=== PATIENT | female | born 1950 | race Caucasian/White ===

== ENCOUNTER 2016-10-23 19:54 | Emergency (ER) | payer MEDICARE, OTHER ==
[~2016-10-23] VITALS: Ht 157.5 cm; Wt 55.3 kg
[~2016-10-23 19:54] MED LIST: LEVE250T2 PO; LEVE500T20 PO; LEVO50TA PO; LEVO88TA5 PO; PANT40VI IV
[2016-10-23] MEDS ORDERED: IV SET PRIMARY 1 EA INFUS.SET MC ONE (19:59)
[2016-10-23] MEDS ORDERED: IV NS 0.9% 1,000 ML ONE (19:59)
[2016-10-23] MEDS ORDERED: IV NS 0.9% 1,000 ML BAG IV ONE (20:00)
--- NOTE | 2016-10-23 20:00 | NUR ---
to bed 6 a 59 yo female bibra with c/o fever at home. Patient is lethargic, nonverbal, does not follow commands. hx of down syndrome, seizure. Upon arrival to er, patient's temp is 100.2f per rectal. sinus rhythm on the monitor. Initiated comfort measures. Initiated cooling measures. Awaiting for er md lawson.
--- NOTE | 2016-10-23 20:06 | NUR ---
Dr Soto at bedside for eval.
--- NOTE | 2016-10-23 20:15 | NUR ---
Started a saline lock on the lacg 18, blood drawn and sent to lab.
[2016-10-23 20:17] LABS: BASOPHILS % (AUTO) 0.4 % (0.0-2.0); EOSINOPHILS % (AUTO) 0.5 % (0.0-6.0); HEMATOCRIT 46 % (33-45); HEMOGLOBIN 15.4 g/dL (11.5-14.8); LYMPHOCYTES # (AUTO) 1.6 /CMM (0.8-4.8); LYMPHOCYTES % (AUTO) 18.5 % (20.0-44.0); MEAN CORPUSCULAR HEMOGLOBIN 33 PG (26.0-33.0); MEAN CORPUSCULAR HGB CONC 34 g/dl (31.0-36.0); MEAN CORPUSCULAR VOLUME 97 fL (82-100); MONOCYTES # (AUTO) 0.4 /CMM (0.1-1.30); MONOCYTES % (AUTO) 5.2 % (2.0-12.0); NEUTROPHILS # (AUTO) 6.5 /CMM (1.8-8.9); NEUTROPHILS % (AUTO) 75.4 % (43.0-81.0); PLATELET COUNT (AUTO) 205 /CMM (150-450); RDW COEFFICIENT OF VARIATION 12.9 (11.5-15.0); RED BLOOD CELL COUNT(AUTO) 4.72 MIL/uL (4.0-5.2); WHITE BLOOD COUNT (AUTO) 8.5 K/uL (4.3-11.0)
--- NOTE | 2016-10-23 20:17 | NUR ---
performed straight catheter aseptically, drained about 100cc orange clear urine. sample collected and sent to lab.
--- NOTE | 2016-10-23 20:19 | NUR ---
nut grader at bedside.
[2016-10-23 20:25] LABS: APPEARANCE,URINE Clear (CLEAR); BILIRUBIN,URINE Negative (NEGATIVE); BLOOD, URINE Negative Ery/uL (NEGATIVE); COLOR,URINE Yellow (YELLOW); KETONES,URINE Negative (NEGATIVE); LEUKOCYTE ESTERASE ,URINE Negative (NEGATIVE); NITRITE, URINE Negative (NEGATIVE); PROTEIN,URINE Negative (NEGATIVE); UGLUCOSE Negative (NEGATIVE); UROBILINOGEN,URINE 0.2 EU/dL (0.2)
[2016-10-23 20:27] LABS: CALCIUM, SERUM 8.2 mg/dL (8.5-10.1); CARBON DIOXIDE 28 mmol/L (21-32); CHLORIDE 105 mmol/L (98-107); GFR 55 mL/min (>60); GLUCOSE 124 mg/dL (74-106); POTASSIUM 4.1 mmol/L (3.5-5.1); SODIUM SERUM 140 mmol/L (136-145); UREA NITROGEN, BLOOD 26 mg/dL (7-18)
[2016-10-23 20:31] LABS: INR 0.99 (0.87-1.13); PROTHROMBIN TIME 10.3 SECS (9.5-12.7)
[2016-10-23 20:33] LABS: ALANINE AMINOTRANSFERASE 13 U/L (12-78); ALBUMIN 2.8 g/dL (3.4-5.0); ALKALINE PHOSPHATASE 100 U/L (46-116); ASPARTATE AMINOTRANSFERASE 15 U/L (15-37); BILIRUBIN,DIRECT 0.1 mg/dL (0.0-0.2); BILIRUBIN,TOTAL 0.3 mg/dL (0.2-1.0); TOTAL PROTEIN, SERUM 6.8 g/dL (6.4-8.2)
[2016-10-23 20:35] LABS: TROPONIN I < 0.017 ng/mL (0.00-0.056)
--- NOTE | 2016-10-23 20:36 | NUR ---
sister of patient at bedside with Dr Soto.
[2016-10-23 20:53] LABS: LACTIC ACID 1.6 mmol/L (0.4-2.0)
--- NOTE | 2016-10-23 21:32 | NUR ---
IV removed. Catheter intact and site benign. Pressure and 4x4 applied to site. No bleeding noted. Patient discharged to home in stable condition. Written and verbal after care instructions given to sister and caregiver and both verbalized understanding of instruction. Patient wheeled to private car. No further complaints.
[2016-10-23 21:33] VITALS: BP 112/64
== END 2016-10-23 21:34 | disposition home or self-care (01) ==
LOC: ER 19:55
DX: R50.9 Fever, unspecified (principal); E03.9 Hypothyroidism, unspecified; I10 Essential (primary) hypertension; Q90.9 Down syndrome, unspecified
CPT/HCPCS: 36415; 71010-TC; 80048-TC; 80076-TC; 81000-TC; 83605-TC; 84484-TC; 85025-TC; 85730-TC; 87040-TC; 87086-TC; A4606; J7030; Z7610

== ENCOUNTER 2017-03-12 17:16 | Emergency (ER) | payer MEDICARE, OTHER ==
[~2017-03-12] VITALS: Ht 152.4 cm; Wt 54.4 kg
--- NOTE | 2017-03-12 17:28 | NUR ---
COUGH/CONGESTION x 3-4 DAYS
--- NOTE | 2017-03-12 18:16 | NUR ---
CERTIFIED NOVELL ENGINEER AT BEDSIDE
[2017-03-12 19:17] VITALS: BP 145/83
== END 2017-03-12 19:17 | disposition home or self-care (01) ==
LOC: ER 17:18
DX: J06.9 Acute upper respiratory infection, unspecified (principal); Q90.9 Down syndrome, unspecified; I10 Essential (primary) hypertension; E03.9 Hypothyroidism, unspecified
CPT/HCPCS: 71010; 99283; A4606; Z7610

== ENCOUNTER 2018-04-29 13:51 | Inpatient (IN) | payer OTHER, MEDICARE ==
[~2018-04-29] VITALS: Ht 152.4 cm; Wt 52.6 kg
--- NOTE | 2018-04-29 14:08 | NUR ---
ASSUME PT CARE. BIB CAREGIVER FOR COUGH AND CONGESTION X 2 WEEKS NOW. LAST NIGHT AT 0100 PT DEVELOPED A FEVER. GOWNED AND PLACED ON MONITOR. AFEBRILE POURED PIPE MAKER. AWAITING MD MAIN.
--- NOTE | 2018-04-29 14:10 | NUR ---
DR GARCIA AT BEDSIDE FOR EVAL.
--- NOTE | 2018-04-29 14:30 | NUR ---
RADIOLOGY AT BEDSIDE FOR CHEST XRAY.
[2018-04-29 14:31] LABS: BASOPHILS # (AUTO) 0.1 /CMM (0.0-0.2); BASOPHILS % (AUTO) 0.3 % (0.0-2.0); EOSINOPHILS % (AUTO) 0.4 % (0.0-6.0); HEMATOCRIT 46 % (33-45); LYMPHOCYTES # (AUTO) 1.4 /CMM (0.8-4.8); LYMPHOCYTES % (AUTO) 5.9 % (20.0-44.0); MEAN CORPUSCULAR HGB CONC 32 g/dl (31.0-36.0); MEAN CORPUSCULAR VOLUME 99 fL (82-100); MONOCYTES # (AUTO) 1.7 /CMM (0.1-1.30); MONOCYTES % (AUTO) 7.2 % (2.0-12.0); NEUTROPHILS # (AUTO) 19.8 /CMM (1.8-8.9); NEUTROPHILS % (AUTO) 86.2 % (43.0-81.0); PLATELET COUNT (AUTO) 289 /CMM (150-450); RED BLOOD CELL COUNT(AUTO) 4.71 MIL/uL (4.0-5.2)
[2018-04-29 14:42] LABS: CALCIUM, SERUM 8.7 mg/dL (8.5-10.1); CARBON DIOXIDE 32 mmol/L (21-32); CHLORIDE 104 mmol/L (98-107); CREATININE 0.9 mg/dL (0.6-1.3); GLUCOSE 141 mg/dL (74-106); POTASSIUM 4.6 mmol/L (3.5-5.1); SODIUM SERUM 141 mmol/L (136-145); UREA NITROGEN, BLOOD 12 mg/dL (7-18)
[2018-04-29 14:55] LABS: ALANINE AMINOTRANSFERASE 15 U/L (12-78); ALBUMIN 1.8 g/dL (3.4-5.0); ALKALINE PHOSPHATASE 106 U/L (46-116); ASPARTATE AMINOTRANSFERASE 29 U/L (15-37); B-TYPE NATRIURETIC PEPTIDE 389 PG/ML (0-125); BILIRUBIN,DIRECT 0.1 mg/dL (0.0-0.2); BILIRUBIN,TOTAL 0.5 mg/dL (0.2-1.0); TOTAL PROTEIN, SERUM 7.3 g/dL (6.4-8.2)
[2018-04-29] MEDS ORDERED: CEFTRIAXONE 1 G in IV D5W 50 ML IV ONE (15:30)
[2018-04-29] MEDS ORDERED: IV NS 0.9% 1,000 ML BAG IV ONE (15:30)
[2018-04-29] MEDS ORDERED: ALBUTEROL FS 2.5 MG/0.5 ML VIAL.NEB NEB ONE (15:30)
[2018-04-29] MEDS ORDERED: AZITHROMYCIN 500 MG in IV D5W 250 ML IV ONE (15:30)
[2018-04-29] MEDS ORDERED: CEFTRIAXONE 1GM BAG (ER ONLY) 50 ML IV ONE (15:39)
--- NOTE | 2018-04-29 15:40 | NUR ---
CALLED NURSE SUP FOR TELE BED
[2018-04-29] MEDS ORDERED: ALBUTEROL FS 2.5 MG/0.5 ML VIAL.NEB ONE (15:54)
--- NOTE | 2018-04-29 15:54 | NUR ---
RT AT BEDSIDE FOR BREATHING TREATMENT.
[2018-04-29] MEDS ORDERED: ACETAMINOPHEN 325 MG TABLET PO PRN (16:00)
[2018-04-29] MEDS ORDERED: Z GUARD REMEDY 2 OZ OINT TP PRN (16:00)
[2018-04-29] MEDS ORDERED: GUAIFENESIN 300 MG/15 ML UDC PO PRN (16:00)
[2018-04-29] MEDS ORDERED: MAGNESIUM HYDROXIDE 30 ML UDC PO PRN (16:00)
[2018-04-29] MEDS ORDERED: MAG HYDROX/AL HYDROX/SIMETH 30 ML UDC PO PRN (16:00)
[2018-04-29] MEDS ORDERED: ONDANSETRON HCL/PF 4 MG/2 ML VIAL IVP PRN (16:00)
[2018-04-29] MEDS ORDERED: HYDROCODONE/APAP 5/325MG 1 EACH TABLET PO PRN (16:00)
[2018-04-29] MEDS ORDERED: ZOLPIDEM TARTRATE 5 MG TABLET PO PRN (16:00)
--- NOTE | 2018-04-29 16:52 | NUR ---
REPORT TO GHAZAL GARCIA. PT AWAITING TRANSFER TO FLOOR.
--- NOTE | 2018-04-29 17:20 | NUR ---
MS RN NOTES RECEIVED PATIENT FROM ER, CAME IN STABLE CONDITION. PATIENT IS CONGESTED UPON AUSCULTATION, VITAL SIGNS ARE STABLE, ARMHOLE BASTER HAND PRESENT AT BEDSIDE, IV LINE IS INTACT AND PATENT. ADMISSION PICTURES WERE TAKEN AND PUT IN CHART. BED SIDE RAILS ARE UP X2. BED IS LOCKED AND LOWERED, WILL CONTINUE TO MONITOR PATIENT.
[2018-04-29] MEDS: ENOXAPARIN SODIUM 40 MG/0.4 ML DISP.SYRIN SQ SCH (18:28)
[2018-04-29] MEDS: LEVETIRACETAM (250 MG) 250 MG TABLET PO SCH (18:38)
--- NOTE | 2018-04-29 19:15 | NUR ---
DIESEL ENGINEER OPENING NOTES RECEIVED PATIENT AWAKE ALERT AND ORIENTED X1, NON VERBAL NOTED PATIENT WITH MOANS AND GRUNTS ONLY. ON 2 L VIA NC RESPIRATIONS EVEN AND UNLABORED WITH EQUAL RISE AND FALL OF CHEST, NOTED COUGH IS PRESENT, PATIENT REMAINS AFEBRILE AT THIS TIME, ON STOCK CLERK [address] AT THIS TIME, IV SITE TO RIGHT HAND #20 G INTACT AND PATENT, NO REDNESS, NO INFILTRATION PRESENT, ORIENTED PATIENT AND CAREGIVER TO STAFF AND CALL LIGHT, SAFETY PRECAUTIONS IN PLACE, ALL NEEDS ATTENDED AT THIS TIME WILL CONTINUE TO MONITOR.
--- NOTE | 2018-04-29 19:29 | NUR ---
MS RN CLOSING NOTES PATIENT IS IN STABLE CONDITION. IN NO APPARENT DISTRESS. BEDSIDE RAILS ARE UPX2. BED IS LOCKED AND LOWERED. CALL LIGHT IS WITHIN REACH. IV LINE IS INTACT AND PATENT. ALL NEEDS WERE MET. WILL ENDORSE CARE TO SERVICE CAR OPERATOR NURSE FOR GENEVIEVE.
[2018-04-29 20:00] VITALS: BP_SYST 130; BP_SYST 136; BP_DIAS 112; BP_DIAS 53
[2018-04-29] MEDS: IV D5/ 0.9% NACL 1,000 ML IV PRN (20:26)
[2018-04-29] MEDS: IPRATROPIUM NEB FS 0.5 MG/2.5 ML AMPUL.NEB NEB PRN (20:43)
[2018-04-29] MEDS: ALBUTEROL FS 2.5 MG/0.5 ML VIAL.NEB NEB PRN (20:43)
--- NOTE | 2018-04-29 20:43 | NUR ---
PLANNING AND ANALYSIS MANAGER NOTES NOTED PATIENT WITH COUGH AND CONGESTION RT CALLED FOR PRN BREATHING TREATMENT NOTE SPO2 91% ON 2 L VIA NC PER RT INCREASE TO 3L AT THIS TIME. WILL CONTINUE TO MONITOR FOR EFFECTIVENESS. NO RESPIRATORY DISTRESS PRESENT. RESPIRATIONS EVEN AND UNLABORED
--- NOTE | 2018-04-29 21:30 | NUR ---
SENIOR SITE MANAGER NOTES NOTED BREATHING TREATMENT EFFECTIVE, NOTED LESS COUGHING AND CONGESTION AND INCREASE IN SPO2 TO 94%. PATIENT REMAINS COMFORTABLE AT THIS TIME RESPIRATIONS EVEN AND UNLABORED.
[2018-04-30] VITALS: BP 108/61
[2018-04-30 04:00] VITALS: BP 103/45
[2018-04-30 06:45] LABS: BASOPHILS % (AUTO) 0.2 % (0.0-2.0); EOSINOPHILS % (AUTO) 0.3 % (0.0-6.0); HEMATOCRIT 38 % (33-45); HEMOGLOBIN 12.5 g/dL (11.5-14.8); LYMPHOCYTES # (AUTO) 2.3 /CMM (0.8-4.8); LYMPHOCYTES % (AUTO) 11.2 % (20.0-44.0); MEAN CORPUSCULAR HGB CONC 33 g/dl (31.0-36.0); MEAN CORPUSCULAR VOLUME 98 fL (82-100); MONOCYTES # (AUTO) 1.8 /CMM (0.1-1.30); MONOCYTES % (AUTO) 8.6 % (2.0-12.0); NEUTROPHILS # (AUTO) 16.4 /CMM (1.8-8.9); NEUTROPHILS % (AUTO) 79.7 % (43.0-81.0); PLATELET COUNT (AUTO) 270 /CMM (150-450); RED BLOOD CELL COUNT(AUTO) 3.88 MIL/uL (4.0-5.2); WHITE BLOOD COUNT (AUTO) 20.5 K/uL (4.3-11.0)
--- NOTE | 2018-04-30 06:50 | NUR ---
CORN HUSKER MACHINE OPERATOR CLOSING NOTES PATIENT SLEEPING BUT EASILY AROUSABEL AND ORIENTED X1, NON VERBAL NOTED PATIENT WITH MOANS AND GRUNTS ONLY. ON 2 L VIA NC RESPIRATIONS EVEN AND UNLABORED WITH EQUAL RISE AND FALL OF CHEST, NOTED COUGH IS PRESENT, NON PRODUCTIVE AT THIS TIME SPO2 96% 2-3L PATIENT REMAINS AFEBRILE AT THIS TIME, ON COMMISSIONS SPECIALIST [address] AT THIS TIME, IV SITE TO RIGHT HAND #20 G INTACT AND PATENT, NO REDNESS, NO INFILTRATION PRESENT,IVF RUNNING ORDERED. CALL LIGHT KEPT WITHIN REACH, SAFETY PRECAUTIONS IN PLACE, ALL NEEDS ATTENDED AT THIS TIME WILL CONTINUE TO MONITOR AND ENDORSE TO NEXT SHIFT..
[2018-04-30 07:04] LABS: CALCIUM, SERUM 7.6 mg/dL (8.5-10.1); CREATININE 0.8 mg/dL (0.6-1.3); MAGNESIUM 1.7 mg/dL (1.8-2.4); PHOSPHORUS 3.2 mg/dL (2.5-4.9); POTASSIUM 3.6 mmol/L (3.5-5.1)
[2018-04-30 07:11] LABS: THYROID STIMULATING HORMONE 2.823 uIU/mL (0.358-3.74)
[2018-04-30] MEDS: LEVOTHYROXINE SODIUM 88 MCG TABLET PO SCH (07:30)
[2018-04-30] MEDS: PANTOPRAZOLE 40 MG TABLET.DR PO SCH (07:30)
[2018-04-30] MEDS: IV D5/ 0.9% NACL 1,000 ML IV PRN ×2 (07:31→21:14)
--- NOTE | 2018-04-30 07:39 | NUR ---
MS RN OPENING NOTES RECEIVED PT FROM NIGHTSHIFT RN STABLE CONDITION. PT IS A/O X1 [id number]. NO SOB OR ACUTE SIGNS OF DISTRESS NOTED. BREATHING IS EVEN AND UNLABORED. PT ON 3 L VIA NC AND SATING WELL. IV NOTED TO BE PATENT AND INTACT. NO REDNESS OR SIGNS OF INFILTRATION NOTED. PT TOLERATING NS INFUSION WELL AND ORDERED RATE. BED IN LOW LOCKED POSITION, SIDE RAILS UP X3, CALL LIGHT WITHIN REACH, BED ALARM ON, PT'S [id number] AT BEDSIDE. WILL CONTINUE TO MONITOR
[2018-04-30] MEDS: IPRATROPIUM NEB FS 0.5 MG/2.5 ML AMPUL.NEB NEB PRN (07:53)
[2018-04-30] MEDS: ALBUTEROL FS 2.5 MG/0.5 ML VIAL.NEB NEB PRN (07:53)
[2018-04-30] MEDS: LEVETIRACETAM (250 MG) 250 MG TABLET PO SCH ×3 (09:00→17:23)
--- NOTE | 2018-04-30 10:31 | NUR ---
MS RN NOTES: DIET ORDER/SPEECH THERAPIST SPEECH THERAPIST IN ROOM WITH PT AND PT'S CAREGIVER FOR EVALUATION. DR. AMOR IN ROOM WELL. PER SPEECH THERAPIST, "PT MAY BE STARTED ON A PUREED DIET". MD IN AGREEMENT. DIET ORDER CHANGED
[2018-04-30] MEDS: Magnesium 1GM/D5W 100ML PREMIX 100 ML IV SCH ×2 (11:07→12:10)
[2018-04-30] MEDS: CEFTRIAXONE 1 G in IV D5W 50 ML IV SCH (15:33)
[2018-04-30 16:00] VITALS: BP 106/70
[2018-04-30] MEDS: AZITHROMYCIN 500 MG in IV D5W 250 ML IV SCH (17:23)
--- NOTE | 2018-04-30 18:58 | NUR ---
MS RN CLOSING NOTES PT REMAINS STABLE. VITALS STABLE THROUGHOUT SHIFT. PT REPOSITIONED AND TURNED PER PROTOCOL. BREATHING REMAINS EVEN AND UNLABORED. SAFETY MEASURES REMAIN IN PLACE. CAREGIVER AT BEDSIDE. WILL ENDORSE TO NIGHTSHIFT RN FOR GENEVIEVE
--- NOTE | 2018-04-30 19:56 | NUR ---
RN MS OPENING NOTES. RECEIVED PT IN BED, SLEEPING EASILY AROUSED TO TOUCH [place] NAME CALL, MANAGER RENTAL AT BED SIDE. BREATHING EVEN AND UNLABORED ON RA. IV ACCESS ON THE R HAND 20G WITH D5 1/2 @100ML. IN NO APPARENT DISTRESS. BED IN LOWEST LOCKED POSITION, CALL LIGHT WITHIN REACH AT ALL TIMES. WILL CONTINUE TO MONITOR
[2018-04-30 20:00] VITALS: BP 91/51
[2018-04-30] MEDS: ENOXAPARIN SODIUM 40 MG/0.4 ML DISP.SYRIN SQ SCH (20:17)
--- NOTE | 2018-05-01 06:14 | NUR ---
RN MS CLOSING NOTES PT REMAINS IN BED, SLEEPING, EASILY AROUSED TO TOUCH. BREATHING EVEN AND UNLABORED ON O2 3L VIA NC WITH COUGHING INTERMITTENTLY DURING NIGHT, RECEIVED ROBITUSSIN AT 2122. IV ACCESS ON THE R HAND 20G WITH D5 NS@100ML/HR. KEPT PT CLEAN AND DRY DURING SHIFT, BED IN LOWEST LOCKED POSITION, CALL LIGHT WITHIN REACH AT ALL TIMES, WILL ENDORSE TO DAY NURSE FOR GENEVIEVE
--- NOTE | 2018-05-01 06:59 | NUR ---
REDNESS FROM GROIN SPREADING TO THE ABDOMEN AND CHEST, DOCUMENTED AND PICTURES ON FILE.
[2018-05-01] MEDS: LEVOTHYROXINE SODIUM 88 MCG TABLET PO SCH (07:30)
[2018-05-01] MEDS: PANTOPRAZOLE 40 MG TABLET.DR PO SCH (07:30)
--- NOTE | 2018-05-01 07:30 | NUR ---
MS RN RECEIVED ON BED, AWAKE,ALERT,ORIENTED X1, NOT IN ANY FORM OF DISTRESS, FRESH FOOD MANAGER AT BEDSIDE,WILL MONITOR PATIENT.
[2018-05-01] MEDS: IV D5/ 0.9% NACL 1,000 ML IV PRN (07:33)
[2018-05-01 08:00] VITALS: BP 111/54
--- NOTE | 2018-05-01 08:00 | NUR ---
MS GARCIA BREAKFAST SERVED,DUE MEDS GIVEN,TOLERATED WELL.
[2018-05-01 08:46] LABS: BASOPHILS # (AUTO) 0.1 /CMM (0.0-0.2); BASOPHILS % (AUTO) 0.4 % (0.0-2.0); EOSINOPHILS % (AUTO) 1.1 % (0.0-6.0); HEMATOCRIT 38 % (33-45); HEMOGLOBIN 12.4 g/dL (11.5-14.8); LYMPHOCYTES # (AUTO) 1.9 /CMM (0.8-4.8); LYMPHOCYTES % (AUTO) 13.1 % (20.0-44.0); MEAN CORPUSCULAR HGB CONC 33 g/dl (31.0-36.0); MEAN CORPUSCULAR VOLUME 99 fL (82-100); MONOCYTES # (AUTO) 1.4 /CMM (0.1-1.30); MONOCYTES % (AUTO) 9.4 % (2.0-12.0); NEUTROPHILS # (AUTO) 11.2 /CMM (1.8-8.9); PLATELET COUNT (AUTO) 267 /CMM (150-450); RED BLOOD CELL COUNT(AUTO) 3.88 MIL/uL (4.0-5.2); WHITE BLOOD COUNT (AUTO) 14.8 K/uL (4.3-11.0)
[2018-05-01 09:08] LABS: CALCIUM, SERUM 7.9 mg/dL (8.5-10.1); CREATININE 0.8 mg/dL (0.6-1.3); MAGNESIUM 1.9 mg/dL (1.8-2.4); PHOSPHORUS 2.8 mg/dL (2.5-4.9); POTASSIUM 3.4 mmol/L (3.5-5.1)
[2018-05-01] MEDS: LEVETIRACETAM (250 MG) 250 MG TABLET PO SCH ×2 (10:56→17:31)
--- NOTE | 2018-05-01 11:00 | NUR ---
MS GARCIA WAS SEEN BY DR. MT Nelson/ ORDERS MADE AND CARRIED OUT.
[2018-05-01] MEDS ORDERED: POTASSIUM CHLORIDE 20 MEQ TAB.PRT.SR PO ONE (12:30)
--- NOTE | 2018-05-01 14:00 | NUR ---
MS RN INSERTED A NEW IV SITE AT LEFT WRIST G24, GOOD VENOUS OUTPUT.
[2018-05-01 16:00] VITALS: BP 95/48
[2018-05-01] MEDS: CEFTRIAXONE 1 G in IV D5W 50 ML IV SCH (17:31)
[2018-05-01] MEDS: LACTOBACILLUS RHAMNOSUS GG 1 EACH CAP.SPRINK PO SCH (17:33)
[2018-05-01] MEDS: AZITHROMYCIN 500 MG in IV D5W 250 ML IV SCH (17:34)
--- NOTE | 2018-05-01 18:09 | NUR ---
MS RN ON BED,NO DISTRESS NOTED,ALL NEEDS ATTENDED.
--- NOTE | 2018-05-01 19:19 | NUR ---
MS RN NOTE: RECEIVED PT ON BED ALERT AND AWAKE. CAREGIVER AT BEDSIDE. NO ACUTE DISTRESS NOTED. NO COMPLAINTS OF PAIN OR DISCOMFORT AT THIS TIME. NO SOB NOTED. IV ON LEFT HAND #24 INTACT AND PATENT, FLUSHING WELL. KEPT CLEAN, DRY AND COMFORTABLE. SAFETY AND FALL PRECAUTIONS OBSERVED AND MAINTAINED. WILL CONTINUE TO MONITOR PT.
[2018-05-01 20:00] VITALS: BP 91/49
[2018-05-01] MEDS: ENOXAPARIN SODIUM 40 MG/0.4 ML DISP.SYRIN SQ SCH (20:54)
[2018-05-02 00:33] VITALS: BP 95/48
[2018-05-02] MEDS: IV D5/ 0.9% NACL 1,000 ML IV PRN (02:58)
--- NOTE | 2018-05-02 06:50 | NUR ---
MS RN NOTE: NO CHANGES NOTED THROUGHOUT THE SHIFT. NO APPARENT DISTRESS NOTED. ON 3LPM NASAL CANNULA, SATURATING WELL. HEAD OF BED ELEVATED. KEPT CLEAN, DRY AND COMFORTABLE. SAFETY AND FALL PRECAUTIONS OBSERVED AND MAINTAINED. WILL ENDORSE TO DAY SHIFT RN FOR CONTINUITY OF CARE.
--- NOTE | 2018-05-02 07:35 | NUR ---
MS RN RECEIVED ON BED,SLEEPING,NOT IN ANY FORM OF DISTRESS, RESPIRATIONS EVEN AND UNLABORED,NO SOB NOTED, ALL NEEDS ATTENDED, WILL MONITOR PATIENT.
[2018-05-02 07:49] LABS: BASOPHILS % (AUTO) 0.1 % (0.0-2.0); EOSINOPHILS % (AUTO) 1.1 % (0.0-6.0); HEMATOCRIT 39 % (33-45); HEMOGLOBIN 12.7 g/dL (11.5-14.8); LYMPHOCYTES # (AUTO) 1.5 /CMM (0.8-4.8); LYMPHOCYTES % (AUTO) 11.7 % (20.0-44.0); MEAN CORPUSCULAR HGB CONC 33 g/dl (31.0-36.0); MEAN CORPUSCULAR VOLUME 99 fL (82-100); MONOCYTES # (AUTO) 1.1 /CMM (0.1-1.30); MONOCYTES % (AUTO) 8.5 % (2.0-12.0); NEUTROPHILS # (AUTO) 10.4 /CMM (1.8-8.9); NEUTROPHILS % (AUTO) 78.6 % (43.0-81.0); PLATELET COUNT (AUTO) 264 /CMM (150-450); RED BLOOD CELL COUNT(AUTO) 3.89 MIL/uL (4.0-5.2); WHITE BLOOD COUNT (AUTO) 13.2 K/uL (4.3-11.0)
[2018-05-02 07:51] LABS: CALCIUM, SERUM 7.8 mg/dL (8.5-10.1); CREATININE 0.7 mg/dL (0.6-1.3); MAGNESIUM 1.6 mg/dL (1.8-2.4); POTASSIUM 3.8 mmol/L (3.5-5.1)
[2018-05-02 08:00] VITALS: BP 130/89
--- NOTE | 2018-05-02 09:20 | NUR ---
MS GARCIA WAS SEEN BY DR. MT Nelson/ ORDERS MADE AND CARRIED OUT.
[2018-05-02] MEDS: PANTOPRAZOLE 40 MG TABLET.DR PO SCH (09:43)
[2018-05-02] MEDS: LEVOTHYROXINE SODIUM 88 MCG TABLET PO SCH (09:43)
[2018-05-02] MEDS: LACTOBACILLUS RHAMNOSUS GG 1 EACH CAP.SPRINK PO SCH ×2 (09:44→17:33)
[2018-05-02] MEDS: LEVETIRACETAM (250 MG) 250 MG TABLET PO SCH ×2 (09:44→17:33)
[2018-05-02] MEDS: Magnesium 1GM/D5W 100ML PREMIX 100 ML IV SCH ×2 (14:52→16:15)
[2018-05-02 16:00] VITALS: BP 102/84
[2018-05-02] MEDS: CEFTRIAXONE 1 G in IV D5W 50 ML IV SCH (16:16)
[2018-05-02] MEDS: AZITHROMYCIN 500 MG in IV D5W 250 ML IV SCH (17:33)
--- NOTE | 2018-05-02 18:56 | NUR ---
MS RN ON BED, NO DISTRESS NOTED,ALL NEEDS ATTENDED.
--- NOTE | 2018-05-02 19:10 | NUR ---
RN NOTES RECEIVED PATIENT ON BED ALERT AND AWAKE. NO ACUTE DISTRESS NOTED. NO SIGNS OF PAIN OR DISCOMFORT AT THIS TIME. NO SOB NOTED, ON 02 INHALATION AT 3LPM VIA NC. IV ON LEFT HAND #24 INTACT AND PATENT, FLUSHING WELL. KEPT CLEAN, DRY AND COMFORTABLE. SAFETY AND FALL PRECAUTIONS OBSERVED.CAREGIVER AT BEDSIDE. WILL CONTINUE TO MONITOR PT.
[2018-05-02 20:00] VITALS: BP 138/72
[2018-05-02] MEDS: ENOXAPARIN SODIUM 40 MG/0.4 ML DISP.SYRIN SQ SCH (21:07)
--- NOTE | 2018-05-03 07:35 | NUR ---
RN NOTES PATIENT SLEPT WELL OVERNIGHT, VITAL SIGNS STABLE, AFEBRILE. NO SIGNS OF DISTRESS AND DISCOMFORT NOTED. KEPT PT CLEAN AND DRY. TURNED AND REPOSITIONED PER PROTOCOL. SPOKE TO SISTER GUDELIA LAST NIGHT UPDATED ON THE PT CONDITION. SISTER GOT UPSET WHY PT HAS REDNESS ON THE GROIN SACRUM AND BREASTFOLD BECAUSE FAR KNOWS PT HAS NO REDNESS. SISTER INFORMED THAT WHEN PT CAME PICTURE WAS TAKEN AND REDNESS WAS NOTED SINCE ADMISSION. ALL NEEDS ATTENDED. ENDORSED TO MORNING RN FOR CONTINUITY OF CARE.
[2018-05-03 08:00] VITALS: BP_SYST 124; BP_SYST 140; BP_DIAS 74; BP_DIAS 79
[2018-05-03] MEDS: LEVOTHYROXINE SODIUM 88 MCG TABLET PO SCH (09:08)
[2018-05-03] MEDS: LACTOBACILLUS RHAMNOSUS GG 1 EACH CAP.SPRINK PO SCH (09:08)
[2018-05-03] MEDS: LEVETIRACETAM (250 MG) 250 MG TABLET PO SCH (09:08)
[2018-05-03] MEDS: PANTOPRAZOLE 40 MG TABLET.DR PO SCH (09:09)
--- NOTE | 2018-05-03 12:00 | NUR ---
MS RN NOTES FOR DISCHARGE TODAY ORDERED. NOTED AND CARRIED OUT.
[2018-05-03] MEDS ORDERED: LEVO750T21 PO (13:16)
--- NOTE | 2018-05-03 16:30 | NUR ---
MS RN NOTES PATIENT DISCHARGE NOTED AND CARRIED OUT ALL NEEDS ATTENDED, DISCHARGE PAPERWORK GIVEN AND DISCUSSED TO CAREGIVER.
--- NOTE | 2018-05-03 17:00 | NUR ---
MS RN NOTES DISCHARGED PATIENT TO HOME ACCOMPANIED BY CAREGIVER. DISCHARGE SUMMARY GIVEN AND SIGNED BY CAREGIVER.
== END 2018-05-03 18:00 | disposition home health service (06) | DRG 139 ==
LOC: ER 13:53 → TELE 17:15 → MED 04-30 10:32
DX: J15.9 Unspecified bacterial pneumonia (principal); E43 Unspecified severe protein-calorie malnutrition; R53.2 Functional quadriplegia; L89.623 Pressure ulcer of left heel, stage 3; E88.09 Other disorders of plasma-protein metabolism, not elsewhere classified; E83.42 Hypomagnesemia; E86.0 Dehydration; Q90.9 Down syndrome, unspecified; G40.909 Epilepsy, unspecified, not intractable, without status epilepticus; E87.6 Hypokalemia; E03.9 Hypothyroidism, unspecified; H54.7 Unspecified visual loss; D72.829 Elevated white blood cell count, unspecified
CPT/HCPCS: 36415; 71045-TC; 80048-TC; 80061-TC; 80076-TC; 83605-TC; 83735-TC; 83880; 84100-TC; 84443-TC; 84484-TC; 85025-TC; 85730-TC; 87040-TC; 87081-TC; 92521; 92526; A4606; A6402; G0378; J0456; J0696; J1650; J3475; J3490; J7030; J7040; J7042; J7050; J7060; Z7610

== ENCOUNTER 2018-11-29 14:45 | Outpatient (CLI) | payer MEDICARE, OTHER ==
[~2018-11-29 14:45] MED LIST changes: -LEVE250T2 PO; -LEVO50TA PO; +LEVO750T21 PO; -PANT40VI IV
== END 2018-11-29 23:59 | disposition home health service (06) ==
LOC: WOU 14:45
PROVIDERS: ATTEND Podiatrist Foot & Ankle Surgery
DX: L89.620 Pressure ulcer of left heel, unstageable (principal); Z74.09 Other reduced mobility; Q90.9 Down syndrome, unspecified
CPT/HCPCS: A6402; G0463

== ENCOUNTER 2018-12-24 13:00 | Outpatient (CLI) | payer MEDICARE, OTHER | END 2018-12-24 23:59 | disposition home health service (06) | LOC: WOU 13:00 | PROVIDERS: ATTEND Podiatrist Foot & Ankle Surgery | DX: L89.620 Pressure ulcer of left heel, unstageable (principal); Z74.09 Other reduced mobility; Q90.9 Down syndrome, unspecified | CPT/HCPCS: G0463 ==

== ENCOUNTER 2019-06-19 17:22 | Inpatient (IN) | payer OTHER, MEDICARE ==
[~2019-06-19] VITALS: Ht 152.4 cm; Wt 53.1 kg
[2019-06-19 17:30] LABS: ABG BASE EXCESS -2.8 mmol/L; ABG OXYGEN SATURATION 87.8 % (92.0-98.5); ABG PCO2 35.6 mmHg (35.0-45.0); ABG PH 7.394 (7.350-7.450); ABG PO2 53.5 mmHg (75.0-100.0); AaDO2 623.9 mmHg; COHb 1.3 % (0.5-1.5); MetHb 0.4 % (0.0-1.5); O2Hb 86.3 % (94.0-97.0); SITE, ABG Right Brachial; VENT MODE, BG CPAP MASK (PARAMEDICS)
[2019-06-19] MEDS ORDERED: VANCOMYCIN 1 GM in IV D5W 250 ML IV ONE (18:00)
[2019-06-19] MEDS ORDERED: MEROPENEM 1,000 MG in IV NS 0.9% 100 ML IV ONE (18:00)
[2019-06-19] MEDS ORDERED: ACETAMINOPHEN 650 MG/SUPP.RECT RC ONE ×2 (18:00→18:03)
[2019-06-19 18:09] LABS: BASOPHILS % (AUTO) 0.3 % (0.0-2.0); EOSINOPHILS % (AUTO) 0.1 % (0.0-6.0); HEMATOCRIT 52 % (33-45); LYMPHOCYTES # (AUTO) 1.1 /CMM (0.8-4.8); LYMPHOCYTES % (AUTO) 10.6 % (20.0-44.0); MEAN CORPUSCULAR HGB CONC 33 g/dl (31.0-36.0); MEAN CORPUSCULAR VOLUME 102 fL (82-100); MONOCYTES # (AUTO) 0.2 /CMM (0.1-1.30); MONOCYTES % (AUTO) 2.2 % (2.0-12.0); NEUTROPHILS # (AUTO) 9.2 /CMM (1.8-8.9); NEUTROPHILS % (AUTO) 86.8 % (43.0-81.0); PLATELET COUNT (AUTO) 199 /CMM (150-450); RED BLOOD CELL COUNT(AUTO) 5.04 MIL/uL (4.0-5.2); WHITE BLOOD COUNT (AUTO) 10.5 K/uL (4.3-11.0)
[2019-06-19 18:22] LABS: ABG OXYGEN SATURATION 99.1 % (92.0-98.5); ABG PCO2 39.3 mmHg (35.0-45.0); ABG PH 7.381 (7.350-7.450); ABG PO2 251.3 mmHg (75.0-100.0); AaDO2 422.4 mmHg; COHb 0.8 % (0.5-1.5); MetHb 0.5 % (0.0-1.5); O2Hb 97.8 % (94.0-97.0); SITE, ABG Right Brachial; VENT MODE, BG BIPAP 15/5
[2019-06-19 18:27] LABS: ALANINE AMINOTRANSFERASE 16 U/L (12-78); ALBUMIN 2.8 g/dL (3.4-5.0); ALKALINE PHOSPHATASE 95 U/L (46-116); ASPARTATE AMINOTRANSFERASE 24 U/L (15-37); BILIRUBIN,DIRECT 0.2 mg/dL (0.0-0.2); BILIRUBIN,TOTAL 0.8 mg/dL (0.2-1.0); CALCIUM, SERUM 8.7 mg/dL (8.5-10.1); CARBON DIOXIDE 27 mmol/L (21-32); CHLORIDE 105 mmol/L (98-107); GLUCOSE 153 mg/dL (74-106); POTASSIUM 4.4 mmol/L (3.5-5.1); SODIUM SERUM 142 mmol/L (136-145); TOTAL PROTEIN, SERUM 7.7 g/dL (6.4-8.2); UREA NITROGEN, BLOOD 19 mg/dL (7-18)
[2019-06-19] MEDS ORDERED: methylPREDNISolone SOD SUCC 125 MG/2ML VIAL ONE (18:41)
--- NOTE | 2019-06-19 18:58 | NUR ---
Patient on Bipap tolerated well her child care director @ bedside continue to monitor
[2019-06-19] MEDS ORDERED: IV NS 0.9% 1,000 ML BAG IV ONE (19:00)
[2019-06-19] MEDS ORDERED: LEVETIRACETAM (500MG) 1,000 MG in IV NS 0.9% 100 ML IV SCH (19:30)
--- NOTE | 2019-06-19 19:47 | NUR ---
Transfer care to Jignesh GARCIA
--- NOTE | 2019-06-19 19:56 | NUR ---
REPORT CALLED TO PERSONAL SECRETARYJOSE VILLASEÑOR. WILL TRANSPORT PT VIA ACLS PROTOCOL.
[2019-06-19] MEDS ORDERED: LEVETIRACETAM (500MG) 500 MG/5 ML VIAL IV ONE ×2 (19:59→20:09)
[2019-06-19] MEDS ORDERED: IV NS 0.9% 1,000 ML IV PRN (20:41)
[2019-06-19 20:46] LABS: ABG BASE EXCESS -3.9 mmol/L; ABG OXYGEN SATURATION 96.1 % (92.0-98.5); ABG PCO2 38.4 mmHg (35.0-45.0); ABG PH 7.358 (7.350-7.450); ABG PO2 87.7 mmHg (75.0-100.0); AaDO2 153.3 mmHg; MetHb 0.5 % (0.0-1.5); O2Hb 94.7 % (94.0-97.0); SITE, ABG Left Brachial; VENT MODE, BG Bipap 15/5 40% RR 14
[2019-06-19 21:00] VITALS: BP 93/54
[2019-06-19] MEDS ORDERED: ACETAMINOPHEN 325 MG TABLET PO PRN (21:00)
[2019-06-19] MEDS ORDERED: ONDANSETRON HCL/PF 4 MG/2 ML VIAL IVP PRN (21:00)
[2019-06-19] MEDS ORDERED: Z GUARD REMEDY 2 OZ OINT TP PRN (21:00)
[2019-06-19] MEDS ORDERED: MAG HYDROX/AL HYDROX/SIMETH 30 ML UDC PO PRN (21:00)
[2019-06-19] MEDS ORDERED: MAGNESIUM HYDROXIDE 30 ML UDC PO PRN (21:00)
[2019-06-19] MEDS: ENOXAPARIN SODIUM 40 MG/0.4 ML DISP.SYRIN SQ SCH (21:37)
[2019-06-19 21:58] VITALS: BP 73/46
[2019-06-19 22:00] VITALS: BP 86/64
[2019-06-19 22:06] VITALS: BP 86/64
[2019-06-19 22:28] VITALS: BP 97/35
--- NOTE | 2019-06-19 22:39 | NUR ---
INFORMED OF B/P 86 ORDERS OBTAINED
[2019-06-19 23:00] VITALS: BP 97/35
[2019-06-19] MEDS ORDERED: IV NS 0.9% 500 ML IV ONE (23:00)
[2019-06-20] VITALS (23 sets, daily range): BP systolic 79–141; BP diastolic 41–98
[2019-06-20] MEDS: LORAZEPAM INJ 2 MG/ML VIAL IV PRN ×3 (01:04→17:53)
--- NOTE | 2019-06-20 01:05 | NUR ---
NOTED PT HAVING SZ MEDICATED WITH ATIVAN WITH GOOD RESULTS
[2019-06-20 05:04] LABS: BASOPHILS % (AUTO) 0.1 % (0.0-2.0); HEMATOCRIT 43 % (33-45); LYMPHOCYTES # (AUTO) 0.5 /CMM (0.8-4.8); LYMPHOCYTES % (AUTO) 3.1 % (20.0-44.0); MEAN CORPUSCULAR HGB CONC 33 g/dl (31.0-36.0); MEAN CORPUSCULAR VOLUME 102 fL (82-100); MONOCYTES # (AUTO) 0.3 /CMM (0.1-1.30); MONOCYTES % (AUTO) 1.8 % (2.0-12.0); NEUTROPHILS # (AUTO) 16.4 /CMM (1.8-8.9); PLATELET COUNT (AUTO) 157 /CMM (150-450); RED BLOOD CELL COUNT(AUTO) 4.19 MIL/uL (4.0-5.2); WHITE BLOOD COUNT (AUTO) 17.2 K/uL (4.3-11.0)
[2019-06-20 05:17] LABS: CALCIUM, SERUM 7.8 mg/dL (8.5-10.1); CREATININE 0.9 mg/dL (0.6-1.3); MAGNESIUM 1.7 mg/dL (1.8-2.4); PHOSPHORUS 2.9 mg/dL (2.5-4.9); POTASSIUM 4.5 mmol/L (3.5-5.1)
[2019-06-20 05:58] LABS: THYROID STIMULATING HORMONE 0.245 uIU/mL (0.358-3.74)
[2019-06-20 06:39] LABS: ABG BASE EXCESS -2.5 mmol/L; ABG OXYGEN SATURATION 96.5 % (92.0-98.5); ABG PCO2 48.4 mmHg (35.0-45.0); ABG PH 7.314 (7.350-7.450); ABG PO2 89.6 mmHg (75.0-100.0); AaDO2 212.5 mmHg; COHb 0.8 % (0.5-1.5); MetHb 0.3 % (0.0-1.5); O2Hb 95.4 % (94.0-97.0); SITE, ABG Left Brachial
[2019-06-20] MEDS ORDERED: FEE PK DOSING 1 MIN EA MC ONE (07:28)
[2019-06-20] MEDS: LEVOTHYROXINE SODIUM 88 MCG TABLET PO SCH (07:30)
--- NOTE | 2019-06-20 07:46 | NUR ---
TRADE RECRUITER NOTE PATIENT IN BED ON BIPAP SETTING ORDERED NO SOB NOTED AT THIS TIME NONVERBAL CLOSED BOTH EYES , UNABLE TO RESPONSE TO VERBAL AND TACTILE STIMULI SAT 96% AT THIS TIME, WITH [facility] CATH TO GRAVITY WITH YELLOW TEA COLOR URINE, ON TELE MAGITOT SR HR 54 , BED IN LOWEST AND LOCKED POSITION ON IVF ORDERED RT AT BEDSIDE ,WILL MONITOR
[2019-06-20] MEDS: IPRATROPIUM NEB FS 0.5 MG/2.5 ML AMPUL.NEB NEB SCH ×4 (07:53→19:25)
[2019-06-20] MEDS: ALBUTEROL FS 2.5 MG/0.5 ML VIAL.NEB NEB SCH ×4 (07:53→19:25)
[2019-06-20] MEDS: VANCOMYCIN 0.75 GM in IV D5W 250 ML IV SCH ×2 (07:55→20:45)
[2019-06-20] MEDS: methylPREDNISolone SOD SUCC 40 MG/ML VIAL IV SCH ×3 (08:45→16:17)
[2019-06-20] MEDS ORDERED: LEVETIRACETAM (500MG) 1,000 MG in IV NS 0.9% 100 ML IV SCH (09:00)
[2019-06-20 09:21] LABS: ABG BASE EXCESS -3.2 mmol/L; ABG OXYGEN SATURATION 94.5 % (92.0-98.5); ABG PCO2 44.7 mmHg (35.0-45.0); ABG PH 7.327 (7.350-7.450); ABG PO2 77.8 mmHg (75.0-100.0); AaDO2 228.4 mmHg; COHb 0.3 % (0.5-1.5); MetHb 0.6 % (0.0-1.5); O2Hb 93.6 % (94.0-97.0); SITE, ABG Left Brachial
--- NOTE | 2019-06-20 09:24 | NUR ---
PRIMER EXPEDITOR AND DRIER NOTE DR. LAMAS AWARE OF ABG RESULTS. STATED CONTINUE ON BIPAP SETTING AT THIS TIME. WILL MONITOR.
[2019-06-20] MEDS: MEROPENEM 1 G in IV NS 0.9% 100 ML IV SCH ×2 (09:50→21:40)
--- NOTE | 2019-06-20 10:08 | NUR ---
called for ct head, pt not ready. rt/nurse is going to run by ordering md.
[2019-06-20] MEDS: Magnesium 1GM/D5W 100ML PREMIX 100 ML IV SCH ×2 (10:16→11:44)
[2019-06-20] MEDS ORDERED: DEXTROSE 50%-WATER 50 ML DISP.SYRIN IV PRN (11:00)
[2019-06-20] MEDS ORDERED: INSULIN REGULAR, HUMAN 100 UNIT/ML 3 ML VIAL SQ PRN (11:00)
--- NOTE | 2019-06-20 11:05 | NUR ---
COMMERCIAL LINES MANAGER NOTE DURING EGG NOTED SEIZURE ACTIVITIES OVER 2 MIN ATIVAN 2 MG IVP GIVEN ORDERED ALSO PER DR HARLEY NINO TO PLACE IV HL ON FOOT AND GET MID LINE, ORDER CARRIED OUT
--- NOTE | 2019-06-20 11:10 | NUR ---
FLASH OVEN OPERATOR NOTE BP 79/46 AND 80/42 DR SOUZA NOTIFIED OK TO INCREASE IV FLUIDS TO 100 ML/HOUR WILL FOLLOW UP
[2019-06-20] MEDS: IV NS 0.9% 1,000 ML IV PRN (11:26)
[2019-06-20] MEDS: LEVOFLOXACIN 750 MG /D5W 150ML 150 ML IV SCH (11:48)
--- NOTE | 2019-06-20 11:57 | NUR ---
OR RN NOTE EGG DONE
[2019-06-20] MEDS ORDERED: BLOOD SUGAR DIAGNOSTIC 1 EACH STRIP IN SCH (12:00)
--- NOTE | 2019-06-20 12:00 | NUR ---
MARKETING ADMINISTRATOR NOTE PER RT AND DR SOUZA OK TO HOLD CT HEAD AT THIS TIME ,PATIENT NOT STABLE AND BP 80/45 ,PATIENT ON BIPAP WILL F\U
--- NOTE | 2019-06-20 13:00 | NUR ---
SPOKE TO DR. SOUZA REGARDING NEURO CONSULT-PER ALIZA NUNEZ TO CALL DR. BLACK FOR CONSULT. TAWNYA ZHU AWARE OF CONSULT.
--- NOTE | 2019-06-20 13:07 | NUR ---
SUPERVISOR IN CHARGE NOTE SPECIMEN FOR INFLUENZA ANTIGEN FOR A AND B OBTAINED ORDERED AND SENT TO LABORATORY
--- NOTE | 2019-06-20 14:04 | NUR ---
ROUNDHOUSE WORKER NOTES AUDRA CULLEN NEUROLOGY AT BEDSIDE AWARE THAT PT HAD EARLIER FREQUENT TREMOR ON UPPER AND LOWER EXTREMITIES. ATIVAN GIVEN AT 11AM. WBC 7.2 PT ON IV FLUID ON 100ML LACTIC ACID 2.5 ON KEPPRA AND UNABLE TO DO CT OF HEAD DUE TO PT CONDITION, ORDERED TO GET URINE CULTURE AND SPUTUM CULTURE. RT NOTIFIED
--- NOTE | 2019-06-20 15:07 | NUR ---
PATTERN HANGER NOTE UA COLLECTED ORDERED AND MID LINE ON LT UPPER ARM ORDERED
[2019-06-20 16:40] LABS: APPEARANCE,URINE SL CLOUDY (CLEAR); BILIRUBIN,URINE NEGATIVE (NEGATIVE); BLOOD, URINE MODERATE Ery/uL (NEGATIVE); COLOR,URINE YELLOW (YELLOW); KETONES,URINE TRACE (NEGATIVE); LEUKOCYTE ESTERASE ,URINE NEGATIVE (NEGATIVE); NITRITE, URINE NEGATIVE (NEGATIVE); PH,URINE 5.5 (5.0-8.0); PROTEIN,URINE 30 mg/dl (NEGATIVE); UGLUCOSE NEGATIVE (NEGATIVE); UROBILINOGEN,URINE 0.2 EU/dL (0.2)
--- NOTE | 2019-06-20 16:53 | NUR ---
RT NOTE: PATIENT RECEIVED ON BIPAP WITH UNDER THE NOSE MASK. SETTINGS PER MD ORDERS. PATIENT IS SPUTUM SAMPLE COLLECTED. NURSE NOTIFIED. TOLERATING WELL. ALARMS VERIFIED AND AUDIBLE.
[2019-06-20 17:17] LABS: WBC,URINE 0-2 /HPF (0-3)
[2019-06-20 17:18] LABS: BACTERIA,URINE None seen /HPF (None Seen); SQUAMOUS EPITHELIAL CELL,UR Few /HPF (None Seen)
--- NOTE | 2019-06-20 17:20 | NUR ---
FINANCIAL COMPLIANCE MANAGER NOTE RT AT BEDSIDE SPUTUM CX OBTAINED BY RT
--- NOTE | 2019-06-20 18:02 | NUR ---
ROVING COURT REPORTER NOTE NOTED WITH SEVERE TREMORS LOWER EXTREMITIES BP 161/110,SAT 95% ATIVAN 2 MG IVP GIVEN ORDERED ,WILL MONITOR
--- NOTE | 2019-06-20 18:20 | NUR ---
Patient has hx of down syndrome and epilepsy. She resides locally with her sister and a 24hour caregiver. Patient requires max to total assist with adl's. Available DME: walker, wheelchair and shower chair. Was previously on service with [facility] [phone] . Her pcp is Dr. Jerome Manning. Current dc plan is to return home once discharge. Addendum: 06/20/19 at 1822 by HALINA THIBODEAUX RN Amended: Links added.
--- NOTE | 2019-06-20 18:28 | NUR ---
DIRECTOR OF TRANSPORTATION NOTE PATIENT NOW MORE ALERT ,OPEN HER EYES, CAREGIVER AT BEDSIDE, NOT IN DISTRESS, B P 111/52 SAT 95%, WILL CONT TO MONITOR
--- NOTE | 2019-06-20 20:31 | NUR ---
RT NOTE PT RECEIVED ON BIPAP. NOSE MASK SECURED. AMBU BAG @ BEDSIDE. TX GIVEN, NO ADVERSE REACTIONS NOTED. NO SOB NOTED. WILL CONTINUE TO MONITOR. Addendum: 06/20/19 at 2034 by LORRAINE COLEMAN RT Amended: Links added.
[2019-06-20] MEDS: LEVETIRACETAM (500MG) 1,500 MG in IV NS 0.9% 100 ML IV SCH (21:40)
[2019-06-20] MEDS: ENOXAPARIN SODIUM 40 MG/0.4 ML DISP.SYRIN SQ SCH (21:56)
[2019-06-21] VITALS (38 sets, daily range): BP systolic 78–152; BP diastolic 30–105
[2019-06-21] MEDS: IV NS 0.9% 1,000 ML IV PRN ×3 (01:09→23:36)
[2019-06-21 04:55] LABS: BASOPHILS % (AUTO) 0.1 % (0.0-2.0); HEMATOCRIT 37 % (33-45); HEMOGLOBIN 12.3 g/dL (11.5-14.8); LYMPHOCYTES # (AUTO) 0.6 /CMM (0.8-4.8); LYMPHOCYTES % (AUTO) 3.6 % (20.0-44.0); MEAN CORPUSCULAR HGB CONC 33 g/dl (31.0-36.0); MEAN CORPUSCULAR VOLUME 102 fL (82-100); MONOCYTES # (AUTO) 0.2 /CMM (0.1-1.30); MONOCYTES % (AUTO) 1.2 % (2.0-12.0); NEUTROPHILS # (AUTO) 16.3 /CMM (1.8-8.9); NEUTROPHILS % (AUTO) 95.1 % (43.0-81.0); PLATELET COUNT (AUTO) 157 /CMM (150-450); RED BLOOD CELL COUNT(AUTO) 3.66 MIL/uL (4.0-5.2); WHITE BLOOD COUNT (AUTO) 17.2 K/uL (4.3-11.0)
[2019-06-21 05:14] LABS: CALCIUM, SERUM 7.8 mg/dL (8.5-10.1); CREATININE 0.8 mg/dL (0.6-1.3); MAGNESIUM 2.2 mg/dL (1.8-2.4)
--- NOTE | 2019-06-21 07:00 | NUR ---
RN AM SHIFT NOTE PATIENT OBTUUNDED OPENS EYES AND IS NON VERBAL. IV PATENT AND INTACT FLUSHING WELL. CATHETERE PATENT AND DRINING YELLOW URINE. ALL LABS WNL VITALS STABLE ON BIPAP AT 50% O2. SATING ABOVE 95 %. NO SS/ OF DISTRESS. BED IN LOW POSITION CALL LIHT WITHIN REACH. WILL TAKE TO MRI TODAY PER NEURO. PICTURE OF SACRAL SCAR TAKEN AND PLACED IN CHART.
[2019-06-21] MEDS: IPRATROPIUM NEB FS 0.5 MG/2.5 ML AMPUL.NEB NEB SCH ×4 (07:23→19:28)
[2019-06-21] MEDS: ALBUTEROL FS 2.5 MG/0.5 ML VIAL.NEB NEB SCH ×4 (07:23→19:28)
[2019-06-21] MEDS: LEVOTHYROXINE SODIUM 88 MCG TABLET PO SCH (07:30)
--- NOTE | 2019-06-21 07:48 | NUR ---
WOUND CARE CONSULT: PT PRESENTS WITH LEFT HEEL INTACT DEEP TISSUE INJURY AND SACRAL SCAR, PRESENT ON ADMISSION. PT ON BIPAP AT THIS TIME. RECOMMENDATIONS MADE FOR SKIN PROTECTION AND WOUND CARE. DISCUSSED WITH NURSING STAFF. CURRENT SETH SCORE IS 14. Addendum: 06/21/19 at 0753 by EVARISTO CARLISLE WNDNU Amended: Links added.
[2019-06-21] MEDS: methylPREDNISolone SOD SUCC 40 MG/ML VIAL IV SCH ×3 (08:09→16:49)
[2019-06-21] MEDS: MEROPENEM 1 G in IV NS 0.9% 100 ML IV SCH ×2 (09:26→22:57)
[2019-06-21] MEDS: LEVETIRACETAM (500MG) 1,500 MG in IV NS 0.9% 100 ML IV SCH ×2 (09:35→22:57)
[2019-06-21 09:37] LABS: ABG BASE EXCESS -1.8 mmol/L; ABG OXYGEN SATURATION 97.4 % (92.0-98.5); ABG PH 7.395 (7.350-7.450); ABG PO2 98.3 mmHg (75.0-100.0); AaDO2 215.5 mmHg; MetHb 0.4 % (0.0-1.5); SITE, ABG Left Radial; VENT MODE, BG ST 15/5 BUR 14
[2019-06-21] MEDS: VANCOMYCIN 0.75 GM in IV D5W 250 ML IV SCH ×2 (09:44→20:05)
--- NOTE | 2019-06-21 11:35 | NUR ---
CHURCH COMMUNICATIONS ADMINISTRATOR TO SHIELA NOTE JOSE SANDOVAL ENDORSED MILI TO JOHNSON GARCIA. PATIENT STABLE , RN TO FOLLOW UP AND CALL FAMILY REQUEST PRIMARY MD SPEAK TO THEM JOSE ORNELAS AWARE. PATIENT OFF BIPAP AND ABGS CAME BACK UNCHANGED RESPIRATORY HAS PATIENT ON NASAL CANNULA TOLERATING WELL AND O2 REMANS ABOVE 95%.
--- NOTE | 2019-06-21 12:45 | NUR ---
received pt from [facility], lethargic, does not follow commands, SR, on 3L 02 sat well, lungs congested, no edema, NPO, f/c OK output, v/s stable, no pain, pt turned and repositioned.
[2019-06-21 14:18] LABS: ABG BASE EXCESS -3.1 mmol/L; ABG OXYGEN SATURATION 96.3 % (92.0-98.5); ABG PCO2 44.1 mmHg (35.0-45.0); ABG PH 7.331 (7.350-7.450); ABG PO2 87.4 mmHg (75.0-100.0); AaDO2 147.1 mmHg; COHb 0.1 % (0.5-1.5); MetHb 0.4 % (0.0-1.5); O2Hb 95.8 % (94.0-97.0); SITE, ABG Right Brachial; VENT MODE, BG NC 5L
--- NOTE | 2019-06-21 16:27 | NUR ---
pt is resting in the bed, lethargic, does not follow commands, SR, 5L 02 sat well, NPO, OK urine output, v/s stable, no pain, pt cleaned, changed and repositioned q2hrs.
[2019-06-21] MEDS: ENOXAPARIN SODIUM 40 MG/0.4 ML DISP.SYRIN SQ SCH (23:37)
[2019-06-22] VITALS (47 sets, daily range): BP systolic 96–145; BP diastolic 38–101
[2019-06-22 05:06] LABS: BASOPHILS % (AUTO) 0.1 % (0.0-2.0); HEMATOCRIT 37 % (33-45); HEMOGLOBIN 12.3 g/dL (11.5-14.8); LYMPHOCYTES # (AUTO) 0.5 /CMM (0.8-4.8); LYMPHOCYTES % (AUTO) 3.9 % (20.0-44.0); MEAN CORPUSCULAR HGB CONC 33 g/dl (31.0-36.0); MEAN CORPUSCULAR VOLUME 103 fL (82-100); MONOCYTES # (AUTO) 0.2 /CMM (0.1-1.30); MONOCYTES % (AUTO) 1.6 % (2.0-12.0); NEUTROPHILS # (AUTO) 12.7 /CMM (1.8-8.9); NEUTROPHILS % (AUTO) 94.4 % (43.0-81.0); PLATELET COUNT (AUTO) 169 /CMM (150-450); WHITE BLOOD COUNT (AUTO) 13.5 K/uL (4.3-11.0)
[2019-06-22 05:11] LABS: CREATININE 0.9 mg/dL (0.6-1.3); POTASSIUM 3.9 mmol/L (3.5-5.1)
--- NOTE | 2019-06-22 07:00 | NUR ---
RN NOTES RECEIVED PT ON BED , NON VERBAL , LETHARGIC , DOES NOT FOLLOW COMMAND, ON TELE SB HR IN 50'S ,O2 SAT WNL, ON 3L O2 N/C , [facility] DRAINING TO GRAVITY, PT IS NPO AT THIS TIME, NS AT 100CC/HR RUNNING VIA L UPPER ARM MIDLINE , SITE CLEAN, DRY AND INTACT, SR UP x3, CALL LIGHT WITHIN EASY REACH, BED LOCKED AND IN LOWEST POSITION, CONTINUE TO MONITOR .
[2019-06-22] MEDS: ALBUTEROL FS 2.5 MG/0.5 ML VIAL.NEB NEB SCH ×4 (07:52→20:19)
[2019-06-22] MEDS: IPRATROPIUM NEB FS 0.5 MG/2.5 ML AMPUL.NEB NEB SCH ×4 (07:52→20:19)
[2019-06-22] MEDS: methylPREDNISolone SOD SUCC 40 MG/ML VIAL IV SCH ×3 (08:28→16:16)
[2019-06-22] MEDS: VANCOMYCIN 0.75 GM in IV D5W 250 ML IV SCH ×3 (08:29→21:22)
[2019-06-22] MEDS: LEVOTHYROXINE SODIUM 88 MCG TABLET PO SCH (08:29)
[2019-06-22] MEDS: LEVETIRACETAM (500MG) 1,500 MG in IV NS 0.9% 100 ML IV SCH ×2 (09:24→21:22)
[2019-06-22] MEDS: MEROPENEM 1 G in IV NS 0.9% 100 ML IV SCH ×2 (09:52→21:23)
[2019-06-22] MEDS: LEVOFLOXACIN 750 MG /D5W 150ML 150 ML IV SCH (10:51)
--- NOTE | 2019-06-22 12:20 | NUR ---
RN NOTE PT TAKEN TO CT VIA ACLS PROTOCOL, UNABLE TO GET CT DONE. PT DESATURATED AND IN RESPIRATORY DISTRESS , PT BAGGED AND BROUGHT BACK TO THE ROOM , DR LAMAS AND HARLEY CRESPO, ABG AND CX-RAY ORDERED , CONTINUE TO MONITOR .
--- NOTE | 2019-06-22 12:46 | NUR ---
RT NOTE RT CALLED TO CT SCAN. PT IN RESPIRATORY DISTRESS AND DESATURATING. PT BAGGED TO ICU. RN KATHARINA AND CHARGE NURSE SAMANTHA BEDSIDE. PRN TX ADMINISTERED. NO ACUTE RESPIRATORY DISTRESS NOTED POST TX.
[2019-06-22] MEDS ORDERED: IPRATROPIUM NEB FS 0.5 MG/2.5 ML AMPUL.NEB NEB ONE (13:00)
[2019-06-22] MEDS ORDERED: ALBUTEROL FS 2.5 MG/0.5 ML VIAL.NEB NEB ONE (13:00)
--- NOTE | 2019-06-22 13:00 | NUR ---
SPOKE AT [facility] WITH PATIENT BROTHER/DPOA FRANK ARCHER-UPDATE WITH PATIENT CONDITION AND STATUS. PER BROTHER/DPOA WILL KEEP PATIENT ON FULL CODE AT THIS TIME INCLUDING INTUBATION.
[2019-06-22 13:16] LABS: ABG BASE EXCESS -2.4 mmol/L; ABG OXYGEN SATURATION 89.2 % (92.0-98.5); ABG PCO2 38.8 mmHg (35.0-45.0); ABG PH 7.379 (7.350-7.450); ABG PO2 55.8 mmHg (75.0-100.0); AaDO2 184.8 mmHg; COHb 0.5 % (0.5-1.5); MetHb 0.3 % (0.0-1.5); O2Hb 88.5 % (94.0-97.0); SITE, ABG Right Brachial; VENT MODE, BG 5L NC
--- NOTE | 2019-06-22 13:20 | NUR ---
ABG/CXR DONE WITH NO SIGNIFICANT CHANGE FROM PREVIOUS RESULTS.
--- NOTE | 2019-06-22 13:55 | NUR ---
RN NOTES PT STABLE, O2 SAT ON 5L N/C 93-94%, CONTINUE TO MONITOR .
[2019-06-22] MEDS: IV NS 0.9% 1,000 ML IV PRN (14:03)
--- NOTE | 2019-06-22 15:27 | NUR ---
RN NOTES CALL RECEIVED FROM PT'S BROTHER ( DR. ARCINIEGA ), REQUESTING DNR AND OK TO INTUBATED STATUS. CHARGE NURSE , SAMANTHA , ALSO SPOKE TO PT'S BROTHER AND DNR AND OK TO INTUBATED STATUS VERIFIED ON THE PHONE .
--- NOTE | 2019-06-22 18:32 | NUR ---
RN NOTES VSS STABLE AT THIS TIME, NS AT 100CC/HR RUNNING , MIDLINE SITE CLEAN , DRY AND INTACT, PT STAYS IN ICU PER DR LAMAS ORDER . SR UP X3, CALL LIGHT WITHIN EASY REACH, WILL ENDOSE TO SURVEILLANCE SUPERVISOR NURSE FOR CONTINUITY OF CARE .
[2019-06-22] MEDS: ENOXAPARIN SODIUM 40 MG/0.4 ML DISP.SYRIN SQ SCH (21:36)
[2019-06-23] VITALS (21 sets, daily range): BP systolic 97–161; BP diastolic 53–89
[2019-06-23] MEDS: IV NS 0.9% 1,000 ML IV PRN ×2 (01:58→13:56)
[2019-06-23 05:04] LABS: BASOPHILS % (AUTO) 0.3 % (0.0-2.0); HEMATOCRIT 38 % (33-45); HEMOGLOBIN 12.5 g/dL (11.5-14.8); LYMPHOCYTES # (AUTO) 0.6 /CMM (0.8-4.8); LYMPHOCYTES % (AUTO) 5.3 % (20.0-44.0); MEAN CORPUSCULAR HGB CONC 33 g/dl (31.0-36.0); MEAN CORPUSCULAR VOLUME 101 fL (82-100); MONOCYTES # (AUTO) 0.4 /CMM (0.1-1.30); MONOCYTES % (AUTO) 3.9 % (2.0-12.0); NEUTROPHILS # (AUTO) 10.3 /CMM (1.8-8.9); NEUTROPHILS % (AUTO) 90.5 % (43.0-81.0); PLATELET COUNT (AUTO) 158 /CMM (150-450); RED BLOOD CELL COUNT(AUTO) 3.74 MIL/uL (4.0-5.2); WHITE BLOOD COUNT (AUTO) 11.4 K/uL (4.3-11.0)
[2019-06-23 05:43] LABS: CALCIUM, SERUM 7.9 mg/dL (8.5-10.1); CREATININE 0.8 mg/dL (0.6-1.3); POTASSIUM 3.6 mmol/L (3.5-5.1)
--- NOTE | 2019-06-23 07:01 | NUR ---
RN NOTES PATIENT RESTING COMFORTABLY IN BED WITH NO DISTRESS NOTED. BREATHING EVEN AND UNLABORED. ON 5L O2 VIA NASAL CANNULA TOLERATING WELL. 02 SAT BASELINE INCREASED TO 97% -100% FROM 91% TO 94%. STABLE FOR LOWER LEVEL OF CARE ACCORDING TO DR. LAMAS. VITAL SIGNS REMAINS WNL. WILL ENDORSE TO NEXT SHIFT FOR CONTINUITY OF CARE.
[2019-06-23] MEDS: LEVOTHYROXINE SODIUM 88 MCG TABLET PO SCH (07:30)
[2019-06-23] MEDS: IPRATROPIUM NEB FS 0.5 MG/2.5 ML AMPUL.NEB NEB SCH ×4 (07:44→19:30)
[2019-06-23] MEDS: ALBUTEROL FS 2.5 MG/0.5 ML VIAL.NEB NEB SCH ×4 (07:44→19:30)
[2019-06-23] MEDS: VANCOMYCIN 0.75 GM in IV D5W 250 ML IV SCH ×2 (08:42→21:40)
[2019-06-23] MEDS: methylPREDNISolone SOD SUCC 40 MG/ML VIAL IV SCH ×3 (09:51→17:40)
[2019-06-23] MEDS: LEVETIRACETAM (500MG) 1,500 MG in IV NS 0.9% 100 ML IV SCH ×2 (09:51→22:04)
[2019-06-23] MEDS: MEROPENEM 1 G in IV NS 0.9% 100 ML IV SCH ×2 (10:29→21:25)
--- NOTE | 2019-06-23 11:00 | NUR ---
RN CLOSING NOTE PATIENT TRANSFERRED TO 3W ROOM 307. REPORT CALLED IN TO DAMIAN.
--- NOTE | 2019-06-23 11:00 | NUR ---
Received report from ICU . Patient will admitted to MS .
--- NOTE | 2019-06-23 11:15 | NUR ---
Received patient via hospital bed, healthcare corporate account director at bedside. Patient non-verbal and open eyes to light touch. Midline to the ANALIA flushing well , NS 0.9 % running as ordered. Patient NPO. Swallow evaluation pending. VS are stable and patient placed on O2 3l via NC , saturation above 96%. Safety precautions in place , bed in lowest and locked position , side rails up x3. heel washer stringing machine operator educated to use call light. Will monitor patient
--- NOTE | 2019-06-23 18:52 | NUR ---
PATIENT RESTING COMFORTABLY IN BED WITH NO DISTRESS NOTED. BREATHING EVEN AND UNLABORED. ON 3L O2 VIA NASAL CANNULA TOLERATING WELL. VITAL SIGNS REMAINS WNL.IV FLUID RUNNING ORDERED. MIDLINE SIDE INTACT AND PATENT.SAFETY PRECAUTIONS IN PLACE WILL ENDORSE TO NEXT SHIFT FOR CONTINUITY OF CARE.
[2019-06-23] MEDS: ENOXAPARIN SODIUM 40 MG/0.4 ML DISP.SYRIN SQ SCH (21:25)
[2019-06-24] MEDS: IV NS 0.9% 1,000 ML IV PRN ×2 (04:13→16:20)
[2019-06-24 06:01] LABS: BASOPHILS % (AUTO) 0.1 % (0.0-2.0); HEMATOCRIT 43 % (33-45); HEMOGLOBIN 14.3 g/dL (11.5-14.8); LYMPHOCYTES # (AUTO) 0.6 /CMM (0.8-4.8); LYMPHOCYTES % (AUTO) 7.2 % (20.0-44.0); MEAN CORPUSCULAR HGB CONC 34 g/dl (31.0-36.0); MEAN CORPUSCULAR VOLUME 99 fL (82-100); MONOCYTES # (AUTO) 0.6 /CMM (0.1-1.30); MONOCYTES % (AUTO) 7.9 % (2.0-12.0); NEUTROPHILS # (AUTO) 6.7 /CMM (1.8-8.9); NEUTROPHILS % (AUTO) 84.8 % (43.0-81.0); PLATELET COUNT (AUTO) 167 /CMM (150-450); WHITE BLOOD COUNT (AUTO) 7.9 K/uL (4.3-11.0)
[2019-06-24 06:36] LABS: CALCIUM, SERUM 8.4 mg/dL (8.5-10.1); CREATININE 0.6 mg/dL (0.6-1.3); POTASSIUM 2.9 mmol/L (3.5-5.1)
--- NOTE | 2019-06-24 06:58 | NUR ---
MS RN NOTES AWAKE, NON VERBAL. NOT IN ANY DISTRESS. NO SOB NOTED. NO S/SX OF ANY PAIN OR DISCOMFORT AT THIS TIME. WITH IVF INFUSING WELL. WITH F/C DRAINING TO YELLOWISH OUTPUT MODERATE IN AMOUNT. AM CARE DONE. MONITORED ACCORDINGLY. CALL LIGHT WITHIN REACH. BED IN LOWEST POSITION. SR UP X 3 WITH BED ALARM ON FOR SAFETY. WILL ENDORSE TO NEXT SHIFT.
--- NOTE | 2019-06-24 07:24 | NUR ---
MS JOSE NOTES UNABLE TO TAKE PICTURES LAST NIGHT. PICTURES WILL BE TAKEN BY MATHEUS GARCIA. ENDORSED ACCORDINGLY.
[2019-06-24] MEDS: LEVOTHYROXINE SODIUM 88 MCG TABLET PO SCH (07:30)
--- NOTE | 2019-06-24 07:30 | NUR ---
MS RN NOTES RECEIVED PATIENT IN BED RESTING COMFORTABLY IN MODERATE HIGH BACK REST, NON VERBAL. NOT IN ANY DISTRESS NOTED AT THIS TIME. NO S/SX OF ANY PAIN OR DISCOMFORT AT THIS TIME. WITH IVF INFUSING WELL. WITH F/C DRAINING WELL WITH YELLOWISH OUTPUT. SAFETY MEASURES IN PLACE, CALL LIGHT WITHIN REACH. BED IN LOWEST POSITION. SR UP X 3 WITH BED ALARM ON FOR SAFETY. WILL CONTINUE TO MONITOR.
[2019-06-24] MEDS: VANCOMYCIN 0.75 GM in IV D5W 250 ML IV SCH (07:33)
[2019-06-24 08:00] VITALS: BP 126/78
[2019-06-24] MEDS: ALBUTEROL FS 2.5 MG/0.5 ML VIAL.NEB NEB SCH ×4 (08:13→20:19)
[2019-06-24] MEDS: IPRATROPIUM NEB FS 0.5 MG/2.5 ML AMPUL.NEB NEB SCH ×4 (08:13→20:19)
[2019-06-24] MEDS: MEROPENEM 1 G in IV NS 0.9% 100 ML IV SCH (08:14)
[2019-06-24] MEDS: methylPREDNISolone SOD SUCC 40 MG/ML VIAL IV SCH ×3 (08:17→16:39)
[2019-06-24] MEDS: LEVETIRACETAM (500MG) 1,500 MG in IV NS 0.9% 100 ML IV SCH ×2 (09:07→21:42)
[2019-06-24] MEDS: LEVOFLOXACIN 750 MG /D5W 150ML 150 ML IV SCH (10:00)
[2019-06-24] MEDS: POTASSIUM CL. PREMIX PERIPHER. 50 ML IV SCH ×6 (10:47→16:25)
[2019-06-24 16:00] VITALS: BP 124/84
--- NOTE | 2019-06-24 17:45 | NUR ---
RN NOTES PICKED UP BY HOSPITAL STAFF FOR CT HEAD VIA [facility], NO SIGNS OF DISTRESS NOTED.
--- NOTE | 2019-06-24 18:15 | NUR ---
RN NOTES PATIENT CAME BACK IN STABLE CONDITION, NO SIGNS OF DISTRESS NOTED. WILL CONTINUE TO MONITOR.
--- NOTE | 2019-06-24 19:00 | NUR ---
MS RN NOTES PATIENT IN BED RESTING COMFORTABLY IN MODERATE HIGH BACK REST, NON VERBAL. NOT IN ANY DISTRESS NOTED THROUGHOUT THE SHIFT. WITH IVF INFUSING WELL. WITH F/C DRAINING WELL WITH YELLOWISH OUTPUT. SAFETY MEASURES IN PLACE, CALL LIGHT WITHIN REACH. BED IN LOWEST POSITION. SR UP X 3 WITH BED ALARM ON FOR SAFETY. WILL ENDORSE TO MANAGER CONSUMER INSIGHTS NURSE FOR GENEVIEVE.
--- NOTE | 2019-06-24 19:30 | NUR ---
MS RN OPENING NOTES PATIENT SLEEPING IN BED UPON ARRIVAL, ABLE TO OPEN EYES. PATIENT IS NON-VERBAL. CAREGIVER, BRANDON, AT THE BEDSIDE. ON 3L NC. NO S/S OF ACUTE RESPIRATORY DISTRESS AND NO S/S OF PAIN. [facility] CATH PRESENT, DRAINING WELL WITH CLEAR & YELLOW URINE. MIDLINE PRESENT ON LEFT UPPER ARM WITH NS RUNNING AT 100ML/HR. BED LOCKED, ALARM ON, SIDE RAILS X3, CALL LIGHT WITHIN REACH. WILL CONTINUE TO MONITOR.
[2019-06-24 20:00] VITALS: BP 133/57
[2019-06-24] MEDS: ENOXAPARIN SODIUM 40 MG/0.4 ML DISP.SYRIN SQ SCH (21:50)
[2019-06-25] MEDS: IV NS 0.9% 1,000 ML IV PRN ×2 (04:35→16:40)
[2019-06-25] MEDS: LEVOTHYROXINE SODIUM 88 MCG TABLET PO SCH (07:30)
--- NOTE | 2019-06-25 07:56 | NUR ---
MS RN CLOSING NOTES PATIENT SLEEPING IN BED, ABLE TO OPEN EYES. PATIENT IS NON-VERBAL. ON 3L NC. NO S/S OF ACUTE RESPIRATORY DISTRESS AND NO S/S OF PAIN. [facility] CATH PRESENT, DRAINING WELL WITH CLEAR & YELLOW URINE. MIDLINE PRESENT ON LEFT UPPER ARM WITH NS RUNNING AT 100ML/HR. BED LOCKED, ALARM ON, SIDE RAILS X3 & PADDED FOR SEIZURE PRECAUTION, CALL LIGHT WITHIN REACH. WILL ENDORSE TO DAY SHIFT NURSE TO FOLLOW PLAN OF CARE.
[2019-06-25] MEDS: ALBUTEROL FS 2.5 MG/0.5 ML VIAL.NEB NEB SCH ×4 (07:58→20:21)
[2019-06-25] MEDS: IPRATROPIUM NEB FS 0.5 MG/2.5 ML AMPUL.NEB NEB SCH ×4 (07:58→20:21)
[2019-06-25 08:00] VITALS: BP 124/71
--- NOTE | 2019-06-25 08:00 | NUR ---
MS RN OPENING NOTES RECEIVED PT IN BED. ASLEEP, RESTING COFORTABLE IN BED. NO CARDIAC OR RESPIRATORY DISTRESS NOTED. NO S/S OF PAIN OR DISCOMFORT. AROUSABLE ABLE TO OPEN EYES. PATIENT IS NON-VERBAL. CRESPONSIVE TO VERBAL AND TACTILE STIMULI. ON 3L NC. BREATH SOUNDS CLEAR, BRETHING EVEN AND UNLABORED. [facility] CATH PRESENT, PATENT AND DRAINING WELL WITH CLEAR & YELLOW URINE. MIDLINE PRESENT ON LEFT UPPER ARM WITH NS RUNNING AT 100ML/HR. BED LOCKED, ALARM ON, SIDE RAILS UP, CALL LIGHT WITHIN REACH. WILL CONTINUE TO MONITOR.
[2019-06-25 08:13] LABS: CALCIUM, SERUM 8.3 mg/dL (8.5-10.1); CREATININE 0.8 mg/dL (0.6-1.3); POTASSIUM 3.6 mmol/L (3.5-5.1)
[2019-06-25] MEDS: methylPREDNISolone SOD SUCC 40 MG/ML VIAL IV SCH ×3 (09:15→16:40)
[2019-06-25] MEDS: LEVETIRACETAM (500MG) 1,500 MG in IV NS 0.9% 100 ML IV SCH ×2 (09:53→20:25)
[2019-06-25 16:00] VITALS: BP 125/60
--- NOTE | 2019-06-25 18:31 | NUR ---
MS RN CLOSING NOTES PT IN BED. ASLEEP, RESTING COMFORTABLE IN BED. NO CARDIAC OR RESPIRATORY DISTRESS NOTED. NO S/S OF PAIN OR DISCOMFORT. AROUSABLE ABLE TO OPEN EYES. PATIENT IS NON-VERBAL. RESPONSIVE TO VERBAL AND TACTILE STIMULI. ON 2L NC. BREATH SOUNDS CLEAR, BREATHING EVEN AND UNLABORED. [facility] CATH PRESENT, PATENT AND DRAINING WELL WITH CLEAR & YELLOW URINE. MIDLINE PRESENT ON LEFT UPPER ARM WITH NS RUNNING AT 100ML/HR. BED LOCKED, ALARM ON, SIDE RAILS UP, CALL LIGHT WITHIN REACH. WILL CONTINUE TO MONITOR. TELEPHONE CONSENT OBTAINED FROM PTS NILAM (BROTHER) REGARDING PEG TUBE PLACEMENT. PT CONTINUES TO BE NPO. SCHEDULE FOR SURGERY/PROCEDURE IS TOMORROW IN AM. Addendum: 06/25/19 at 1840 by CY TAPIA RN MS RN CLOSING NOTES PT IN BED. ASLEEP, RESTING COMFORTABLE IN BED. NO CARDIAC OR RESPIRATORY DISTRESS NOTED. NO S/S OF PAIN OR DISCOMFORT. AROUSABLE ABLE TO OPEN EYES. PATIENT IS NON-VERBAL. RESPONSIVE TO VERBAL AND TACTILE STIMULI. ON 2L NC. BREATH SOUNDS CLEAR, BREATHING EVEN AND UNLABORED. COX CATH PRESENT, PATENT AND DRAINING WELL WITH CLEAR & YELLOW URINE. MIDLINE PRESENT ON LEFT UPPER ARM WITH NS RUNNING AT 100ML/HR. BED LOCKED, ALARM ON, SIDE RAILS UP, CALL LIGHT WITHIN REACH. WILL CONTINUE TO MONITOR. TELEPHONE CONSENT OBTAINED FROM PTS NILAM (BROTHER) REGARDING PEG TUBE PLACEMENT. PT CONTINUES TO BE NPO. SCHEDULE FOR SURGERY/PROCEDURE IS TOMORROW IN AM. DRESSING CHANGE DONE TO ANALIA MIDLINE CATH.
--- NOTE | 2019-06-25 19:00 | NUR ---
RN emmasurjesus opening notes Received Pt from morning nurse. Pt is resting in bed comfortably. Pt is non verbal. Pt's caregiver at the bedside. Respiration is normal in 3 L NC. No SOB. No S/S of distress noted. ANALIA midline is clean, intact, patent and infusing well NS @100ml/hr. Campos cath is intact, patent and draining yellow urine. Safety precautions is maintained. Bed at low position, brakes locked, side rails [id number] and call light is within reach. Will continue to monitor.
[2019-06-25 20:00] VITALS: BP 141/58
[2019-06-25] MEDS: ENOXAPARIN SODIUM 40 MG/0.4 ML DISP.SYRIN SQ SCH (21:00)
[2019-06-25 21:19] VITALS: BP 141/58
--- NOTE | 2019-06-25 21:35 | NUR ---
RN medsurg notes Held lovenox 40 mg/SQ because Pt's is going for PEG placement tomorrow at 0500 am. Will continue to monitor.
[2019-06-26] VITALS (12 sets, daily range): BP systolic 105–134; BP diastolic 51–76
[2019-06-26 03:27] LABS: BASOPHILS % (AUTO) 0.2 % (0.0-2.0); HEMATOCRIT 45 % (33-45); HEMOGLOBIN 15.2 g/dL (11.5-14.8); LYMPHOCYTES # (AUTO) 0.9 /CMM (0.8-4.8); LYMPHOCYTES % (AUTO) 11.8 % (20.0-44.0); MEAN CORPUSCULAR HGB CONC 34 g/dl (31.0-36.0); MEAN CORPUSCULAR VOLUME 99 fL (82-100); MONOCYTES # (AUTO) 0.6 /CMM (0.1-1.30); MONOCYTES % (AUTO) 7.8 % (2.0-12.0); NEUTROPHILS # (AUTO) 5.9 /CMM (1.8-8.9); NEUTROPHILS % (AUTO) 80.2 % (43.0-81.0); PLATELET COUNT (AUTO) 157 /CMM (150-450); RED BLOOD CELL COUNT(AUTO) 4.59 MIL/uL (4.0-5.2); WHITE BLOOD COUNT (AUTO) 7.4 K/uL (4.3-11.0)
[2019-06-26 03:35] LABS: CALCIUM, SERUM 7.9 mg/dL (8.5-10.1); CREATININE 0.7 mg/dL (0.6-1.3); POTASSIUM 3.4 mmol/L (3.5-5.1)
[2019-06-26] MEDS ORDERED: FENTANYL PF 100MCG/2ML AMPUL ONE (04:34)
--- NOTE | 2019-06-26 05:00 | NUR ---
RN medsurg notes Notified and informed Dr. Lindsey about Pt's potassium is 3.4. Pt is going for EGD PEG placement at 0500. Awaiting for orders.
--- NOTE | 2019-06-26 06:20 | NUR ---
RN medsurg notes Called and informed about PEG placement. Received verbal consent from Pt's brother. Two RN signed the consent.
--- NOTE | 2019-06-26 06:26 | NUR ---
RN jose notes Pt is going for EGD and PEG placement. VS is stable
[2019-06-26] MEDS: LEVOTHYROXINE SODIUM 88 MCG TABLET PO SCH (07:30)
[2019-06-26] MEDS: ALBUTEROL FS 2.5 MG/0.5 ML VIAL.NEB NEB SCH ×4 (07:35→20:11)
[2019-06-26] MEDS: IPRATROPIUM NEB FS 0.5 MG/2.5 ML AMPUL.NEB NEB SCH ×4 (07:35→20:11)
--- NOTE | 2019-06-26 08:00 | NUR ---
MS RN OPENING NOTES PT STILL CURRENTLY IN SYRGERY FOR PEG TUBE PLACEMENT.
--- NOTE | 2019-06-26 08:45 | NUR ---
BACK FROM SURGERY PT CAME BACK FROM OR. VS CHECKED. BP 113/67 P 72 RR 18 T 98.1 O2 94% ON 3L. NO CARDIAC OR RESPIRATORY DISTRESS NOTED. NO S/S OF BLEEDING NOTED ON NEW PEG TUBE PLACED. NEW ORDERS FROM MD FOR DIETARY CONSULT, KEEP PT NPO, AND MAY START TUBE FEEDING IN AM. EGD WAS ALSO DONE AND SHOWED NORMAL ESOPHAGUS/GASTRITIS WITH PEG IN PLACE. . NO S/S OF PAIN OR DISCOMFORT. AROUSABLE ABLE TO OPEN EYES. PATIENT IS NON-VERBAL. RESPONSIVE TO VERBAL AND TACTILE STIMULI. ON 3L NC. BREATH SOUNDS CLEAR, BREATHING EVEN AND UNLABORED. [facility] CATH PRESENT, PATENT AND DRAINING WELL WITH CLEAR & YELLOW URINE. MIDLINE PRESENT ON LEFT UPPER ARM WITH NS RUNNING AT 100ML/HR. PERIPHERAL IV NOTED ON L HAND. PATENT AND INTACT. BED LOCKED, ALARM ON, SIDE RAILS UP, CALL LIGHT WITHIN REACH. WILL CONTINUE TO MONITOR VS PER PROTOCOL. .
[2019-06-26] MEDS: LEVETIRACETAM (500MG) 1,500 MG in IV NS 0.9% 100 ML IV SCH ×2 (08:50→20:27)
[2019-06-26] MEDS: methylPREDNISolone SOD SUCC 40 MG/ML VIAL IV SCH ×3 (08:50→16:54)
[2019-06-26] MEDS: IV NS 0.9% 1,000 ML IV PRN ×2 (09:40→22:38)
[2019-06-26] MEDS: LEVOFLOXACIN 750 MG /D5W 150ML 150 ML IV SCH (10:16)
[2019-06-26] MEDS: POTASSIUM CL. PREMIX PERIPHER. 50 ML IV SCH ×2 (11:29→16:58)
[2019-06-26] MEDS ORDERED: JEVITY 1.2 CAL 1,000 ML BOTTLE NG PRN (11:30)
--- NOTE | 2019-06-26 18:21 | NUR ---
MS RN CLOSING NOTES PT IN BED. ASLEEP, RESTING COMFORTABLE IN BED. CAREGIVER BY BESIDE AT THIS TIME. NO CARDIAC OR RESPIRATORY DISTRESS NOTED. NO S/S OF PAIN OR DISCOMFORT. AROUSABLE ABLE TO OPEN EYES. PATIENT IS NON-VERBAL. RESPONSIVE TO VERBAL AND TACTILE STIMULI. ON 3L NC. BREATH SOUNDS CLEAR, BREATHING EVEN AND UNLABORED. [facility] CATH PRESENT, PATENT AND DRAINING WELL WITH CLEAR & YELLOW URINE. MIDLINE PRESENT ON LEFT UPPER ARM WITH NS RUNNING AT 100ML/HR. BED LOCKED, ALARM ON, SIDE RAILS UP, CALL LIGHT WITHIN REACH. WILL CONTINUE TO MONITOR.
--- NOTE | 2019-06-26 19:00 | NUR ---
RN medsurg opening notes Received Pt in bed awake and non verbal. Pt's caregiver at the bed side. Respiration is normal in 3L NC. No SOB. No S/S of distress noted. Iv sites at L hand # 20 is clean, intact, patent. ANALIA midline is clean, intact, patent and infusing well NS @ 100 ml/hr. PEG tube is clean, intact and patent. Campos cath is clean, intact, patent and draining yellow urine. HOB elevated all the time. Safety precautions is maintained. Bed at low position, brakes locked, side rails upX3 and call light is within reach. Will continue to monitor.
[2019-06-26] MEDS: ENOXAPARIN SODIUM 40 MG/0.4 ML DISP.SYRIN SQ SCH (20:44)
[2019-06-27] MEDS: JEVITY 1.2 CAL 1,000 ML BOTTLE GT PRN (04:39)
--- NOTE | 2019-06-27 06:51 | NUR ---
RN medsurg closing notes Pt is resting in bed comfortably. Respiration is normal in 3 L NC. No SOB. No S/S of distress noted. VS is stable. Afebrile. ANALIA midline is clean, intact, patent and infusing well NS @ 100ml/hr. L hand # 20 is clean, intact and patent. Kept Pt clean, dry, warm and comfortable. Skin care is provided. Routine meds were given as ordered. Campos cath is clean, intact, and draining yellow urine. PEG tube is patent and intact and infusing jevity 1.2 scooter at rate 20 ml/hr. Pt tolerated well. Safety precautions is maintained. Bed at low position, brakes locked, side rails upX3 and call light is within reach. Will endorse to morning nurse for GENEVIEVE.
[2019-06-27] MEDS: IPRATROPIUM NEB FS 0.5 MG/2.5 ML AMPUL.NEB NEB SCH ×4 (07:59→19:53)
[2019-06-27] MEDS: ALBUTEROL FS 2.5 MG/0.5 ML VIAL.NEB NEB SCH ×4 (07:59→19:53)
[2019-06-27 08:00] VITALS: BP 100/58
--- NOTE | 2019-06-27 08:00 | NUR ---
ms rn opening notes RECEIVED PT IN BED ASLEEP. BUT AROUSABLE. RESPONSIVE TO VERBAL TACTILE STIMULI AND PAIN. NO CARDIAC OR RESPIRATORY DISTRESS NOTED. NO S/S OF BLEEDING NOTED ON NEW PEG TUBE PLACED. NO S/S OF INFECTION NOTED ON STOMA SITE. KEEP PT NPO, TUBE FEEDULE RUNNING AT THIS TIME. JEVILTY 1.2 AT 20ML HER HR. NO S/S OF PAIN OR DISCOMFORT. NO GASTRIC RESIDUAL NOTED. PT ON 3L OF O2. AROUSABLE ABLE TO OPEN EYES. PATIENT IS NON-VERBAL. RESPONSIVE TO VERBAL AND TACTILE STIMULI. ON 3L NC. BREATH SOUNDS CLEAR, BREATHING EVEN AND UNLABORED. COX CATH INTACT AND PATENT DRAINING WITH CLEAR YELLOW URINE. IV SITE INTACT AND PATENT L HAND G20, AND ANALIA MID LINE WITH NS RUNNING AT 150ML/HR. WILL CONTINUE TO MONITOR.
[2019-06-27 08:08] LABS: CALCIUM, SERUM 7.7 mg/dL (8.5-10.1); CREATININE 0.7 mg/dL (0.6-1.3); POTASSIUM 3.1 mmol/L (3.5-5.1)
[2019-06-27] MEDS: methylPREDNISolone SOD SUCC 40 MG/ML VIAL IV SCH ×3 (08:28→16:06)
[2019-06-27] MEDS: LEVOTHYROXINE SODIUM 75 MCG TABLET GT SCH (08:28)
[2019-06-27] MEDS: LEVETIRACETAM SOL (5 ML) 100 MG/ML UDC GT SCH ×2 (08:45→20:45)
[2019-06-27] MEDS: IV NS 0.9% 1,000 ML IV PRN ×2 (08:52→17:40)
[2019-06-27] MEDS: LEVOFLOXACIN (750 MG) 750 MG TABLET GT SCH ×2 (09:27→09:34)
--- NOTE | 2019-06-27 09:47 | NUR ---
increased rate gt feeding ngt feeding increased to 10cc every 6hrs to real goal of 70ml/hr. Addendum: 06/27/19 at 0949 by CY TAPIA RN disregard note above. entered on the incorrect pt.
[2019-06-27] MEDS ORDERED: POTASSIUM CHLORIDE 20 MEQ POWDER PACKET PO SCH (10:00)
[2019-06-27] MEDS ORDERED: LEVO750T21 GT (10:29)
[2019-06-27] MEDS ORDERED: PRED20TA PO (10:29)
[2019-06-27] MEDS ORDERED: IPRA0.2S9 NEB (10:29)
[2019-06-27] MEDS ORDERED: LEVE100S GT (10:29)
[2019-06-27] MEDS ORDERED: LACT-209 GT (10:29)
[2019-06-27] MEDS ORDERED: ACET325T53 PO (10:29)
[2019-06-27] MEDS ORDERED: ALBU2.5V13 NEB (10:29)
--- NOTE | 2019-06-27 13:00 | NUR ---
increased gt feeding increased gt feeding to 30ml/hr with goal rate of 65ml/hr
[2019-06-27 16:00] VITALS: BP 129/77
--- NOTE | 2019-06-27 17:01 | NUR ---
MS RN CLOSING NOTES PT IN BED. ASLEEP, RESTING COMFORTABLE IN BED. CAREGIVER BY BESIDE AT THIS TIME. NO CARDIAC OR RESPIRATORY DISTRESS NOTED. NO S/S OF PAIN OR DISCOMFORT. AROUSABLE ABLE TO OPEN EYES. PATIENT IS NON-VERBAL. RESPONSIVE TO VERBAL AND TACTILE STIMULI. ON 3L NC. BREATH SOUNDS CLEAR, BREATHING EVEN AND UNLABORED. gGTUBE SITE INTACT AND PATENT. JEVITY 1.2 RUNNING AT 40ML/HR. PT WITH ORDERS TO CONTINUE TO INCREASE GTFEEDING 10ML EVERY 6HRS WITH A GOAL RATE OF 65ML/HR. PT TOLERATING GT FEEDING WELL. NO S/S OF ASPIRATION NOTED. HOB ELEVATED TO 30 DEGREES. [facility] CATH PRESENT, PATENT AND DRAINING WELL WITH CLEAR & YELLOW URINE. MIDLINE PRESENT ON LEFT UPPER ARM WITH NS RUNNING AT 100ML/HR. BED LOCKED, ALARM ON, SIDE RAILS UP, CALL LIGHT WITHIN REACH. WILL CONTINUE TO MONITOR.
[2019-06-27] MEDS: LORAZEPAM INJ 2 MG/ML VIAL IV PRN (17:34)
--- NOTE | 2019-06-27 17:42 | NUR ---
SEIZURE EPISODE PT HAD A SEIZURE EPISODE. WITH MILD JERKING MOVEMENTS OF JERE ARMS AND JERE LOWER EXT. SEIZURE EPISODE LASTED FOR ABOUT 1 MIN. CAREGIVE BY BEDSIDE. ADMINISTERED PRN ATIVAN ORDERED. SEIZURE EPISODE STOPPED.
[2019-06-27 20:00] VITALS: BP 94/57
--- NOTE | 2019-06-27 20:00 | NUR ---
RECONNAISSANCE CREWMEMBER: RECEIVED REPORT FROM CYNTHIA GARCIA AT 1915. PT IS NON VERBAL WITH FLAT AFFECT, ON 4L VIA NC, RESPIRATIONS EVEN AND UNLABORED. PT S/P SEIZURE EPISODE AT 1700, WHERE ATIVAN IV WAS ADMINISTERED. PT CURRENTLY CALM AND RELAX. PT HAS RIGHT UPPER ARM MIDLINE PATENT AND FLUSHING WELL, INFUSING WITH NS AT 100ML/HR. BLE OFFLOADED ON PILLOWS. SAFETY PRECAUTIONS FOR FALL INITIATED, CALL LIGHT IN REACH, WILL CONTINUE TO MONITOR PT. Addendum: 06/28/19 at 0108 by HARMONY HOFFMANN RN CORRECTION OF ENTRY: LEFT UPPER ARM MIDLINE
--- NOTE | 2019-06-27 20:01 | NUR ---
TECHNICIAN SUPPORT ENGINEER: RECEIVED REPORT FROM CYNTHIA GARCIA AT 1915. PT IS NON VERBAL WITH FLAT AFFECT, ON 4L VIA NC, RESPIRATIONS EVEN AND UNLABORED. PT S/P SEIZURE EPISODE AT 1700, WHERE ATIVAN IV WAS ADMINISTERED. PT CURRENTLY CALM AND RELAX. PT HAS LEFT UPPER ARM MIDLINE PATENT AND FLUSHING WELL, INFUSING WITH NS AT 100ML/HR. BLE OFFLOADED ON PILLOWS. SAFETY PRECAUTIONS FOR FALL INITIATED, CALL LIGHT IN REACH, WILL CONTINUE TO MONITOR PT.
--- NOTE | 2019-06-27 20:22 | NUR ---
RN NOTES: NOTED SPO2 89-90% ON 4L OXYGEN, RT AT BED SIDE, TRIED TO PUT ON SIMPLE MASK BUT PER HX PT HAS COPD, PLACED BACK ON LOW FLOW OXYGEN NC 4L, NOTIFIED SHELL ASSEMBLER, WILL PLACE ON TELE OBSERVATION, CONTINUOUS PULSE OX, PT RECEIVED IV ATIVAN FOR EPISODE OF SEIZURE
--- NOTE | 2019-06-27 20:30 | NUR ---
GTUBE PATENCY CHECK: PT S/P PEG PLACEMENT ON 06/26, ABDOMEN SOFT TO TOUCH WITH HYPOACTIVE BOWEL SOUND HEARD UPON AUSCULTATION. NO RESIDUAL OBTAINED, UPON CHECKING OF RESIDUAL. GTUBE ABLE TO FLUSH WELL WITH WATER WITHOUT MEETING ANY RESISTANCE. PT CURRENTLY ON JEVITY 1.2 AT 40ML/HR, WITH ORDERS TO INCREASE BY 10ML/HR Q6HRS. NEXT SCHEDULE INCREASE WILL BE AT 0100AM. SUCTION SET UP SECURED, KEPT SIDE RAILS PADDED. KEPT HOB 35 DEGREE'S ORDERED.
[2019-06-27] MEDS: ENOXAPARIN SODIUM 40 MG/0.4 ML DISP.SYRIN SQ SCH (20:47)
[2019-06-28] VITALS: BP 115/76
--- NOTE | 2019-06-28 02:22 | NUR ---
GTFEEDS INCREASE: GTFEEDS INCREASE TO 50ML/HR PER ORDER
[2019-06-28] MEDS: JEVITY 1.2 CAL 1,000 ML BOTTLE GT PRN (02:45)
[2019-06-28] MEDS: IV NS 0.9% 1,000 ML IV PRN (02:46)
[2019-06-28 06:40] LABS: CALCIUM, SERUM 7.5 mg/dL (8.5-10.1); CREATININE 0.7 mg/dL (0.6-1.3); POTASSIUM 3.7 mmol/L (3.5-5.1)
--- NOTE | 2019-06-28 06:41 | NUR ---
END OF SHIFT REPORT: PT REMAINS ON CONTINUOUS PULSE OX, SPO2 92-93%. REMAINS ON GTUBE FEEDING JEVITY 1.2 AT 50ML/HR. NO RESIDUAL OBTAINED, PT TOLERATED GTUBE FEEDING WELL. NO EPISODE OF SEIZURE NOTED THROUGHOUT THE SHIFT.TELE OBSERVATION COMPLETED, REMAINS ON SINUS RHYTHM. ANALIA MIDLINE REMAINS PATENT AND FLUSHING WELL, INFUSING WITH NS AT 100ML/HR. NO S/S OF IV INFILTRATION NOTED. SEIZURE PRECAUTIONS AND ASPIRATIONS PRECAUTIONS FOLLOWED. SUCTION SET UP SECURED. KEPT SIDE RAILS PADDED.VS REMAINS STABLE, NEEDS ATTENDED. POSSIBLE DC TODAY. BLE KEPT OFFLOADED ON PILLOWS.SAFETY PRECAUTIONS FOR FALL REMAINS ENGAGED, CALL LIGHT IN REACH, WILL ENDORSE TO DAY RN FOR CONTINUITY OF CARE.
[2019-06-28] MEDS: IPRATROPIUM NEB FS 0.5 MG/2.5 ML AMPUL.NEB NEB SCH ×4 (07:26→18:57)
[2019-06-28] MEDS: ALBUTEROL FS 2.5 MG/0.5 ML VIAL.NEB NEB SCH ×4 (07:26→18:58)
[2019-06-28 08:00] VITALS: BP 101/56
--- NOTE | 2019-06-28 08:00 | NUR ---
m/s quality management coordinator: initial assessment received pt in bed with eyes close, non-verbal, unable to comprehend. hob elevated. on o2 at 4l/min via n/c. titrated down to 3l/min via n/c, satting at 94%. pt for d'c planning to home. reality orientation provided prn. will continue to monitor.
[2019-06-28 08:31] VITALS: BP 101/56
[2019-06-28] MEDS: LEVETIRACETAM SOL (5 ML) 100 MG/ML UDC GT SCH ×2 (08:51→21:49)
[2019-06-28] MEDS: LEVOTHYROXINE SODIUM 75 MCG TABLET GT SCH (08:51)
[2019-06-28] MEDS: methylPREDNISolone SOD SUCC 40 MG/ML VIAL IV SCH ×3 (09:16→17:25)
[2019-06-28] MEDS ORDERED: LEVOFLOXACIN (750 MG) 750 MG TABLET GT SCH (10:00)
--- NOTE | 2019-06-28 10:00 | NUR ---
m/s machine puller: notes assessed pt on room air, and o2 sat reading went down to 82%-85%, place pt back on oxygen at 3l/min via n/c. also noted with asmita lobes wheezing upon auscultation. pt on routing hhn tx. hob elevated. will continue to monitor.
--- NOTE | 2019-06-28 10:30 | NUR ---
m/s registration specialist: notes noted pt desating to 78%-82% after breathing tx. r.t. at bedside, unable to tolerate nasal cannula at 6l/min, r.t. switch to simple mask at 8l/min. hob elevated. will continue to monitor.
[2019-06-28] MEDS ORDERED: JEVITY 1.2 CAL 1,000 ML BOTTLE GT PRN (11:39)
--- NOTE | 2019-06-28 11:45 | NUR ---
m/s band reamer machine operator: notes dr. guzman here and made aware re: desaturation episode this morning, pt was place on a simple mask by r.t. and will titrate as needed. pt for d'c planning. per dr. guzman, pt is not ready yet if she is on a simple mask, will see pt as stated. dr. ortiz made aware. cn and case management made aware.
--- NOTE | 2019-06-28 12:15 | NUR ---
m/s furniture rental consultant: notes son called and updated plan of care. informed him pt is not ready yet today, for d'c planning. call transfer to [facility] (case management).
--- NOTE | 2019-06-28 13:05 | NUR ---
m/s metal drill press operator: notes pt remains on a simple mask at 8l/min. received orders from dr. guzman for abg and crx. r.t. notified, spoke to adam. orders acknowledged. will continue to monitor.
--- NOTE | 2019-06-28 13:15 | NUR ---
m/s cuprous chloride operator: notes chest x-ray taken at bedside. r.t. at bedside for abg.
[2019-06-28 13:40] LABS: ABG BASE EXCESS 2.9 mmol/L; ABG OXYGEN SATURATION 89.4 % (92.0-98.5); ABG PCO2 44.1 mmHg (35.0-45.0); ABG PH 7.419 (7.350-7.450); ABG PO2 56.3 mmHg (75.0-100.0); AaDO2 308.5 mmHg; COHb 0.5 % (0.5-1.5); MetHb 0.4 % (0.0-1.5); O2Hb 88.6 % (94.0-97.0); SITE, ABG Right Brachial; VENT MODE, BG SM
--- NOTE | 2019-06-28 14:00 | NUR ---
m/s hospital aide: notes attempted to titrate pt back to using n/c, but unable to tolerate per r.t., pt still using simple mask at 8l/min. will continue to monitor.
--- NOTE | 2019-06-28 14:45 | NUR ---
jalen/lauren rubi: notes dr. johnston at bedside talking to son and pt. Addendum: 06/28/19 at 1615 by ANUSHKA CHAMBERS LVN above charting error, wrong pt.
--- NOTE | 2019-06-28 15:30 | NUR ---
m/s compress machine operator: notes chest x-ray resulted. dr. guzman notified and made aware.
--- NOTE | 2019-06-28 15:55 | NUR ---
m/s real estate investor: notes decrease o2 to 6l/min via simple mask by r.t. at this time, r.t. to come back to re assess pt. will continue to monitor.
--- NOTE | 2019-06-28 16:10 | NUR ---
m/s warehouse person; notes r.t. at bedside and assessed pt o2 sat=91% on 6l via simple mask. increase o2 to 7l by r.t. will continue to monitor.
--- NOTE | 2019-06-28 16:30 | NUR ---
m/s property investor: notes r.t. at bedside and assessed o2 sat, still at 91%. place pt back to 8l/min via simple mask.
[2019-06-28 16:42] VITALS: BP 104/45
--- NOTE | 2019-06-28 18:05 | NUR ---
m/s utility specialist: notes pt remains on 8l/min via simple mask. hob elevated. remains on g-tube feeding. needs attended. will continue to monitor.
--- NOTE | 2019-06-28 19:20 | NUR ---
m/s receptionist doctor's office: notes bedside report given to jose (rn) for continuity of care.
[2019-06-28 20:00] VITALS: BP 135/70
--- NOTE | 2019-06-28 20:00 | NUR ---
MS RN NOTES RECEIVED PATIENT AWAKE IN BED WITH NO DISTRESS NOTED. CALL LIGHT WITHIN REACH. CAREGIVER AT BEDSIDE. PATIENT BREATHING EASILY ON O2 @ 6LPM VIA SIMPLE MASK WITH O2 SAT 97%. NO FACIAL GRIMACING OR GROANING TO INDICATE PAIN OR DISCOMFORT. GTF RUNNING AT 65ML/HR AND TOLERATING WELL. NO LEAKING, DRAINAGE OR BLEEDING AT GT STOMA SITE. [facility] CATH INTACT AND PATENT, DRAINING CLEAR YELLOW URINE. MIDLINE INTACT AND PATENT. ASPIRATION AND SEIZURE PRECAUTIONS OBSERVED AND MAINTAINED. BED IN LOW LOCK SETTING WITH BED ALARM ON AND FUNCTIONING PROPERLY. ROOM FREE OF CLUTTER AND BELONGINGS KEPT NEAR BEDSIDE. WILL CONTINUE TO MONITOR
[2019-06-28] MEDS: ENOXAPARIN SODIUM 40 MG/0.4 ML DISP.SYRIN SQ SCH (21:50)
--- NOTE | 2019-06-29 06:26 | NUR ---
MS RN NOTES PATIENT ASLEEP IN BED WITH NO DISTRESS NOTED. CALL LIGHT WITHIN REACH. GTF RUNNING AT 55ML/HR AND TOLERATING WELL. NO ABDOMINAL DISTENTION NOTED. OBTAINED 20ML GASTRIC RESIDUAL. PATIENT BREATHING EASILY ON O2 @6LPM VIA SIMPLE FACE MASK WITH O2 SAT @99%. ASPIRATION AND SEIZURE PRECAUTIONS MAINTAINED. NO EPISODES OF SEIZURE NOTED DURING SHIFT. MIDLINE INTACT AND PATENT. ALL DUE MED GIVEN ORDERED WITH NO ASE. FC INTACT AND PATENT AND DRAINING CLEAR YELLOW URINE. NO FACIAL GRIMACING OR GROANING TO INDICATE PAIN OR DISCOMFORT. BED IN LOW LOCK SETTING WITH BED ALARM ON AND FUNCTIONING PROPERLY. ALL BELONGING KEPT NEAR BEDSIDE. WILL ENDORSE TO INCOMING SHIFT.
[2019-06-29] MEDS: ALBUTEROL FS 2.5 MG/0.5 ML VIAL.NEB NEB SCH ×3 (07:17→14:46)
[2019-06-29] MEDS: IPRATROPIUM NEB FS 0.5 MG/2.5 ML AMPUL.NEB NEB SCH ×3 (07:17→14:46)
[2019-06-29 08:00] VITALS: BP 109/70
[2019-06-29] MEDS: LEVETIRACETAM SOL (5 ML) 100 MG/ML UDC GT SCH (08:13)
[2019-06-29] MEDS: LEVOTHYROXINE SODIUM 75 MCG TABLET GT SCH (08:13)
[2019-06-29] MEDS: methylPREDNISolone SOD SUCC 40 MG/ML VIAL IV SCH ×2 (08:13→13:51)
--- NOTE | 2019-06-29 13:10 | NUR ---
Patient on O2 3l via nasal canula tolerating well.
--- NOTE | 2019-06-29 15:20 | NUR ---
F/c discontinued as directed prior to discharge. Will continue to monitor
--- NOTE | 2019-06-29 15:49 | NUR ---
Patient voided after f/c d/c
[2019-06-29 16:00] VITALS: BP 104/78
--- NOTE | 2019-06-29 18:31 | NUR ---
Patient cleared for d/c to home with home health [facility]. Patient medically stable and VS are within baseline. Patient non-verbal, awake , legally blind. after school caregiver at bedside. Oxygen sullies and feeding pump delivered to pt house. Teaching provided to pt's manager primary care Jennifer ; she verbalized understanding. Home health nurse will assist with feeding tomorrow in am. G-tube flushed with water prior the discharge. Central line removed; no bleeding , no s/s of infection. Discharge pictures taken and place in the chart. ID wrist band removed. Patient had no belongings. PAtient picked up by ambulance, manager primary care with the patient .
== END 2019-06-29 19:00 | disposition home health service (06) | DRG 720 ==
LOC: ER 17:24 → ICU 20:07 → MED 06-23 11:14
PROVIDERS: ADMIT Nurse Practitioner Acute Care
DX: A41.9 Sepsis, unspecified organism (principal); J96.01 Acute respiratory failure with hypoxia; J69.0 Pneumonitis due to inhalation of food and vomit; G93.41 Metabolic encephalopathy; J15.9 Unspecified bacterial pneumonia; E87.2 Acidosis; E44.0 Moderate protein-calorie malnutrition; R13.10 Dysphagia, unspecified; J90 Pleural effusion, not elsewhere classified; G40.901 Epilepsy, unspecified, not intractable, with status epilepticus; J44.1 Chronic obstructive pulmonary disease with (acute) exacerbation; R65.20 Severe sepsis without septic shock; Q90.9 Down syndrome, unspecified; J44.0 Chronic obstructive pulmonary disease with (acute) lower respiratory infection; E86.0 Dehydration; K29.70 Gastritis, unspecified, without bleeding; E03.9 Hypothyroidism, unspecified; E66.01 Morbid (severe) obesity due to excess calories; E87.6 Hypokalemia; I10 Essential (primary) hypertension; Z66 Do not resuscitate; E88.09 Other disorders of plasma-protein metabolism, not elsewhere classified; Z68.22 Body mass index [BMI] 22.0-22.9, adult; H54.7 Unspecified visual loss
CPT/HCPCS: 36410; 36415; 36600; 43246; 70450-TC; 71045-TC; 80048-TC; 80061-TC; 80076-TC; 80202-TC; 80305; 81000-TC; 82803-TC; 83605-TC; 83735-TC; 84100-TC; 84132-TC; 84443-TC; 84484-TC; 85025-TC; 85610-TC; 85730-TC; 87040-TC; 87081-TC; 87086-TC; 93307-TC; 94760-TC; 94799-TC; 95819-TC; 99082-TC; G0378; J1650; J1815; J1953; J1956; J2060; J2185; J2704; J2920; J2930; J3010; J3370; J3475; J3480; J7030; J7040; J7060

== ENCOUNTER 2020-01-01 15:52 | Inpatient (IN) | payer MEDICARE, OTHER ==
[~2020-01-01] VITALS: Ht 154.9 cm; Wt 71.2 kg
[~2020-01-01 15:52] MED LIST changes: +ACET325T53 PO; +ALBU2.5V13 NEB; +IPRA0.2S9 NEB; +LACT-209 GT; +LEVE100S GT; -LEVE500T20 PO; +LEVO750T21 GT; -LEVO750T21 PO; +PRED20TA PO
[2020-01-01] MEDS ORDERED: ACETAMINOPHEN ES 500 MG TABLET ONE (16:11)
[2020-01-01] MEDS ORDERED: methylPREDNISolone SOD SUCC 125 MG/2ML VIAL ONE (16:13)
--- NOTE | 2020-01-01 16:16 | NUR ---
Note undone in EDM - 01/01/20 at 1620 by TALI BIBRA FROM HOME TO ER BED 5. LETHARGIC- RESPONDS TO PAIN STIMULI. TACHYPNEIC. BED BOUND. BROUGHT IN FOR DESATURATION AND SOB. PER EMS REPORT, PT HAS BEEN DESATTING, NOTED IN THE 80S DESPITE 4LPM BASELINE O2 AT HOME. AT TIME OF ARRIVAL PT IS SATTING 95% ON 4LPM VIA NC. PT IS NOTED WITH 100.4 RECTAL TEMP.
--- NOTE | 2020-01-01 16:16 | NUR ---
ATA FROM HOME TO ER BED 5. LETHARGIC- RESPONDS TO PAIN STIMULI. TACHYPNEIC. BED BOUND. BROUGHT IN FOR DESATURATION AND SOB. PER EMS REPORT, PT HAS BEEN DESATTING, NOTED IN THE 80S DESPITE 4LPM BASELINE O2 AT HOME. AT TIME OF ARRIVAL PT IS SATTING 95% ON 4LPM VIA NC. PT IS NOTED WITH 100.4 RECTAL TEMP. MD WAS AT THE BEDSIDE FOR EVAL. ORDERS RECEIVED NOTED AND CARRIED OUT. IV LINE OBTAINED ON L HAND 20G, BLOOD DRAWN AND GIVEN TO STENCIL MAKER AT BEDSIDE. URINE COLLECTED. PLACED ON MONITOR
[2020-01-01] MEDS ORDERED: LEVO75TA7 GT (16:25)
[2020-01-01] MEDS ORDERED: ACETAMINOPHEN ES 500 MG TABLET GT ONE (16:30)
[2020-01-01] MEDS ORDERED: methylPREDNISolone SOD SUCC 125 MG/2ML VIAL IV ONE (16:30)
[2020-01-01] MEDS ORDERED: LEVE1000 GT (16:31)
[2020-01-01] MEDS ORDERED: LEVE100S GT (16:33)
[2020-01-01 16:35] LABS: BASOPHILS # (AUTO) 0.1 /CMM (0.0-0.2); BASOPHILS % (AUTO) 0.4 % (0.0-2.0); EOSINOPHILS % (AUTO) 0.5 % (0.0-6.0); HEMATOCRIT 45 % (33-45); HEMOGLOBIN 14.4 g/dL (11.5-14.8); LYMPHOCYTES # (AUTO) 1.8 /CMM (0.8-4.8); LYMPHOCYTES % (AUTO) 10.5 % (20.0-44.0); MEAN CORPUSCULAR HGB CONC 32 g/dl (31.0-36.0); MEAN CORPUSCULAR VOLUME 102 fL (82-100); MONOCYTES % (AUTO) 11.7 % (2.0-12.0); NEUTROPHILS # (AUTO) 13.1 /CMM (1.8-8.9); NEUTROPHILS % (AUTO) 76.9 % (43.0-81.0); PLATELET COUNT (AUTO) 191 /CMM (150-450); RED BLOOD CELL COUNT(AUTO) 4.38 MIL/uL (4.0-5.2); WHITE BLOOD COUNT (AUTO) 17.1 K/uL (4.3-11.0)
[2020-01-01 16:38] LABS: APPEARANCE,URINE Clear (CLEAR); BILIRUBIN,URINE Negative (NEGATIVE); BLOOD, URINE Negative Ery/uL (NEGATIVE); COLOR,URINE Dark (YELLOW); KETONES,URINE Negative (NEGATIVE); LEUKOCYTE ESTERASE ,URINE Negative (NEGATIVE); NITRITE, URINE Negative (NEGATIVE); PH,URINE 5.5 (5.0-8.0); PROTEIN,URINE 30 mg/dl (NEGATIVE); UGLUCOSE Negative (NEGATIVE)
--- NOTE | 2020-01-01 16:43 | NUR ---
SPOKE WITH PT'S COMMUNITY FACILITATOR. PER CAREGIVER, EPISODE OF DESAT HAPPENED @ 11AM. PT HAD A "SMALL" SEIZURE PER CAREGIVER THEN SHE TURNED BLUE. MADE AWARE.
[2020-01-01] MEDS ORDERED: TOBR3.5O2 EACHEYE (16:46)
[2020-01-01 16:50] LABS: ABG BASE EXCESS 6.2 mmol/L; ABG OXYGEN SATURATION 98.1 % (92.0-98.5); ABG PCO2 55.8 mmHg (35.0-45.0); ABG PH 7.389 (7.350-7.450); ABG PO2 126.4 mmHg (75.0-100.0); AaDO2 36.5 mmHg; COHb 0.6 % (0.5-1.5); MetHb 0.4 % (0.0-1.5); O2Hb 97.1 % (94.0-97.0); SITE, ABG Left Brachial; VENT MODE, BG NASAL CANNULA 3L
[2020-01-01] MEDS ORDERED: VANCOMYCIN HCL 1.25 GM in IV D5W 260 ML IV ONE (17:00)
[2020-01-01] MEDS ORDERED: CEFEPIME 1 GM in IV D5W 50 ML IV ONE (17:00)
--- NOTE | 2020-01-01 17:10 | NUR ---
MOVE SHEET SUBMITTED TO ADMITTING.
[2020-01-01 17:24] LABS: CALCIUM, SERUM 8.2 mg/dL (8.5-10.1); CARBON DIOXIDE 37 mmol/L (21-32); CHLORIDE 106 mmol/L (98-107); CREATININE 0.7 mg/dL (0.6-1.3); GLUCOSE 107 mg/dL (74-106); POTASSIUM 4.3 mmol/L (3.5-5.1); SODIUM SERUM 143 mmol/L (136-145); UREA NITROGEN, BLOOD 26 mg/dL (7-18)
--- NOTE | 2020-01-01 17:29 | NUR ---
LAB CALLED COVID-19 NEG. (-)
[2020-01-01 17:37] LABS: ALANINE AMINOTRANSFERASE 16 U/L (12-78); ALKALINE PHOSPHATASE 99 U/L (46-116); ASPARTATE AMINOTRANSFERASE 15 U/L (15-37); B-TYPE NATRIURETIC PEPTIDE 227 PG/ML (0-125); BILIRUBIN,TOTAL 0.6 mg/dL (0.2-1.0)
[2020-01-01] MEDS ORDERED: IV NS 0.9% 1,000 ML IV ONE (18:00)
--- NOTE | 2020-01-01 18:07 | NUR ---
ROOM ASSIGNMENT: [id number]
[2020-01-01 18:10] LABS: CREATINE KINASE, TOTAL 17 U/L (26-192); FERRITIN 201 ng/mL (8-388)
[2020-01-01 18:22] LABS: C-REACTIVE PROTEIN 17.7 mg/dL (0.0-0.9)
--- NOTE | 2020-01-01 19:32 | NUR ---
REPORT GIVEN TO JOSE SARMIENTO FOR GENEVIEVE.
--- NOTE | 2020-01-01 19:50 | NUR ---
RN NOTE RECEIVED PT FORM ER VIA ALYSIA ACCOMPANIED BY 2 RNS. PT IS NON VERBAL. ON 3L OF O2 VIA NC. RESPIRATIONS EVEN AND UNLABORED. NOTED WITH FIBRINOGEN 866. NOTIFIED DR. WOODALL FOR NEW ADMISSION ORDERS. CALL LIGHT WITHIN REACH, SAFETY MEASURES IN PLACE.
[2020-01-01 19:57] LABS: D-DIMER 2.27 mg/L(FEU (0.17-0.50)
[2020-01-01 20:00] VITALS: BP 97/65
--- NOTE | 2020-01-01 20:11 | NUR ---
RN NOTE PAGED DAKOTA BELL DNP FOR NEW ORDERS.
--- NOTE | 2020-01-01 20:30 | NUR ---
RN NOTE DAKOTA BELL DNP ENTERED NEW ADMISSION ORDERS AND ADDRESSED FIBRINOGEN LEVEL. ORDERS NOTED AND CARRIED OUT.
--- NOTE | 2020-01-01 20:45 | NUR ---
RN NOTE SEIZURE PRECAUTIONS IN PLACE.
[2020-01-01] MEDS: IV NS 0.9% 1,000 ML IV PRN (21:27)
[2020-01-01] MEDS ORDERED: ZOLPIDEM TARTRATE 5 MG TABLET PO PRN (21:30)
[2020-01-01] MEDS ORDERED: Z GUARD REMEDY 2 OZ OINT TP PRN (21:30)
[2020-01-01] MEDS ORDERED: DEXAMETHASONE SOD PHOSPHATE 10 MG/ML VIAL IV ONE (21:30)
[2020-01-01] MEDS ORDERED: ONDANSETRON HCL/PF 4 MG/2 ML VIAL IVP PRN (21:30)
[2020-01-01] MEDS ORDERED: ACETAMINOPHEN 325 MG TABLET PO PRN (21:30)
[2020-01-01] MEDS ORDERED: JEVITY 1.2 CAL 1,000 ML BOTTLE GT PRN (21:30)
[2020-01-01] MEDS: ENOXAPARIN SODIUM 40 MG/0.4 ML DISP.SYRIN SQ SCH (21:43)
[2020-01-01] MEDS: TOBRAMYCIN/DEXAMETH OPHTH OINT 3.5 GM TUBE EACHEYE SCH (21:44)
--- NOTE | 2020-01-01 21:44 | NUR ---
RN NOTE UNABLE TO ADMINISTER TOBRADEX EYE DROPS MEDICATION IS NOT AVAILABLE.
[2020-01-01] MEDS ORDERED: PIPERACILLIN /TAZOBACTAM 2.25 G VIAL IV ONE (22:10)
[2020-01-01] MEDS: PIPERACILLIN /TAZOBACTAM 2.25 G in IV D5W 50 ML IV SCH (22:14)
[2020-01-02] VITALS: BP 93/63
[2020-01-02] MEDS ORDERED: PIPERACILLIN /TAZOBACTAM 2.25 G in IV D5W 50 ML IV SCH ×2
[2020-01-02] MEDS ORDERED: PIPERACILLIN /TAZOBACTAM 2.25 G VIAL IV ONE (03:16)
[2020-01-02] MEDS: PIPERACILLIN /TAZOBACTAM 2.25 G in IV D5W 50 ML IV SCH (03:37)
[2020-01-02 04:00] VITALS: BP 123/72
[2020-01-02 04:42] LABS: BASOPHILS % (AUTO) 0.1 % (0.0-2.0); HEMATOCRIT 46 % (33-45); HEMOGLOBIN 14.9 g/dL (11.5-14.8); LYMPHOCYTES # (AUTO) 0.5 /CMM (0.8-4.8); LYMPHOCYTES % (AUTO) 3.5 % (20.0-44.0); MEAN CORPUSCULAR HGB CONC 33 g/dl (31.0-36.0); MEAN CORPUSCULAR VOLUME 101 fL (82-100); MONOCYTES # (AUTO) 0.1 /CMM (0.1-1.30); MONOCYTES % (AUTO) 0.4 % (2.0-12.0); NEUTROPHILS # (AUTO) 13.3 /CMM (1.8-8.9); PLATELET COUNT (AUTO) 218 /CMM (150-450); RED BLOOD CELL COUNT(AUTO) 4.55 MIL/uL (4.0-5.2); WHITE BLOOD COUNT (AUTO) 13.9 K/uL (4.3-11.0)
[2020-01-02 04:58] LABS: IRON, SERUM 22 ug/dl (50-175); TOTAL IRON BINDING CAPACITY 201 ug/dl (250-450)
--- NOTE | 2020-01-02 05:00 | NUR ---
RN NOTE UNABLE TO REACH GUARANTOR (SHERYL CABRERA0 WITH NUMBER ON FILE [phone]. ALSO UNABLE TO REACH NEXT OF KIN (SHERYL MARIE) WITH BOTH NUMBERS ON FILE. HOME [phone] AND WORK PH [phone]. CALLED X 2. WILL MAKE PATIENT FULL CODE FOR NOW. WILL ENDORSE TO MORNING RN TO FOLLOW UP.
[2020-01-02 05:01] LABS: ALANINE AMINOTRANSFERASE 19 U/L (12-78); ALBUMIN 1.8 g/dL (3.4-5.0); ALKALINE PHOSPHATASE 82 U/L (46-116); ASPARTATE AMINOTRANSFERASE 14 U/L (15-37); BILIRUBIN,TOTAL 0.6 mg/dL (0.2-1.0); CALCIUM, SERUM 8.2 mg/dL (8.5-10.1); CARBON DIOXIDE 36 mmol/L (21-32); CHLORIDE 106 mmol/L (98-107); CREATININE 0.9 mg/dL (0.6-1.3); GLUCOSE 185 mg/dL (74-106); MAGNESIUM 2.4 mg/dL (1.8-2.4); PHOSPHORUS 2.7 mg/dL (2.5-4.9); POTASSIUM 4.6 mmol/L (3.5-5.1); SODIUM SERUM 142 mmol/L (136-145); TOTAL PROTEIN, SERUM 6.8 g/dL (6.4-8.2); UREA NITROGEN, BLOOD 22 mg/dL (7-18)
[2020-01-02 05:10] LABS: CHOLESTEROL 115 mg/dL (<200); HDL CHOLESTEROL 43 mg/dL (40-60); LDL 72 mg/dL (0-99); THYROID STIMULATING HORMONE 0.256 uIU/mL (0.358-3.74); TRIGLYCERIDES 34 mg/dL (30-150)
--- NOTE | 2020-01-02 06:37 | NUR ---
RN CLOSING NOTE NO ACUTE CHANGES OBSERVED OVERNIGHT. PT IS SLEEPING IN BED IN SEMI SÁNCHEZ'S POSITION, PHYSICALLY RESPONSIVE TO VERBAL AND TACTILE STIMULI. RESPIRATIONS EVEN AND UNLABORED WHILE ON 3L OF O2 VIA NC. WITH L HAND #20G IV RUNNING WITH NS @75ML/HOUR ORDERED. NO COMPLICATIONS NOTED AT SITE. [facility] CATHETER PATENT AND IN PLACE DRAINING CLEAR JUANITO COLORED URINE. PT IS SINUS RHTYHM ON THE MONITOR WITH OCCASIONAL PVCS. TUBE FEEDING RUNNING ORDERED VIA G TUBE WITHOUT GASTRIC RESIDUAL NOTED. PLACEMENT VERIFIED VIA AUSCULTATION. SEIZURE PRECAUTIONS IN EFFECT. CALL LIGHT WITHIN REACH, SAFETY MEASURES IN PLACE, WILL ENDORSE TO MORNING RN FOR CONTINUATION OF CARE.
[2020-01-02 08:00] VITALS: BP 108/57
--- NOTE | 2020-01-02 08:00 | NUR ---
RETAIL PHARMACY TECHNICIAN AM NOTE RECEIVED PT SLEEPING COMFORTABLY IN BED IN SEMI SÁNCHEZ'S POSITION, PHYSICALLY RESPONSIVE TO VERBAL AND TACTILE STIMULI. RESPIRATIONS EVEN AND UNLABORED WHILE ON 3L OF O2 VIA NC. WITH L HAND #20G IV RUNNING WITH NS @75ML/HOUR ORDERED. NO COMPLICATIONS NOTED AT SITE. [facility] CATHETER PATENT AND IN PLACE DRAINING CLEAR JUANITO COLORED URINE. PT IS SINUS RHYTHM ON THE MONITOR WITH OCCASIONAL PVCS. JEVITY TUBE FEEDING RUNNING ORDERED AT 20 ML/HR VIA G TUBE WITHOUT GASTRIC RESIDUAL NOTED. PLACEMENT VERIFIED VIA AUSCULTATION. SEIZURE PRECAUTIONS IN EFFECT. WITH PADDED SIDERAILS. CALL LIGHT WITHIN REACH, SAFETY MEASURES IN PLACE,
--- NOTE | 2020-01-02 08:13 | NUR ---
PT HAD SEIZURE LASTING FOR 5 MINS PETIT MAL TYPE WITH STARING SPELL AND MILD RIGID TREMOR OF BILATERAL ARMS.WITH PADDED BILATERAL SIDERAILS. CLOSELY MONITORED FOR SAFETY. NOTIFIED DR DAVIDSON AND OBTAINED ORDERS FOR ATIVAN IV PRN AND CARRIED OUT.ORAL SUCTION DONE AND MADE COMFORTABLE. WILL CONTINUE TO MONITOR.
[2020-01-02] MEDS ORDERED: LORAZEPAM INJ 2 MG/ML VIAL IV PRN (08:30)
[2020-01-02] MEDS: LEVETIRACETAM SOL (5 ML) 100 MG/ML UDC GT SCH ×2 (08:56→18:24)
[2020-01-02] MEDS: LEVOTHYROXINE SODIUM 75 MCG TABLET GT SCH (08:56)
[2020-01-02] MEDS: VANCOMYCIN HCL 0.75 GM in IV D5W 250 ML IV SCH ×2 (09:13→21:01)
[2020-01-02] MEDS ORDERED: FEE PK DOSING 1 MIN EA MC ONE (09:46)
[2020-01-02] MEDS: ZOSYN IVPB 3.375 G in IV D5W 50ml IV SCH ×3 (12:03→23:47)
[2020-01-02] MEDS: IV NS 0.9% 1,000 ML IV PRN (14:35)
[2020-01-02 16:00] VITALS: BP 98/53
--- NOTE | 2020-01-02 19:30 | NUR ---
RN PM NOTE REPORT RECIEVED FROM CHARLEEN GARCIA. RECEIVED PT IN BED IN SEMI SÁNCHEZ'S POSITION AT 40 DEGREES, PHYSICALLY RESPONSIVE TO VERBAL AND TACTILE STIMULI. RESPIRATIONS EVEN AND UNLABORED WHILE ON 3L OF O2 VIA NC. WITH L HAND #20G IV RUNNING WITH NS @75ML/HOUR [facility] CATHETER PATENT AND IN PLACE DRAINING CLEAR YELLOW URINE.JEVITY TUBE FEEDING RUNNING ORDERED AT 30 ML/HR VIA G TUBE . PLACEMENT VERIFIED VIA AUSCULTATION. SEIZURE PRECAUTIONS IN EFFECT. WITH PADDED SIDERAILS. CALL LIGHT WITHIN REACH, SAFETY MEASURES IN PLACE, BED DOWN AND LOCKED SR X2
[2020-01-02 20:00] VITALS: BP 120/75
[2020-01-02] MEDS ORDERED: JEVITY 1.2 CAL 1,000 ML BOTTLE GT PRN (20:30)
[2020-01-02] MEDS: TOBRAMYCIN/DEXAMETH OPHTH OINT 3.5 GM TUBE EACHEYE SCH (21:03)
[2020-01-02] MEDS: ENOXAPARIN SODIUM 40 MG/0.4 ML DISP.SYRIN SQ SCH (21:07)
--- NOTE | 2020-01-02 22:00 | NUR ---
pt covid negative 01/01/20
[2020-01-03] MEDS: ZOSYN IVPB 3.375 G in IV D5W 50ml IV SCH ×4 (05:39→23:51)
[2020-01-03] MEDS: IV NS 0.9% 1,000 ML IV PRN (07:35)
[2020-01-03 08:00] VITALS: BP 107/66
--- NOTE | 2020-01-03 08:00 | NUR ---
MS RN AM NOTE RECEIVED PT SLEEPING COMFORTABLY IN BED IN SEMI SÁNCHEZ'S POSITION, PHYSICALLY RESPONSIVE TO VERBAL AND TACTILE STIMULI. RESPIRATIONS EVEN AND UNLABORED WHILE ON 3L OF O2 VIA NC. WITH L HAND #20G IV RUNNING WITH NS @75ML/HOUR ORDERED. NO COMPLICATIONS NOTED AT SITE. [facility] CATHETER PATENT AND IN PLACE DRAINING CLEAR YELLOW JUANITO COLORED URINE. JEVITY TUBE FEEDING RUNNING AND ADJUSTED TO 40 ML/HR VIA G TUBE AND MONITOR FOR TOLERANCE. GT PLACEMENT VERIFIED VIA AUSCULTATION. SEIZURE PRECAUTIONS IN EFFECT. WITH PADDED SIDERAILS. HOB ELEVATED WITH ASPIRATION PRECAUTIONS. TURNED EVERY TWO HRS. CALL LIGHT WITHIN REACH, SAFETY MEASURES IN PLACE,
[2020-01-03] MEDS: LEVOTHYROXINE SODIUM 75 MCG TABLET GT SCH (09:08)
[2020-01-03] MEDS: LEVETIRACETAM SOL (5 ML) 100 MG/ML UDC GT SCH ×2 (09:08→17:51)
[2020-01-03 09:17] LABS: CALCIUM, SERUM 8.4 mg/dL (8.5-10.1); CREATININE 0.7 mg/dL (0.6-1.3); MAGNESIUM 2.7 mg/dL (1.8-2.4); PHOSPHORUS 2.9 mg/dL (2.5-4.9); POTASSIUM 4.5 mmol/L (3.5-5.1)
[2020-01-03 10:15] LABS: BASOPHILS % (AUTO) 0.1 % (0.0-2.0); HEMATOCRIT 42 % (33-45); HEMOGLOBIN 13.3 g/dL (11.5-14.8); LYMPHOCYTES # (AUTO) 0.8 /CMM (0.8-4.8); MEAN CORPUSCULAR HGB CONC 32 g/dl (31.0-36.0); MEAN CORPUSCULAR VOLUME 101 fL (82-100); MONOCYTES # (AUTO) 0.7 /CMM (0.1-1.30); MONOCYTES % (AUTO) 4.2 % (2.0-12.0); NEUTROPHILS % (AUTO) 90.7 % (43.0-81.0); PLATELET COUNT (AUTO) 204 /CMM (150-450); RED BLOOD CELL COUNT(AUTO) 4.13 MIL/uL (4.0-5.2); WHITE BLOOD COUNT (AUTO) 15.4 K/uL (4.3-11.0)
--- NOTE | 2020-01-03 10:25 | NUR ---
WOUND CARE CONSULT: PT PRESENTS WITH LEFT HEEL SCAR, SACRAL SCARRING WHICH EXTENDS TO BUTTOCKS, AND BREASTFOLD RASH, PRESENT ON ADMISSION. RECOMMENDATIONS MADE FOR SKIN PROTECTION. DISCUSSED WITH NURSING STAFF. PT IS ON [facility] BED. WILL SEE PRN. NUNEZ IN AGREEMENT WITH PLAN OF CARE. Addendum: 01/03/20 at 1027 by EVARISTO CARLISLE WNDNU Amended: Links added.
[2020-01-03] MEDS: VANCOMYCIN HCL 0.75 GM in IV D5W 250 ML IV SCH (10:26)
[2020-01-03] MEDS: IPRATROPIUM NEB FS 0.5 MG/2.5 ML AMPUL.NEB NEB SCH ×4 (12:30→23:32)
--- NOTE | 2020-01-03 12:57 | NUR ---
RT MEDS NOT AVAILABLE. RN AWARE
[2020-01-03] MEDS ORDERED: ALBUTEROL HALF STRENGTH 1.25 MG/3 ML VIAL.NEB NEB SCH (13:00)
--- NOTE | 2020-01-03 13:06 | NUR ---
PT'S GT FEEDING OF JEVITY TOLERATED WELL AT 45 ML THE PAST FEW HRS WITH NO RESIDUAL NOTED.NO DIARRHEA EPISODE. ADJUSTED TO MAX RATE OF 55 ML/HR FOR 24 HRS AND MONITOR FOR TOLERANCE.
[2020-01-03] MEDS: SOD FERRIC GLUC 125 MG in IV NS 0.9% 100 ML IV SCH (14:08)
[2020-01-03] MEDS: ALBUTEROL HALF STRENGTH 1.25 MG/3 ML VIAL.NEB NEB SCH ×3 (14:47→23:32)
[2020-01-03 16:00] VITALS: BP 95/45
--- NOTE | 2020-01-03 17:00 | NUR ---
PT IS NOTED TO BE WHEEZING STILL EVEN WITH FREQUENT SUCTIONING AND BREATHING TX. PT IS ON GT FEEDING AT 55 ML/HR AND IV NS AT 75 ML/HR WHICH MAY LEAD TO POSSIBLE FLUID OVERLOAD. NOTIFIED DAKOTA,DNP WITH ORDERS FOR STAT CXR AND BNP AND CARRIED OUT.
[2020-01-03] MEDS: CLOTRIMAZOLE 1% 15 GM TUBE TP SCH (17:51)
--- NOTE | 2020-01-03 19:30 | NUR ---
MS RN PM NOTE REPORT RECIEVED FROM CHARLEEN GARCIA. PT IN BED IN SEMI SÁNCHEZ'S POSITION AT 40 DEGREES. PHYSICALLY RESPONSIVE TO VERBAL AND TACTILE STIMULI. RESPIRATIONS EVEN AND UNLABORED ON 3L OF O2 VIA NC. RIGHT AC 20 GAUGE. FLUSHED PATENT INTACT CDI. NO COMPLICATIONS NOTED AT IV SITE. [facility] CATHETER PATENT AND IN PLACE DRAINING CLOUDY YELLOW URINE. JEVITY TUBE FEEDING RUNNING AND AT 55 ML/HR VIA G TUBE NO RESIDUAL NOTED. GT PLACEMENT VERIFIED VIA AUSCULTATION. SEIZURE PRECAUTIONS IN EFFECT SR PADDED ASPIRATION PRECAUTIONS IN PLACE. CALL LIGHT WITHIN REACH, SAFETY MEASURES IN PLACE BED DOWN LOCKED SRX3 WILL CONT TO MONITOR.
[2020-01-03 20:00] VITALS: BP 108/73
[2020-01-03] MEDS: TOBRAMYCIN/DEXAMETH OPHTH OINT 3.5 GM TUBE EACHEYE SCH (20:43)
[2020-01-03] MEDS: ENOXAPARIN SODIUM 40 MG/0.4 ML DISP.SYRIN SQ SCH (20:44)
[2020-01-03] MEDS: JEVITY 1.2 CAL 1,000 ML BOTTLE GT SCH (20:53)
--- NOTE | 2020-01-04 01:33 | NUR ---
OXYGEN TITRATION. DOWN TO 1LNC. PATIENT TITRATED DOWN TO 1 LNC TOLERATING WELL WITH RESP AT 18 AND SPO2 READING AT 97 %.
[2020-01-04] MEDS: IPRATROPIUM NEB FS 0.5 MG/2.5 ML AMPUL.NEB NEB SCH ×6 (03:22→23:29)
[2020-01-04] MEDS: ALBUTEROL HALF STRENGTH 1.25 MG/3 ML VIAL.NEB NEB SCH ×6 (03:22→23:29)
[2020-01-04] MEDS: VANCOMYCIN 0.75 GM in IV D5W 250 ML IV SCH ×2 (04:13→23:27)
[2020-01-04] MEDS: ZOSYN IVPB 3.375 G in IV D5W 50ml IV SCH ×4 (06:49→23:22)
--- NOTE | 2020-01-04 07:39 | NUR ---
RN MS RED NOTES PATIENT IS SLEEPING IN BED WITH NO SIGNS OF DISTRESS ON 3L NASAL CANNULA. IV ON THE LEFT WRIST #24G INTACT. G-TUBE INTACT FEEDING JEVITY AT 55 MLS/HR. [facility] CATHETER INTACT. BED IS IN LOW POSITION WITH SIDE RAILS UP X 2 FOR SAFETY. CALL LIGHT WITHIN REACH WILL CONTINUE TO MONITOR.
[2020-01-04 08:00] VITALS: BP 116/71
[2020-01-04] MEDS: LEVETIRACETAM SOL (5 ML) 100 MG/ML UDC GT SCH ×2 (08:11→16:18)
[2020-01-04] MEDS: LEVOTHYROXINE SODIUM 75 MCG TABLET GT SCH (08:12)
[2020-01-04] MEDS: CLOTRIMAZOLE 1% 15 GM TUBE TP SCH ×2 (08:42→16:19)
[2020-01-04 14:06] LABS: BASOPHILS % (AUTO) 0.4 % (0.0-2.0); EOSINOPHILS % (AUTO) 0.7 % (0.0-6.0); HEMATOCRIT 43 % (33-45); HEMOGLOBIN 13.5 g/dL (11.5-14.8); LYMPHOCYTES # (AUTO) 1.8 /CMM (0.8-4.8); LYMPHOCYTES % (AUTO) 16.4 % (20.0-44.0); MEAN CORPUSCULAR HGB CONC 31 g/dl (31.0-36.0); MEAN CORPUSCULAR VOLUME 104 fL (82-100); MONOCYTES # (AUTO) 1.8 /CMM (0.1-1.30); MONOCYTES % (AUTO) 16.6 % (2.0-12.0); NEUTROPHILS # (AUTO) 7.1 /CMM (1.8-8.9); NEUTROPHILS % (AUTO) 65.9 % (43.0-81.0); PLATELET COUNT (AUTO) 170 /CMM (150-450); RED BLOOD CELL COUNT(AUTO) 4.15 MIL/uL (4.0-5.2); WHITE BLOOD COUNT (AUTO) 10.8 K/uL (4.3-11.0)
[2020-01-04] MEDS: SOD FERRIC GLUC 125 MG in IV NS 0.9% 100 ML IV SCH (14:17)
[2020-01-04] MEDS ORDERED: TOBRAMYCIN/DEXAMETH OPHTH OINT 3.5 GM TUBE EACHEYE SCH (14:47)
[2020-01-04 15:40] LABS: CREATININE 0.8 mg/dL (0.6-1.3); MAGNESIUM 2.6 mg/dL (1.8-2.4); PHOSPHORUS 2.8 mg/dL (2.5-4.9); POTASSIUM 4.9 mmol/L (3.5-5.1)
[2020-01-04 15:49] LABS: BAND % (MANUAL) 1 % (0.0-5.0); EOSINOPHILS % (MANUAL) 3 % (0-4); LYMPHOCYTES % (MANUAL) 18 % (16-48); MONOCYTES % (MANUAL) 16 % (0-11.0); NEUTROPHILS % (MANUAL) 62 (42-76)
[2020-01-04] MEDS: JEVITY 1.2 CAL 1,000 ML BOTTLE GT SCH (15:57)
[2020-01-04 16:00] VITALS: BP 137/60
--- NOTE | 2020-01-04 18:46 | NUR ---
JOSE CHARLES OPEN NOTES PATIENT IS SLEEPING IN BED WITH NO SIGNS OF DISTRESS ON 3L NASAL CANNULA. IV ON THE LEFT WRIST #24G INTACT. G-TUBE INTACT FEEDING JEVITY AT 55 MLS/HR. [facility] CATHETER INTACT. PATIENT REMAINED STABLE THROUGH OUT SHIFT. PATIENT KEPT CLEAN AND DRY. ALL NEEDS CARE, TREATMENT AND MEDICATIONS ADMINISTERED ANTICIPATED PER ORDER. BED IS IN LOW POSITION WITH SIDE RAILS UP X 2 FOR SAFETY. CALL LIGHT WITHIN REACH. WILL ENDORSE TO THE NEXT TREE MARKER. Addendum: 01/04/20 at 1853 by YANY CHARLES RN JOSE MS ODALYS NOTES PATIENT IS SLEEPING IN BED WITH NO SIGNS OF DISTRESS ON 3L NASAL CANNULA. IV ON THE LEFT WRIST #24G INTACT. G-TUBE INTACT FEEDING JEVITY AT 55 MLS/HR. [employer] INTACT. PATIENT REMAINED STABLE THROUGH OUT SHIFT. PATIENT KEPT CLEAN AND DRY. ALL NEEDS CARE, TREATMENT AND MEDICATIONS ADMINISTERED ANTICIPATED PER ORDER. BED IS IN LOW POSITION WITH SIDE RAILS UP X 2 FOR SAFETY. CALL LIGHT WITHIN REACH. WILL ENDORSE TO THE NEXT TREE MARKER.
--- NOTE | 2020-01-04 19:30 | NUR ---
RN NOTE RECEIVED PT IN BED, NON VERBAL, NO S/SX OF ACUTE DISTRESS AT THIS TIME. PATIENT'S BREATHING IS EVEN AND UNLABORED. SATURATING >95% AT 3L VIA NC, TOLERATING WELL. NOTED IV SITE ON L WRIST G24, PATENT AND FLUSHING WELL, NO S/S OF INFECTION OR INFILTRATION. NOTED MULTIPLE REDNESS AT SACRUM, LEFT HEEL, AND BREASTFOLD. [employer] CONNECTED TO URINE BAG INTACT AND DRAINING TO A CLEAR, JUANITO URINE. SAFETY MEASURES IMPLEMENTED PER PROTOCOL. PATIENT BED ALARM IS ON. HEAD OF BED ELEVATED. BED IS LOCKED, IN LOWEST POSITION AND SIDE RAILS UP. CALL LIGHT WITHIN REACH OF THE PATIENT. ISOLATION PRECAUTIONS IN PLACE. WILL CONTINUE TO MONITOR AND REASSESS FOR ANY CHANGES.
[2020-01-04 20:00] VITALS: BP 110/56
[2020-01-04] MEDS: ENOXAPARIN SODIUM 40 MG/0.4 ML DISP.SYRIN SQ SCH (21:23)
[2020-01-05] MEDS: IPRATROPIUM NEB FS 0.5 MG/2.5 ML AMPUL.NEB NEB SCH ×4 (03:19→15:39)
[2020-01-05] MEDS: ALBUTEROL HALF STRENGTH 1.25 MG/3 ML VIAL.NEB NEB SCH ×4 (03:19→15:39)
[2020-01-05 04:00] VITALS: BP 103/78
[2020-01-05] MEDS: ZOSYN IVPB 3.375 G in IV D5W 50ml IV SCH ×3 (06:22→17:11)
--- NOTE | 2020-01-05 07:45 | NUR ---
RN MS RED NOTES PATIENT IS SLEEPING IN BED WITH NO SIGNS OF DISTRESS ON 3L NASAL CANNULA. IV ON THE LEFT WRIST #24G SL INTACT. G-TUBE INTACT FEEDING JEVITY AT 55 MLS/HR. [facility] CATHETER INTACT. BED IS IN LOW POSITION WITH SIDE RAILS UP X 2 FOR SAFETY. CALL LIGHT WITHIN REACH WILL CONTINUE TO MONITOR.
[2020-01-05 08:00] VITALS: BP 146/64
[2020-01-05] MEDS: LEVETIRACETAM SOL (5 ML) 100 MG/ML UDC GT SCH ×2 (08:25→16:51)
[2020-01-05] MEDS: CLOTRIMAZOLE 1% 15 GM TUBE TP SCH ×2 (08:25→16:52)
[2020-01-05] MEDS: LEVOTHYROXINE SODIUM 75 MCG TABLET GT SCH (08:25)
[2020-01-05 11:35] LABS: BASOPHILS % (AUTO) 0.6 % (0.0-2.0); HEMATOCRIT 38 % (33-45); HEMOGLOBIN 12.5 g/dL (11.5-14.8); LYMPHOCYTES % (AUTO) 13.4 % (20.0-44.0); MEAN CORPUSCULAR HGB CONC 33 g/dl (31.0-36.0); MEAN CORPUSCULAR VOLUME 99 fL (82-100); MONOCYTES # (AUTO) 0.6 /CMM (0.1-1.30); MONOCYTES % (AUTO) 8.6 % (2.0-12.0); NEUTROPHILS # (AUTO) 5.5 /CMM (1.8-8.9); NEUTROPHILS % (AUTO) 74.4 % (43.0-81.0); PLATELET COUNT (AUTO) 164 /CMM (150-450); RED BLOOD CELL COUNT(AUTO) 3.84 MIL/uL (4.0-5.2); WHITE BLOOD COUNT (AUTO) 7.4 K/uL (4.3-11.0)
[2020-01-05 12:00] VITALS: BP 102/58
[2020-01-05 12:03] LABS: CALCIUM, SERUM 8.1 mg/dL (8.5-10.1); CREATININE 0.8 mg/dL (0.6-1.3); MAGNESIUM 2.2 mg/dL (1.8-2.4); PHOSPHORUS 3.6 mg/dL (2.5-4.9); POTASSIUM 4.5 mmol/L (3.5-5.1)
[2020-01-05] MEDS: SOD FERRIC GLUC 125 MG in IV NS 0.9% 100 ML IV SCH (14:12)
[2020-01-05] MEDS ORDERED: CLOT15CR35 TP (15:40)
[2020-01-05] MEDS ORDERED: PIPE3.379 IV (15:40)
[2020-01-05] MEDS ORDERED: VANC750F2 IV (15:40)
[2020-01-05] MEDS: VANCOMYCIN 0.75 GM in IV D5W 250 ML IV SCH (15:53)
[2020-01-05 16:00] VITALS: BP 142/66
--- NOTE | 2020-01-05 18:25 | NUR ---
PATIENT IS DISCHARGING TO HOME HEALTH 24 HR CARE. PATIENT DISCHARGE EDUCATION SUCH , PRESCRIBED MEDICATIONS, PRIMARY DOCTOR FOLLOW UP AND RETURN TO THE ER IN CASE OF AN EMERGENCY INFORMATION IS IN PATIENT'S DISCHARGE FOLDER. BELONGING LIST WAS COMPLETED AND DISCHARGE PICTURES WERE TAKEN. IV L WRIST #24 G WILL STAY SINCE SHE HAS CONTINUED IV ANTIBIOTICS AT HOME. DAKOTA DAVIDSON MD AWARE AND CASE MANAGEMENT ALANA WELLS. DENTAL OFFICE MANAGER IS AT 1930 VIA AMBULANCE. WILL ENDORSE TO THE NEXT WEB ASSISTANT.
--- NOTE | 2020-01-05 18:49 | NUR ---
RN MS CLOSED NOTES PATIENT IS IN BED WITH NO SIGNS OF DISTRESS ON 3L NASAL CANNULA. IV ON THE LEFT WRIST #24G SL INTACT. G-TUBE INTACT FEEDING JEVITY AT 55 MLS/HR. [facility] CATHETER INTACT. PATIENT KEPT CLEAN AND DRY. ALL NEEDS, CARE, TREATMENT AND MEDICATIONS ADMINISTERED ANTICIPATED PER ORDER. DISCHARGE PAPER WORK DONE. SAFETY MEASURE APPLIED, BED IS IN LOW POSITION WITH SIDE RAILS UP X 2 FOR SAFETY. CALL LIGHT WITHIN REACH. AMBULANCE PICK AT 1930. WILL ENDORSE TO THE NEXT OPEN HEARTH FURNACE LABORER.
--- NOTE | 2020-01-05 19:57 | NUR ---
MS/AERIAL ERECTOR PATIENT TO HOME PICKED UP BY AMBULANCE WITH2 EMT, FAMILY MEMBER MADE AWARE, AM RN CO SIGNED FOR PATIENT BELONGINGS AND INSTRUCTION. HOME WITH HOME HEALTH PER CORE SETTER . TO FOLLOW UP FOR PANTS BELONGINGS. SEND PATIENT ON GURNEY WITH 3 LITER OXYGEN, GTUBE PLACED AND IV SITE KEPT FOR FURTHER IV THERAPY BY HOME HEALTH, [facility] CATHETER ALSO NOT REMOVED REQUESTED FOR HOME SHEMAR CARE WELL. PATIENT WITH 24 HOUR ARTIFACTS CONSERVATOR AND LIVES HOME. LEFT WRIST GAUGE 24 INTACT ANAD PATENT.SKIN ASSESSED AND TOOK PICTURES FOR DOCUMENTATION BY AM RN ON SACRAL, LEFT HEEL BREAST FOLD WITH RASHES.REPORT GIVEN.
== END 2020-01-05 20:00 | disposition home health service (06) | DRG 871 ==
LOC: ER 15:59 → TELE 18:50 → MED 01-02 10:12
PROVIDERS: ADMIT Nurse Practitioner Acute Care; ATTEND Nurse Practitioner Acute Care
DX: A41.9 Sepsis, unspecified organism (principal); J96.21 Acute and chronic respiratory failure with hypoxia; J15.9 Unspecified bacterial pneumonia; G93.41 Metabolic encephalopathy; J96.22 Acute and chronic respiratory failure with hypercapnia; N17.9 Acute kidney failure, unspecified; E66.2 Morbid (severe) obesity with alveolar hypoventilation; G40.909 Epilepsy, unspecified, not intractable, without status epilepticus; H54.8 Legal blindness, as defined in USA; I10 Essential (primary) hypertension; Q90.9 Down syndrome, unspecified; E03.9 Hypothyroidism, unspecified; Z79.899 Other long term (current) drug therapy; Z93.1 Gastrostomy status; R41.9 Unspecified symptoms and signs involving cognitive functions and awareness; D50.9 Iron deficiency anemia, unspecified; E78.5 Hyperlipidemia, unspecified; Z68.29 Body mass index [BMI] 29.0-29.9, adult; I70.0 Atherosclerosis of aorta; Y95 Nosocomial condition; Z99.81 Dependence on supplemental oxygen
CPT/HCPCS: 36415; 36600; 71045-TC; 80048-TC; 80053-TC; 80061-TC; 80202-TC; 81000-TC; 82550-TC; 82728-TC; 82803-TC; 83540-TC; 83605-TC; 83615-TC; 83735-TC; 83880; 84100-TC; 84439-TC; 84443-TC; 84484-TC; 85025-TC; 85378-TC; 85385-TC; 85730-TC; 86140-TC; 87040-TC; 87081-TC; 87086-TC; 93307-TC; 93970-TC; 94760-TC; 94799-TC; A6403; G0378; J0692; J1100; J1650; J1953; J2060; J2543; J2916; J2930; J3370; J7030; J7060

== ENCOUNTER 2020-01-10 16:04 | Emergency (ER) | payer MEDICARE, OTHER ==
[~2020-01-10] VITALS: Ht 157.5 cm; Wt 66.7 kg
[~2020-01-10 16:04] MED LIST changes: -ACET325T53 PO; -ALBU2.5V13 NEB; +CLOT15CR35 TP; -IPRA0.2S9 NEB; -LEVO750T21 GT; +LEVO75TA7 GT; -LEVO88TA5 PO; +PIPE3.379 IV; -PRED20TA PO; +TOBR3.5O2 EACHEYE; +VANC750F2 IV
--- NOTE | 2020-01-10 16:14 | NUR ---
ATA FROM HOME FOR MIDLINE PLACEMENT. TO ER BED 11, HOOKED TO MONITOR, AWAITING MD MAIN.
--- NOTE | 2020-01-10 17:05 | NUR ---
HAT BLOCK BENCH HAND DEGRASSE AT BEDSIDE
--- NOTE | 2020-01-10 17:06 | NUR ---
PER WORD PROCESSOR OPERATOR, NO AVAILABLE MIDLINER FOR TODAY. MADE FINANCIAL SERVICES OFFICER DEGRASSE AWARE
--- NOTE | 2020-01-10 18:10 | NUR ---
RESERVATION NUMBER [id number].
--- NOTE | 2020-01-10 19:16 | NUR ---
REPORT GIVEN TO JOSE JUAN GARCIA FOR GENEVIEVE
--- NOTE | 2020-01-10 20:15 | NUR ---
[facility] ETA 15 MINUTES
[2020-01-10 21:19] VITALS: BP 111/50
--- NOTE | 2020-01-10 21:19 | NUR ---
REPORT GIVEN TO [facility] TRANSFER. PT TRANSFERED.
== END 2020-01-10 21:27 | disposition home or self-care (01) ==
LOC: ER 16:08
DX: Z45.2 Encounter for adjustment and management of vascular access device (principal); I10 Essential (primary) hypertension; H54.7 Unspecified visual loss; G40.909 Epilepsy, unspecified, not intractable, without status epilepticus; Q90.9 Down syndrome, unspecified; E03.9 Hypothyroidism, unspecified; Z93.1 Gastrostomy status; Z79.899 Other long term (current) drug therapy

== ENCOUNTER 2020-01-23 17:32 | Inpatient (IN) | payer MEDICARE, OTHER ==
[~2020-01-23] VITALS: Ht 157.5 cm; Wt 64.4 kg
[2020-01-23] MEDS ORDERED: IV NS 0.9% 1,000 ML IV ONE ×2 (17:36→20:00)
[2020-01-23 17:59] LABS: BASOPHILS # (AUTO) 0.1 /CMM (0.0-0.2); BASOPHILS % (AUTO) 0.7 % (0.0-2.0); EOSINOPHILS % (AUTO) 2.1 % (0.0-6.0); HEMATOCRIT 47 % (33-45); HEMOGLOBIN 15.1 g/dL (11.5-14.8); LYMPHOCYTES # (AUTO) 2.1 /CMM (0.8-4.8); MEAN CORPUSCULAR HGB CONC 32 g/dl (31.0-36.0); MEAN CORPUSCULAR VOLUME 102 fL (82-100); MONOCYTES # (AUTO) 0.8 /CMM (0.1-1.30); NEUTROPHILS # (AUTO) 5.9 /CMM (1.8-8.9); NEUTROPHILS % (AUTO) 65.2 % (43.0-81.0); PLATELET COUNT (AUTO) 199 /CMM (150-450); RED BLOOD CELL COUNT(AUTO) 4.57 MIL/uL (4.0-5.2); WHITE BLOOD COUNT (AUTO) 9.1 K/uL (4.3-11.0)
[2020-01-23] MEDS ORDERED: methylPREDNISolone SOD SUCC 125 MG/2ML VIAL IV ONE (18:00)
[2020-01-23] MEDS ORDERED: VANCOMYCIN HCL 1.25 GM in IV D5W 260 ML IV ONE (18:00)
[2020-01-23] MEDS ORDERED: CEFEPIME 1 GM in IV D5W 50 ML IV ONE (18:00)
--- NOTE | 2020-01-23 18:08 | NUR ---
Note richard in ED - 01/23/20 at 1809 by TALI BIBRA FROM HOME TO ER BED 5. LETHARGIC. IN MOD DISTRESS, DYSPNEIC.
--- NOTE | 2020-01-23 18:08 | NUR ---
ATA FROM HOME TO ER BED 5. LETHARGIC. IN MOD DISTRESS, DYSPNEIC. NOTED SATTING 83% ON RA. PLACED ON O2 VIA NC 5LPM VIA NC SATTING @ 96%. PT WAS REPORT TO BE DESATTED IN THE 80%s. NOTED RONCHI AND CRACKLES BILATERALLY. RT AT BEDSIDE SUCTIONED PT AND O2 AIRWAY GOT MORE PATENT AND BREATHING GOT BETTER. O2 SAT AFTER SUCTIONING WENT UP TO 96%, NOTED WHITE MILKY ASPIRANT. MD WAS AT THE BEDSIDE FOR EVAL. ORDERS RECEIVED, NOTED AND CARRIED OUT. IV LINE EXTABLISHED ON THE L WRIST WITH 18G. BLOOD DRAWN AND GIVEN TO ALLIGATOR SHEAR OPERATOR AT THE BEDSIDE. PT IS NOTED WITH GT AND [facility] CATH UPON ARRIVAL.
[2020-01-23 18:09] LABS: APPEARANCE,URINE Clear (CLEAR); BILIRUBIN,URINE Negative (NEGATIVE); BLOOD, URINE Large Ery/uL (NEGATIVE); COLOR,URINE Yellow (YELLOW); KETONES,URINE Negative (NEGATIVE); LEUKOCYTE ESTERASE ,URINE Negative (NEGATIVE); NITRITE, URINE Negative (NEGATIVE); PROTEIN,URINE 100 mg/dl (NEGATIVE); UGLUCOSE Negative (NEGATIVE); UROBILINOGEN,URINE 0.2 EU/dL (0.2)
[2020-01-23 18:09] LABS: ABG BASE EXCESS 6.8 mmol/L; ABG OXYGEN SATURATION 98.4 % (92.0-98.5); ABG PCO2 44.9 mmHg (35.0-45.0); ABG PH 7.465 (7.350-7.450); ABG PO2 140.1 mmHg (75.0-100.0); AaDO2 93.5 mmHg; COHb 0.7 % (0.5-1.5); MetHb 0.4 % (0.0-1.5); O2Hb 97.3 % (94.0-97.0); SITE, ABG Left Radial; VENT MODE, BG N/C 5 lpm
[2020-01-23] MEDS ORDERED: ACETAMINOPHEN 650 MG/SUPP.RECT RC ONE ×2 (18:12→18:30)
[2020-01-23] MEDS ORDERED: methylPREDNISolone SOD SUCC 125 MG/2ML VIAL ONE (18:12)
[2020-01-23 18:13] LABS: BACTERIA,URINE Few /HPF (None Seen); SQUAMOUS EPITHELIAL CELL,UR Few /HPF (None Seen); WBC,URINE 0-2 /HPF (0-3)
[2020-01-23 18:23] LABS: CALCIUM, SERUM 9.1 mg/dL (8.5-10.1); CARBON DIOXIDE 36 mmol/L (21-32); CHLORIDE 110 mmol/L (98-107); CREATININE 0.8 mg/dL (0.6-1.3); GLUCOSE 138 mg/dL (74-106); POTASSIUM 4.6 mmol/L (3.5-5.1); SODIUM SERUM 149 mmol/L (136-145); UREA NITROGEN, BLOOD 34 mg/dL (7-18)
[2020-01-23] MEDS ORDERED: LACT-209 GT (18:24)
[2020-01-23 18:29] LABS: ALANINE AMINOTRANSFERASE 20 U/L (12-78); ALBUMIN 2.6 g/dL (3.4-5.0); ALKALINE PHOSPHATASE 104 U/L (46-116); ASPARTATE AMINOTRANSFERASE 26 U/L (15-37); B-TYPE NATRIURETIC PEPTIDE 143 PG/ML (0-125); BILIRUBIN,TOTAL 0.5 mg/dL (0.2-1.0); TOTAL PROTEIN, SERUM 8.6 g/dL (6.4-8.2)
--- NOTE | 2020-01-23 18:29 | NUR ---
PT BROTHER REQUESTS PATIENT BE ANNOINTED BY CONTINUOUS IMPROVEMENT ANALYST WHEN POSSIBLE
[2020-01-23 18:51] LABS: CREATINE KINASE, TOTAL 23 U/L (26-192); FERRITIN 340 ng/mL (8-388)
[2020-01-23 19:02] LABS: C-REACTIVE PROTEIN 1.4 mg/dL (0.0-0.9)
[2020-01-23 19:14] LABS: D-DIMER 1.31 mg/L(FEU (0.17-0.50)
--- NOTE | 2020-01-23 19:31 | NUR ---
HEALTH COMPANION AT BEDSIDE FOR ANOINTING OF THE SICK.
[2020-01-23] MEDS ORDERED: HYDROCODONE/APAP 5/325MG TABLET PO PRN (20:00)
[2020-01-23] MEDS ORDERED: Z GUARD REMEDY 2 OZ OINT TP PRN (20:00)
[2020-01-23] MEDS ORDERED: MAG HYDROX/AL HYDROX/SIMETH 30 ML UDC PO PRN (20:00)
[2020-01-23] MEDS ORDERED: ONDANSETRON HCL/PF 4 MG/2 ML VIAL IVP PRN (20:00)
[2020-01-23] MEDS ORDERED: MAGNESIUM HYDROXIDE 30 ML UDC PO PRN (20:00)
[2020-01-23] MEDS ORDERED: ZOLPIDEM TARTRATE 5 MG TABLET PO PRN (20:00)
[2020-01-23] MEDS ORDERED: JEVITY 1.2 CAL 1,000 ML BOTTLE GT SCH (20:00)
[2020-01-23] MEDS ORDERED: ACETAMINOPHEN 325 MG TABLET PO PRN (20:00)
--- NOTE | 2020-01-23 20:02 | NUR ---
CALLED NURSING SUP FOR BED
--- NOTE | 2020-01-23 20:47 | NUR ---
BRANDON (PT'S CAREGIVER)
--- NOTE | 2020-01-23 20:58 | NUR ---
REPORT GIVEN TO JOSE BRAVO FOR GENEVIEVE.
--- NOTE | 2020-01-23 21:12 | NUR ---
PT TRANSPORTED TO UNIT ON GURNEY WITH EMT AND RN AT BEDSIDE W/ ACLS PROTOCOL. NAD NOTED DURING TRANSPORT.
[2020-01-23] MEDS: LEVETIRACETAM SOL (5 ML) 100 MG/ML UDC GT SCH (22:42)
[2020-01-24] VITALS: BP 105/54
[2020-01-24 04:00] VITALS: BP 106/68
[2020-01-24 06:26] LABS: BASOPHILS % (AUTO) 0.1 % (0.0-2.0); CALCIUM, SERUM 8.3 mg/dL (8.5-10.1); CREATININE 0.7 mg/dL (0.6-1.3); HEMATOCRIT 43 % (33-45); HEMOGLOBIN 13.9 g/dL (11.5-14.8); LYMPHOCYTES # (AUTO) 0.6 /CMM (0.8-4.8); LYMPHOCYTES % (AUTO) 3.9 % (20.0-44.0); MAGNESIUM 2.2 mg/dL (1.8-2.4); MEAN CORPUSCULAR HGB CONC 32 g/dl (31.0-36.0); MEAN CORPUSCULAR VOLUME 103 fL (82-100); MONOCYTES # (AUTO) 0.1 /CMM (0.1-1.30); MONOCYTES % (AUTO) 0.5 % (2.0-12.0); NEUTROPHILS # (AUTO) 14.9 /CMM (1.8-8.9); NEUTROPHILS % (AUTO) 95.5 % (43.0-81.0); PHOSPHORUS 3.2 mg/dL (2.5-4.9); PLATELET COUNT (AUTO) 166 /CMM (150-450); POTASSIUM 4.8 mmol/L (3.5-5.1); RED BLOOD CELL COUNT(AUTO) 4.19 MIL/uL (4.0-5.2); WHITE BLOOD COUNT (AUTO) 15.6 K/uL (4.3-11.0)
--- NOTE | 2020-01-24 07:15 | NUR ---
RN OPENING NOTE: Received patient in bed. Awake, alert and oriented x1. Isolation precaution in place for COVID-19. On 2.5lpm cont o2 via NC being tolerated well. Saturation at 95%. No SOb and not in respiratory distress. Tele monitor showing sinus rhythm at 69. IV sites clean, dry, patent and intact. IV infusion of D5W + 20 meq KCL @ 50mls/hr currently infusing and being tolerated. No pain noted nor reported by patient. Call light in reach. Bed locked, low and at semi-dominguez's position. Side rails up x3. Safety ensured and observed. Will continue to monitor.
--- NOTE | 2020-01-24 07:16 | NUR ---
RN notes Admitted a 69 yr old female from ER via stretcher with Down syndrome and diagnosis of acute respiratory distress. Breathing even and unlabored. No physical manifestation of pain or discomfort. Suctioned large amount of semi loose yellowish secretion. Kept clean and dry. Endorsed to next shift for continuity of carte.
--- NOTE | 2020-01-24 07:20 | NUR ---
RN OPENING NOTE: Received patient in bed and asleep. Isolation precautions in place to R/O covid. On cont. o2 via NC @ 4lpm and being tolerated well, saturation reported to be fluctuating but currently at 97%. No SOB and not in respiratory distress. Congestion noted on patient, will do frequent suctioning and assessments on patient. Patient reported to have down syndrome. Tele monitor showing sinus rhythm @ 74bpm. IV site clean, dry, patent and intact. IV infusion of NS NS @ 75mls/hr being tolerated well. Gtube in place and patent, feeding of Jevity 1.2 @ 60mls/hr currently held by previous shift, will restart. No pain noted on patient. Campos catheter in place and draining yellow urine. Call light in reach. Bed locked, low and at semi-dominguez's position. Side rails up x3. Seizure precaution in place. Safety ensured and observed. Will continue to monitor.
[2020-01-24 08:00] VITALS: BP 101/50
[2020-01-24] MEDS: LEVOTHYROXINE SODIUM 75 MCG TABLET GT SCH (08:27)
[2020-01-24] MEDS: DEXAMETHASONE SOD PHOSPHATE 4 MG/ML VIAL IV SCH (08:28)
[2020-01-24] MEDS: LEVETIRACETAM SOL (5 ML) 100 MG/ML UDC GT SCH ×2 (08:28→20:05)
[2020-01-24] MEDS: LORAZEPAM INJ 2 MG/ML VIAL IV PRN (08:50)
[2020-01-24] MEDS ORDERED: DEXAMETHASONE SOD PHOSPHATE 6 MG in IV D5W 50 ML IV SCH (09:00)
--- NOTE | 2020-01-24 09:00 | NUR ---
RN NOTE: Patient noted to have seizure activity at approximately 0830. Seizure precautions in place and reinforced. GT feeding on hold, patient turned to the side. 02 adjusted to 6lpm via NC. RT called. Stayed with patient at bedside. Dr. Harper also made rounds and saw situation and ordered Ativan 1mg q4h prn. 1 dose given at 0850. At 0900, seizure activity noted to have stopped. V/S as follows, BP: 102/82, 02 sat: 97%, HR: 96 RR: 21. Temp: 98.6. Dr. Ash Orellana made aware. Will continue to monitor.
--- NOTE | 2020-01-24 11:44 | NUR ---
RN NOTE: Patient's brother (Darcie) called and informed about . Mayra Collado to be acknowledged and added to patient's chart because they wanted to coordinate about patient's discharge process and arrange where patient will stay upon discharge. Informed case management about situation and was informed that Petra (Storage Battery Tester) was on her case and to give extention [phone] to Mayra to call so they can coordinate about it. Mayra informed. Addendum: 01/24/20 at 7914 by JAI COLLAZO RN Mayra Collado [phone]
[2020-01-24 12:00] VITALS: BP 93/71
[2020-01-24] MEDS: ENOXAPARIN SODIUM 40 MG/0.4 ML DISP.SYRIN SQ SCH (12:07)
[2020-01-24 16:00] VITALS: BP 94/38
--- NOTE | 2020-01-24 17:21 | NUR ---
RN NOTE: Patient's pm vital signs as follows BP: 94/38, temp: 97.5, hr: 79, rr: 21 o2 sat: 97%. Informed Dr. Ash Orellana of patient's BP along with manual BP taken with ranges from SPB in the 80s -90s / DBP: of 40s-50s. Nurse was unable to take accurate values due to patient being unable to stay still and follow directions due to Down Syndrome. MD is aware and no bolus orders were given. Patient with noted congestion and prior NS @ 75mls/hr was Dc'd earlier on shift. MD acknowledged values, patient's baseline BP observed prior was SBP; 90-100s / DBP: 60-70s and instructed nurse to continue to monitor BP.
--- NOTE | 2020-01-24 19:18 | NUR ---
RN CLOSING NOTE: Patient remains in bed and asleep. Isolation precautions in place to R/O covid. On cont. humidified o2 via NC @ 6lpm and being tolerated well, saturation at 97%. No SOB and not in respiratory distress. Congestion noted on patient, suctioning done on patient on shift Tele monitor showing sinus rhythm @ 70s. IV site clean, dry, patent and intact. Gtube in place and patent, feeding of Jevity 1.2 @ 60mls/hr. No pain noted on patient. BP continued to be monitored per Dr. Orellana. Campos catheter in place and draining yellow urine. Call light in reach. Bed locked, low and at semi-dominguez's position. Side rails up x3. Seizure precaution in place. Safety ensured and observed. Endorsed to oncoming shift for GENEVIEVE.
[2020-01-24 20:00] VITALS: BP 132/103
[2020-01-25] VITALS (7 sets, daily range): BP systolic 84–127; BP diastolic 51–91
[2020-01-25] MEDS: JEVITY 1.2 CAL 1,000 ML BOTTLE GT PRN (03:41)
--- NOTE | 2020-01-25 06:41 | NUR ---
RN NOTE NO ACUTE CHANGES OBSERVED OVERNIGHT. ALL NEEDS MET AND ATTENDED TO. SAFETY MEASURES IN PLACE, SEIZURE PRECAUTIONS IMPLEMENTED, WILL ENDORSE TO MORNING RN FOR CONTINUATION OF CARE.
--- NOTE | 2020-01-25 07:10 | NUR ---
RN OPENING NOTE: Received patient in bed and asleep. Isolation precautions in place to R/O covid. On cont. humidified o2 via NC @ 6lpm and being tolerated well, saturation currently at 97%. No SOB and not in respiratory distress. Congestion still noted on patient, will do frequent suctioning and assessments on patient. Patient with down syndrome. Tele monitor showing sinus rhythm in the 70s. IV site clean, dry, patent and intact. Gtube in place and patent, feeding of Jevity 1.2 @ 60mls/hr currently running. No pain noted on patient. Campos catheter in place and draining yellow urine. Call light in reach. Bed locked, low and at semi-dominguez's position. Side rails up x3. Seizure precaution in place. Safety ensured and observed. Will continue to monitor.
[2020-01-25 07:27] LABS: BASOPHILS % (AUTO) 0.2 % (0.0-2.0); HEMATOCRIT 42 % (33-45); HEMOGLOBIN 13.1 g/dL (11.5-14.8); LYMPHOCYTES # (AUTO) 0.9 /CMM (0.8-4.8); LYMPHOCYTES % (AUTO) 6.9 % (20.0-44.0); MEAN CORPUSCULAR HGB CONC 31 g/dl (31.0-36.0); MEAN CORPUSCULAR VOLUME 102 fL (82-100); MONOCYTES # (AUTO) 0.8 /CMM (0.1-1.30); NEUTROPHILS # (AUTO) 11.4 /CMM (1.8-8.9); NEUTROPHILS % (AUTO) 86.9 % (43.0-81.0); PLATELET COUNT (AUTO) 182 /CMM (150-450); RED BLOOD CELL COUNT(AUTO) 4.11 MIL/uL (4.0-5.2); WHITE BLOOD COUNT (AUTO) 13.2 K/uL (4.3-11.0)
[2020-01-25 07:40] LABS: CALCIUM, SERUM 8.5 mg/dL (8.5-10.1); CREATININE 0.6 mg/dL (0.6-1.3); MAGNESIUM 2.7 mg/dL (1.8-2.4); PHOSPHORUS 2.2 mg/dL (2.5-4.9); POTASSIUM 4.4 mmol/L (3.5-5.1)
[2020-01-25] MEDS: LEVETIRACETAM SOL (5 ML) 100 MG/ML UDC GT SCH ×2 (08:28→20:28)
[2020-01-25] MEDS: DEXAMETHASONE SOD PHOSPHATE 4 MG/ML VIAL IV SCH (08:28)
[2020-01-25] MEDS: ENOXAPARIN SODIUM 40 MG/0.4 ML DISP.SYRIN SQ SCH (08:29)
[2020-01-25] MEDS: LEVOTHYROXINE SODIUM 75 MCG TABLET GT SCH (08:29)
--- NOTE | 2020-01-25 10:00 | NUR ---
RN NOTE: RT INFORMED NURSE THAT PATIENT WAS BLEEDING AFTER OROPHARYNGEAL AND NASOPHARYNGEAL SUCTION WAS DONE. PATIENT WAS ASSESSED AND BLEEDING HAS STOPPED AND NO OTHER SOURCE OF BLEEDING IDENTIFIED. INFORMED DR. AMOR ABOUT SITUATION AND ORDERED TO HOLD LOVENOX IF BLEEDING PERSISTS AND MONITOR PATIENT.
--- NOTE | 2020-01-25 12:09 | NUR ---
dr. ortiz aware patient negative covid awaits bed from noncovid unit per nursing sup,need iso room since influenza pcr still pending.
--- NOTE | 2020-01-25 16:00 | NUR ---
rn note: spoke with family member rom lan (niece) about patient's condition. She also informed nurse about home situation wherein the patient's sister is threatening to have patient leave hospital AMA. As per understanding, the patient's sister does not have DPOA over patient and the other family members want her to continue care until decided by MD to be discharged. Will endorse.
[2020-01-25] MEDS ORDERED: NEUTRA PHOS 1 POWD.PACKET NG ONE (16:30)
--- NOTE | 2020-01-25 18:00 | NUR ---
contractor broomcorn threshing note: Patient transferred to room 324-2 and received by JOSE Black. Patient remains in stable condition.
--- NOTE | 2020-01-25 18:05 | NUR ---
SIGNAL APPRENTICEEXCHANGE CONSULTANT NOTES PT TRANSPORTED TO UNIT AT THIS TIME BY BED RESTING IN BED COMFORTABLY WITH ACLS PROTOCOL IN PLACE. RECEIVED BEDSIDE REPORT FROM JOSE VERGARA. PT IS NON VERBAL, BREATHING EVEN AND UNLABORED; CRACKLES NOTED; NO S/S OF ANY ACUTE DISTRESS NOTED. NO SIGN OF PAIN/ FACIAL GRIMACE NOTED AT THIS TIME. PT ON EXTERNAL TELE BORING MACHINE OPERATOR DOUBLE END READING SR IN THE 70s. IV ACCESS NOTED IN LEFT WRIST G#18, PATENT, INTACT AND FLUSHING WELL; G-TUBE FEEDING IN PLACE INFUSING AT 60ML/HR, NO RESIDUAL NOTED, [facility] CATHETER IN PLACE DRAINING TO GRAVITY CLEAR YELLOW URINE OUTPUT. SEIZURE, ASPIRATION AND SAFETY PRECAUTION IN PLACE. BED IN LOWEST LOCKED POSITION, HOB ELEVATED, SIDE RAILS PADDED, RAILS UP X 2, CALL LIGHT WITHIN REACH. WILL CONTINUE TO MONITOR
--- NOTE | 2020-01-25 18:54 | NUR ---
INSPECTOR COATED FABRICS CLOSING NOTES PT IN BED RESTING AT THIS TIME. PT REMAINED STABLE. PT KEPT CLEAN AND DRY. ALL CARE, NEEDS, MEDICATION AND TREATMENT ADMINISTERED ANTICIPATED PER ORDER. PT SUCTIONED TOLERATED. SEIZURE, ASPIRATION AND SAFETY PRECAUTION IN PLACE. BED IN LOWEST LOCKED POSITION, HOB ELEVATED, SIDE RAILS PADDED, SIDE RAILS UP X 2, CALL LIGHT WITHIN REACH. WILL ENDORSE TO VAN OWNER OPERATOR NURSE FOR GENEVIEVE
--- NOTE | 2020-01-25 20:00 | NUR ---
GEOTHERMAL ELECTRICAL ENGINEER OPENING NOTES RECEIVED PATIENT IN BED, AWAKE, NON-VERBAL, O2 @ 6LPM VIA NASAL CANNULA, NO SIGNS OF RESPIRATORY DISTRESS, NOTED, IV ACCESS ON LEFT WRISTS #22G, INTACT AND FLUSHED WITH NS, G-TUBE FEEDING JEVITY 1.2 @ 60ML/HR, [facility] CATH ATTACHED WITH YELLOWISH COLORED URINE, SIDE RAILS UP.
[2020-01-25] MEDS: MUPIROCIN OINT 2% 22 GM TUBE NS SCH (20:28)
--- NOTE | 2020-01-25 22:15 | NUR ---
DISTRIBUTION LINEMAN NOTES SUCTIONED PATIENT'S MOUTH, SUCTIONED ONLY LITTLE AMOUNT OF MUCUS FROM THE MOUTH.
[2020-01-26] VITALS: BP 105/45
--- NOTE | 2020-01-26 03:59 | NUR ---
ENTERTAINER & COMIC NOTES SUCTIONED PATIENT'S MOUTH. NO MUCUS OR SPUTUM PRESENT.
[2020-01-26 04:03] VITALS: BP 115/61
[2020-01-26 06:30] LABS: BASOPHILS % (AUTO) 0.1 % (0.0-2.0); HEMATOCRIT 40 % (33-45); HEMOGLOBIN 12.8 g/dL (11.5-14.8); LYMPHOCYTES % (AUTO) 8.4 % (20.0-44.0); MEAN CORPUSCULAR HGB CONC 32 g/dl (31.0-36.0); MEAN CORPUSCULAR VOLUME 103 fL (82-100); MONOCYTES # (AUTO) 0.5 /CMM (0.1-1.30); NEUTROPHILS # (AUTO) 10.6 /CMM (1.8-8.9); NEUTROPHILS % (AUTO) 87.5 % (43.0-81.0); PLATELET COUNT (AUTO) 166 /CMM (150-450); RED BLOOD CELL COUNT(AUTO) 3.88 MIL/uL (4.0-5.2); WHITE BLOOD COUNT (AUTO) 12.1 K/uL (4.3-11.0)
--- NOTE | 2020-01-26 06:37 | NUR ---
CAN CONVEYOR FEEDER NOTES ENDORSED PATIENT IN BED, AWAKE, NON-VERBAL, O2 @ 6LPM VIA NASAL CANNULA, NO SIGNS OF RESPIRATORY DISTRESS NOTED, MONITORED AND SUCTIONED PATIENT'S MOUTH FOR PRECAUTION, IV ACCESS ON LEFT WRISTS #18G, INTACT AND FLUSHED WITH NS, G-TUBE FEEDING JEVITY 1.2 @ 60ML/HR, [facility] CATH ATTACHED WITH YELLOWISH COLORED URINE, DUE MEDS GIVEN, TURNED AND POSITIONED EVERY 2 HRS, SIDE RAILS UP FOR SAFETY.
[2020-01-26 06:40] LABS: ALBUMIN 2.1 g/dL (3.4-5.0); BILIRUBIN,TOTAL 0.4 mg/dL (0.2-1.0); CALCIUM, SERUM 8.6 mg/dL (8.5-10.1); CREATININE 0.6 mg/dL (0.6-1.3); MAGNESIUM 2.6 mg/dL (1.8-2.4); POTASSIUM 4.7 mmol/L (3.5-5.1); TOTAL PROTEIN, SERUM 6.6 g/dL (6.4-8.2)
--- NOTE | 2020-01-26 07:30 | NUR ---
TELE/RN OPENING NOTES Received patient resting in bed with HOB elevated, non-verbal, opens eyes to tactile and verbal stimulation. No s/s of pain/discomfort at this time. No s/s of respiratory distress noted, on 6L oxygen via NC. No cardiac distress noted. On tele monitor, reading SR 67. IV access noted on L wrist #18 , patent and intact, and flushing well. No s/s of infection, bleeding, or infiltration. Fall precautions maintained. Bed locked to its lowest position, side rails x 2 up, bed alarm on. Will continue to monitor for any changes of condition.
[2020-01-26 08:00] VITALS: BP 103/54
[2020-01-26] MEDS: DEXAMETHASONE SOD PHOSPHATE 4 MG/ML VIAL IV SCH (08:14)
[2020-01-26] MEDS: LEVETIRACETAM SOL (5 ML) 100 MG/ML UDC GT SCH ×2 (08:15→21:20)
[2020-01-26] MEDS: LEVOTHYROXINE SODIUM 75 MCG TABLET GT SCH (08:15)
[2020-01-26] MEDS: ENOXAPARIN SODIUM 40 MG/0.4 ML DISP.SYRIN SQ SCH (08:15)
[2020-01-26] MEDS: MUPIROCIN OINT 2% 22 GM TUBE NS SCH ×2 (08:16→21:20)
--- NOTE | 2020-01-26 09:00 | NUR ---
MS/RN NOTES Suctioned patient's mouth, scant amount of mucus noted.
[2020-01-26] MEDS: JEVITY 1.2 CAL 1,000 ML BOTTLE GT PRN (09:50)
[2020-01-26] MEDS ORDERED: NEUTRA PHOS 1 POWD.PACKET GT ONE (12:30)
[2020-01-26] MEDS: LORAZEPAM INJ 2 MG/ML VIAL IV PRN (14:05)
--- NOTE | 2020-01-26 14:12 | NUR ---
MS/RN NOTES Patient is restless, generalized muscle spasms noted. Ativan given. Will continue to monitor for any changes of condition.
--- NOTE | 2020-01-26 14:30 | NUR ---
MS/RN NOTES Patient is comfortably sleeping. VSS, no respiratory distress noted, no s/s of pain/discomfort noted. Will continue to monitor.
[2020-01-26 16:00] VITALS: BP 140/73
--- NOTE | 2020-01-26 18:45 | NUR ---
MS/RN CLOSING NOTE Patient remains stable, with HOB elevated. Non-verbal, but opens eyes upon tactile and verbal stimulation throughout shift. Breathing even and non-labored on 6L oxygen via NC. No s/s of pain/discomfort noted. No respiratory or cardiac distress noted. IV site on L wrist #18 remains patent and intact, and flushing well. No s/s of infection, infiltration, or bleeding noted. G-tube in place, patent and intact, no gastric residual noted, running Jevity 1.2 @ 60 mls/hr, tolerating well. Sensation from all peripheral extremities intact. Bed locked to its lowest position, call light in reach, 2 side rails up, bed alarm on. Will endorse to shift supervisor melting nurse.
--- NOTE | 2020-01-26 19:44 | NUR ---
MS RN NOTE: Received patient from morning nurse. Patient is sleeping and is aroused through touch. Patient is non-verbal. Noted side rails padded. Patient is on 3L nasal canula. Patient is breathing well, no signs of respiratory distress, no SOB. Noted IV access on left wrist, 18g; intact, patent, no redness, or infiltration. Gtube patent and intact. Noted tube feeding, Jevity 1.2 @ 60mL/hr. Noted Campos catheter, draining clear yellow output. Safety precaution is in place, side rails are padded, bed is locked, in lowest position, alarm is on, side rails are up, and call light is within reach. Will continue to monitor.
[2020-01-26 20:40] VITALS: BP 126/50
--- NOTE | 2020-01-27 00:32 | NUR ---
MS RN NOTE: Endorsed patient to Krystina for continuity of care.
--- NOTE | 2020-01-27 00:54 | NUR ---
RECEIVED REPORTS FROM JOSE JOSHUA FOR GENEVIEVE, CHECKED PATIENT, PATIENT IS AWAKE, NON- VERBAL HOB ELEVATED. WITH GT FEEDING AT 60ML/HOUR. BED ALARM ON. BED IN LOWEST AND LOCKED POSITION. SIDERAILS PADDED. WITH FOLET CATHETER INTACT WITH YELLOW CLEAR URINE COLOR.
[2020-01-27] MEDS: JEVITY 1.2 CAL 1,000 ML BOTTLE GT PRN ×2 (02:28→23:55)
--- NOTE | 2020-01-27 02:42 | NUR ---
NO GT RESIDUAL NOTED. GT SITE DRESSING CHANGED WITH VERY SMALL AMOUNT OF YELLOWISH AND PINKISH EXUDATE,NO ODOR, NO SKIN IRRITATION. HOB ELEVATED AT 45 DEGREES AT ALL TIMES.
[2020-01-27 06:21] LABS: BASOPHILS % (AUTO) 0.1 % (0.0-2.0); HEMATOCRIT 41 % (33-45); HEMOGLOBIN 13.4 g/dL (11.5-14.8); LYMPHOCYTES # (AUTO) 1.2 /CMM (0.8-4.8); LYMPHOCYTES % (AUTO) 14.4 % (20.0-44.0); MEAN CORPUSCULAR HGB CONC 33 g/dl (31.0-36.0); MEAN CORPUSCULAR VOLUME 102 fL (82-100); MONOCYTES # (AUTO) 0.5 /CMM (0.1-1.30); MONOCYTES % (AUTO) 6.2 % (2.0-12.0); NEUTROPHILS # (AUTO) 6.4 /CMM (1.8-8.9); NEUTROPHILS % (AUTO) 79.3 % (43.0-81.0); PLATELET COUNT (AUTO) 190 /CMM (150-450); RED BLOOD CELL COUNT(AUTO) 4.02 MIL/uL (4.0-5.2); WHITE BLOOD COUNT (AUTO) 8.1 K/uL (4.3-11.0)
[2020-01-27 06:50] LABS: CALCIUM, SERUM 8.3 mg/dL (8.5-10.1); CREATININE 0.6 mg/dL (0.6-1.3); MAGNESIUM 2.3 mg/dL (1.8-2.4); PHOSPHORUS 2.6 mg/dL (2.5-4.9); POTASSIUM 4.5 mmol/L (3.5-5.1)
--- NOTE | 2020-01-27 07:10 | NUR ---
MS RN CLOSING NOTES: PATIENT IN BED, AWAKE, NON VERBAL. NO SOB NOTED. NOT IN PAIN. HOB ELEVATED AT ALL TIMES. BED ALARM ON. BED IN LOWEST AND LOCKED POSITION. WITH GT FEEDING AT 60ML/HOUR.
--- NOTE | 2020-01-27 07:30 | NUR ---
MS/RN Patient received Patient received from processing technologist. Alert to self, lying in bed, appears in no distress or discomfort. 5l oxygen via nasal cannula, saturation 100%. Vital signs all within normal range for patient, no fevers noted. Heplock to left wrist flushing well with normal saline, no signs of infiltration. GT infusing feeding (Jevity)at 60ml/hr, no residual noted. Campos catheter to gravity, draining well. Safety measures in place, bed in low setting, side rails X3 in upright position. Bed alarm switched on. Call light within reach. Will continue to monitor and ensure safety.
[2020-01-27] MEDS: LEVETIRACETAM SOL (5 ML) 100 MG/ML UDC GT SCH ×2 (07:56→21:38)
[2020-01-27] MEDS: LEVOTHYROXINE SODIUM 75 MCG TABLET GT SCH (07:56)
[2020-01-27] MEDS: ENOXAPARIN SODIUM 40 MG/0.4 ML DISP.SYRIN SQ SCH (07:57)
[2020-01-27] MEDS: MUPIROCIN OINT 2% 22 GM TUBE NS SCH ×2 (07:57→21:38)
[2020-01-27 08:00] VITALS: BP 109/77
--- NOTE | 2020-01-27 09:19 | NUR ---
MS/RN Medications All medications administered via GT. Tube flushed well with water before and after administration.
--- NOTE | 2020-01-27 11:20 | NUR ---
WOUND CARE CONSULT: PT PRESENTS WITH SACRAL SCARRING, RASH/REDNESS TO BREASTFOLDS, GROINFOLDS, BUTTOCKS AND PERINEUM. RECOMMENDATIONS MADE FOR SKIN CARE AND PROTECTION. DISCUSSED WITH NURSING STAFF. FABIAN ISOFLEX LOW AIRLOSS BED TO BE PLACED. WILL SEE PRN. NUNEZ IN AGREEMENT WITH PLAN OF CARE. Addendum: 01/27/20 at 1121 by EVARISTO CARLISLE WNDNU Amended: Links added.
--- NOTE | 2020-01-27 12:30 | NUR ---
MS/RN S/B Dr Aleman Seen by Dr Aleman - orders noted and carried out.
--- NOTE | 2020-01-27 15:07 | NUR ---
MS/RN [facility] Call received from Mayra Morocho, patient's social director from [facility]. Updated as to condition and discharge plans. Asked to be kept updated as to when discharge order was given. manager cardiac cath Domonique made aware. -Mayra Morocho -
[2020-01-27 16:00] VITALS: BP 111/59
[2020-01-27] MEDS: CLOTRIMAZOLE 1% 15 GM TUBE TP SCH (16:16)
--- NOTE | 2020-01-27 18:22 | NUR ---
MS/RN End note Patient remains in stable condition. No new needs or concerns. Vital signs within normal range, no fevers or seizure activity noted throughout shift. All medications administered via GT, with tube being flushed well before and after meds. Safety measures in place, call light within reach, will continue to monitor and ensure safety.
--- NOTE | 2020-01-27 19:40 | NUR ---
MS RN NOTE: PATIENT RESTING IN BED, NO ACUTE DISTRESS NOTED. BREATHING EVEN AND UNLABORED, NO SOB NOTED. [facility] CATHETER IN PLACE, EMPTY AT THIS TIME. G-TUBE IN PLACE, INFUSING JEVITY 1.2 AT 50ML/HR, NO RESIDUAL AT THIS TIME. HOB ELEVATED. BED LOCKED AND IN LOWEST POSITION, CALL LIGHT IN REACH. WILL CONTINUE TO MONITOR.
[2020-01-27 20:00] VITALS: BP 93/50
--- NOTE | 2020-01-28 03:30 | NUR ---
MS RN NOTE: PATIENT RESTING IN BED, NO ACUTE DISTRESS NOTED. BREATHING EVEN AND UNLABORED, NO SOB NOTED. [facility] CATHETER IN PLACE, EMPTY AT THIS TIME. G-TUBE IN PLACE, INFUSING JEVITY 1.2 AT 50ML/HR, HOB ELEVATED. BED LOCKED AND IN LOWEST POSITION, CALL LIGHT IN REACH. WILL CONTINUE TO MONITOR. Addendum: 01/28/20 at 0708 by RONEN SNYDER RN [facility] DRAINING CLEAR YELLOW URINE.
--- NOTE | 2020-01-28 06:20 | NUR ---
MS RN NOTE: PATIENT RESTING IN BED, NO ACUTE DISTRESS NOTED. BREATHING EVEN AND UNLABORED, NO SOB NOTED. [facility] CATHETER IN PLACE, DRAINED 600ML OF CLEAR YELLOW URINE. G-TUBE IN PLACE, INFUSING JEVITY 1.2 AT 50ML/HR, NO RESIDUAL AT THIS TIME. HOB ELEVATED. BED LOCKED AND IN LOWEST POSITION, CALL LIGHT IN REACH. WILL ENDORSE TO DAY NURSE TO CONTINUE WITH PLAN OF CARE.
--- NOTE | 2020-01-28 07:15 | NUR ---
ms rn received on bed, resting, not in any form of distress, on 5 liters o2, g tube intact w/ on going feeding, tolerated well, call to gravity, will monitor patient.
[2020-01-28 07:32] LABS: BASOPHILS # (AUTO) 0.1 /CMM (0.0-0.2); BASOPHILS % (AUTO) 0.6 % (0.0-2.0); EOSINOPHILS % (AUTO) 1.2 % (0.0-6.0); HEMATOCRIT 40 % (33-45); HEMOGLOBIN 12.9 g/dL (11.5-14.8); LYMPHOCYTES % (AUTO) 19.8 % (20.0-44.0); MEAN CORPUSCULAR HGB CONC 33 g/dl (31.0-36.0); MEAN CORPUSCULAR VOLUME 102 fL (82-100); NEUTROPHILS % (AUTO) 68.4 % (43.0-81.0); PLATELET COUNT (AUTO) 215 /CMM (150-450); RED BLOOD CELL COUNT(AUTO) 3.88 MIL/uL (4.0-5.2); WHITE BLOOD COUNT (AUTO) 10.2 K/uL (4.3-11.0)
[2020-01-28 07:46] LABS: CREATININE 0.6 mg/dL (0.6-1.3); MAGNESIUM 2.2 mg/dL (1.8-2.4); PHOSPHORUS 3.4 mg/dL (2.5-4.9); POTASSIUM 4.3 mmol/L (3.5-5.1)
[2020-01-28 08:00] VITALS: BP 90/53
--- NOTE | 2020-01-28 09:40 | NUR ---
ms chávez all meds given,tolerated well via g tube.
[2020-01-28] MEDS: LEVETIRACETAM SOL (5 ML) 100 MG/ML UDC GT SCH ×2 (10:08→20:09)
[2020-01-28] MEDS: ENOXAPARIN SODIUM 40 MG/0.4 ML DISP.SYRIN SQ SCH (10:09)
[2020-01-28] MEDS: CLOTRIMAZOLE 1% 15 GM TUBE TP SCH ×2 (10:36→18:33)
[2020-01-28] MEDS: MUPIROCIN OINT 2% 22 GM TUBE NS SCH ×2 (10:38→20:10)
[2020-01-28] MEDS: LEVOTHYROXINE SODIUM 75 MCG TABLET GT SCH (11:37)
--- NOTE | 2020-01-28 13:00 | NUR ---
ms rn g tube feeding held for now, patient is so congested, was seen by md parish/ selwyn made and carried out.
[2020-01-28 16:00] VITALS: BP 96/62
[2020-01-28] MEDS: IPRATROPIUM NEB FS 0.5 MG/2.5 ML AMPUL.NEB NEB SCH ×3 (16:00→23:48)
--- NOTE | 2020-01-28 18:40 | NUR ---
ms rn on bed, all needs attended,no distress noted.
--- NOTE | 2020-01-28 19:29 | NUR ---
MS RN OPENING NOTES PATIENT AWAKE IN BED. NON-VERBAL, OPENS EYES. ON 3L NC. NO S/S OF ACUTE RESPIRATORY DISTRESS; BREATHING IS EVEN AND UNLABORED. NO S/S OF PAIN NOTED. IV PRESENT ON LEFT WRIST, SIZE 18, INTACT & PATENT, HEP LOCKED. GTUBE FEEDING WITH JEVITY RUNNING AT 50 ML/HR. [facility] CATH PRESENT AND DRAINING WELL. SAFETY MEASURES IN PLACE AND PATIENT'S NEEDS MET. BED LOCKED, ALARM ON, SIDE RAILSX3, HOB ELEVATED, CALL LIGHT WITHIN REACH. WILL CONTINUE TO MONITOR.
[2020-01-28 20:00] VITALS: BP 114/61
[2020-01-28 20:46] VITALS: BP 114/61
[2020-01-29] MEDS: IPRATROPIUM NEB FS 0.5 MG/2.5 ML AMPUL.NEB NEB SCH ×5 (02:59→19:56)
[2020-01-29] MEDS: JEVITY 1.2 CAL 1,000 ML BOTTLE GT PRN (04:21)
[2020-01-29 06:42] LABS: BASOPHILS % (AUTO) 0.2 % (0.0-2.0); EOSINOPHILS % (AUTO) 3.7 % (0.0-6.0); HEMATOCRIT 40 % (33-45); HEMOGLOBIN 13.3 g/dL (11.5-14.8); LYMPHOCYTES # (AUTO) 1.5 /CMM (0.8-4.8); MEAN CORPUSCULAR HGB CONC 33 g/dl (31.0-36.0); MEAN CORPUSCULAR VOLUME 101 fL (82-100); MONOCYTES # (AUTO) 0.8 /CMM (0.1-1.30); NEUTROPHILS # (AUTO) 5.9 /CMM (1.8-8.9); NEUTROPHILS % (AUTO) 69.1 % (43.0-81.0); PLATELET COUNT (AUTO) 189 /CMM (150-450); RED BLOOD CELL COUNT(AUTO) 3.98 MIL/uL (4.0-5.2); WHITE BLOOD COUNT (AUTO) 8.5 K/uL (4.3-11.0)
[2020-01-29 06:43] LABS: CALCIUM, SERUM 8.2 mg/dL (8.5-10.1); CREATININE 0.6 mg/dL (0.6-1.3); MAGNESIUM 2.1 mg/dL (1.8-2.4); PHOSPHORUS 3.7 mg/dL (2.5-4.9); POTASSIUM 4.2 mmol/L (3.5-5.1)
[2020-01-29] MEDS: LEVOTHYROXINE SODIUM 75 MCG TABLET GT SCH (06:47)
[2020-01-29 08:00] VITALS: BP 98/50
--- NOTE | 2020-01-29 08:01 | NUR ---
MS RN CLOSING NOTES PATIENT SLEEPING. NON-VERBAL, OPENS EYES. ON 3L NC. NO S/S OF ACUTE RESPIRATORY DISTRESS; BREATHING IS EVEN AND UNLABORED. NO S/S OF PAIN NOTED. IV PRESENT ON LEFT WRIST, SIZE 18, INTACT & PATENT, HEP LOCKED. GTUBE FEEDING WITH JEVITY RUNNING AT 50 ML/HR. COX CATH PRESENT AND DRAINING WELL. SAFETY MEASURES IN PLACE AND PATIENT'S NEEDS MET. BED LOCKED, ALARM ON, SIDE RAILSX3, HOB ELEVATED, CALL LIGHT WITHIN REACH. ENDORSED TO DAY SHIFT RN PLAN OF CARE.
--- NOTE | 2020-01-29 08:04 | NUR ---
MS RN RECEIVED ON BED, AWAKE,NON VERBAL PATIENT, G TUBE FEEDING ON AT 50ML/HR,TOLERATING WELL W/O RESIDUAL,COX TO GRAVITY W/ YELLOWISH OUTPUT, NO S/S OF PAIN, LOOKS COMFORTABLE AT THIS TIME,ALL NEEDS ATTENDED.
[2020-01-29] MEDS: LEVETIRACETAM SOL (5 ML) 100 MG/ML UDC GT SCH ×2 (09:16→20:16)
[2020-01-29] MEDS: ENOXAPARIN SODIUM 40 MG/0.4 ML DISP.SYRIN SQ SCH (09:17)
[2020-01-29] MEDS: CLOTRIMAZOLE 1% 15 GM TUBE TP SCH ×2 (09:27→18:50)
[2020-01-29] MEDS: MUPIROCIN OINT 2% 22 GM TUBE NS SCH ×2 (09:27→20:16)
--- NOTE | 2020-01-29 09:40 | NUR ---
ms kyler due meds given,tolerated well. via g tube.
[2020-01-29 10:39] LABS: ABG BASE EXCESS 10.8 mmol/L; ABG OXYGEN SATURATION 94.7 % (92.0-98.5); ABG PCO2 61.1 mmHg (35.0-45.0); ABG PH 7.411 (7.350-7.450); AaDO2 81.7 mmHg; COHb 0.3 % (0.5-1.5); MetHb 0.1 % (0.0-1.5); O2Hb 94.3 % (94.0-97.0); SITE, ABG Right Brachial; VENT MODE, BG 3L NC
--- NOTE | 2020-01-29 14:50 | NUR ---
ms rn called and text abg to dr. guzman w/o order at this time.
[2020-01-29 16:00] VITALS: BP 103/58
[2020-01-29 20:00] VITALS: BP 118/88
[2020-01-29 20:11] VITALS: BP 118/88
[2020-01-30] MEDS: IPRATROPIUM NEB FS 0.5 MG/2.5 ML AMPUL.NEB NEB SCH ×7 (00:05→23:35)
[2020-01-30] MEDS: JEVITY 1.2 CAL 1,000 ML BOTTLE GT PRN (03:33)
[2020-01-30 07:16] LABS: BASOPHILS % (AUTO) 0.2 % (0.0-2.0); EOSINOPHILS % (AUTO) 4.5 % (0.0-6.0); HEMATOCRIT 40 % (33-45); HEMOGLOBIN 13.1 g/dL (11.5-14.8); LYMPHOCYTES # (AUTO) 1.6 /CMM (0.8-4.8); LYMPHOCYTES % (AUTO) 18.8 % (20.0-44.0); MEAN CORPUSCULAR HGB CONC 33 g/dl (31.0-36.0); MEAN CORPUSCULAR VOLUME 101 fL (82-100); MONOCYTES # (AUTO) 0.8 /CMM (0.1-1.30); MONOCYTES % (AUTO) 9.3 % (2.0-12.0); NEUTROPHILS # (AUTO) 5.6 /CMM (1.8-8.9); NEUTROPHILS % (AUTO) 67.2 % (43.0-81.0); PLATELET COUNT (AUTO) 192 /CMM (150-450); RED BLOOD CELL COUNT(AUTO) 3.98 MIL/uL (4.0-5.2); WHITE BLOOD COUNT (AUTO) 8.4 K/uL (4.3-11.0)
--- NOTE | 2020-01-30 07:26 | NUR ---
MS RN CLOSING NOTES PATIENT SLEEPING. NON-VERBAL, OPENS EYES. ON 2L NC. NO S/S OF ACUTE RESPIRATORY DISTRESS; BREATHING IS EVEN AND UNLABORED. NO S/S OF PAIN NOTED. IV PRESENT ON RIGHT HAND, SIZE 22, INTACT & PATENT, HEP LOCKED. GTUBE FEEDING WITH JEVITY RUNNING AT 50 ML/HR. [facility] CATH PRESENT AND DRAINING WELL. SAFETY MEASURES IN PLACE AND PATIENT'S NEEDS MET. BED LOCKED, ALARM ON, SIDE RAILSX3, HOB ELEVATED. WILL ENDORSE TO DAY SHIFT RN PLAN OF CARE.
[2020-01-30 07:37] LABS: CALCIUM, SERUM 8.4 mg/dL (8.5-10.1); CREATININE 0.6 mg/dL (0.6-1.3); MAGNESIUM 2.3 mg/dL (1.8-2.4); PHOSPHORUS 3.3 mg/dL (2.5-4.9); POTASSIUM 3.8 mmol/L (3.5-5.1)
[2020-01-30] MEDS: LEVOTHYROXINE SODIUM 75 MCG TABLET GT SCH (08:04)
[2020-01-30] MEDS: CLOTRIMAZOLE 1% 15 GM TUBE TP SCH ×2 (08:05→16:21)
[2020-01-30] MEDS: LEVETIRACETAM SOL (5 ML) 100 MG/ML UDC GT SCH ×2 (08:05→21:49)
[2020-01-30] MEDS: MUPIROCIN OINT 2% 22 GM TUBE NS SCH ×2 (08:05→21:49)
[2020-01-30] MEDS: ENOXAPARIN SODIUM 40 MG/0.4 ML DISP.SYRIN SQ SCH (08:06)
[2020-01-30 09:54] LABS: EOSINOPHILS % (MANUAL) 5 % (0-4); LYMPHOCYTES % (MANUAL) 18 % (16-48); MONOCYTES % (MANUAL) 11 % (0-11.0); NEUTROPHILS % (MANUAL) 66 (42-76)
--- NOTE | 2020-01-30 18:03 | NUR ---
rn notes patient remains on 2L nasal cannula, no sob noted, non verbal but opens eyes. Jevity running @ 60 ml per hour for 24 hours and is already at goal at this time. R hand 22 SL. Campos remains intact and is draining. DC planning is home vs snf at this time. bed at the lowest setting, call light within reach, side rails up x2.
[2020-01-30 20:00] VITALS: BP 104/46
--- NOTE | 2020-01-30 20:00 | NUR ---
MS RN OPENING NOTE: Patient in bed awake and comfortably. Patient is non-verbal. On 2L nasal canula and does not appear to be in any respiratory distress, no SOB, breathing equal and unlabored. Patient does not show signs of pain or discomfort. Noted right wrist IV access, 22g, patent no redness, or infiltration. Campos catheter in place and draining well. Gtube patent, flushes well, feeding Jevity 1.2 @50mL/hr. Safety precaution is in place, bed is in lowest position, bed is locked, alarm is on, side rails x2 are up, and call light is within reach. Will continue to monitor.
[2020-01-31] MEDS: IPRATROPIUM NEB FS 0.5 MG/2.5 ML AMPUL.NEB NEB SCH ×6 (03:54→23:30)
--- NOTE | 2020-01-31 06:30 | NUR ---
MS RN CLOSING NOTE: Patient in bed sleeping comfortably. Patient on 2L nasal canula and tolerating oxygen setting. No SOB or respiratory distress noted. Safety precaution in place, bed in the lowest level, bed is locked, alarm is on, side rails x2 are up, and call light is within reach. Will endorse to next shift.
[2020-01-31 06:36] LABS: BASOPHILS % (AUTO) 0.6 % (0.0-2.0); EOSINOPHILS % (AUTO) 3.1 % (0.0-6.0); HEMATOCRIT 41 % (33-45); HEMOGLOBIN 13.7 g/dL (11.5-14.8); LYMPHOCYTES # (AUTO) 1.4 /CMM (0.8-4.8); LYMPHOCYTES % (AUTO) 20.3 % (20.0-44.0); MEAN CORPUSCULAR HGB CONC 33 g/dl (31.0-36.0); MEAN CORPUSCULAR VOLUME 101 fL (82-100); MONOCYTES # (AUTO) 0.7 /CMM (0.1-1.30); MONOCYTES % (AUTO) 10.6 % (2.0-12.0); NEUTROPHILS # (AUTO) 4.4 /CMM (1.8-8.9); NEUTROPHILS % (AUTO) 65.4 % (43.0-81.0); PLATELET COUNT (AUTO) 202 /CMM (150-450); RED BLOOD CELL COUNT(AUTO) 4.12 MIL/uL (4.0-5.2); WHITE BLOOD COUNT (AUTO) 6.7 K/uL (4.3-11.0)
[2020-01-31 06:53] LABS: CALCIUM, SERUM 8.6 mg/dL (8.5-10.1); CREATININE 0.7 mg/dL (0.6-1.3); MAGNESIUM 2.3 mg/dL (1.8-2.4); PHOSPHORUS 4.3 mg/dL (2.5-4.9); POTASSIUM 4.2 mmol/L (3.5-5.1)
[2020-01-31] MEDS: LEVOTHYROXINE SODIUM 75 MCG TABLET GT SCH (07:58)
[2020-01-31 08:00] VITALS: BP 90/61
[2020-01-31] MEDS: LEVETIRACETAM SOL (5 ML) 100 MG/ML UDC GT SCH ×2 (08:18→21:52)
[2020-01-31] MEDS: ENOXAPARIN SODIUM 40 MG/0.4 ML DISP.SYRIN SQ SCH (08:19)
[2020-01-31] MEDS: JEVITY 1.2 CAL 1,000 ML BOTTLE GT PRN (09:24)
[2020-01-31] MEDS: MUPIROCIN OINT 2% 22 GM TUBE NS SCH ×2 (09:25→21:54)
[2020-01-31] MEDS: CLOTRIMAZOLE 1% 15 GM TUBE TP SCH ×2 (09:25→17:01)
[2020-01-31 09:26] LABS: EOSINOPHILS % (MANUAL) 1 % (0-4); LYMPHOCYTES % (MANUAL) 8 % (16-48); MONOCYTES % (MANUAL) 9 % (0-11.0); NEUTROPHILS % (MANUAL) 82 (42-76)
[2020-01-31] MEDS: LORAZEPAM INJ 2 MG/ML VIAL IV PRN (11:23)
--- NOTE | 2020-01-31 11:30 | NUR ---
rn note: Seizure activity reported by staff and started at 11:18. Seizure precautions in place and implemented. Airway secure, patient safe and turned to the side, no restrictive materials on patient, GTF turned off. Ativan 1 mg given via IV push. Seizure activity subsided at 1130.
--- NOTE | 2020-01-31 12:42 | NUR ---
RN OPENING NOTE: Received patient in bed and asleep. On cont. o2 via Nc @ 2lpm and being tolerated well with 96% saturation noted, not in resp. distress, no SOB noted. No pain noted on patient, appears comfortable and relaxed. Campos catheter in place and draining yellow urine. Gtube patent and in place, feeding of Jevity 1.2 @50mls/hr being tolerated well. Iv site clean, dry, patent and in place. Call light in reach. Bed locked, low and at semi-dominguez's position. Side rails up x3. Safety ensured and observed. Will continue to monitor.
[2020-01-31 16:00] VITALS: BP 90/59
--- NOTE | 2020-01-31 19:35 | NUR ---
RN CLOSING NOTE: Patient remains in bed and asleep. On cont. o2 via Nc @ 2lpm and being tolerated well with 96% saturation noted, not in resp. distress, no SOB noted. No pain noted on patient, appears comfortable and relaxed. Campos catheter in place and draining yellow urine. Gtube patent and in place, feeding of Jevity 1.2 @50mls/hr being tolerated well. IV site clean, dry, patent and in place. Patient originally for D/C today however, due to Case Management wanting to speak to Mayra (chamber worker assigned by Brother to manage patient's case), it was put on hold. Call light in reach. Bed locked, low and at semi-dominguez's position. Side rails up x3. Safety ensured and observed. All due medications given. Treatment done as ordered. Patient's brother called in to remind that patient should only be discharged to a nursing facility and not home if ever their sister calls in and insists to take patient home. Endorsed to oncoming shift for GENEVIEVE.
[2020-01-31 20:00] VITALS: BP 147/83
[2020-01-31 21:40] VITALS: BP 115/87
--- NOTE | 2020-01-31 22:55 | NUR ---
furniture salesperson of care notes: received report from monica chávez. pt brought to the unit via bed arrived at 2230. pt open eyes, on 2l oxygen via nc respiration even and unlabored. skin assessment performed, please see skin assessment log. pt kept on hob 30degree to prevent aspiration. placed on seizure precautions. isolation mrsa, ppe utilized. suction set up secured. abdomen soft to touch with active bowel sound heard upon auscultation, gtube in placed able to flush well with 30cc water, no residual obtained. started back on gtube feeding jevity 1.2 at 50ml/hr. iv access right hand g22 patent and flushing well, on hl. ble offloaded on pillows. safety precautions for fall initiated, call light in reach, will continue monitoring pt.
--- NOTE | 2020-01-31 23:01 | NUR ---
rn notes: contacted pt's sister samantha at [phone], made aware pt is already transferred to 203/ms floor. provided update regarding pt's condition. samantha stated she wants pt to go home, and will be picking up pt tomorrow at 1100am. informed that nurse outreach case manager/manager social trying to reach them this afternoon regarding snf placement. all questions/concerned answered based on recent labs/imaging and plan of care.
[2020-02-01] MEDS: IPRATROPIUM NEB FS 0.5 MG/2.5 ML AMPUL.NEB NEB SCH ×6 (04:01→23:45)
--- NOTE | 2020-02-01 07:07 | NUR ---
End of shift report: Pt remains non-verbal, awake, open eyes, on 2l oxygen via nc respirations even and unlabored. iv access patent and flushing well, on hl, no s/s of iv infiltration noted. Gtube feeding tolerated by pt, receiving jevity 1.2 at 50cc/hr, no residual obtained, no abdl distention noted. Ble kept offloaded on pillows. Possible dc today home vs snf. Vs remains stable, needs attended. Safety precautions for fall remains engage, call light in reach, will endorse to day rn for continuity of care.
[2020-02-01 07:55] VITALS: BP 100/62
--- NOTE | 2020-02-01 07:56 | NUR ---
MS/RN Opening note Patient received from security shift supervisor. A/ert to self, non verbal, appears comfortable. No respiratory distress, saturation on two liters via nasal cannula 99%. GT infusing feeding at 50ml/hr, no residual noted. Head f bed elevated 45 degrees to prevent any possible aspiration. Safety measures in place, side rails X3 in upright position, bed in low setting. Call light within reach, will continue to monitor and ensure safety.
[2020-02-01 08:00] VITALS: BP 100/62
[2020-02-01] MEDS: LEVETIRACETAM SOL (5 ML) 100 MG/ML UDC GT SCH ×2 (08:29→20:47)
[2020-02-01] MEDS: LEVOTHYROXINE SODIUM 75 MCG TABLET GT SCH (08:29)
[2020-02-01] MEDS: CLOTRIMAZOLE 1% 15 GM TUBE TP SCH ×2 (08:30→16:45)
[2020-02-01] MEDS: MUPIROCIN OINT 2% 22 GM TUBE NS SCH (08:30)
--- NOTE | 2020-02-01 09:00 | NUR ---
MS/RN Medications Morning medications administered via GT.
--- NOTE | 2020-02-01 10:30 | NUR ---
MS/RN S/B Dr Aleman Seen by Dr Aleman - patient for discharge to SNF today.
--- NOTE | 2020-02-01 12:32 | NUR ---
MS/RN Hold discharge Discharge on hold as unable to obtain authorization from insurance.
[2020-02-01] MEDS: JEVITY 1.2 CAL 1,000 ML BOTTLE GT PRN (13:37)
[2020-02-01 16:00] VITALS: BP 108/60
[2020-02-01 16:04] VITALS: BP 108/60
--- NOTE | 2020-02-01 18:12 | NUR ---
MS/RN End note Patient remains in stable condition. All needs attended, skin kept clean and dry, heels off loaded on two pillows. Has been turned and repositioned every 2-3 hours throughout the day to prevent skin breakdown. GT feeding infusing at 50ml, no residual noted, tube flushed with total 200ml water. Awaiting authorization for SNF placement. Will endorse to green chain off bearer.
--- NOTE | 2020-02-01 19:47 | NUR ---
MS RN NOTES PATIENT IN BED, NONVERBAL, WITH EYE OPEN. BREATHING EVEN AND UNLABORED ON 2L NC. SHOWS NO SIGNS OF ACUTE RESPIRATORY DISTRESS. NO ACUTE PAIN. FC CLEAN DRY AND INTACT. FLOWING YELLOW URINE. GTUBE IS INTACT, RUNNING JEVITY 1.2 AT 50ML/HR. NO RESIDUAL. R HAND 22G ITS CLEAN DRY AND INTACT. SHOWS NO SIGNS OF INFILTRATION, NO REDNESS. SAFETY PRECAUTIONS IN PLACE. BED IN LOWEST POSITION, LOCKED, AND CALL LIGHT KEPT WITHIN REACH. WILL CONTINUE TO MONITOR.
[2020-02-01 20:00] VITALS: BP 100/58
[2020-02-02] MEDS: IPRATROPIUM NEB FS 0.5 MG/2.5 ML AMPUL.NEB NEB SCH ×5 (02:34→20:07)
--- NOTE | 2020-02-02 06:40 | NUR ---
MS RN NOTES PATIENT IN BED, NONVERBAL, WITH EYE OPEN. BREATHING EVEN AND UNLABORED ON 2L NC. SHOWS NO SIGNS OF ACUTE RESPIRATORY DISTRESS. NO ACUTE PAIN. FC CLEAN DRY AND INTACT. FLOWING YELLOW URINE. GTUBE IS INTACT, RUNNING JEVITY 1.2 AT 50ML/HR. NO RESIDUAL. R HAND 22G ITS CLEAN DRY AND INTACT. SHOWS NO SIGNS OF INFILTRATION, NO REDNESS. ALL DUE MEDICATIONS GIVEN. SAFETY PRECAUTIONS IN PLACE. BED IN LOWEST POSITION, LOCKED, AND CALL LIGHT KEPT WITHIN REACH. WILL ENDORSE TO ONCOMING NURSE.
--- NOTE | 2020-02-02 07:40 | NUR ---
RN NOTES RECEIVED PATIENT IN BED RESTING COMFORTABLY IN MODERATE HIGH BACK REST, NONVERBAL, OPEN EYES. BREATHING EVEN AND UNLABORED ON 2L NC. SHOWS NO SIGNS OF ACUTE RESPIRATORY DISTRESS NOTED AT THIS TIME. NOTED WITH FC, CLEAN DRY AND INTACT. FLOWING YELLOW URINE. GTUBE IS INTACT, RUNNING JEVITY 1.2 AT 50ML/HR. NO RESIDUAL. IV ACCESS ON RIGHT HAND #22 PATENT AND INTACT. SAFETY PRECAUTIONS IN PLACE. BED IN LOWEST POSITION, LOCKED, AND CALL LIGHT KEPT WITHIN REACH. WILL CONTINUE TO MONITOR.
[2020-02-02 08:00] VITALS: BP 101/55
[2020-02-02] MEDS: LEVETIRACETAM SOL (5 ML) 100 MG/ML UDC GT SCH ×2 (09:05→20:31)
[2020-02-02] MEDS: LEVOTHYROXINE SODIUM 75 MCG TABLET GT SCH (09:05)
[2020-02-02] MEDS: CLOTRIMAZOLE 1% 15 GM TUBE TP SCH ×2 (09:06→17:47)
[2020-02-02] MEDS: JEVITY 1.2 CAL 1,000 ML BOTTLE GT PRN (09:12)
[2020-02-02 16:00] VITALS: BP 101/55
--- NOTE | 2020-02-02 18:51 | NUR ---
RN NOTES PATIENT IN BED RESTING COMFORTABLY IN MODERATE HIGH BACK REST, NONVERBAL, OPEN EYES. BREATHING EVEN AND UNLABORED ON 2L NC. SHOWS NO SIGNS OF ACUTE RESPIRATORY DISTRESS NOTED THROUGHOUT THE SHIFT. NOTED WITH FC, CLEAN DRY AND INTACT. FLOWING YELLOW URINE. GTUBE IS INTACT, RUNNING JEVITY 1.2 AT 50ML/HR. NO RESIDUAL. IV ACCESS ON RIGHT HAND #22 PATENT AND INTACT. SAFETY PRECAUTIONS IN PLACE. BED IN LOWEST POSITION, LOCKED, AND CALL LIGHT KEPT WITHIN REACH. WILL ENDORSE TO SUPERVISOR CUSTOMER COMPLAINT SERVICE NURSE FOR GENEVIEVE.
--- NOTE | 2020-02-02 19:15 | NUR ---
RN medsurg opening notes Pt is resting in bed comfortably, non verbal and able to open eyes. Respiration is normal and unlabored on 2 L NC. No SOB. No S/S of distress noted. IV sites at R hand # 22 is clean, intact and SL. Campos cath is intact and draining yellow urine. On going G-tube feeding jevity 1.2 @ 50 ml/hr. Pt tolerated well. Safety precautions is maintained. Bed at low position, brakes locked, side rails upX3 and call light is within reach. Will continue to monitor.
[2020-02-02 20:00] VITALS: BP 98/57
[2020-02-03] MEDS: IPRATROPIUM NEB FS 0.5 MG/2.5 ML AMPUL.NEB NEB SCH ×7 (01:31→23:55)
[2020-02-03] MEDS: JEVITY 1.2 CAL 1,000 ML BOTTLE GT PRN (04:42)
--- NOTE | 2020-02-03 06:50 | NUR ---
RN medsurg closing notes Pt is resting in bed comfortably, non verbal and able to open eyes. Respiration is normal and unlabored on 2 L NC. No SOB. No S/S of distress noted. VS is stable. Afebrile. IV sites at R hand # 22 is clean, intact and SL. Campos cath is intact and draining yellow urine. On going G-tube feeding jevity 1.2 @ 50 ml/hr with 0 residual. Pt tolerated well. All needs met and attended. Safety precautions is maintained. Bed at low position, brakes locked, HOB elevated, side rails upX3 and call light is within reach. Will endorse to morning nurse for GENEVIEVE.
--- NOTE | 2020-02-03 07:35 | NUR ---
MS RN NOTES PATIENT RECEIVED IN BED RESTING COMFORTABLY, PATIENT NON-VERBAL ABLE TO OPEN EYES. ON NASAL CANNULA 2 LITERS, TOLERATING SETTING WELL, WITH NO SIGNS OF RESPIRATORY DISTRESS AT THIS TIME, WITH EVEN NON-LABORED BREATHING, AND NO SIGNS OF SOB. PATIENT SKIN WARM AND DRY TO TOUCH. IV ACCESS INTACT AND PATENT SALINE LOCK. G-TUBE FEEDING INTACT AND PATENT, INFUSING 50ml/hr OF JEVITY 1.2, NO RESIDUAL NOTED AT THIS TIME. [facility] CATHETER INTACT AND URINE OUTPUT FLOWING BY GRAVITY. SAFETY PRECAUTIONS IMPLEMENTED WITH BED LOCKED, BED IN THE LOWEST POSITION, BILATERAL SIDE RAILS UP, BED ALARM ON, AND CALL LIGHT WITHIN EASY REACH. WILL CONTINUE TO MONITOR PATIENT.
[2020-02-03] MEDS: LEVOTHYROXINE SODIUM 75 MCG TABLET GT SCH (08:10)
[2020-02-03] MEDS: LEVETIRACETAM SOL (5 ML) 100 MG/ML UDC GT SCH ×2 (08:10→22:00)
[2020-02-03] MEDS: CLOTRIMAZOLE 1% 15 GM TUBE TP SCH ×2 (08:11→16:15)
[2020-02-03 08:48] VITALS: BP 99/72
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
--- NOTE | 2020-02-03 16:20 | NUR ---
Systems Qa Analyst was unable to connect with Mayra Morocho JONNY from [facility]. This SW left a voicemail regarding this patient.
[2020-02-03 16:54] VITALS: BP 128/65
--- NOTE | 2020-02-03 18:18 | NUR ---
S RN NOTES PATIENT IN BED RESTING COMFORTABLY, PATIENT NON-VERBAL ABLE TO OPEN EYES. ON NASAL CANNULA 3 LITERS, TOLERATING SETTING WELL, WITH NO SIGNS OF RESPIRATORY DISTRESS AT THIS TIME, WITH EVEN NON-LABORED BREATHING, AND NO SIGNS OF SOB. PATIENT SKIN WARM AND DRY TO TOUCH. IV ACCESS INTACT AND PATENT SALINE LOCK. G-TUBE FEEDING INTACT AND PATENT, INFUSING 50ml/hr OF JEVITY 1.2, NO RESIDUAL NOTED AT THIS TIME. COX CATHETER INTACT AND URINE OUTPUT FLOWING BY GRAVITY. PATIENT PRESENTS WITH NO SIGNS OF PAIN OR DISCOMFORT AT THIS TIME. SAFETY PRECAUTIONS IMPLEMENTED WITH BED LOCKED, BED IN THE LOWEST POSITION, BILATERAL SIDE RAILS UP, BED ALARM ON, AND CALL LIGHT WITHIN EASY REACH. ASPIRATION PRECAUTIONS IMPLEMENTED WITH HOB RAISED TO 40 DEGREES. WILL ENDORSE PLAN OF CARE TO UPCOMING NURSE.
--- NOTE | 2020-02-03 19:30 | NUR ---
MS/RN OPENING NOTES RECEIVED PATIENT IN BED RESTING. PATIENT IS ALERT AND ORIENTED X 1, NON-VERBAL, EYES OPEN. PATIENT IS ON 3L NC TOLERATING WELL. PATIENT HAS COX CATH INTACT. PATIENT G TUBE IS PATENT AND FLUSHING WELL, RUNNING JEVITY 1.2 AT 50 ML/HR. PATIENT HAS RIGHT HAND #22 G IV ACCESS INTACT. PATIENT SHOWS NO SIGNS OF RESPIRATORY DISTRESS OR SOB. SAFETY MEASURES ARE IN PLACE BED IS LOCKED AND PLACED IN THE LOWEST POSITION CALL LIGHT IS WITHIN REACH. WILL CONTINUE TO MONITOR.
[2020-02-03 20:00] VITALS: BP 111/61
[2020-02-04] MEDS: IPRATROPIUM NEB FS 0.5 MG/2.5 ML AMPUL.NEB NEB SCH ×5 (03:30→19:30)
[2020-02-04] MEDS: JEVITY 1.2 CAL 1,000 ML BOTTLE GT PRN (04:36)
--- NOTE | 2020-02-04 06:45 | NUR ---
MS/RN CLOSING NOTES PATIENT IN BED RESTING. PATIENT IS ALERT AND ORIENTED X 1, NON-VERBAL, EYES OPEN. PATIENT IS ON 3L N/C TOLERATING WELL. PATIENT HAS [facility] CATH INTACT DRAINING WELL OUTPUT 350CC. PATIENT G TUBE IS PATENT AND FLUSHING WELL, RUNNING JEVITY 1.2 AT 50 ML/HR. PATIENT HAS RIGHT HAND #22 G IV ACCESS INTACT SL. PATIENT SHOWS NO SIGNS OF RESPIRATORY DISTRESS OR SOB. ALL PATIENT NEEDS HAVE BEEN MET DURING SHIFT. SAFETY MEASURES ARE IN PLACE BED IS LOCKED AND PLACED IN THE LOWEST POSITION CALL LIGHT IS WITHIN REACH. WILL ENDORSE CARE TO DAY SHIFT.
[2020-02-04 07:20] LABS: BASOPHILS % (AUTO) 0.1 % (0.0-2.0); EOSINOPHILS % (AUTO) 0.6 % (0.0-6.0); HEMATOCRIT 42 % (33-45); HEMOGLOBIN 13.4 g/dL (11.5-14.8); LYMPHOCYTES # (AUTO) 1.6 /CMM (0.8-4.8); LYMPHOCYTES % (AUTO) 7.2 % (20.0-44.0); MEAN CORPUSCULAR HGB CONC 32 g/dl (31.0-36.0); MEAN CORPUSCULAR VOLUME 102 fL (82-100); MONOCYTES % (AUTO) 4.3 % (2.0-12.0); NEUTROPHILS # (AUTO) 19.3 /CMM (1.8-8.9); NEUTROPHILS % (AUTO) 87.8 % (43.0-81.0); PLATELET COUNT (AUTO) 187 /CMM (150-450); RED BLOOD CELL COUNT(AUTO) 4.08 MIL/uL (4.0-5.2); WHITE BLOOD COUNT (AUTO) 21.9 K/uL (4.3-11.0)
[2020-02-04 07:37] LABS: ALBUMIN 2.2 g/dL (3.4-5.0); BILIRUBIN,TOTAL 0.4 mg/dL (0.2-1.0); CALCIUM, SERUM 8.1 mg/dL (8.5-10.1); CREATININE 0.9 mg/dL (0.6-1.3); MAGNESIUM 2.3 mg/dL (1.8-2.4); PHOSPHORUS 3.8 mg/dL (2.5-4.9); TOTAL PROTEIN, SERUM 6.7 g/dL (6.4-8.2)
[2020-02-04 08:00] VITALS: BP_SYST 140; BP_SYST 142; BP_DIAS 65
--- NOTE | 2020-02-04 08:00 | NUR ---
R NOTES RECEIVED PATIENT IN THE BED TOTAL CARE, NON VERBAL. MRSA OF NARES. PATIENT HAS NO ACUTE RESPIRATORY DISTRESS, V/S TAKEN STABLE. ADMINISTERED SCHEDULED MEDICATION VIS GT, IV ACCESS ON RIGHT HAND INTACT, GT FEEDING JEVITY 1.2 AT 50 ML/HR, RESIDUAL. AND PLACEMENT CHECKED . KEEP HOB ELEVATED FOR ASPIRATION PRECAUTION, ASSIST TURN AND REPOSTION Q 2HR. [facility] CATHETER DRAINING LIGHT YELLOW OUTPUT. CALL LIGHT WITHIN TO REACH, CONTINUED MONITORING.
[2020-02-04] MEDS: LEVETIRACETAM SOL (5 ML) 100 MG/ML UDC GT SCH (09:40)
[2020-02-04] MEDS: CLOTRIMAZOLE 1% 15 GM TUBE TP SCH ×2 (09:41→17:00)
[2020-02-04] MEDS: LEVOTHYROXINE SODIUM 75 MCG TABLET GT SCH (09:41)
--- NOTE | 2020-02-04 13:41 | NUR ---
rn notes patient stable assist turn and reposition q 2 hr, administered scheduled medication via gt, keep hob elevated for aspiration precaution. continued monitoring.
--- NOTE | 2020-02-04 15:19 | NUR ---
RN NOTES COVID 19 ANTIGEN TEST TAKEN.
[2020-02-04 16:00] VITALS: BP 104/55
--- NOTE | 2020-02-04 16:27 | NUR ---
12:05pm This SW was contacted by Todd from Adult Protective Services , in response to the report this SW made on 02/03/20. Todd informed this SW that this case was to be assigned to the [place] Office and Todd would make this SW primary contact to provide information regarding this patient.
--- NOTE | 2020-02-04 16:27 | NUR ---
This SW provide Conservatorship resources to kari Foster regarding this patient. Kristin informed this SW that conservatorship is something that Mayra [phone], SW from [facility] informed her not to look into yet. This SW suggested that the family discuss this possibility to begin the conservator process.
--- NOTE | 2020-02-04 17:00 | NUR ---
RN NOTES COVID -19 TEST RESULT IS NEGATIVE, PATIENT GOING TO D/C TO THE [facility].
--- NOTE | 2020-02-04 18:33 | NUR ---
RN NOTES PT GOING TO D/C TO [facility] REPORT GIVEN TO JOSE ANDERSON, MEDICATION RECONCILIATION IN D/C ORDER REVIEWED AND EXPLAINED TO, PT NON-VERBAL. REPORT GIVEN TO SNF JOSE ANDERSON, RN VERBALIZE UNDERSTANDING , PT HAS NO BELONGINGS.[facility] CATH INTACT , V/S STABLE, PT UNABLE TO SIGN PAPERWORK, 2 RN SIGNS, CAREGIVER D/C PLANNING GIVEN OVER THE PHONE, REPORT GIVEN ONCOMING RN F/U CARE PLAN ,
[2020-02-04 19:30] VITALS: BP 119/56
--- NOTE | 2020-02-04 19:30 | NUR ---
MS RN NOTE: PATIENT PICKED UP FOR DISCHARGE. DISCHARGE PAPERWORK AND REPORT ALREADY GIVEN BY DAY NURSE. INFORMED FACILITY THAT PATIENT IS ON THE WAY. PATIENT OFF FLOOR IN STABLE CONDITION.
--- NOTE | 2020-02-05 16:11 | NUR ---
10:15am JONNY received a call from Manjula at APS from Adult Protective Services regarding this patient. APS JONNY Fair wanted an update on where the patient is currently located. This SW informed JONNY Fair that the patient is at [facility] room [address] [place] [address]. This SW provided contact number for Vijaya Macias [phone] x [phone] [facility] JONNY Fair informed this SW that this insurance underwriter will receive follow-up information regarding this patient. This SW to remain available during the on-going investigation.
== END 2020-02-04 19:30 | DRG 193 ==
LOC: ER 17:35 → TELE1 20:43 → TELE 01-25 17:53 → MED 01-26 10:09 → MEDSG2 01-31 22:20 → MED 02-01 22:22
PROVIDERS: ADMIT Family Medicine
DX: J15.9 Unspecified bacterial pneumonia (principal); N17.0 Acute kidney failure with tubular necrosis; J96.21 Acute and chronic respiratory failure with hypoxia; J96.22 Acute and chronic respiratory failure with hypercapnia; E44.0 Moderate protein-calorie malnutrition; E87.0 Hyperosmolality and hypernatremia; E87.2 Acidosis; E66.2 Morbid (severe) obesity with alveolar hypoventilation; I10 Essential (primary) hypertension; G40.909 Epilepsy, unspecified, not intractable, without status epilepticus; Q90.9 Down syndrome, unspecified; Z93.1 Gastrostomy status; E03.9 Hypothyroidism, unspecified; H54.7 Unspecified visual loss; I70.0 Atherosclerosis of aorta; Z79.899 Other long term (current) drug therapy; J44.9 Chronic obstructive pulmonary disease, unspecified; E86.9 Volume depletion, unspecified; E86.1 Hypovolemia; R73.9 Hyperglycemia, unspecified; D50.9 Iron deficiency anemia, unspecified; Z68.26 Body mass index [BMI] 26.0-26.9, adult
CPT/HCPCS: 31720; 36415; 36600; 71045-TC; 80048-TC; 80053-TC; 80061-TC; 81000-TC; 82550-TC; 82728-TC; 82803-TC; 83605-TC; 83615-TC; 83735-TC; 83880; 84100-TC; 84484-TC; 85025-TC; 85378-TC; 85385-TC; 85730-TC; 86140-TC; 87040-TC; 87081-TC; 87086-TC; 94799-TC; G0378; J0692; J1100; J1650; J1953; J2060; J2930; J7030; J7060; U0003-CS

== ENCOUNTER 2020-07-15 10:33 | Emergency (ER) | payer MEDICARE, OTHER ==
[~2020-07-15] VITALS: Ht 157.5 cm; Wt 63.5 kg
[~2020-07-15 10:33] MED LIST changes: -CLOT15CR35 TP; -PIPE3.379 IV; -TOBR3.5O2 EACHEYE; -VANC750F2 IV
--- NOTE | 2020-07-15 10:40 | NUR ---
BIB RA 860 FROM HOME,G-TUBE OUT SOMETIME THIS MORNING PER CAREGIVER. PATIENT A/OX1, STOMA COVERED WITH AKBAR DRY DRESSING. NO COX REPLACEMENT. PATIENT CHANGED INTO A GOWN, ATTACHED TO THE BUTTER MELTER.
--- NOTE | 2020-07-15 11:00 | NUR ---
DR. PEPE AT BEDSIDE FOR EVAL.
[2020-07-15 11:25] LABS: HEMOGLOBIN 14.1 g/dL (11.5-14.8); LYMPHOCYTES # (AUTO) 1.6 /CMM (0.8-4.8); MONOCYTES # (AUTO) 0.6 /CMM (0.1-1.30); NEUTROPHILS # (AUTO) 4.7 /CMM (1.8-8.9); NEUTROPHILS % (AUTO) 66.8 % (43.0-81.0)
[2020-07-15 11:29] LABS: BASOPHILS % (AUTO) 0.6 % (0.0-2.0); EOSINOPHILS % (AUTO) 1.1 % (0.0-6.0); HEMATOCRIT 43 % (33-45); LYMPHOCYTES % (AUTO) 22.8 % (20.0-44.0); MEAN CORPUSCULAR HGB CONC 33 g/dl (31.0-36.0); MEAN CORPUSCULAR VOLUME 102 fL (82-100); MONOCYTES % (AUTO) 8.7 % (2.0-12.0); PLATELET COUNT (AUTO) 190 /CMM (150-450); RED BLOOD CELL COUNT(AUTO) 4.21 MIL/uL (4.0-5.2)
[2020-07-15 11:41] LABS: CALCIUM, SERUM 8.9 mg/dL (8.5-10.1); CREATININE 0.8 mg/dL (0.6-1.3); POTASSIUM 4.5 mmol/L (3.5-5.1)
--- NOTE | 2020-07-15 13:06 | NUR ---
PAGED [facility].
[2020-07-15] MEDS ORDERED: LIDOCAINE 0.5%-EPI 1:200,000 50 ML VIAL ONE (13:58)
--- NOTE | 2020-07-15 14:11 | NUR ---
DR. SOUZA WAS AT THE BEDSIDE FOR GT INSERTION. SUCCESSFULLY INSERTED A 18FR GT. POSITIVE GURGLING UPON AUSCULTATION AND POSITIVE GASTRC RESIDUAL. MIN BLEEDING NOTED.. STOMA CLEANSED WITH NS, PAT DRY AND COVERED WITH DRY DRESSING.
[2020-07-15] MEDS ORDERED: DIATR MEGLU/DIATRIZOATE SODIUM 30 ML BOTTLE (GASTROGRAPHIN) PO ONE (14:30)
[2020-07-15] MEDS ORDERED: DIATR MEGLU/DIATRIZOATE SODIUM 30 ML BOTTLE (GASTROGRAPHIN) ONE (15:32)
--- NOTE | 2020-07-15 16:33 | NUR ---
CALLED [facility] FOR TRANSPORT TO [place]. ETA 30-45 MINUTES.
[2020-07-15 17:15] VITALS: BP 119/72
--- NOTE | 2020-07-15 17:15 | NUR ---
PATIENT PICKED UP BY [facility] [address] IN STABLE CONDITION. PATIENT WILL BE TRANSFERRED HOME.
--- NOTE | 2020-07-15 17:16 | NUR ---
[facility] AT BEDSIDE FO RPT TRANSPORT TO HER PLACED OF RESIDENCE. REPORT GIVEN TO EMT. PT IS IN STABLE CONDITION.
--- NOTE | 2020-07-15 17:19 | NUR ---
IV removed. Catheter intact and site benign. Pressure and 4x4 applied to site. No bleeding noted.
== END 2020-07-15 17:31 | disposition home or self-care (01) ==
LOC: ER 10:41
DX: Z43.1 Encounter for attention to gastrostomy (principal); Q90.9 Down syndrome, unspecified; G40.909 Epilepsy, unspecified, not intractable, without status epilepticus; Z20.822 Contact with and (suspected) exposure to COVID-19; Z79.899 Other long term (current) drug therapy; I10 Essential (primary) hypertension; H54.7 Unspecified visual loss; E03.9 Hypothyroidism, unspecified; Z79.890 Hormone replacement therapy
CPT/HCPCS: 36415; 43762; 74018 ×2; 80048; 85025; 87081; 87426; 99284; A6403; J3490; Q9963 ×2; C9803

== ENCOUNTER 2020-07-16 23:25 | Emergency (ER) | payer MEDICARE, OTHER ==
[~2020-07-16] VITALS: Ht 157.5 cm; Wt 63.5 kg
--- NOTE | 2020-07-17 | NUR ---
MARLENY FOR DISLODGED MD APARNA AT BEDSIDE TO REPLACE
[2020-07-17] MEDS ORDERED: DIATR MEGLU/DIATRIZOATE SODIUM 30 ML BOTTLE (GASTROGRAPHIN) ONE (00:05)
--- NOTE | 2020-07-17 00:32 | NUR ---
[facility] NOTE CALLED CALL THE CAR FOR TRANSPORTATION. RESERVATION NUMBER: [id number]. WILL CALL US BACK WITH ETA
--- NOTE | 2020-07-17 00:32 | NUR ---
CALLED CALL THE CAR FOR TRANSPORTATION. RESERVATION NUMBER: [phone]. WILL CALL US BACK WITH ETA
--- NOTE | 2020-07-17 01:31 | NUR ---
ETA 2:30 [facility]
--- NOTE | 2020-07-17 03:00 | NUR ---
dcPatient discharged to home in stable condition. Written and verbal after care instructions given. Patient verbalizes understanding of instruction.
[2020-07-17 03:51] VITALS: BP 96/44
== END 2020-07-17 03:52 | disposition home or self-care (01) ==
LOC: ER 23:31
DX: K94.23 Gastrostomy malfunction (principal); G40.909 Epilepsy, unspecified, not intractable, without status epilepticus; I10 Essential (primary) hypertension; E03.9 Hypothyroidism, unspecified; H54.7 Unspecified visual loss; Z98.890 Other specified postprocedural states; Z79.899 Other long term (current) drug therapy
CPT/HCPCS: 43762; 74018; 99284; A4217; Q9963

== ENCOUNTER 2020-08-29 21:22 | Inpatient (IN) | payer OTHER, MEDICARE ==
[~2020-08-29] VITALS: Ht 157.5 cm; Wt 62.6 kg
[2020-08-29] MEDS ORDERED: LORAZEPAM INJ 2 MG/ML VIAL ONE (21:40)
[2020-08-29] MEDS ORDERED: LORAZEPAM INJ 2 MG/ML VIAL IVP ONE (22:00)
[2020-08-29 22:01] LABS: HEMATOCRIT 39 % (33-45); HEMOGLOBIN 13.2 g/dL (11.5-14.8); LYMPHOCYTES # (AUTO) 1.7 /CMM (0.8-4.8); LYMPHOCYTES % (AUTO) 36.6 % (20.0-44.0); MEAN CORPUSCULAR HGB CONC 34 g/dl (31.0-36.0); MEAN CORPUSCULAR VOLUME 103 fL (82-100); MONOCYTES # (AUTO) 0.4 /CMM (0.1-1.30); MONOCYTES % (AUTO) 8.9 % (2.0-12.0); NEUTROPHILS # (AUTO) 2.4 /CMM (1.8-8.9); NEUTROPHILS % (AUTO) 52.5 % (43.0-81.0); PLATELET COUNT (AUTO) 186 /CMM (150-450); RED BLOOD CELL COUNT(AUTO) 3.81 MIL/uL (4.0-5.2); WHITE BLOOD COUNT (AUTO) 4.6 K/uL (4.3-11.0)
[2020-08-29 22:17] LABS: ALANINE AMINOTRANSFERASE 14 U/L (12-78); ALBUMIN 2.9 g/dL (3.4-5.0); ALCOHOL, BLOOD < 3 mg/dL (0-0); ALKALINE PHOSPHATASE 98 U/L (46-116); ASPARTATE AMINOTRANSFERASE 16 U/L (15-37); BILIRUBIN,DIRECT 0.1 mg/dL (0.0-0.2); BILIRUBIN,TOTAL 0.4 mg/dL (0.2-1.0); CALCIUM, SERUM 8.4 mg/dL (8.5-10.1); CARBON DIOXIDE 37 mmol/L (21-32); CHLORIDE 105 mmol/L (98-107); CREATININE 0.8 mg/dL (0.6-1.3); GLUCOSE 88 mg/dL (74-106); POTASSIUM 4.9 mmol/L (3.5-5.1); SODIUM SERUM 142 mmol/L (136-145); TOTAL PROTEIN, SERUM 7.4 g/dL (6.4-8.2); UREA NITROGEN, BLOOD 27 mg/dL (7-18)
[2020-08-30 00:53] VITALS: BP 102/61
[2020-08-30] MEDS ORDERED: LEVE500T19 GT (03:01)
[2020-08-30] MEDS ORDERED: LEVO88TA5 GT (03:01)
[2020-08-30] MEDS ORDERED: MULT1TAB62 GT (03:08)
[2020-08-30] MEDS ORDERED: ASCO-340 GT (03:18)
[2020-08-30] MEDS ORDERED: CARB200T GT (03:18)
[2020-08-30] MEDS ORDERED: ALBU0.633 IH (03:18)
[2020-08-30] MEDS ORDERED: ACETAMINOPHEN 650 MG/SUPP.RECT RC PRN (03:30)
[2020-08-30] MEDS ORDERED: ONDANSETRON HCL/PF 4 MG/2 ML VIAL IVP PRN (03:30)
[2020-08-30] MEDS ORDERED: MORPHINE SULFATE INJ 2 MG/ML DISP.SYRIN IV PRN (03:30)
[2020-08-30] MEDS ORDERED: Z GUARD REMEDY 2 OZ OINT TP PRN (03:30)
[2020-08-30 04:00] VITALS: BP 93/54
[2020-08-30] MEDS: IV D5/ 0.9% NACL 1,000 ML IV PRN ×2 (05:04→18:11)
[2020-08-30] MEDS: PANTOPRAZOLE 40 MG VIAL IV SCH (08:35)
[2020-08-30 08:50] VITALS: BP 108/56
[2020-08-30] MEDS: LEVETIRACETAM (500MG) 1,500 MG in IV NS 0.9% 100 ML IV SCH ×2 (09:11→20:02)
[2020-08-30] MEDS: ENOXAPARIN SODIUM 40 MG/0.4 ML DISP.SYRIN SQ SCH (11:31)
[2020-08-30 16:05] VITALS: BP 104/59
[2020-08-30 20:00] VITALS: BP 90/61
[2020-08-31 07:12] LABS: BASOPHILS % (AUTO) 0.7 % (0.0-2.0); EOSINOPHILS % (AUTO) 0.9 % (0.0-6.0); HEMATOCRIT 42 % (33-45); HEMOGLOBIN 14.1 g/dL (11.5-14.8); LYMPHOCYTES # (AUTO) 1.8 /CMM (0.8-4.8); LYMPHOCYTES % (AUTO) 27.9 % (20.0-44.0); MEAN CORPUSCULAR HGB CONC 33 g/dl (31.0-36.0); MEAN CORPUSCULAR VOLUME 103 fL (82-100); MONOCYTES # (AUTO) 0.5 /CMM (0.1-1.30); MONOCYTES % (AUTO) 8.6 % (2.0-12.0); NEUTROPHILS # (AUTO) 3.9 /CMM (1.8-8.9); NEUTROPHILS % (AUTO) 61.9 % (43.0-81.0); PLATELET COUNT (AUTO) 174 /CMM (150-450); RED BLOOD CELL COUNT(AUTO) 4.11 MIL/uL (4.0-5.2); WHITE BLOOD COUNT (AUTO) 6.4 K/uL (4.3-11.0)
[2020-08-31 07:52] LABS: CALCIUM, SERUM 8.8 mg/dL (8.5-10.1); CREATININE 0.7 mg/dL (0.6-1.3); MAGNESIUM 2.4 mg/dL (1.8-2.4); POTASSIUM 4.5 mmol/L (3.5-5.1)
[2020-08-31 08:11] VITALS: BP 99/58
[2020-08-31] MEDS: ENOXAPARIN SODIUM 40 MG/0.4 ML DISP.SYRIN SQ SCH (09:10)
[2020-08-31] MEDS: LEVETIRACETAM (500MG) 1,500 MG in IV NS 0.9% 100 ML IV SCH ×2 (09:10→21:33)
[2020-08-31] MEDS: PANTOPRAZOLE 40 MG VIAL IV SCH (09:10)
[2020-08-31] MEDS: IV D5/ 0.9% NACL 1,000 ML IV PRN (11:41)
[2020-08-31 15:53] VITALS: BP 108/69
[2020-08-31 20:00] VITALS: BP 124/73
[2020-08-31] MEDS: MUPIROCIN OINT 2% 22 GM TUBE NS SCH (21:00)
[2020-09-01] VITALS (9 sets, daily range): BP systolic 118–148; BP diastolic 53–88
[2020-09-01] MEDS: LORAZEPAM INJ 2 MG/ML VIAL IV PRN ×3 (01:05→15:32)
[2020-09-01] MEDS: IV D5/ 0.9% NACL 1,000 ML IV PRN (01:06)
[2020-09-01 06:24] LABS: BASOPHILS % (AUTO) 0.5 % (0.0-2.0); EOSINOPHILS % (AUTO) 0.4 % (0.0-6.0); HEMATOCRIT 43 % (33-45); HEMOGLOBIN 14.3 g/dL (11.5-14.8); LYMPHOCYTES # (AUTO) 1.1 /CMM (0.8-4.8); LYMPHOCYTES % (AUTO) 17.8 % (20.0-44.0); MEAN CORPUSCULAR HGB CONC 33 g/dl (31.0-36.0); MEAN CORPUSCULAR VOLUME 104 fL (82-100); MONOCYTES # (AUTO) 0.5 /CMM (0.1-1.30); MONOCYTES % (AUTO) 8.3 % (2.0-12.0); NEUTROPHILS # (AUTO) 4.5 /CMM (1.8-8.9); PLATELET COUNT (AUTO) 154 /CMM (150-450); RED BLOOD CELL COUNT(AUTO) 4.12 MIL/uL (4.0-5.2); WHITE BLOOD COUNT (AUTO) 6.1 K/uL (4.3-11.0)
[2020-09-01 06:28] LABS: CALCIUM, SERUM 8.2 mg/dL (8.5-10.1); CREATININE 0.7 mg/dL (0.6-1.3)
[2020-09-01] MEDS: ENOXAPARIN SODIUM 40 MG/0.4 ML DISP.SYRIN SQ SCH (09:00)
[2020-09-01] MEDS: PANTOPRAZOLE 40 MG VIAL IV SCH (09:28)
[2020-09-01] MEDS: LEVETIRACETAM (500MG) 1,500 MG in IV NS 0.9% 100 ML IV SCH (09:28)
[2020-09-01] MEDS: MUPIROCIN OINT 2% 22 GM TUBE NS SCH ×2 (10:53→21:15)
[2020-09-01] MEDS ORDERED: JEVITY 1.2 CAL 1,000 ML BOTTLE GT PRN (15:30)
[2020-09-01] MEDS: CLOTRIMAZOLE 1% 15 GM TUBE TP SCH (16:16)
[2020-09-01] MEDS: CARBAMAZEPINE 200 MG TABLET GT SCH (16:18)
[2020-09-01] MEDS: ASCORBIC ACID 500 MG TABLET GT SCH (16:19)
[2020-09-01] MEDS ORDERED: LEVETIRACETAM SOL (5 ML) 100 MG/ML UDC GT SCH (17:00)
[2020-09-01] MEDS ORDERED: JEVITY 1.2 CAL 1,000 ML BOTTLE GT SCH (17:00)
[2020-09-01] MEDS ORDERED: ALBUTEROL FS 2.5 MG/3 ML VIAL.NEB NEB PRN (18:00)
[2020-09-01] MEDS ORDERED: IPRATROPIUM NEB FS 0.5 MG/2.5 ML AMPUL.NEB NEB PRN (18:00)
[2020-09-01 18:23] LABS: ABG BASE EXCESS 0.4 mmol/L; ABG OXYGEN SATURATION 99.4 % (92.0-98.5); ABG PCO2 49.6 mmHg (35.0-45.0); ABG PH 7.349 (7.350-7.450); ABG PO2 267.1 mmHg (75.0-100.0); AaDO2 19.1 mmHg; COHb 0.4 % (0.5-1.5); MetHb 0.3 % (0.0-1.5); O2Hb 98.7 % (94.0-97.0); SITE, ABG Right Brachial; VENT MODE, BG Simple Mask
[2020-09-01] MEDS: LEVETIRACETAM SOL (5 ML) 100 MG/ML UDC GT SCH (21:14)
[2020-09-02] MEDS ORDERED: LEVOTHYROXINE SODIUM 88 MCG TABLET GT SCH (07:30)
[2020-09-02 08:00] VITALS: BP 118/50
[2020-09-02] MEDS: PANTOPRAZOLE 40 MG VIAL IV SCH (08:56)
[2020-09-02] MEDS: LEVETIRACETAM SOL (5 ML) 100 MG/ML UDC GT SCH (08:56)
[2020-09-02] MEDS: ASCORBIC ACID 500 MG TABLET GT SCH ×2 (08:56→16:40)
[2020-09-02] MEDS: CARBAMAZEPINE 200 MG TABLET GT SCH ×2 (08:56→16:40)
[2020-09-02] MEDS ORDERED: LEVOTHYROXINE SODIUM 75 MCG TABLET GT SCH (09:00)
[2020-09-02] MEDS: ENOXAPARIN SODIUM 40 MG/0.4 ML DISP.SYRIN SQ SCH (09:04)
[2020-09-02] MEDS: MUPIROCIN OINT 2% 22 GM TUBE NS SCH (09:25)
[2020-09-02] MEDS: CLOTRIMAZOLE 1% 15 GM TUBE TP SCH ×2 (09:25→16:49)
[2020-09-02 16:00] VITALS: BP 111/53
== END 2020-09-02 18:03 | disposition hospice, home (50) | DRG 252 ==
LOC: ER 21:26 → TELE 08-30 00:38 → MED 08-30 08:41
PROVIDERS: ADMIT Nurse Practitioner Family; ATTEND Nurse Practitioner Acute Care
PROC: 0D20XUZ Change Feeding Device in Upper Intestinal Tract, External Approach (ICD-10-PCS; principal; 2020-09-01)
DX: K94.23 Gastrostomy malfunction (principal); E44.1 Mild protein-calorie malnutrition; E88.09 Other disorders of plasma-protein metabolism, not elsewhere classified; G40.909 Epilepsy, unspecified, not intractable, without status epilepticus; E03.9 Hypothyroidism, unspecified; I10 Essential (primary) hypertension; Y83.3 Surgical operation with formation of external stoma as the cause of abnormal reaction of the patient, or of later complication, without mention of misadventure at the time of the procedure; Y92.9 Unspecified place or not applicable; Z20.822 Contact with and (suspected) exposure to COVID-19; R13.10 Dysphagia, unspecified; K29.70 Gastritis, unspecified, without bleeding; Q90.9 Down syndrome, unspecified; J98.11 Atelectasis; H54.7 Unspecified visual loss; Z79.899 Other long term (current) drug therapy; Z79.890 Hormone replacement therapy; R79.89 Other specified abnormal findings of blood chemistry
CPT/HCPCS: 36415; 36600; 43246; 71045-TC; 80048-TC; 80076-TC; 83735-TC; 85025-TC; 85730-TC; 87081-TC; 94799-TC; 95819-TC; C9113; C9803; G0378; G0480; J1650; J1953; J2060; J2704; J3490; J7030; J7042

== ENCOUNTER 2021-04-30 10:35 | Inpatient (IN) | payer OTHER, MEDICARE ==
[~2021-04-30] VITALS: Ht 144.8 cm; Wt 63.5 kg
[~2021-04-30 10:35] MED LIST changes: +ALBU0.633 IH; +ASCO-340 GT; +CARB200T GT; -LEVO75TA7 GT; +LEVO88TA5 GT; +MULT1TAB62 GT
--- NOTE | 2021-04-30 10:35 | NUR ---
PT [id number] FRM HOME FOR NOTED SEIZURE, VERSED 2.5 GIVEN BRIDGE MANAGER. BG 119. PT IS AAOX0, NOT IN RESPIRATORY DISTRESS, HOOKED TO PEDIATRICIAN/MEDICAL DOCTOR AND O2 AT 3LPM VIA NC. KEPT RESTED AND COMFORTABLE. WILL CONTINUE TO MONITOR.
[2021-04-30] MEDS ORDERED: IV NS 0.9% 1,000 ML BAG IV ONE ×2 (11:00→12:30)
[2021-04-30] MEDS ORDERED: ACETAMINOPHEN 650 MG/SUPP.RECT RC ONE ×2 (11:00→11:02)
--- NOTE | 2021-04-30 11:00 | NUR ---
IV LINE ESTABLISHED BLOOD DRAWN AND SENT TO LAB.
[2021-04-30] MEDS ORDERED: LORAZEPAM INJ 2 MG/ML VIAL ONE (11:05)
[2021-04-30 11:15] LABS: BASOPHILS % (AUTO) 0.2 % (0.0-2.0); EOSINOPHILS % (AUTO) 0.2 % (0.0-6.0); HEMATOCRIT 39 % (33-45); HEMOGLOBIN 13.2 g/dL (11.5-14.8); LYMPHOCYTES # (AUTO) 0.5 K/uL (0.8-4.8); LYMPHOCYTES % (AUTO) 3.5 % (20.0-44.0); MEAN CORPUSCULAR HGB CONC 34 g/dl (31.0-36.0); MEAN CORPUSCULAR VOLUME 102 fL (82-100); MONOCYTES # (AUTO) 0.3 K/uL (0.1-1.30); MONOCYTES % (AUTO) 2.1 % (2.0-12.0); NEUTROPHILS # (AUTO) 13.6 K/uL (1.8-8.9); PLATELET COUNT (AUTO) 208 K/uL (150-450); RED BLOOD CELL COUNT(AUTO) 3.86 MIL/uL (4.0-5.2); WHITE BLOOD COUNT (AUTO) 14.5 K/uL (4.3-11.0)
--- NOTE | 2021-04-30 11:15 | NUR ---
URINE SPECIMEN COLLECTED AND SENT TO LAB.
--- NOTE | 2021-04-30 11:23 | NUR ---
ASSEMBLER TESTER AT BEDSIDE FOR XRAY.
[2021-04-30 11:27] LABS: BILIRUBIN,URINE Negative (NEGATIVE); COLOR,URINE YELLOW (YELLOW); LEUKOCYTE ESTERASE ,URINE Trace (NEGATIVE); NITRITE, URINE Negative (NEGATIVE); PROTEIN,URINE Negative (NEGATIVE); UGLUCOSE Negative (NEGATIVE); UROBILINOGEN,URINE 0.2 EU/dL (0.2)
[2021-04-30] MEDS ORDERED: LEVETIRACETAM (500MG) 1,000 MG in IV NS 0.9% 100 ML IV SCH (11:30)
[2021-04-30] MEDS ORDERED: LORAZEPAM INJ 2 MG/ML VIAL IV ONE (11:30)
[2021-04-30 11:35] LABS: CALCIUM, SERUM 8.2 mg/dL (8.5-10.1); CARBON DIOXIDE 34 mmol/L (21-32); CHLORIDE 100 mmol/L (98-107); CREATININE 0.9 mg/dL (0.6-1.3); GLUCOSE 111 mg/dL (74-106); POTASSIUM 4.5 mmol/L (3.5-5.1); SODIUM SERUM 138 mmol/L (136-145); UREA NITROGEN, BLOOD 27 mg/dL (7-18)
[2021-04-30 11:38] LABS: BACTERIA,URINE Few /HPF (None Seen); SQUAMOUS EPITHELIAL CELL,UR Few /HPF (None Seen)
[2021-04-30] MEDS ORDERED: LEVE1000 PO (11:39)
[2021-04-30 11:41] LABS: ALANINE AMINOTRANSFERASE 18 U/L (12-78); ALBUMIN 2.7 g/dL (3.4-5.0); ALKALINE PHOSPHATASE 114 U/L (46-116); ASPARTATE AMINOTRANSFERASE 15 U/L (15-37); BILIRUBIN,DIRECT 0.1 mg/dL (0.0-0.2); BILIRUBIN,TOTAL 0.3 mg/dL (0.2-1.0); TOTAL PROTEIN, SERUM 7.4 g/dL (6.4-8.2)
[2021-04-30] MEDS ORDERED: CEFTRIAXONE 1 G in IV D5W 50 ML IV ONE (12:30)
[2021-04-30] MEDS ORDERED: AZITHROMYCIN 500 MG in IV D5W 250 ML IV ONE (12:30)
[2021-04-30] MEDS ORDERED: LABETALOL 20 MG/4 ML VIAL IV PRN (13:00)
[2021-04-30] MEDS ORDERED: AZITHROMYCIN 500 MG in IV D5W 250 ML IV SCH (13:00)
[2021-04-30] MEDS ORDERED: ONDANSETRON HCL/PF 4 MG/2 ML VIAL IVP PRN (13:00)
[2021-04-30] MEDS ORDERED: MAG HYDROX/AL HYDROX/SIMETH 30 ML UDC PO PRN (13:00)
[2021-04-30] MEDS ORDERED: ACETAMINOPHEN 325 MG TABLET PO PRN (13:00)
[2021-04-30] MEDS ORDERED: MORPHINE SULFATE INJ 2 MG/ML DISP.SYRIN IV PRN (13:00)
[2021-04-30] MEDS ORDERED: JEVITY 1.2 CAL 1,000 ML BOTTLE GT PRN (13:00)
[2021-04-30] MEDS ORDERED: CEFTRIAXONE 1GM BAG (ER ONLY) 50 ML IV ONE (13:05)
--- NOTE | 2021-04-30 14:27 | NUR ---
ROOM 111-2
--- NOTE | 2021-04-30 14:33 | NUR ---
REPORT GIVEN TO JOSE EDDY FOR GENEVIEVE.
[2021-04-30 14:50] LABS: THYROID STIMULATING HORMONE 5.222 uIU/mL (0.358-3.74)
[2021-04-30] MEDS ORDERED: MAG HYDROX/AL HYDROX/SIMETH 30 ML UDC GT PRN (14:50)
[2021-04-30] MEDS ORDERED: ACETAMINOPHEN 650 MG/20.3 ML UDC GT PRN (15:00)
[2021-04-30 15:16] LABS: CARBAMAZEPINE (TEGRETOL) 6.1 ug/ml (4-11.9)
--- NOTE | 2021-04-30 15:27 | NUR ---
RN NOTE PATIENT RECEIVED ON THE FLOOR. VITAL SIGNS STABLE, NO SIGNS OF DISTRESS AT THIS TIME. REPORT RECEIVED FROM ER. WILL CONTINUE TO MONITOR.
[2021-04-30 16:00] VITALS: BP 123/65
[2021-04-30] MEDS ORDERED: JEVITY 1.2 CAL 1,000 ML BOTTLE GT SCH (17:00)
[2021-04-30] MEDS: IV NS 0.9% 1,000 ML IV PRN (18:30)
--- NOTE | 2021-04-30 18:30 | NUR ---
RN CLOSING NOTE PATIENT IN BED, ASLEEP. PATIENT ON 3L O2 NC WITH NO SIGNS OF LABORED BREATHING AT THIS TIME. TELE MONITOR ON, SINUS RHYTHM AT THIS TIME. COX CATHETER ON, PATENT AND DRAINING URINE. G TUBE IN PLACE. RIGHT FA 20G IN PLACE, PATENT WITH NO SIGNS OF INFILTRATION AND RUNNING NS AT 75CC/HR. NO SIGNS OF DISTRESS NOTED AT THIS TIME. BED LOCKED AND IN LOWEST POSITION, CALL LIGHT WITHIN REACH, 3 SIDE RAILS UP, ALL SEIZURE PRECAUTION IN PLACE. WILL ENDORSE TO ELECTRONIC PAGE MAKEUP SYSTEM OPERATOR NURSE.
[2021-04-30 20:00] VITALS: BP 94/49
[2021-04-30] MEDS: CARBAMAZEPINE 200 MG TABLET GT SCH (20:12)
[2021-04-30] MEDS: LEVETIRACETAM (500MG) 1,500 MG in IV NS 0.9% 100 ML IV SCH (20:12)
[2021-04-30] MEDS: HEPARIN SODIUM, PORCINE 5000 UNITS/1 ML VIAL SQ SCH (20:13)
--- NOTE | 2021-04-30 20:31 | NUR ---
TELE-TD/RN: WITNESSED PT HAVING A SEIZURE LASTING 5 MINS. SEIZURE PRECAUTIONS WERE IN PLACE. PT WAS PLACED ON 15L NRB. ATIVAN 2MG IVP ADMINISTERED ORDERED. PT STOPPED SEIZING @2036. POST SEIZURE VITALS BP 141/58 P 114 SPO2 95%. PT APPEARS POSTICTAL AT THIS TIME WILL CONTINUE TO MONITOR CLOSELY.
[2021-04-30 20:36] VITALS: BP 141/58
[2021-04-30] MEDS: LORAZEPAM INJ 2 MG/ML VIAL IV PRN (20:39)
[2021-04-30] MEDS ORDERED: LEVETIRACETAM SOL (5 ML) 100 MG/ML UDC GT SCH (21:00)
[2021-05-01] VITALS (28 sets, daily range): BP systolic 58–152; BP diastolic 18–94
--- NOTE | 2021-05-01 03:15 | NUR ---
TELE-TD/RN: PT NOTED TO BE SEIZING AFTER A SPIKE IN HEART RATE WAS NOTED BY THE QUALITY ANALYST. I ENTERED THE ROOM AND PLACED PT ON 15L NRB AND ADMINISTERED ATIVAN 2MG IVP ORDERED. PT STOPPED SEIZING AND IS CURRENTLY POSICTAL RESTING IN BED. VITALS ARE BP 142/61 P 89 SPO2 98%. PT WEENED OFF NRB AND SATURATING WELL ON 2L NASAL CANULA. RELAYED EVENT TO DR. AMOR AWAITING CALL BACK. WILL CONTINUE TO MONITOR CLOSELY.
[2021-05-01] MEDS: LORAZEPAM INJ 2 MG/ML VIAL IV PRN ×5 (03:20→23:17)
--- NOTE | 2021-05-01 03:47 | NUR ---
TELE-TD/RN: NEW ORDERS RECEIVED FROM DR. AMOR FOR ATIVAN 2MG IVP Q2H PRN FOR SEIZURE ACTIVITY.
[2021-05-01 06:57] LABS: EOSINOPHILS % (AUTO) 0.1 % (0.0-6.0); HEMATOCRIT 34 % (33-45); HEMOGLOBIN 11.4 g/dL (11.5-14.8); LYMPHOCYTES % (AUTO) 5.1 % (20.0-44.0); MEAN CORPUSCULAR HGB CONC 33 g/dl (31.0-36.0); MEAN CORPUSCULAR VOLUME 105 fL (82-100); MONOCYTES # (AUTO) 0.5 K/uL (0.1-1.30); MONOCYTES % (AUTO) 2.7 % (2.0-12.0); NEUTROPHILS # (AUTO) 18.8 K/uL (1.8-8.9); NEUTROPHILS % (AUTO) 92.1 % (43.0-81.0); PLATELET COUNT (AUTO) 172 K/uL (150-450); RED BLOOD CELL COUNT(AUTO) 3.25 MIL/uL (4.0-5.2); WHITE BLOOD COUNT (AUTO) 20.4 K/uL (4.3-11.0)
[2021-05-01 07:24] LABS: ALBUMIN 2.1 g/dL (3.4-5.0); BILIRUBIN,TOTAL 0.3 mg/dL (0.2-1.0); CALCIUM, SERUM 7.2 mg/dL (8.5-10.1); CREATININE 0.7 mg/dL (0.6-1.3); MAGNESIUM 2.1 mg/dL (1.8-2.4); PHOSPHORUS 2.2 mg/dL (2.5-4.9); POTASSIUM 4.6 mmol/L (3.5-5.1); TOTAL PROTEIN, SERUM 6.1 g/dL (6.4-8.2)
--- NOTE | 2021-05-01 07:48 | NUR ---
RN OPEN NOTE PATIENT RECEIVED IN BED, OBTUNDED. ON 2L NC O2 SAT 95% TOLERATING WELL, BREATHING EVEN AND UNLABORED, TELE MONITOR ON SINUS RHYTHM AT THIS TIME. COX CATHETER BELOW PATENT AND DRAINING CLEAR/ YELLOW URINE. G TUBE IN PLACE WITH 50 ML RESIDUALS NOTED, RIGHT FA 18G IN PLACE, PATENT WITH NO SIGNS OF INFILTRATION AND RUNNING NS AT 75ML/HR. JEVITY RUNNING 65/ML/HR NO SIGNS OF DISTRESS NOTED AT THIS TIME. BED LOCKED AND IN LOWEST POSITION, CALL LIGHT WITHIN REACH, 3 SIDE RAILS UP, ALL SEIZURE PRECAUTION IN PLACE. WILL CONTINUE TO MONITOR
[2021-05-01] MEDS: CARBAMAZEPINE 200 MG TABLET GT SCH ×2 (08:50→21:06)
[2021-05-01] MEDS: LEVOTHYROXINE SODIUM 88 MCG TABLET GT SCH (08:51)
[2021-05-01] MEDS: HEPARIN SODIUM, PORCINE 5000 UNITS/1 ML VIAL SQ SCH ×2 (08:53→21:04)
[2021-05-01] MEDS ORDERED: NEUTRA PHOS 1 POWD.PACKET GT ONE (09:00)
[2021-05-01] MEDS: LEVETIRACETAM (500MG) 1,500 MG in IV NS 0.9% 100 ML IV SCH ×2 (09:02→21:03)
--- NOTE | 2021-05-01 09:59 | NUR ---
NURSES NOTE PT WAS AWAY FROM UNIT GETTING CT SCAN. PT BROUGHT BACK AT 0945 BY TRANSPORT, THEY REPORTED PT STARTED TO SHAKE SOMEWHAT VIOLENTLY. PT IMMEDIATELY PLACED ON 15L O2 NRB AND GIVEN 2MG ATIVAN IVP. TOTAL TIME FOR SEIZURE WAS APPROXIMATELY 12 MINUTES.
[2021-05-01] MEDS: IV NS 0.9% 1,000 ML IV PRN ×2 (11:06→18:41)
[2021-05-01 11:09] LABS: ABG BASE EXCESS 2.9 mmol/L; ABG OXYGEN SATURATION 99.4 % (92.0-98.5); ABG PCO2 58.7 mmHg (35.0-45.0); ABG PH 7.327 (7.350-7.450); ABG PO2 347.9 mmHg (75.0-100.0); AaDO2 160.9 mmHg; COHb 0.3 % (0.5-1.5); MetHb 0.4 % (0.0-1.5); O2Hb 98.7 % (94.0-97.0); SITE, ABG Left Brachial
[2021-05-01] MEDS ORDERED: CARBAMAZEPINE 200 MG TABLET GT ONE (11:30)
--- NOTE | 2021-05-01 11:47 | NUR ---
dr. knutson spoke with neurologist and relayed abg gave orders to change status of patient to ICU per neuro recommendation.nursing sup notified.change pt to icu overflow while awaits bed in icu.will continue to monitor.
[2021-05-01] MEDS ORDERED: CEFTRIAXONE 1 G in IV D5W 50 ML IV SCH (12:00)
--- NOTE | 2021-05-01 12:01 | NUR ---
RN NOTES PT TRANSFERRED TO ICU TO ROOM 254 ON STABLE CONDITION ON OXYGEN 6L/MIN NC, PT BREATHING IS EVEN WITH MILD DYSPNEA. PT IS OBTUNDED. FLACC 0 TRANSPORTED VIA MONITOR DEFIBRILLATOR, REPORT GIVEN TO SOWMYA GARCIA ALL QUESTIONS ANSWERED BELONGING CHECKED
--- NOTE | 2021-05-01 12:16 | NUR ---
RN NOTES PATIENT TRANSFERRED FROM [facility] AT THIS TIME DX OF SEIZURE AND ACCORDING RN ANASTASIA PER NEUROLOGIST TRANSFER PATIENT TO THE ICU. PATIENT CONFUSED, VS TAKEN - BP88/36, P-70. O2-6LNC. IV ACCESS ON RIGHT HAND, AND RIGHT FA INTACT INFUSING NS AT 75 ML/HR. [facility] DRAINING VIA GRAVITY. PATIENT FULL CODE AT THIS TIME. WILL FOLLOW UP ASSIST TURN NA D REPOSTION Q 2 HR. SIDE RAILS PADDED, AND ELEVATED.
--- NOTE | 2021-05-01 13:12 | NUR ---
rn notes patient getting EEG at this time, because of seizure disorder.
[2021-05-01] MEDS: PIPERACILLIN /TAZOBACTAM 3.375 G in IV D5W 50 ML IV SCH ×3 (14:11→23:16)
[2021-05-01] MEDS: ZITHROMAX 500 MG/250 ML D5W IV SCH (14:12)
[2021-05-01] MEDS ORDERED: NOREPINEPHRINE 8 MG in IV NS 0.9% 242 ML IV PRN (16:00)
[2021-05-01] MEDS ORDERED: IV NS 0.9% 1,000 ML IV ONE (16:00)
--- NOTE | 2021-05-01 16:08 | NUR ---
rn notes patient has a seizure at this time administered Ativan 2 mg/ml iv push , bp-91/34, p-70. also started NS 1000mg/ml blouse, Levophed 0,1 mcg/kg/min, and albumin per hospitalist Dr Swan order.
[2021-05-01] MEDS: ALBUMIN 25% 25 GM in PREMIX 1 EA IV SCH (16:17)
[2021-05-01] MEDS: NOREPINEPHRINE 8 MG in IV NS 0.9% 242 ML IV PRN ×2 (16:18→23:16)
--- NOTE | 2021-05-01 16:45 | NUR ---
rn notes called conservator name Hernan for picc line insertion, and clerical warehouseman notified as well.
--- NOTE | 2021-05-01 17:22 | NUR ---
RN NOTES PATIENT TAKING AT THIS TIME TO THE CT OF HEAD W/O CONTRAST.
--- NOTE | 2021-05-01 18:00 | NUR ---
rn notes Midline inserted via Vargas Rosalia on right upper arm intact. Lumbar puncture procedure is done on bedside via ALEX Kaye Rosalia as well. Specimen taken to the laboratory.
--- NOTE | 2021-05-01 18:30 | NUR ---
RN NOTES PATIENT ON THE MASK 10L AT THIS TIME, BECAUSE OF HYPOXIA, , DUE MEDICATION ADMINISTERED, VS STABLE, NO SEIZURE NOTED AT THIS TIME , DEEP SUCTION VIA RT. ASSIST TURN AND REPOSTION Q 2HR, SAFETY PRECAUTION MAINTAINED ALL THE TIME. ENDORSED ONCOMING NURSE FOLLOW GENEVIEVE.
--- NOTE | 2021-05-01 19:48 | NUR ---
BRANCH OPERATION EVALUATION MANAGER. RECEIVED THE PT REST ON THE BED.LETHARGIC, DOES NOT FOLLOW COMMANDS. STORE WAREHOUSE ASSOCIATE SHOWING NSR,IV RT UPPER ARM MID LINE. OXYGEN 10L VIA SIMPLE MASK. SAT 97%. FC PATENT. URINE DRAINING. HOB ELEVATED. WILL CONTINUE TO MONITOR SEIZURE ACTIVITY. WILL CONTINUE TO MONITOR VITALS,
--- NOTE | 2021-05-01 20:34 | NUR ---
curriculum development manager. seizure activity noted less than 30 minutes. ativan given per ordered. Addendum: 05/02/21 at 0717 by DOMINIQUE EASON RN not 30 monutes. seizure activity noted less than 30 seconds
--- NOTE | 2021-05-01 23:30 | NUR ---
agricultural loan officer. seizure activity noted less than 30 minutes, ativan given per ordered. Addendum: 05/02/21 at 0717 by DOMINIQUE EASON RN seizure activity noted less than 30 seconds.not 30 minutes
[2021-05-02] VITALS (82 sets, daily range): BP systolic 83–158; BP diastolic 22–127
--- NOTE | 2021-05-02 03:33 | NUR ---
CMM INSPECTOR./ AM CARE GIVEN. LINEN CHANGED. REMAINING SAME OXYGEN TOLERATED WELL.SAT 99%. VISUAL AND STOCK ASSOCIATE SHOWING NSR. IVF NS 75 ML/H FC PATENT, GT INTACT SEIZURE PRECAUTION INITIATED.TURN AND REPOSITION Q2H, WILL CONTINUE TO MONITOR VITALS.
[2021-05-02] MEDS: ALBUMIN 25% 25 GM in PREMIX 1 EA IV SCH (04:03)
[2021-05-02 05:06] LABS: BASOPHILS % (AUTO) 0.1 % (0.0-2.0); EOSINOPHILS % (AUTO) 0.4 % (0.0-6.0); HEMATOCRIT 33 % (33-45); HEMOGLOBIN 10.9 g/dL (11.5-14.8); MEAN CORPUSCULAR HGB CONC 33 g/dl (31.0-36.0); MEAN CORPUSCULAR VOLUME 104 fL (82-100); MONOCYTES # (AUTO) 0.5 K/uL (0.1-1.30); MONOCYTES % (AUTO) 3.5 % (2.0-12.0); PLATELET COUNT (AUTO) 153 K/uL (150-450); RED BLOOD CELL COUNT(AUTO) 3.17 MIL/uL (4.0-5.2); WHITE BLOOD COUNT (AUTO) 14.6 K/uL (4.3-11.0)
[2021-05-02] MEDS: PIPERACILLIN /TAZOBACTAM 3.375 G in IV D5W 50 ML IV SCH ×4 (05:09→23:55)
[2021-05-02] MEDS: LORAZEPAM INJ 2 MG/ML VIAL IV PRN (05:09)
[2021-05-02 05:46] LABS: CALCIUM, SERUM 7.6 mg/dL (8.5-10.1); CREATININE 0.8 mg/dL (0.6-1.3); MAGNESIUM 2.2 mg/dL (1.8-2.4); PHOSPHORUS 2.2 mg/dL (2.5-4.9); POTASSIUM 3.7 mmol/L (3.5-5.1)
--- NOTE | 2021-05-02 08:00 | NUR ---
RN NOTES SEEN PATIENT ON THE MASK 10L, PATIENT CONGESTED UPPER CHEST , RHONCHI DURING AUSCULTATION. PATIENT LETHARGIC, TOTAL CARE. HAS SOME RASHES ON UPPER CHEST. GT INTACT CHECKED RESIDUAL IS 0, FLASHED WITH WATER . KEEP HOB ELEVATED FOR ASPIRATION PRECAUTION. [facility] DRAINING VIA GRAVITY. SEEN PATIENT VIA REMOTE RUBY ON RAILS DEVELOPER DR MARTINEZ, AND Dr LAMAS. PATIENT RESPONDING WITH DEEP PAIN IN THE CHEST RUB. CALL LIGHT WITHIN TO REACH, SISE RAILS UP, AND PADDED FOR SAFETY FOR SEIZURE. WILL FOLLOW UP.
[2021-05-02] MEDS: LEVOTHYROXINE SODIUM 88 MCG TABLET GT SCH (08:06)
[2021-05-02] MEDS: HEPARIN SODIUM, PORCINE 5000 UNITS/1 ML VIAL SQ SCH ×2 (08:07→20:37)
[2021-05-02] MEDS: CARBAMAZEPINE 200 MG TABLET GT SCH ×2 (08:07→21:32)
--- NOTE | 2021-05-02 08:39 | NUR ---
RN NOTES HELD PATIENT LEVOPHED DRIP AT THIS TIME, BECAUSE OF BP 151/65, P-74. WILL FOLLOW UP. DUE MEDICATION ADMINISTERED VIA GT, NO RESIDUAL. GT PLACEMENT CHECKED. KEEP HOB ELEVATED, ASSIST TURN AND REPOSTION Q 2 HR. NO SEIZURE AT THIS TIME.
--- NOTE | 2021-05-02 08:51 | NUR ---
RN NOTES GET TO ORDER STAT ABG, PER DR LAMAS. ORDER TAKEN AND CARRIED OUT.
[2021-05-02] MEDS: LEVETIRACETAM (500MG) 1,500 MG in IV NS 0.9% 100 ML IV SCH ×2 (08:54→20:37)
[2021-05-02 09:11] LABS: ABG BASE EXCESS 0.9 mmol/L; ABG OXYGEN SATURATION 98.7 % (92.0-98.5); ABG PCO2 44.6 mmHg (35.0-45.0); ABG PH 7.386 (7.350-7.450); ABG PO2 142.8 mmHg (75.0-100.0); AaDO2 308.4 mmHg; COHb 0.3 % (0.5-1.5); O2Hb 98.4 % (94.0-97.0); SITE, ABG Right Radial
--- NOTE | 2021-05-02 09:13 | NUR ---
RN NOTES ABG DONE AND VIA ABG RESULT, GET ORDER FROM Dr WESTON TITRATED O2 6L NC. RT AWARE OF , AND WITH THE PATIENT, SUCTION PATIENT DEEPLY.
--- NOTE | 2021-05-02 09:24 | NUR ---
RN NOTES PROOF MACHINE OPERATOR SUPERVISOR NEXT TO THE BED PER PATIENTS FAMILY REQUEST.
[2021-05-02] MEDS ORDERED: NEUTRA PHOS 1 POWD.PACKET GT ONE (09:30)
--- NOTE | 2021-05-02 09:34 | NUR ---
RN NOTES PER DR LAMAS KEEP PATIENT NPO TODAY. .ORDER TAKEN AND CARRIED OUT.
[2021-05-02] MEDS: IPRATROPIUM NEB FS 0.5 MG/2.5 ML AMPUL.NEB NEB SCH ×3 (11:57→20:03)
[2021-05-02] MEDS: ALBUTEROL HALF STRENGTH 1.25 MG/3 ML VIAL.NEB NEB SCH ×3 (11:57→20:03)
[2021-05-02] MEDS: ZITHROMAX 500 MG/250 ML D5W IV SCH (13:56)
[2021-05-02 14:13] LABS: CSF GLUCOSE 87 mg/dL (40-70); CSF PROTEIN 52.6 mg/dL (15-45)
[2021-05-02] MEDS: IV NS 0.9% 1,000 ML IV PRN (16:14)
[2021-05-02 17:16] LABS: BAND % (MANUAL) 2 % (0.0-5.0); LYMPHOCYTES % (MANUAL) 11 % (16-48); MONOCYTES % (MANUAL) 3 % (0-11.0); NEUTROPHILS % (MANUAL) 84 (42-76)
--- NOTE | 2021-05-02 18:30 | NUR ---
rn notes patient pm care done,, suction, mouth care done , patient on 02nc 6l. no acute respiratory distress. patient has no seizure entire shift, infusing ns @ 75 ml/hr on right midline intact. keep hob elevated 40 degree all the time. Campos draining light yellow output. assist turn and reposition q 2 hr. patient prone to aspiration precaution. endorsed oncoming nurse follow plan of care.
[2021-05-03] VITALS (39 sets, daily range): BP systolic 98–128; BP diastolic 34–80
[2021-05-03] MEDS: IPRATROPIUM NEB FS 0.5 MG/2.5 ML AMPUL.NEB NEB SCH ×6 (00:10→19:42)
[2021-05-03] MEDS: ALBUTEROL HALF STRENGTH 1.25 MG/3 ML VIAL.NEB NEB SCH ×6 (00:10→19:42)
[2021-05-03] MEDS: IV NS 0.9% 1,000 ML IV PRN ×2 (04:56→17:47)
--- NOTE | 2021-05-03 05:43 | NUR ---
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 SUCTIONED FOR MODERATE AMT. OF THICK YELLOW SECRETION. REMAINS ON 6 L O2 VIA N/C. IV SITE INTACT. VSS, AFEBRILE, SCOPE-SR. REMAINS NPO. URINE OUTPUT IS ADEQUATE. PT GOT TWO LARGE SOFT BM. PT HAS SOME SKIN COTTRELL ALL OVER THE BODY, PROBABLY ALLERGIC REACTION TO MEDS. NO SEIZURE ACTIVITY WAS NOTED. COMPLETE BATH GIVEN, ALL LINEN CHANGED. MEDICATED ORDERED.
[2021-05-03] MEDS: PIPERACILLIN /TAZOBACTAM 3.375 G in IV D5W 50 ML IV SCH ×2 (05:52→12:20)
--- NOTE | 2021-05-03 07:30 | NUR ---
IC RN OPENING NOTES Patient received in bed on 4 liters 02 via n/c. Note with midline to right ua running normal saline. Campos cath intact and hanging to gravity with yellow urine. Gtubre clamped and in place. HOB kept elevated. Will continue to monitor. Call light with in reach.
--- NOTE | 2021-05-03 07:40 | NUR ---
WOUND CARE CONSULT: REVIEWED CHART, NURSING DOCUMENTATION AND PREVIOUS CHART INDICATING HISTORY OF SACRAL SCARRING. RECOMMENDATIONS MADE FOR SKIN PROTECTION. DISCUSSED WITH NURSING STAFF. MD IN AGREEMENT WITH PLAN OF CARE.
[2021-05-03] MEDS ORDERED: Z GUARD REMEDY 2 OZ OINT TP PRN (08:00)
[2021-05-03] MEDS ORDERED: ALBUMIN 25% 25 GM in PREMIX 1 EA IV SCH (08:30)
[2021-05-03] MEDS: LEVETIRACETAM SOL (5 ML) 100 MG/ML UDC GT SCH ×2 (08:58→20:19)
[2021-05-03] MEDS: LEVOTHYROXINE SODIUM 88 MCG TABLET GT SCH (08:59)
[2021-05-03] MEDS: Z GUARD REMEDY 2 OZ OINT TP SCH (08:59)
[2021-05-03] MEDS: HEPARIN SODIUM, PORCINE 5000 UNITS/1 ML VIAL SQ SCH ×2 (09:05→20:21)
[2021-05-03 09:07] LABS: BASOPHILS # (AUTO) 0.1 K/uL (0.0-0.2); BASOPHILS % (AUTO) 0.5 % (0.0-2.0); EOSINOPHILS % (AUTO) 0.3 % (0.0-6.0); HEMATOCRIT 32 % (33-45); HEMOGLOBIN 10.5 g/dL (11.5-14.8); LYMPHOCYTES # (AUTO) 1.1 K/uL (0.8-4.8); LYMPHOCYTES % (AUTO) 7.4 % (20.0-44.0); MEAN CORPUSCULAR HGB CONC 33 g/dl (31.0-36.0); MEAN CORPUSCULAR VOLUME 104 fL (82-100); MONOCYTES # (AUTO) 0.5 K/uL (0.1-1.30); MONOCYTES % (AUTO) 3.7 % (2.0-12.0); NEUTROPHILS # (AUTO) 12.6 K/uL (1.8-8.9); NEUTROPHILS % (AUTO) 88.1 % (43.0-81.0); PLATELET COUNT (AUTO) 139 K/uL (150-450); RED BLOOD CELL COUNT(AUTO) 3.06 MIL/uL (4.0-5.2); WHITE BLOOD COUNT (AUTO) 14.3 K/uL (4.3-11.0)
[2021-05-03 10:17] LABS: ALBUMIN 2.7 g/dL (3.4-5.0); BILIRUBIN,TOTAL 0.6 mg/dL (0.2-1.0); CALCIUM, SERUM 7.4 mg/dL (8.5-10.1); CREATININE 0.8 mg/dL (0.6-1.3); POTASSIUM 3.8 mmol/L (3.5-5.1); TOTAL PROTEIN, SERUM 6.3 g/dL (6.4-8.2)
[2021-05-03] MEDS: CARBAMAZEPINE 200 MG TABLET GT SCH ×2 (10:48→21:35)
[2021-05-03] MEDS: HYDROCORTISONE SOD SUCCINATE 100 MG/2 ML VIAL IV SCH ×3 (10:48→20:19)
[2021-05-03 11:08] LABS: BAND % (MANUAL) 5 % (0.0-5.0); LYMPHOCYTES % (MANUAL) 4 % (16-48); MONOCYTES % (MANUAL) 6 % (0-11.0); NEUTROPHILS % (MANUAL) 85 (42-76)
[2021-05-03] MEDS ORDERED: JEVITY 1.2 CAL 1,000 ML BOTTLE GT PRN ×2 (12:00→17:30)
[2021-05-03] MEDS ORDERED: AZITHROMYCIN 250 MG TABLET GT SCH (13:00)
--- NOTE | 2021-05-03 15:10 | NUR ---
Patient noted with redness to left forearm, bilateral upper thighs and abdomen. No s/s of skin breakdown. Affected areas not raised. 02 sat 98% on 4 liters nasal cannula. Patient axillary racheal 98.5. Pictures taken and placed in chart. MD Neri Aldana made aware and awaiting response.
[2021-05-03] MEDS ORDERED: NEUTRA PHOS 1 POWD.PACKET PO ONE (15:30)
--- NOTE | 2021-05-03 15:30 | NUR ---
Received order from Dr Neri Boyer to d/c zosyn and to d/c g tube med azithromycin.Start Levaqun 750 mg iv daily x 7 days. Orders noted and carried out. User error of who d/c 'd the medication. Ordering doctor is Neri Boyer MD.
--- NOTE | 2021-05-03 19:12 | NUR ---
IC RN CLOSING NOTES Patient in bed on 4 liters 02 via n/c. Note with midline to right ua running normal saline. Campos cath intact and hanging to gravity with yellow urine and output of [address] running at 40 cc/hour. HOB kept elevated. Will continue to monitor. Call light with in reach.Redness to abdomen and both thighs significantly reduced. Endorsed to next shift.
--- NOTE | 2021-05-03 19:30 | NUR ---
RN OPENING NOTE RECEIVED PATIENT IN BED. NONVERBAL. PATIENT MOVES TO PAIN. ON OXYGEN 4L/MIN VIA NASL CANNULA. RESPIRATIONS ARE EVEN AND UNLABORED. PATIENT DOES SOUND CONGESTED. NO S/S PAIN NOTED. TELE MONITOR READS SINUS RHTYH, HR 75. IN NO APPARENT DISTRESS. IV ACCESS IN TIMOTEO MIDLINE RUNING NS@75ML/HR. GTUBE RESIDULA IS 80ML, FLUSHED WITH NO RESISTANCE, JEVITY RUNING @49ML/ [employer] CATHETER DRAINING TO GRAVITY, URINE IS YELLOW. BED IS LOW AND LOCKED, HOB ELEVATED IN SEMI FOWLERS, SIDE RIALS UP X2, CALL LIGHT WITHIN REACH.
[2021-05-03] MEDS: LEVOFLOXACIN 750 MG /D5W 150ML 750 MG in PREMIX 1 EA IV SCH (20:17)
[2021-05-03] MEDS: LORAZEPAM INJ 2 MG/ML VIAL IV PRN (23:12)
[2021-05-04] VITALS (20 sets, daily range): BP systolic 94–121; BP diastolic 44–67
[2021-05-04] MEDS: IPRATROPIUM NEB FS 0.5 MG/2.5 ML AMPUL.NEB NEB SCH ×7 (00:25→23:41)
[2021-05-04] MEDS: ALBUTEROL HALF STRENGTH 1.25 MG/3 ML VIAL.NEB NEB SCH ×7 (00:26→23:41)
[2021-05-04] MEDS: LORAZEPAM INJ 2 MG/ML VIAL IV PRN (03:37)
[2021-05-04 04:24] LABS: HEMATOCRIT 31 % (33-45); HEMOGLOBIN 10.5 g/dL (11.5-14.8); LYMPHOCYTES # (AUTO) 0.5 K/uL (0.8-4.8); MEAN CORPUSCULAR HGB CONC 34 g/dl (31.0-36.0); MEAN CORPUSCULAR VOLUME 104 fL (82-100); MONOCYTES # (AUTO) 0.1 K/uL (0.1-1.30); MONOCYTES % (AUTO) 1.3 % (2.0-12.0); NEUTROPHILS # (AUTO) 8.5 K/uL (1.8-8.9); NEUTROPHILS % (AUTO) 93.7 % (43.0-81.0); PLATELET COUNT (AUTO) 140 K/uL (150-450); RED BLOOD CELL COUNT(AUTO) 2.99 MIL/uL (4.0-5.2); WHITE BLOOD COUNT (AUTO) 9.1 K/uL (4.3-11.0)
[2021-05-04 04:41] LABS: CALCIUM, SERUM 7.2 mg/dL (8.5-10.1); CREATININE 0.8 mg/dL (0.6-1.3); MAGNESIUM 2.2 mg/dL (1.8-2.4); PHOSPHORUS 1.5 mg/dL (2.5-4.9); POTASSIUM 3.9 mmol/L (3.5-5.1)
[2021-05-04] MEDS: HYDROCORTISONE SOD SUCCINATE 100 MG/2 ML VIAL IV SCH ×4 (04:57→21:36)
[2021-05-04 05:49] LABS: BAND % (MANUAL) 1 % (0.0-5.0); LYMPHOCYTES % (MANUAL) 4 % (16-48); MONOCYTES % (MANUAL) 2 % (0-11.0); NEUTROPHILS % (MANUAL) 93 (42-76)
--- NOTE | 2021-05-04 07:31 | NUR ---
RN CLOSING NOTE RESTING IN BED. NONVERBAL. TITRATED O2 TO 2L/MIN VIA NASAL CANNULA. RESPIRATIONS ARE EVEN AND UNLABORED. NO RESP DISTRESS. NO S/S PAIN. PATIENT IS SINUS RHYTHM. PATIENT HAD TO EPISODES OF SEIZURES, THROUGHOUT SHIFT. SUBSIDED WITH ATIVAN. TIMOTEO MIDLINE RUNNING NS@75ML/HR. GTUBE HAD RESIDUALS THROUGHOUT NIGHT, CHECKED [id number], 80CC, THEN 60 CC THEN 50CC. JEVITY CONTINUES TO RUN@40ML/HR. [employer] CATHETER OUTPUT 500CC. BED REMAINS LOW AND LOCKED, HOB ELEVATED IN SEMI FOWLERS, SIDE RIALS UP X2, CALL LIGHT WITHIN REACH. WILL ENDORSE TO ONCOMING SHIFT.
[2021-05-04] MEDS: IV NS 0.9% 1,000 ML IV PRN (08:02)
[2021-05-04] MEDS: HEPARIN SODIUM, PORCINE 5000 UNITS/1 ML VIAL SQ SCH ×2 (08:27→21:37)
[2021-05-04] MEDS: LEVETIRACETAM SOL (5 ML) 100 MG/ML UDC GT SCH ×2 (08:28→21:34)
[2021-05-04] MEDS: CARBAMAZEPINE 200 MG TABLET GT SCH ×2 (08:28→21:36)
[2021-05-04] MEDS: Z GUARD REMEDY 2 OZ OINT TP SCH (08:28)
[2021-05-04] MEDS: LEVOTHYROXINE SODIUM 88 MCG TABLET GT SCH (08:28)
[2021-05-04] MEDS ORDERED: NEUTRA PHOS 1 POWD.PACKET NG ONE (10:00)
--- NOTE | 2021-05-04 16:35 | NUR ---
RN NOTE RECIEVED REPORT FROM AME LINE INSTALLATION SUPERVISOR, GENEVIEVE.
--- NOTE | 2021-05-04 17:05 | NUR ---
RN NOTE PATIENT WAS TRANSFERRED FROM ICU 254 TO ROOM 307 -2, VIA BED. PATIENT NONVERBAL, ON O2 2LITER/MIN ON NASAL CANNULA. BREATHING EVENLY AND NONLABORED. NO DISTRESS NOTED. VITAL SIGNS BP 118/67 P 92 R RR 18, TEM 98.2. O2SAT 99%. IV ACCESS TIMOTEO MIDLINE RUNNING NS @75ML/HR. INTACT AND PATENT. [employer] CATHETER IN PLACE AND DRAINING JUANITO TO YELLOW URINE. G-TUBE FEEDING JEVITY 1.2 RUNNING @ 40CC/HR, TOLERATE FEEDING WELL. SAFETY MEASURE PROVIDED. LOW BED, BED ALARM, SIDE RAILS X2, CALL LIGHT WITHIN REACH. WILL ENDORSE WAGON WINDER NURSE.
--- NOTE | 2021-05-04 19:30 | NUR ---
RN OPENING NOTE PATIENT RECEIVED FROM DAMIAN GARCIA, RECENT TRANSFER FROM ICU. PATIENT IS NON VERBAL, EYES CLOSED AT THIS TIME. PATIENT HAS 2 L O2 SUPPLEMENTATION, NOT IN ANY APPARENT DISTRESS SATURATING 100&. PATIENT HAS MILD COUGH PRESENT. GTUBE FEEDING ON GOING AT 40 ML/HR. RESIDUAL 10 ML, ASPIRATED AND FLUSHED BACK. PATIENT HAS A TIMOTEO MIDLINE WITH NS @75 ML/HR RUNNING. [employer] CATHETER IN PLACE DRAINING YELLOW URINE VIA GRAVITY. SEIZURE PRECAUTIONS INITIATED. HOB ELEVATED AT ALL TIMES. SAFETY MEASURES IN PLACE: BED LOCKED AND IN LOWEST POSITION, CALL LIGHT WITHIN REACH, SIDE RAILS UP. WILL MONITOR PATIENT CLOSELY.
--- NOTE | 2021-05-05 00:43 | NUR ---
RN NOTE PATIENT NOTICEABLY HAVING DIFFICULTY BREATHING AND DESATTING TO 60S RT PERFORMED NT SUCTIONING MULTIPLE TIMES, WITH BEIGE COLORED SPUTUM/DRAINAGE. PATIENT NOW ON NON REBREATHER WITH O2 WIDE OPEN 15 L/MIN. CHARGE NURSE AWARE. WILL MONITOR PATIENT CLOSELY. Addendum: 05/05/21 at 0108 by PELON TRONCOSO RN gtube feeding off at this time with advisement of charge nurse
[2021-05-05] MEDS: IPRATROPIUM NEB FS 0.5 MG/2.5 ML AMPUL.NEB NEB SCH ×6 (03:49→23:15)
[2021-05-05] MEDS: ALBUTEROL HALF STRENGTH 1.25 MG/3 ML VIAL.NEB NEB SCH ×6 (03:50→23:15)
--- NOTE | 2021-05-05 04:00 | NUR ---
RN NOTE WAS ABLE TO TITRATE PATIENT DOWN TO 10 L 02 SUPPLEMENTATION. 99% 02 SATURATION. PATIENT SOUNDING CONGESTED AND USING ACCESSORY MUSCLES AGAIN. Addendum: 05/05/21 at 0429 by PELON TRONCOSO RN RT ABLE TO TITRATE PATIENT FURTHER TO 8L/MIN SIMPLE FACE MASK, NT SUCTIONED, AND BREATHING TREATMENT GIVEN. WILL CONTINUE TO MONITOR PATIENT.
[2021-05-05] MEDS: IV NS 0.9% 1,000 ML IV PRN ×2 (06:19→18:35)
--- NOTE | 2021-05-05 06:41 | NUR ---
RN CLOSING NOTE PATIENT EYES CLOSED, PATIENT IS NON VERBAL, EYES CLOSED AT THIS TIME. PATIENT NOW ON 8 LPM O2 SUPPLEMENTATION WITH SIMPLE MASK, SATTING 99%, SOUNDS CONGESTED. D/T DESATTING OF PATIENT AND RISK OF ASPIRATION, GT FEEDING SLOWED DOWN TO 20 CC/HR, NO RESIDUAL, FLUSHES WELL. PATIENT HAS A TIMOTEO MIDLINE WITH NS @75 ML/HR RUNNING. [employer] CATHETER IN PLACE DRAINING YELLOW URINE VIA GRAVITY. SEIZURE PRECAUTIONS INITIATED. HOB ELEVATED AT ALL TIMES. SAFETY MEASURES IN PLACE: BED LOCKED AND IN LOWEST POSITION, CALL LIGHT WITHIN REACH, SIDE RAILS UP. ALL NEEDS MET AND ATTENDED, ALL ORDERS CARRIED OUT. WILL ENDORSE TO DAY SHIFT RN FOR GENEVIEVE.
--- NOTE | 2021-05-05 07:15 | NUR ---
MS RN OPENING NOTE RECEIVED PATIENT ON BED WITH EYES CLOSED, PATIENT IS NON VERBAL, WITH SOME RESPONSE LIKE LOCALIZING TO PAIN. PATIENT NOW ON 8 LPM O2 SUPPLEMENTATION WITH SIMPLE MASK, WITH OXYGEN SATURATION OF 99%-100%, WITH SOME CONGESTION NOTED. HAD EPISODE OF DESATURATION SINCE TRANSFER FROM ICU LAST NIGHT. ON CLOSE MONITORING. ON ASPIRATION PRECAUTION. PN GT FEEDING AT 20 CC/HR, NO RESIDUAL, FLUSHES WELL. PATIENT HAS A TIMOTEO MIDLINE WITH NS @75 ML/HR RUNNING. [employer] CATHETER IN PLACE DRAINING YELLOW URINE VIA GRAVITY. SEIZURE PRECAUTIONS INITIATED. HOB ELEVATED AT ALL TIMES. SAFETY MEASURES IN PLACE: BED LOCKED AND IN LOWEST POSITION, CALL LIGHT WITHIN REACH, SIDE RAILS UP. ALL NEEDS MET AND ATTENDED, ALL ORDERS CARRIED OUT. WILL CONTINUE TO MONITOR PATIENT.
[2021-05-05 07:16] LABS: CREATININE 0.7 mg/dL (0.6-1.3); POTASSIUM 4.5 mmol/L (3.5-5.1)
[2021-05-05 08:00] VITALS: BP 94/52
[2021-05-05] MEDS: CARBAMAZEPINE 200 MG TABLET GT SCH ×2 (08:19→21:07)
[2021-05-05] MEDS: LEVOTHYROXINE SODIUM 88 MCG TABLET GT SCH (08:19)
[2021-05-05] MEDS: LEVETIRACETAM SOL (5 ML) 100 MG/ML UDC GT SCH ×2 (08:20→21:06)
[2021-05-05] MEDS: HEPARIN SODIUM, PORCINE 5000 UNITS/1 ML VIAL SQ SCH ×2 (08:21→21:11)
[2021-05-05] MEDS: HYDROCORTISONE SOD SUCCINATE 100 MG/2 ML VIAL IV SCH ×2 (08:35→21:06)
[2021-05-05] MEDS: NEUTRA PHOS 1 POWD.PACKET PO SCH ×2 (08:41→16:32)
--- NOTE | 2021-05-05 09:35 | NUR ---
MS RN NOTE PATIENT SEEN BY DR. DANGELO. WILL CONTINUE TO MONITOR PATIENT.
[2021-05-05] MEDS: Z GUARD REMEDY 2 OZ OINT TP SCH (11:42)
[2021-05-05 13:07] LABS: *CRYPTOCOCCUS AG, CSF Negative (Negative)
[2021-05-05 16:00] VITALS: BP 99/51
[2021-05-05] MEDS: GUAIFENESIN LA 600 MG TABLET.SA PO SCH (16:33)
--- NOTE | 2021-05-05 18:06 | NUR ---
MS RN CLOSING NOTES: PATIENT IS NON-VERBAL AND EYES CLOSED THROUGHOUT THE SHIFT. EYES OPEN TO PAINFUL STIMULI. RESPIRATORY EFFORT LABORED. LUNG SOUNDS "WET" WITH SCATTERED WHEEZES THROUGHOUT BILATERAL LUNG JAVIER. RT AT PATIENT'S BEDSIDE ATC. SUCTIONING INTERVENTIONS AND ADMINISTRATION OF RX IH TX EFFECTIVE FOR SHORT DURATION. PATIENTS SECRETIONS OBSERVED TO BE COPIOUS AND THICK. PRACTITIONER NOTIFIED AND NEW ORDERS NOTED FOR SCHEDULED MUCINEX 600MG GT BID X7 DAYS. SPO2 >95% ON 8-10L SIMPLE FACE MASK. PATIENT OBSERVED TO HAVE GENERALIZED EDEMA ~1+. PATIENT ROUNDED ON AT 1700. EYES CLOSED, > WARM TO TOUCH. TEMP TAKEN 99.2 AX. NON-PHARMACOLOGICAL COOLING MEASURES IMPLEMENTED AND PRN TYLENOL ADMINISTERED PER ORDER WITH EFFECTIVE RESULTS. .
--- NOTE | 2021-05-05 19:30 | NUR ---
RN OPENING NOTE PATIENT IS NON VERBAL, EYES CLOSED AT THIS TIME. PATIENT HAS 10 LPM O2 SUPPLEMENTATION, IN MILD DISTRESS, SATTING 100%. HAS ROUTINE BREATHING TX. GTUBE FEEDING ON GOING AT 30 ML/HR. RESIDUAL 60 ML, ASPIRATED AND FLUSHED BACK. PATIENT HAS A TIMOTEO MIDLINE WITH NS @75 ML/HR RUNNING. [employer] CATHETER IN PLACE DRAINING YELLOW URINE VIA GRAVITY. SEIZURE PRECAUTIONS INITIATED. HOB ELEVATED AT ALL TIMES. SAFETY MEASURES IN PLACE: BED LOCKED AND IN LOWEST POSITION, CALL LIGHT WITHIN REACH, SIDE RAILS UP. WILL MONITOR PATIENT CLOSELY.
[2021-05-05] MEDS: LEVOFLOXACIN 750 MG /D5W 150ML 750 MG in PREMIX 1 EA IV SCH (19:41)
--- NOTE | 2021-05-05 23:30 | NUR ---
RN NOTE RT TITRATED O2 TO 8 8LPM VIA SIMPLE FACE MASK. NT SUCTIONED. BREATHING TREATMENT GIVEN, AUDIBLE WHEEZING HEARD. WILL CONTINUE TO MONITOR PATIENT.
[2021-05-06] MEDS: ALBUTEROL HALF STRENGTH 1.25 MG/3 ML VIAL.NEB NEB SCH ×3 (03:52→12:07)
[2021-05-06] MEDS: IPRATROPIUM NEB FS 0.5 MG/2.5 ML AMPUL.NEB NEB SCH ×3 (03:52→12:07)
--- NOTE | 2021-05-06 04:07 | NUR ---
RT NOTE NASOTRACHEAL SUCTION PERFORMED. MODERATE THICK ANSARI SECRETIONS NOTED. B/S IMPROVED POST TX/SX. SPO2 IMPROVED. JOSE THOMAS NOTIFIED.
[2021-05-06] MEDS: IV NS 0.9% 1,000 ML IV PRN (06:56)
--- NOTE | 2021-05-06 07:05 | NUR ---
RN CLOSING NOTE PATIENT IS NON VERBAL. PATIENT HAS 8 LPM O2 SUPPLEMENTATION VIA SIMPLE MASK, IN MILD DISTRESS, SATTING 98%. HAS ROUTINE BREATHING TX. GTUBE FEEDING ON GOING AT 40 ML/HR, TOLERATING FAIRLY. PATIENT HAS A TIMOTEO MIDLINE WITH NS @75 ML/HR RUNNING. [employer] CATHETER IN PLACE DRAINING YELLOW URINE VIA GRAVITY. SEIZURE PRECAUTIONS INITIATED. HOB ELEVATED AT ALL TIMES. SAFETY MEASURES IMPLEMENTED. ALL NEEDS MET AND ATTENDED, ALL ORDERS CARRIED OUT. WILL ENDORSE TO DAY SHIFT NURSE FOR GENEVIEVE.
--- NOTE | 2021-05-06 07:15 | NUR ---
MS RN OPENING NOTE PATIENT IS NON VERBAL, EYES CLOSED, WITH SOME DECORTICATE REACTION WHEN PAINFUL STIMULI IS ELICITED. PATIENT IS ON OXYGEN AT 10 LPM VIA FACE MASK, WITH OXYGEN SATURATION OF 98-100%. PATIENT SUCTIONED REGULARLY AND RECEIVES BREATHING TREATMENT FROM RT ROUTINELY ORDERED. PATIENT ON G-TUBE FEEDING OF JEVITY 1.2 RUNNING AT 40ML/HR, TOLERATED WELL. PATIENT HAS A TIMOTEO MIDLINE WITH NS @ 75 ML/HR RUNNING. [employer] CATHETER IN PLACE DRAINING YELLOW URINE VIA GRAVITY. SEIZURE PRECAUTIONS ENFORCED. HOB ELEVATED AT ALL TIMES. SAFETY MEASURES IN PLACE: BED LOCKED AND IN LOWEST POSITION, CALL LIGHT WITHIN REACH, SIDE RAILS UP. WILL MONITOR PATIENT CLOSELY.
--- NOTE | 2021-05-06 07:53 | NUR ---
RT NOTE NASOTRACHEAL SUCTION PERFORMED. MODERATE/THICK AMOUNTS OF ANSARI SECRETIONS NOTED. SPO2 IMPROVED. RN ALVINA NOTIFIED. PLACED PT BACK ON SIMPLE MASK ON 8LPM POST TX. WILL CONTINUE TO MONITOR.
[2021-05-06 08:00] VITALS: BP 102/53
[2021-05-06] MEDS: LEVOTHYROXINE SODIUM 88 MCG TABLET GT SCH (08:10)
[2021-05-06] MEDS: GUAIFENESIN LA 600 MG TABLET.SA PO SCH (09:17)
[2021-05-06] MEDS: LEVETIRACETAM SOL (5 ML) 100 MG/ML UDC GT SCH (09:17)
[2021-05-06] MEDS: CARBAMAZEPINE 200 MG TABLET GT SCH (09:17)
[2021-05-06] MEDS: HYDROCORTISONE SOD SUCCINATE 100 MG/2 ML VIAL IV SCH (09:18)
[2021-05-06] MEDS: HEPARIN SODIUM, PORCINE 5000 UNITS/1 ML VIAL SQ SCH (09:20)
[2021-05-06] MEDS: Z GUARD REMEDY 2 OZ OINT TP SCH (09:30)
--- NOTE | 2021-05-06 09:30 | NUR ---
MS RN NOTE PATIENT SEEN BY DR. WHITNEY WITH ORDER FOR DISCHARGE WITH HOSPICE CARE. MD SPOKE WITH DPOA. VERRBALIZED UNDERSTANDING AND APPRECIATION. COMFORT MEASURES PROVIDED. WILL CONTINUE TO MONITOR PATIENT.
--- NOTE | 2021-05-06 13:45 | NUR ---
MS RN NOTE PATIENT DISCHARGED TO HOME WITH HOSPICE CARE ORDERED. PATIENT PICKED UP BY 2 EMT PERSONNEL ON [facility]. MAINTAINED ON HIGH BACK REST AT ALL TIMES. SUCTIONED SECRETION REGULARLY Addendum: 05/06/21 at 1457 by ALVINA HOUGH RN PATIENT IN STABLE CONDITION, PICKED-UP AT AROUND 1330. IV ACCESS REMOVED AND COVERED WITH DRESSING, TOLERATED WELL. DISCHARGED ORDERED. IN STABLE CONDITION. STILL ON DNR/DNI STATUS. HOME WITH [employer] CATHETER AND G-TUBE. ENDORSED ACCORDINGLY.
== END 2021-05-06 13:30 | disposition hospice, home (50) | DRG 720 ==
LOC: ER 10:37 → TELE1 14:34 → EDBD 14:34 → TELE-TD 15:31 → MEDSG1 05-01 09:32 → ICUOV 05-01 11:36 → ICU 05-01 12:07 → TELE 05-04 17:29 → MED 05-04 17:37
PROVIDERS: ADMIT Internal Medicine; ATTEND Nurse Practitioner Acute Care
PROC: 009U3ZX Drainage of Spinal Canal, Percutaneous Approach, Diagnostic (ICD-10-PCS; principal; 2021-05-01)
PROC: 05HY33Z Insertion of Infusion Device into Upper Vein, Percutaneous Approach (ICD-10-PCS; 2021-05-01)
PROC: B01BYZZ Fluoroscopy of Spinal Cord using Other Contrast (ICD-10-PCS; 2021-05-01)
DX: A41.9 Sepsis, unspecified organism (principal); J96.21 Acute and chronic respiratory failure with hypoxia; J69.0 Pneumonitis due to inhalation of food and vomit; I95.9 Hypotension, unspecified; D64.9 Anemia, unspecified; N39.0 Urinary tract infection, site not specified; E03.9 Hypothyroidism, unspecified; Z93.1 Gastrostomy status; G40.909 Epilepsy, unspecified, not intractable, without status epilepticus; D75.89 Other specified diseases of blood and blood-forming organs; E66.9 Obesity, unspecified; E83.39 Other disorders of phosphorus metabolism; E86.9 Volume depletion, unspecified; Z66 Do not resuscitate; Z87.01 Personal history of pneumonia (recurrent); Q90.9 Down syndrome, unspecified; R65.20 Severe sepsis without septic shock; Z51.5 Encounter for palliative care; R13.10 Dysphagia, unspecified; R00.1 Bradycardia, unspecified; E83.9 Disorder of mineral metabolism, unspecified; I10 Essential (primary) hypertension; Z68.30 Body mass index [BMI] 30.0-30.9, adult; J96.22 Acute and chronic respiratory failure with hypercapnia; Z20.822 Contact with and (suspected) exposure to COVID-19
CPT/HCPCS: 31720; 36410; 36415; 36600; 70450-TC; 71045-TC; 71250-TC; 80048-TC; 80053-TC; 80076-TC; 80156-TC; 81001; 82040-TC; 82533; 82803-TC; 82962-TC; 83605-TC; 83735-TC; 83880; 84100-TC; 84439-TC; 84443-TC; 84481; 84484-TC; 85025-TC; 85730-TC; 86592; 86694; 87040-TC; 87070-TC; 87081-TC; 87086-TC; 87899; 89051-TC; 93307-TC; 94799-TC; 95819-TC; A4216; C9803; G0378; J0456; J0696; J1644; J1720; J1953; J1956; J2060; J2543; J7030; J7050; J7060; P9047; U0003

== ENCOUNTER 2022-07-31 11:54 | Inpatient (IN) | payer MEDICARE, OTHER ==
[~2022-07-31] VITALS: Ht 152.4 cm; Wt 51.3 kg
[2022-07-31 12:57] LABS: BASOPHILS % (AUTO) 0.4 % (0.0-2.0); EOSINOPHILS % (AUTO) 1.4 % (0.0-6.0); HEMATOCRIT 38 % (33-45); HEMOGLOBIN 12.2 g/dL (11.5-14.8); LYMPHOCYTES # (AUTO) 1.6 K/uL (0.8-4.8); MEAN CORPUSCULAR HGB CONC 32 g/dl (31.0-36.0); MEAN CORPUSCULAR VOLUME 104 fL (82-100); MONOCYTES # (AUTO) 0.9 K/uL (0.1-1.30); NEUTROPHILS # (AUTO) 7.2 K/uL (1.8-8.9); NEUTROPHILS % (AUTO) 73.2 % (43.0-81.0); PLATELET COUNT (AUTO) 181 K/uL (150-450); RED BLOOD CELL COUNT(AUTO) 3.63 MIL/uL (4.0-5.2); WHITE BLOOD COUNT (AUTO) 9.8 K/uL (4.3-11.0)
[2022-07-31 13:26] LABS: CALCIUM, SERUM 8.6 mg/dL (8.5-10.1); POTASSIUM 4.2 mmol/L (3.5-5.1)
[2022-07-31 13:31] LABS: ALBUMIN 2.3 g/dL (3.4-5.0); BILIRUBIN,DIRECT 0.1 mg/dL (0.0-0.2); BILIRUBIN,TOTAL 0.2 mg/dL (0.2-1.0); TOTAL PROTEIN, SERUM 7.6 g/dL (6.4-8.2)
[2022-07-31] MEDS ORDERED: GENT5DRO4 EACHEYE (13:37)
[2022-07-31] MEDS ORDERED: LORA-259 PO (13:37)
[2022-07-31] MEDS ORDERED: MENT71OI2 TP (13:38)
[2022-07-31] MEDS ORDERED: HONE15GE TP (13:38)
[2022-07-31] MEDS ORDERED: CT SWABBABLE VALVE TRANS SET 1 EA INFUS.SET MC ONE (13:47)
[2022-07-31] MEDS ORDERED: IOHEXOL-300 100 ML VIAL IV ONE (13:47)
[2022-07-31] MEDS ORDERED: IV NS 0.9% 250 ML IV ONE (13:47)
[2022-07-31] MEDS ORDERED: PIPERACILLIN /TAZOBACTAM 3.375 G in IV D5W 50 ML IV ONE (14:30)
[2022-07-31] MEDS ORDERED: VANCOMYCIN 1 GM in IV D5W 250 ML IV ONE (15:00)
[2022-07-31] MEDS ORDERED: JEVITY 1.2 CAL 1,000 ML BOTTLE GT SCH (15:30)
[2022-07-31] MEDS ORDERED: ONDANSETRON HCL/PF 4 MG/2 ML VIAL IVP PRN ×2 (15:30)
[2022-07-31] MEDS ORDERED: ACETAMINOPHEN 325 MG TABLET PO PRN ×2 (15:30)
[2022-07-31] MEDS ORDERED: Z GUARD REMEDY 4 OZ OINT TP PRN ×2 (15:30)
[2022-07-31] MEDS ORDERED: ZOLPIDEM TARTRATE 5 MG TABLET PO PRN (15:30)
[2022-07-31] MEDS ORDERED: LORAZEPAM 1 MG TABLET PO PRN (15:30)
[2022-07-31] MEDS ORDERED: MAGNESIUM HYDROXIDE 30 ML UDC PO PRN ×2 (15:30)
[2022-07-31] MEDS ORDERED: MAG HYDROX/AL HYDROX/SIMETH 30 ML UDC PO PRN ×2 (15:30)
[2022-07-31 15:32] LABS: BILIRUBIN,URINE NEGATIVE (NEGATIVE); COLOR,URINE YELLOW (YELLOW); LEUKOCYTE ESTERASE ,URINE NEGATIVE (NEGATIVE); NITRITE, URINE NEGATIVE (NEGATIVE); PH,URINE 7.5 (5.0-8.0); PROTEIN,URINE 1+ mg/dl (NEGATIVE); UGLUCOSE NEGATIVE (NEGATIVE); UROBILINOGEN,URINE 0.2 EU/dL (0.2)
[2022-07-31 16:24] LABS: BACTERIA,URINE None seen /HPF (None Seen); RBC,URINE 0-2 /HPF (0-2); WBC,URINE 0-2 /HPF (0-3)
[2022-07-31] MEDS ORDERED: ALBUTEROL HALF STRENGTH 1.25 MG/3 ML VIAL.NEB NEB PRN (20:30)
[2022-07-31] MEDS: CARBAMAZEPINE 200 MG TABLET GT SCH (21:00)
[2022-07-31] MEDS: CEFEPIME 2 GM in IV D5W 100 ML IV SCH (22:20)
[2022-07-31] MEDS: IV 1/2NS 1000 ML 1,000 ML IV PRN (22:22)
[2022-08-01] MEDS ORDERED: ACETAMINOPHEN 650 MG/SUPP.RECT RC PRN (00:30)
[2022-08-01 01:28] VITALS: BP 155/69
[2022-08-01 04:00] VITALS: BP 119/57
[2022-08-01 06:30] LABS: BASOPHILS % (AUTO) 0.2 % (0.0-2.0); EOSINOPHILS % (AUTO) 1.5 % (0.0-6.0); HEMATOCRIT 37 % (33-45); LYMPHOCYTES # (AUTO) 1.4 K/uL (0.8-4.8); LYMPHOCYTES % (AUTO) 17.8 % (20.0-44.0); MEAN CORPUSCULAR HGB CONC 33 g/dl (31.0-36.0); MEAN CORPUSCULAR VOLUME 105 fL (82-100); MONOCYTES # (AUTO) 0.8 K/uL (0.1-1.30); MONOCYTES % (AUTO) 9.6 % (2.0-12.0); NEUTROPHILS # (AUTO) 5.8 K/uL (1.8-8.9); NEUTROPHILS % (AUTO) 70.9 % (43.0-81.0); PLATELET COUNT (AUTO) 192 K/uL (150-450); RED BLOOD CELL COUNT(AUTO) 3.48 MIL/uL (4.0-5.2); WHITE BLOOD COUNT (AUTO) 8.1 K/uL (4.3-11.0)
[2022-08-01 06:45] LABS: CALCIUM, SERUM 8.4 mg/dL (8.5-10.1); CREATININE 1.1 mg/dL (0.6-1.3); MAGNESIUM 2.6 mg/dL (1.8-2.4); PHOSPHORUS 3.3 mg/dL (2.5-4.9); POTASSIUM 4.2 mmol/L (3.5-5.1)
[2022-08-01] MEDS: LEVOTHYROXINE SODIUM 88 MCG TABLET GT SCH (07:00)
[2022-08-01] MEDS: CARBAMAZEPINE 200 MG TABLET GT SCH ×2 (08:46→21:00)
[2022-08-01] MEDS: CEFEPIME 2 GM in IV D5W 100 ML IV SCH ×2 (08:47→21:48)
[2022-08-01 10:00] VITALS: BP 134/60
[2022-08-01 12:00] VITALS: BP 124/57
[2022-08-01] MEDS: CLOTRIMAZOLE 1% 15 GM TUBE TP SCH ×2 (14:00→16:21)
[2022-08-01] MEDS: IV 1/2NS 1000 ML 1,000 ML IV PRN ×2 (15:52→20:43)
[2022-08-01] MEDS: VANCOMYCIN 1 GM in IV D5W 250ml IV SCH (15:54)
[2022-08-01] MEDS: THERAHONEY GEL 1.5 OZ TUBE TP SCH (16:22)
[2022-08-01 16:52] VITALS: BP 126/67
[2022-08-01 20:00] VITALS: BP 138/60
[2022-08-01] MEDS: LORAZEPAM INJ 2 MG/ML VIAL IV PRN (22:59)
[2022-08-02] VITALS: BP 107/51
[2022-08-02 04:00] VITALS: BP 124/56
[2022-08-02 06:13] LABS: BASOPHILS % (AUTO) 0.1 % (0.0-2.0); EOSINOPHILS % (AUTO) 4.4 % (0.0-6.0); HEMATOCRIT 39 % (33-45); HEMOGLOBIN 12.6 g/dL (11.5-14.8); LYMPHOCYTES # (AUTO) 1.5 K/uL (0.8-4.8); LYMPHOCYTES % (AUTO) 22.1 % (20.0-44.0); MEAN CORPUSCULAR HGB CONC 32 g/dl (31.0-36.0); MEAN CORPUSCULAR VOLUME 106 fL (82-100); MONOCYTES # (AUTO) 0.6 K/uL (0.1-1.30); MONOCYTES % (AUTO) 9.2 % (2.0-12.0); NEUTROPHILS # (AUTO) 4.4 K/uL (1.8-8.9); NEUTROPHILS % (AUTO) 64.2 % (43.0-81.0); PLATELET COUNT (AUTO) 202 K/uL (150-450); WHITE BLOOD COUNT (AUTO) 6.8 K/uL (4.3-11.0)
[2022-08-02 06:38] LABS: CALCIUM, SERUM 8.7 mg/dL (8.5-10.1); CREATININE 0.9 mg/dL (0.6-1.3); POTASSIUM 4.4 mmol/L (3.5-5.1)
[2022-08-02] MEDS: LEVOTHYROXINE SODIUM 88 MCG TABLET GT SCH (07:00)
[2022-08-02] MEDS: CEFEPIME 2 GM in IV D5W 100 ML IV SCH ×2 (08:19→21:31)
[2022-08-02] MEDS: CARBAMAZEPINE 200 MG TABLET GT SCH ×2 (08:20→21:00)
[2022-08-02] MEDS: CLOTRIMAZOLE 1% 15 GM TUBE TP SCH ×2 (08:20→16:39)
[2022-08-02] MEDS: THERAHONEY GEL 1.5 OZ TUBE TP SCH (08:20)
[2022-08-02] MEDS: VANCOMYCIN 1 GM in IV D5W 250ml IV SCH (15:37)
[2022-08-02] MEDS: LORAZEPAM INJ 2 MG/ML VIAL IV PRN ×2 (16:42→23:08)
[2022-08-02 20:00] VITALS: BP 120/63
[2022-08-03] VITALS: BP 116/48
[2022-08-03] MEDS: IV 1/2NS 1000 ML 1,000 ML IV PRN ×2 (05:38→18:29)
[2022-08-03 06:27] VITALS: BP 109/89
[2022-08-03] MEDS: LEVOTHYROXINE SODIUM 88 MCG TABLET GT SCH (07:00)
[2022-08-03 07:35] LABS: CALCIUM, SERUM 8.5 mg/dL (8.5-10.1); POTASSIUM 3.8 mmol/L (3.5-5.1)
[2022-08-03 08:00] VITALS: BP 165/81
[2022-08-03] MEDS: LORAZEPAM INJ 2 MG/ML VIAL IV PRN ×2 (08:52→16:39)
[2022-08-03] MEDS: CARBAMAZEPINE 200 MG TABLET GT SCH ×2 (09:00→20:46)
[2022-08-03] MEDS: CEFEPIME 2 GM in IV D5W 100 ML IV SCH ×2 (10:08→20:46)
[2022-08-03] MEDS: CLOTRIMAZOLE 1% 15 GM TUBE TP SCH ×2 (10:29→17:10)
[2022-08-03] MEDS: THERAHONEY GEL 1.5 OZ TUBE TP SCH (10:29)
[2022-08-03 10:33] LABS: BASOPHILS % (AUTO) 0.2 % (0.0-2.0); EOSINOPHILS % (AUTO) 4.7 % (0.0-6.0); HEMATOCRIT 36 % (33-45); HEMOGLOBIN 11.8 g/dL (11.5-14.8); LYMPHOCYTES # (AUTO) 1.1 K/uL (0.8-4.8); LYMPHOCYTES % (AUTO) 20.6 % (20.0-44.0); MEAN CORPUSCULAR HGB CONC 33 g/dl (31.0-36.0); MEAN CORPUSCULAR VOLUME 104 fL (82-100); MONOCYTES # (AUTO) 0.5 K/uL (0.1-1.30); MONOCYTES % (AUTO) 9.1 % (2.0-12.0); NEUTROPHILS # (AUTO) 3.3 K/uL (1.8-8.9); NEUTROPHILS % (AUTO) 65.4 % (43.0-81.0); PLATELET COUNT (AUTO) 221 K/uL (150-450); RED BLOOD CELL COUNT(AUTO) 3.44 MIL/uL (4.0-5.2); WHITE BLOOD COUNT (AUTO) 5.1 K/uL (4.3-11.0)
[2022-08-03] MEDS ORDERED: SULF1TAB48 PO (10:37)
[2022-08-03] MEDS: VANCOMYCIN 1 GM in IV D5W 250ml IV SCH (16:27)
[2022-08-03 18:55] VITALS: BP 151/79
[2022-08-03] MEDS: IV D5/0.45 NACL 1,000 ML IV SCH (20:44)
[2022-08-04] MEDS: LORAZEPAM INJ 2 MG/ML VIAL IV PRN ×3 (00:54→22:41)
[2022-08-04 06:31] LABS: CREATININE 0.8 mg/dL (0.6-1.3); POTASSIUM 3.5 mmol/L (3.5-5.1)
[2022-08-04] MEDS: LEVOTHYROXINE SODIUM 88 MCG TABLET GT SCH (07:00)
[2022-08-04 08:15] VITALS: BP 90/62
[2022-08-04] MEDS: CARBAMAZEPINE 200 MG TABLET GT SCH ×2 (09:00→21:00)
[2022-08-04] MEDS: CEFEPIME 2 GM in IV D5W 100 ML IV SCH ×2 (09:23→21:52)
[2022-08-04] MEDS: THERAHONEY GEL 1.5 OZ TUBE TP SCH (09:29)
[2022-08-04] MEDS: CLOTRIMAZOLE 1% 15 GM TUBE TP SCH ×2 (09:29→16:04)
[2022-08-04] MEDS: IV D5/0.45 NACL 1,000 ML IV SCH ×2 (10:28→22:11)
[2022-08-04] MEDS: VANCOMYCIN 0.75 GM in IV D5W 250 ML IV SCH (15:30)
[2022-08-04 16:23] VITALS: BP 99/53
[2022-08-05] MEDS: LORAZEPAM INJ 2 MG/ML VIAL IV PRN ×2 (03:44→20:23)
[2022-08-05 06:36] LABS: CALCIUM, SERUM 8.2 mg/dL (8.5-10.1); CARBON DIOXIDE 32 mmol/L (21-32); CHLORIDE 108 mmol/L (98-107); GLUCOSE 109 mg/dL (74-106); POTASSIUM 3.5 mmol/L (3.5-5.1); SODIUM SERUM 142 mmol/L (136-145); UREA NITROGEN, BLOOD 15 mg/dL (7-18)
[2022-08-05] MEDS: LEVOTHYROXINE SODIUM 88 MCG TABLET GT SCH (07:00)
[2022-08-05 08:00] VITALS: BP 104/48
[2022-08-05] MEDS: CARBAMAZEPINE 200 MG TABLET GT SCH ×2 (08:16→20:51)
[2022-08-05] MEDS: CEFEPIME 2 GM in IV D5W 100 ML IV SCH ×2 (08:33→21:42)
[2022-08-05] MEDS: THERAHONEY GEL 1.5 OZ TUBE TP SCH (11:46)
[2022-08-05] MEDS: CLOTRIMAZOLE 1% 15 GM TUBE TP SCH ×2 (11:46→17:59)
[2022-08-05 12:00] VITALS: BP 101/49
[2022-08-05] MEDS: IV D5/0.45 NACL 1,000 ML IV SCH (13:26)
[2022-08-05 16:00] VITALS: BP 94/53
[2022-08-05] MEDS: VANCOMYCIN 0.75 GM in IV D5W 250 ML IV SCH (16:00)
[2022-08-05 19:57] VITALS: BP 99/57
[2022-08-06] MEDS: LORAZEPAM INJ 2 MG/ML VIAL IV PRN ×3 (00:08→09:37)
[2022-08-06] MEDS: IV D5/0.45 NACL 1,000 ML IV SCH (02:45)
[2022-08-06 07:38] LABS: CALCIUM, SERUM 7.9 mg/dL (8.5-10.1); POTASSIUM 3.5 mmol/L (3.5-5.1)
[2022-08-06] MEDS: LEVOTHYROXINE SODIUM 88 MCG TABLET GT SCH (07:55)
[2022-08-06 08:00] VITALS: BP 98/44
[2022-08-06] MEDS: CARBAMAZEPINE 200 MG TABLET GT SCH (08:56)
[2022-08-06] MEDS: CEFEPIME 2 GM in IV D5W 100 ML IV SCH (08:57)
[2022-08-06] MEDS: THERAHONEY GEL 1.5 OZ TUBE TP SCH (09:18)
[2022-08-06] MEDS: CLOTRIMAZOLE 1% 15 GM TUBE TP SCH (09:18)
[2022-08-06] MEDS ORDERED: JEVITY 1.2 CAL 1,000 ML BOTTLE GT PRN (11:30)
== END 2022-08-06 14:30 | disposition hospice, home (50) | DRG 356 ==
LOC: ER 12:00 → TELE 19:15 → MED 08-06 10:22
PROVIDERS: ADMIT Internal Medicine; ATTEND Internal Medicine
PROC: 0JB70ZZ Excision of Back Subcutaneous Tissue and Fascia, Open Approach (ICD-10-PCS; 2022-08-02)
PROC: 0DH63UZ Insertion of Feeding Device into Stomach, Percutaneous Approach (ICD-10-PCS; principal; 2022-08-05)
DX: K94.22 Gastrostomy infection (principal); E43 Unspecified severe protein-calorie malnutrition; N17.0 Acute kidney failure with tubular necrosis; L89.153 Pressure ulcer of sacral region, stage 3; G93.41 Metabolic encephalopathy; L03.311 Cellulitis of abdominal wall; G40.909 Epilepsy, unspecified, not intractable, without status epilepticus; Z20.822 Contact with and (suspected) exposure to COVID-19; E03.9 Hypothyroidism, unspecified; E88.09 Other disorders of plasma-protein metabolism, not elsewhere classified; I10 Essential (primary) hypertension; H54.7 Unspecified visual loss; Z66 Do not resuscitate; Q90.9 Down syndrome, unspecified; R13.10 Dysphagia, unspecified; Z68.22 Body mass index [BMI] 22.0-22.9, adult; Y84.8 Other medical procedures as the cause of abnormal reaction of the patient, or of later complication, without mention of misadventure at the time of the procedure; Y73.8 Miscellaneous gastroenterology and urology devices associated with adverse incidents, not elsewhere classified; Y92.009 Unspecified place in unspecified non-institutional (private) residence as the place of occurrence of the external cause; L89.896 Pressure-induced deep tissue damage of other site; S70.321A Blister (nonthermal), right thigh, initial encounter; L53.8 Other specified erythematous conditions; Z51.5 Encounter for palliative care
CPT/HCPCS: 36415; 43246; 71045-TC; 80048-TC; 80076-TC; 80202-TC; 81001; 83605-TC; 83735-TC; 84100-TC; 85025-TC; 85610-TC; 85730-TC; 86850-TC; 87040-TC; 87081-TC; 87086-TC; A4223; A6253; A6403; C9803; G0378; J0690; J0692; J2060; J2543; J2704; J3370; J3490; J7030; J7040; J7042; J7050; J7060; Q9967

== ENCOUNTER 2022-12-23 16:26 | Inpatient (IN) | payer MEDICARE, OTHER ==
[~2022-12-23] VITALS: Ht 165.1 cm; Wt 41.8 kg
[~2022-12-23 16:26] MED LIST changes: +GENT5DRO4 EACHEYE; +HONE15GE TP; -LEVE100S GT; +LORA-259 PO; +MENT71OI2 TP; +SULF1TAB48 PO
[2022-12-23] MEDS ORDERED: CEFEPIME 1 GM in IV D5W 50 ML IV ONE (17:00)
[2022-12-23] MEDS ORDERED: ACETAMINOPHEN 325 MG TABLET MC ONE (17:00)
[2022-12-23] MEDS ORDERED: VANCOMYCIN 1 GM in IV D5W 250 ML IV ONE (17:00)
[2022-12-23] MEDS ORDERED: ACETAMINOPHEN ES 500 MG TABLET ONE (17:04)
[2022-12-23 17:06] LABS: BASOPHILS % (AUTO) 0.2 % (0.0-2.0); HEMATOCRIT 36 % (33-45); HEMOGLOBIN 11.7 g/dL (11.5-14.8); MEAN CORPUSCULAR HGB CONC 32 g/dl (31.0-36.0); MEAN CORPUSCULAR VOLUME 102 fL (82-100); MONOCYTES % (AUTO) 5.2 % (2.0-12.0); NEUTROPHILS # (AUTO) 21.7 K/uL (1.8-8.9); NEUTROPHILS % (AUTO) 89.6 % (43.0-81.0); PLATELET COUNT (AUTO) 192 K/uL (150-450); RED BLOOD CELL COUNT(AUTO) 3.54 MIL/uL (4.0-5.2); WHITE BLOOD COUNT (AUTO) 24.2 K/uL (4.3-11.0)
[2022-12-23 17:07] LABS: LYMPHOCYTES # (AUTO) 1.2 K/uL (0.8-4.8); MONOCYTES # (AUTO) 1.3 K/uL (0.1-1.30)
[2022-12-23 17:28] LABS: CALCIUM, SERUM 8.7 mg/dL (8.5-10.1); CARBON DIOXIDE 33 mmol/L (21-32); CHLORIDE 109 mmol/L (98-107); CREATININE 1.5 mg/dL (0.6-1.3); GLUCOSE 134 mg/dL (74-106); POTASSIUM 5.1 mmol/L (3.5-5.1); SODIUM SERUM 148 mmol/L (136-145); UREA NITROGEN, BLOOD 47 mg/dL (7-18)
[2022-12-23 17:40] LABS: ALANINE AMINOTRANSFERASE 22 U/L (12-78); ALBUMIN 2.2 g/dL (3.4-5.0); ALKALINE PHOSPHATASE 58 U/L (46-116); ASPARTATE AMINOTRANSFERASE 38 U/L (15-37); BILIRUBIN,DIRECT 0.2 mg/dL (0.0-0.2); BILIRUBIN,TOTAL 0.7 mg/dL (0.2-1.0); TOTAL PROTEIN, SERUM 7.6 g/dL (6.4-8.2)
[2022-12-23] MEDS ORDERED: IV NS 0.9% 1,000 ML IV ONE ×2 (18:30→19:00)
[2022-12-23 18:42] LABS: BILIRUBIN,URINE NEGATIVE (NEGATIVE); COLOR,URINE DARK YELLOW (YELLOW); LEUKOCYTE ESTERASE ,URINE NEGATIVE (NEGATIVE); NITRITE, URINE NEGATIVE (NEGATIVE); PROTEIN,URINE 1+ mg/dl (NEGATIVE); UGLUCOSE NEGATIVE (NEGATIVE)
--- NOTE | 2022-12-23 19:06 | NUR ---
PT COMES FROM HOME A/O X0, C/O: DE-SATTING ON ROOM AIR 88%. PLACED ON NRB ON ARRIVAL ABG WAS DONE AND PLACED ON 4L NC. SATTING IN THE MID 90'S. TACHY @101. VITALS ARE STABLE. CAREGIVER AT BEDSIDE. SIDE RAILS UP BED LOCKED IN LOWEST POSTION.
[2022-12-23 19:59] LABS: BACTERIA,URINE None seen /HPF (None Seen); RBC,URINE 0-2 /HPF (0-2); SQUAMOUS EPITHELIAL CELL,UR 0-2 /HPF (None Seen); WBC,URINE 0-2 /HPF (0-3)
[2022-12-23] MEDS ORDERED: MORPHINE SULFATE INJ 2 MG/ML DISP.SYRIN IV PRN (20:00)
[2022-12-23] MEDS ORDERED: ONDANSETRON HCL/PF 4 MG/2 ML VIAL IVP PRN (20:00)
[2022-12-23] MEDS ORDERED: ALBUTEROL FS 2.5 MG/0.5 ML VIAL.NEB NEB PRN (20:00)
[2022-12-23 21:47] VITALS: BP 88/42; TEMP 98.1; O2SAT 97
--- NOTE | 2022-12-23 21:52 | NUR ---
PATIENT TRANSPORTED VIA [facility]
[2022-12-23 22:00] VITALS: BP 98/48; TEMP 98.1; O2SAT 97
[2022-12-23 22:10] LABS: BAND % (MANUAL) 10 % (0.0-5.0); LYMPHOCYTES % (MANUAL) 4 % (16-48); MONOCYTES % (MANUAL) 6 % (0-11.0); NEUTROPHILS % (MANUAL) 80 (42-76)
--- NOTE | 2022-12-23 22:30 | NUR ---
ADMISSION NOTES PATIENT BROUGHT UP IN UNIT AT AROUND 2148, ACCOMPANIED BY 1 ER PERSONNELS AND PATIENT'S BREAD PACKER. PATIENT HAS DOWN SYNDROME, DEAF AND BLIND. NO S/S OF APPARENT DISTRESS ON 4LPM OF O2 VIA NC, WITH A LOT OF CONGESTION NOTED. BREATHING EVEN AND UNLABORED. PATIENT READING SR ON THE TELE MONITOR WITH [address], PLACEMENT CHECKED, AIR NOTED UPON AUSCULTATION. IV ACCESS ON RIGHT WRIST #20G, INTACT AND PATENT. PATIENT HAS A CONSERVATOR/DPOA NAMED SANTOS, PER DPOA PATIENT IS DNR/DNI, HOSPITALIST PUT IN THE ORDER. NEW ID BAND ON PATIENT. ONLY BELONGINGS IS A SHIRT THAT PATIENT IS CURRENTLY WEARING. SAFETY IN PLACE-- BED IN LOWEST, LOCKED POSITION, SIDE RAILS UP x4, RAILS PADDED, BED ALARM IN PLACE. WILL CONTINUE WITH PATIENT PLAN OF CARE AND FOLLOW THROUGH DOCTOR'S ORDERS.
[2022-12-23] MEDS: CARBAMAZEPINE 200 MG TABLET GT SCH (23:09)
[2022-12-23] MEDS: HEPARIN SODIUM, PORCINE 5000 UNITS/1 ML VIAL SQ SCH (23:11)
[2022-12-23] MEDS: IV NS 0.9% 1,000 ML IV PRN (23:23)
[2022-12-24] VITALS (8 sets, daily range): BP systolic 94–118; BP diastolic 38–86; TEMP 98–100.2; O2SAT 94–100
[2022-12-24] MEDS ORDERED: IPRATROPIUM/ALBUTEROL INHALER IH SCH
[2022-12-24] MEDS: JEVITY 1.2 CAL 1,000 ML BOTTLE GT SCH (02:11)
--- NOTE | 2022-12-24 02:15 | NUR ---
STARTED ON G-TUBE FEEDING JEVITY 1.2. 15CC/HR FOR NOW. WILL ASSESS FOR RESIDUALS.
[2022-12-24] MEDS ORDERED: CEFEPIME 1 GM VIAL ONE (05:15)
[2022-12-24] MEDS: CEFEPIME 1 GM in IV D5W 50 ML IV SCH ×2 (05:56→18:29)
[2022-12-24 06:09] LABS: EOSINOPHILS % (AUTO) 0.3 % (0.0-6.0); HEMATOCRIT 32 % (33-45); LYMPHOCYTES # (AUTO) 1.4 K/uL (0.8-4.8); LYMPHOCYTES % (AUTO) 7.2 % (20.0-44.0); MEAN CORPUSCULAR HGB CONC 31 g/dl (31.0-36.0); MEAN CORPUSCULAR VOLUME 106 fL (82-100); MONOCYTES # (AUTO) 1.2 K/uL (0.1-1.30); MONOCYTES % (AUTO) 5.9 % (2.0-12.0); NEUTROPHILS # (AUTO) 17.1 K/uL (1.8-8.9); NEUTROPHILS % (AUTO) 86.6 % (43.0-81.0); PLATELET COUNT (AUTO) 148 K/uL (150-450); RED BLOOD CELL COUNT(AUTO) 3.03 MIL/uL (4.0-5.2); WHITE BLOOD COUNT (AUTO) 19.8 K/uL (4.3-11.0)
--- NOTE | 2022-12-24 06:17 | NUR ---
noc rn note patient retaining 268 ml of urine in the bladder scan, no pee after 8 hrs. Hospitalist ordered in n ou cath. order carried out. 0ml after in n out cath.
[2022-12-24 06:59] LABS: ALBUMIN 1.7 g/dL (3.4-5.0); BILIRUBIN,TOTAL 0.6 mg/dL (0.2-1.0); CALCIUM, SERUM 7.8 mg/dL (8.5-10.1); MAGNESIUM 2.4 mg/dL (1.8-2.4); POTASSIUM 4.2 mmol/L (3.5-5.1); TOTAL PROTEIN, SERUM 5.9 g/dL (6.4-8.2)
--- NOTE | 2022-12-24 07:06 | NUR ---
noc rn note patient in bed. no s/s of apparent distress in room air, breathing even and unlabored. pain. FLACC=0 this time. IV NS running @60mls/hr. G-tube started @15mls/hr, goal is 40. all needs attended. all scheduled medications administered. will endorse to morning shift rn for continuity of care.
--- NOTE | 2022-12-24 08:00 | NUR ---
TOLL GATE KEEPER OPENING NOTE (DAY SHIFT) Received patient in bed. No s/s of distress visible. Pt is on room air, breathing even and unlabored. Pain level per FLACC=0 at the moment. IV fluid is NS infusing @ 60mls/hr. G-tube feeding @ 20 mls/hr, goal is 40. Safety precautions from falls/injury in place: bed in lowest position; side rails up x 3; bed brakes in locked position; bed side rails padded for seizure precautions; HOB elevated for aspiration precautions; bed alarm on; bed side table and call tan/light within easy reach of patient. Will continue to monitor and care for patitne per hospitalist's POC. Addendum: 12/24/22 at 0835 by KAYLA MARUICE RN Patient on respiratory support technician showing sinus rhythym at 97 bpm at this time.
[2022-12-24] MEDS: GENTAMICIN OPTH SOLN 0.3% 5 ML BOTTLE EACHEYE SCH ×3 (09:00→18:29)
[2022-12-24] MEDS ORDERED: K PHOS NEUTRAL 250 MG TABLET PO ONE (09:00)
[2022-12-24] MEDS: CARBAMAZEPINE 200 MG TABLET GT SCH ×2 (09:53→21:08)
[2022-12-24] MEDS: LEVOTHYROXINE SODIUM 88 MCG TABLET GT SCH (09:53)
[2022-12-24] MEDS: POLYETHYLENE GLYCOL 3350 17 GM POWD.PACK PO SCH (09:53)
[2022-12-24] MEDS: DOCUSATE SODIUM LIQ 100 MG/10 ML UDC PO SCH ×2 (09:53→18:28)
[2022-12-24] MEDS: HEPARIN SODIUM, PORCINE 5000 UNITS/1 ML VIAL SQ SCH ×2 (09:55→21:10)
[2022-12-24] MEDS ORDERED: VANCOMYCIN 0.75 GM in IV D5W 250 ML IV SCH (17:00)
[2022-12-24] MEDS: IV NS 0.9% 1,000 ML IV PRN (17:39)
--- NOTE | 2022-12-24 19:00 | NUR ---
METAL RECLAMATION KETTLE TENDER OPENING NOTE PT IS RESTING IN BED WITH HER CAREGIVER AT THE BEDSIDE. PT IS ON 4 LPM OF OXYGEN VIA NC, TOLERATED WELL. NO S/S OF DISTRESS OR SOB. PT IS AO X 0. SHE IS AWAKE AND RESPONDING TO TOUCH OR PAIN. IV ACCESS IS AT HER R WRIST, #20G, INFUSING NS @ 60 ML.HR. IV SITE IS PATENT AND INTACT. PT IS ON EXTERNAL MANAGER ACQUISITION, ON THE MONITOR, HER HEART RHYTHM IS SR WITH HR AT 80S. PT HAS A G-TUBE, CHECKED THE PLACEMENT AND RECEIVED ZERO RESIDUAL. TOLERATE THE FEEDING WELL. PT IS ON JEVITY 1.2 @ 30 ML/HR. SAFETY MEASURES ARE IN PLACED: BED IN LOWEST AND LOCKED POSITION; SIDE RAILS UP X 2; CALL LIGHT AND TABLE ARE WITHIN REACH. WILL CONTINUE MONITORING THE PT AND PROVIDE THE CARE PT NEEDS.
[2022-12-24] MEDS: ALBUTEROL FS 2.5 MG/0.5 ML VIAL.NEB NEB SCH (19:46)
[2022-12-24] MEDS: IPRATROPIUM NEB FS 0.5 MG/2.5 ML AMPUL.NEB NEB SCH (19:46)
[2022-12-25] VITALS (12 sets, daily range): BP systolic 96–152; BP diastolic 43–82; TEMP 96.5–98.7; O2SAT 96–100
[2022-12-25] MEDS: IPRATROPIUM NEB FS 0.5 MG/2.5 ML AMPUL.NEB NEB SCH ×4 (00:50→20:04)
[2022-12-25] MEDS: ALBUTEROL FS 2.5 MG/0.5 ML VIAL.NEB NEB SCH ×4 (00:50→20:04)
--- NOTE | 2022-12-25 01:53 | NUR ---
ROSS LIFT OPERATOR NOTE RECEIVED LAB PHONE CALL AND REPORTED BLOOD CULTURE RESULT: GRAM POSITIVE COCCI WERE SEEN ON GRAM STAIN FOR ONE BOTTLE OF SET ANAEROBIC BOTTLE.
[2022-12-25] MEDS: VANCOMYCIN 0.75 GM in IV D5W 250 ML IV SCH ×2 (04:05→16:31)
[2022-12-25] MEDS: CEFEPIME 1 GM in IV D5W 50 ML IV SCH ×2 (06:33→18:09)
[2022-12-25 07:07] LABS: CALCIUM, SERUM 7.7 mg/dL (8.5-10.1); CREATININE 0.8 mg/dL (0.6-1.3); PHOSPHORUS 2.4 mg/dL (2.5-4.9)
--- NOTE | 2022-12-25 07:30 | NUR ---
materials inspector Opening Notes: Received patient in bed. No s/s of distress visible. Pt is on O2 at 4 Lpm via NC, breathing even and unlabored. IV fluid is NS infusing @ 60mls/hr. G-tube feeding @ 40 mls/hr. Safety precautions from falls/injury in place: bed in lowest position; side rails up x 3; bed brakes in locked position; bed side rails padded for seizure precautions; HOB elevated for aspiration precautions; bed alarm on; bed side table and call tan/light within easy reach of patient. Will continue to monitor Pt.
--- NOTE | 2022-12-25 07:45 | NUR ---
SPECIAL NEEDS TUTOR OPENING NOTE PT IS RESTING IN BED. EASILY BEING AROUSED. PT IS ON 4 LPM OF OXYGEN VIA NC, TOLERATED WELL. NO S/S OF DISTRESS OR SOB. PT IS AO X 0. SHE IS AWAKE AND RESPONDING TO TOUCH OR PAIN. IV ACCESS IS AT HER L FA; #22G, INFUSING NS @ 60 ML.HR. IV SITE IS PATENT AND INTACT. PT IS ON EXTERNAL CLINICAL ADMINISTRATOR, ON THE MONITOR, HER HEART RHYTHM IS SR WITH HR AT 80S. PT HAS A G-TUBE, CHECKED THE PLACEMENT AND RECEIVED ZERO RESIDUAL. TOLERATE THE FEEDING WELL. PT IS ON JEVITY 1.2 @ 30 ML/HR. SAFETY MEASURES ARE IN PLACED: BED IN LOWEST AND LOCKED POSITION; SIDE RAILS UP X 2; CALL LIGHT AND TABLE ARE WITHIN REACH. ENDORSED NEXT SHIFT NURSE FOR CONTINUING PT CARE. Addendum: 12/26/22 at 0144 by RAIN GONZALEZ RN CLOSING NOTE
[2022-12-25] MEDS: POLYETHYLENE GLYCOL 3350 17 GM POWD.PACK PO SCH (08:55)
[2022-12-25] MEDS: DOCUSATE SODIUM LIQ 100 MG/10 ML UDC PO SCH ×2 (08:55→16:33)
[2022-12-25] MEDS: LEVOTHYROXINE SODIUM 88 MCG TABLET GT SCH (08:55)
[2022-12-25] MEDS: CARBAMAZEPINE 200 MG TABLET GT SCH ×2 (08:55→21:21)
[2022-12-25] MEDS: HEPARIN SODIUM, PORCINE 5000 UNITS/1 ML VIAL SQ SCH ×2 (08:56→21:24)
[2022-12-25] MEDS: GENTAMICIN OPTH SOLN 0.3% 5 ML BOTTLE EACHEYE SCH ×2 (09:00→16:34)
[2022-12-25 09:56] LABS: BASOPHILS % (AUTO) 0.3 % (0.0-2.0); HEMATOCRIT 29 % (33-45); HEMOGLOBIN 9.1 g/dL (11.5-14.8); LYMPHOCYTES # (AUTO) 1.7 K/uL (0.8-4.8); MEAN CORPUSCULAR HGB CONC 32 g/dl (31.0-36.0); MEAN CORPUSCULAR VOLUME 104 fL (82-100); MONOCYTES # (AUTO) 1.1 K/uL (0.1-1.30); MONOCYTES % (AUTO) 7.6 % (2.0-12.0); NEUTROPHILS # (AUTO) 11.4 K/uL (1.8-8.9); NEUTROPHILS % (AUTO) 79.1 % (43.0-81.0); PLATELET COUNT (AUTO) 158 K/uL (150-450); RED BLOOD CELL COUNT(AUTO) 2.76 MIL/uL (4.0-5.2); WHITE BLOOD COUNT (AUTO) 14.4 K/uL (4.3-11.0)
[2022-12-25] MEDS ORDERED: NEUTRA PHOS 1 POWD.PACKET PO ONE (11:00)
[2022-12-25] MEDS: IV NS 0.9% 1,000 ML IV PRN (16:36)
--- NOTE | 2022-12-25 18:58 | NUR ---
MS RN CLOSING NOTES PT IN BED AWAKE AT THIS TIME WITH PRIVATE CAREGIVER AT BEDSIDE. A/O X0. NON-VERBAL AND OPEN EYES TO TACTILE AND TACTILE STIMULI. HOB ELEVATED. ON 02 VIA N/C AT 4 LPM, TOLERATING WELL, NO S/S OF DISTRESS OR SOB NOTED. IV ACCESS AT LFA #22G INTACT INFUSING NS @ 60 ML/HR, NO S/S OF INFILTRATION AT SITE NOTED. G-TUBE IN PLACE WITH GTF OF JEVITY 1.2 @ 40 ML/HR IN PROGRESS. PT TURNED AND REPOSITIONED Q2HRS AND PRN. ALL NEEDS AND CARE PROVIDED WELL. SAFETY MEASURES KEPT IN PLACE: BED IN LOWEST AND LOCKED POSITION; SIDE RAILS UP X 3, BED ALARM ON, CALL LIGHT AND TRAY TABLE ARE WITHIN REACH. ENDORSED TO NEXT SHIFT NURSE FOR CONTINUING PT CARE.
--- NOTE | 2022-12-25 19:15 | NUR ---
MS RN OPENING NOTE PT IS RESTING IN BED WITH HER CAREGIVER AT THE BEDSIDE. PT IS ON 3 LPM OF OXYGEN VIA NC, TOLERATED WELL. NO S/S OF DISTRESS OR SOB. PT IS AO X 0. SHE IS AWAKE AND RESPONDING TO TOUCH OR PAIN. IV ACCESS IS AT HER L FA, #22G, INFUSING NS @ 60 ML.HR. IV SITE IS PATENT AND INTACT. PT HAS A G-TUBE, CHECKED THE PLACEMENT AND RECEIVED ZERO RESIDUAL. TOLERATE THE FEEDING WELL. PT IS ON JEVITY 1.2 @ 40 ML/HR. SAFETY MEASURES ARE IN PLACED: BED IN LOWEST AND LOCKED POSITION; SIDE RAILS UP X 2; CALL LIGHT AND TABLE ARE WITHIN REACH. WILL CONTINUE MONITORING THE PT AND PROVIDE THE CARE PT NEEDS.
--- NOTE | 2022-12-25 20:50 | NUR ---
MS RN NOTE TEXT MD AND RECEIVED ORDER FOR INSERTION OF MIDLINE FOR THIS PT.
[2022-12-26] VITALS (12 sets, daily range): BP systolic 110–157; BP diastolic 73–82; TEMP 98.6–99.8; O2SAT 96–100
[2022-12-26] MEDS: JEVITY 1.2 CAL 1,000 ML BOTTLE GT SCH (02:25)
[2022-12-26] MEDS: IPRATROPIUM NEB FS 0.5 MG/2.5 ML AMPUL.NEB NEB SCH ×4 (02:33→20:28)
[2022-12-26] MEDS: ALBUTEROL FS 2.5 MG/0.5 ML VIAL.NEB NEB SCH ×4 (02:33→20:28)
[2022-12-26] MEDS: VANCOMYCIN 0.75 GM in IV D5W 250 ML IV SCH ×2 (04:46→17:00)
[2022-12-26] MEDS: CEFEPIME 1 GM in IV D5W 50 ML IV SCH (05:46)
[2022-12-26 06:25] LABS: CALCIUM, SERUM 7.6 mg/dL (8.5-10.1); CARBON DIOXIDE 28 mmol/L (21-32); CHLORIDE 110 mmol/L (98-107); CREATININE 0.7 mg/dL (0.6-1.3); GLUCOSE 146 mg/dL (74-106); PHOSPHORUS 2.7 mg/dL (2.5-4.9); SODIUM SERUM 143 mmol/L (136-145); UREA NITROGEN, BLOOD 17 mg/dL (7-18)
--- NOTE | 2022-12-26 07:27 | NUR ---
MS RN OPENING NOTE RECEIVED PT IN BED, ON 3 LPM OF OXYGEN VIA NC, TOLERATED WELL. HOB ELEVATED. NO S/S OF DISTRESS OR SOB. PT IS AO X 0. IV ACCESS IS AT HER TIMOTEO, MIDLINE #18G, INFUSING NS @ 60 ML.HR. IV SITE IS PATENT AND INTACT. PT HAS A G-TUBE, CHECKED THE PLACEMENT AND RECEIVED ZERO RESIDUAL. TOLERATE THE FEEDING WELL. PT IS ON JEVITY 1.2 @ 40 ML/HR. SAFETY MEASURES ARE IN PLACE: BED IN LOWEST AND LOCKED POSITION; SIDE RAILS UP X 2; CALL LIGHT AND TABLE ARE WITHIN REACH. WILL CONTINUE TO MONITOR PT
--- NOTE | 2022-12-26 07:41 | NUR ---
MS RN CLOSING NOTE PT IS RESTING IN BED. PT IS ON 3 LPM OF OXYGEN VIA NC, TOLERATED WELL. NO S/S OF DISTRESS OR SOB. PT IS AO X 0. SHE IS AWAKE AND RESPONDING TO TOUCH OR PAIN. IV ACCESS IS AT HER L FA, #22G, SL. PT ALSO HAS MIDLINE AT HER R UA, #18G, INFUSING NS @ 60 ML/HR. IV SITES ARE PATENT AND INTACT. PT HAS A G-TUBE, CHECKED THE PLACEMENT AND RECEIVED ZERO RESIDUAL. TOLERATE THE FEEDING WELL. PT IS ON JEVITY 1.2 @ 40 ML/HR. SAFETY MEASURES ARE IN PLACED: BED IN LOWEST AND LOCKED POSITION; SIDE RAILS UP X 2; CALL LIGHT AND TABLE ARE WITHIN REACH. ENDORSED NEXT SHIFT NURSE FOR CONTINUING PT CARE.
[2022-12-26] MEDS ORDERED: Z GUARD REMEDY 4 OZ OINT TP PRN (08:30)
--- NOTE | 2022-12-26 08:30 | NUR ---
WOUND CARE CONSULT: PT PRESENTS WITH SACRAL DEEP TISSUE INJURY IN EVOLUTION WELL INCONTINENCE ASSOCIATED SKIN DAMAGE TO PERINEUM, PRESENT ON ADMISSION. DR GOMES CALLED FOR SURGICAL CONSULT. LEFT HEEL CALLUS NOTED. DIFFICULTY NOTED IN OFFLOADING HEELS DUE TO PT MOVING FEET ALMOST CONSTANTLY. DISCUSSED SKIN PROTECTION WITH NURSING STAFF. IN AGREEMENT WITH PLAN OF CARE. Addendum: 12/26/22 at 0832 by EVARISTO CARLISLE WNDNU Amended: Links added.
[2022-12-26] MEDS: LEVOTHYROXINE SODIUM 88 MCG TABLET GT SCH (08:56)
[2022-12-26] MEDS: CARBAMAZEPINE 200 MG TABLET GT SCH ×2 (08:56→20:34)
[2022-12-26] MEDS: POLYETHYLENE GLYCOL 3350 17 GM POWD.PACK PO SCH (08:56)
[2022-12-26] MEDS: DOCUSATE SODIUM LIQ 100 MG/10 ML UDC PO SCH ×2 (08:56→16:12)
[2022-12-26] MEDS: HEPARIN SODIUM, PORCINE 5000 UNITS/1 ML VIAL SQ SCH ×2 (08:56→20:35)
[2022-12-26] MEDS: GENTAMICIN OPTH SOLN 0.3% 5 ML BOTTLE EACHEYE SCH ×2 (08:56→16:12)
[2022-12-26] MEDS ORDERED: CEFEPIME 1 GM in IV D5W 50 ML IV ONE (09:00)
[2022-12-26] MEDS: Z GUARD REMEDY 4 OZ OINT TP SCH (09:00)
[2022-12-26] MEDS: IV NS 0.9% 1,000 ML IV PRN (13:40)
[2022-12-26] MEDS: GLUCERNA 1.2 1,000 ML BOTTLE NG PRN (13:45)
[2022-12-26] MEDS ORDERED: MULT-213 GT (14:32)
[2022-12-26] MEDS ORDERED: LEVO750T46 GT (14:32)
[2022-12-26] MEDS ORDERED: VITS5OIN2 TP (14:34)
--- NOTE | 2022-12-26 17:44 | NUR ---
RN NOTES VANCOMYCIN TROUGH 29 THIS AFTERNOON. VANCOMYCIN 0.75MG IV SCHEDULED AT 1700 NOT ADMINISTERED.
--- NOTE | 2022-12-26 18:43 | NUR ---
MS RN CLOSING NOTES PT RESTING COMFORTABLY IN BED WITH PRIVATE CAREGIVER AT BEDSIDE. A/O X0. NON-VERBAL AND OPEN EYES TO TACTILE AND TACTILE STIMULI. HOB ELEVATED. ON 02 VIA N/C AT 3 LPM, TOLERATING WELL, NO S/S OF DISTRESS OR SOB NOTED. IV ACCESS AT TIMOTEO MIDLINE G#18 INTACT INFUSING NS @ 60 ML/HR, NO S/S OF INFILTRATION AT SITE NOTED. G-TUBE IN PLACE WITH GTF OF GLUCERNA 1.2 @ 60 ML/HR IN PROGRESS. PT TURNED AND REPOSITIONED Q2HRS AND PRN. ALL NEEDS AND CARE PROVIDED WELL. SAFETY MEASURES KEPT IN PLACE: BED IN LOWEST AND LOCKED POSITION; SIDE RAILS UP X 3, BED ALARM ON, CALL LIGHT AND TRAY TABLE ARE WITHIN REACH. ENDORSED TO LOGGING SUPERVISOR NURSE FOR CONTINUING PT CARE.
--- NOTE | 2022-12-26 19:15 | NUR ---
MS RN OPENING NOTE PT IS RESTING IN BED. PT IS ON 5 LPM OF OXYGEN VIA NC. PT IS AO X 0. SHE IS AWAKE AND RESPONDING TO TOUCH OR PAIN. IV ACCESS IS AT HER L FA, #22G, SL. PT ALSO HAS MIDLINE AT HER R UA, #18G, INFUSING NS @ 60 ML/HR. IV SITES ARE PATENT AND INTACT. PT HAS A G-TUBE, CHECKED THE PLACEMENT AND RECEIVED ZERO RESIDUAL. TOLERATE THE FEEDING WELL. PT IS ON GLUCERNA 1.2 @ 60 ML/HR. SAFETY MEASURES ARE IN PLACED: BED IN LOWEST AND LOCKED POSITION; SIDE RAILS UP X 2; CALL LIGHT AND TABLE ARE WITHIN REACH. ENDORSED NEXT SHIFT NURSE FOR CONTINUING PT CARE.
[2022-12-26] MEDS: CEFEPIME 2 GM in IV D5W 100 ML IV SCH (20:33)
--- NOTE | 2022-12-26 21:30 | NUR ---
MS RN NOTE PT IS VERY CONGESTED. LISTEN TO HER LUNGS, CRACKLES THROUGHOUT R LUNGS. STOPPED THE FEEDING AND IV FLUID; SUCTIONED THE PT. NOTIFIED CHARGE NURSE, NORY.
--- NOTE | 2022-12-26 21:35 | NUR ---
MS RN NOTE PT IS VERY CONGESTED. SUCTIONED THE PT ORALLY, AND CALLED RT NATALIO AT [phone] TO COME SEE THE PT AND PROVIDE CARE IMMEDIATELY. CHARGE NURSE, ALANA CUETO.
--- NOTE | 2022-12-26 22:00 | NUR ---
MS RN NOTE PT PATIENT ON SIMPLE MASK AND INCREASED O2 INTO 10 L. O2 SAT IS 98%. WILL CONTINUE MONITORING THE PT AND ADJUST THE OXYGEN LEVEL TOLERATED.
[2022-12-27] VITALS (13 sets, daily range): BP systolic 104–120; BP diastolic 60–61; TEMP 97.8–100.5; O2SAT 96–99
[2022-12-27] MEDS: IPRATROPIUM NEB FS 0.5 MG/2.5 ML AMPUL.NEB NEB SCH ×4 (02:10→20:13)
[2022-12-27] MEDS: ALBUTEROL FS 2.5 MG/0.5 ML VIAL.NEB NEB SCH ×4 (02:10→20:13)
--- NOTE | 2022-12-27 05:01 | NUR ---
MS RN NOTE PT IS ON 6 LPM OF OXYGEN VIA SIMPLE MASK. TOLERATED WELL. O2 SAT IS 97%. HOWEVER, PT IS STILL CONGESTED. SUCTIONED THE PT NEEDED. STILL HOLD THE FEEDING AND THE IV INFUSION.
--- NOTE | 2022-12-27 05:06 | NUR ---
MS RN NOTE TITRATED PT'S OXYGEN TO 4.5LPM VIA SIMPLE MASK. TOLERATED WELL. O2 SAT MAINTAINS AT 98%. RESUMED FEEDING AND STATED AT 40 ML/HR.
--- NOTE | 2022-12-27 06:26 | NUR ---
MS RN NOTE PT IS ON 4 LPM OF OXYGEN, O2 SAT IS 98%. TOLERATED WELL. IV FLUID IS STILL HELD AND FEEDING IS AT 40 ML/HR. PT IS SLEEPING. NO S/S OF DISTRESS. WILL ENDORSE NEXT SHIFT NURSE FOR CONTINUING CARE.
--- NOTE | 2022-12-27 06:34 | NUR ---
MS RN NOTE CHECKED PT'S LOWER ABD AND PRESS DOWN GENTLY. NO BLADDER DISTENTION. PT IS ON PUREWICK AND URINE OUT IS 380 ML IN THE CONTAINER.
[2022-12-27 07:27] LABS: CALCIUM, SERUM 8.4 mg/dL (8.5-10.1); CREATININE 0.8 mg/dL (0.6-1.3); POTASSIUM 4.4 mmol/L (3.5-5.1)
--- NOTE | 2022-12-27 07:36 | NUR ---
MS RN CLOSING NOTE PT IS RESTING IN BED. PT IS ON 4 LPM OF OXYGEN VIA SIMPLE MASK . PT IS AO X 0. SHE IS AWAKE AND RESPONDING TO TOUCH OR PAIN. IV ACCESS IS AT HER L FA, #22G, SL. PT ALSO HAS MIDLINE AT HER R UA, #18G, SL IV SITES ARE PATENT AND INTACT. PT HAS A G-TUBE, CHECKED THE PLACEMENT AND RECEIVED ZERO RESIDUAL. TOLERATE THE FEEDING WELL. PT IS ON GLUCERNA 1.2 @ 40 ML/HR. SAFETY MEASURES ARE IN PLACED: BED IN LOWEST AND LOCKED POSITION; SIDE RAILS UP X 2; CALL LIGHT AND TABLE ARE WITHIN REACH. ENDORSED NEXT SHIFT NURSE FOR CONTINUING PT CARE.
--- NOTE | 2022-12-27 07:45 | NUR ---
RN OPENING NOTES: RECEIVED PT IN BED, ASLEEP, EASILY ROUSED, A/OX0, RESPONDS TO TACTILE STIMULI. PT IS ON 5LPM OF OXYGEN VIA NC. IV ACCESS AT RU MIDLINE #18G, SL, PATENT AND INTACT. PT HAS A G-TUBE GLUCERNA 1.2 @ 40CC/HR, NO RESIDULA NOTED. PUREWICK NOTED DRAINING DARK YELLOW URINE. ALL SAFETY MEASURES ARE IN PLACED: BED IN LOWEST AND LOCKED POSITION; SIDE RAILS UP X 2; CALL LIGHT AND TABLE ARE WITHIN REACH, WILL CONT WITH PLAN OF CARE DURING SHIFT.
[2022-12-27] MEDS: VANCOMYCIN 500 MG in IV D5W 100ml IV SCH ×2 (08:00→19:48)
--- NOTE | 2022-12-27 08:16 | NUR ---
RN NOTES: 0800 RODRIGO MURRAY, 12/27 AM TROUGH = 23
[2022-12-27] MEDS: DOCUSATE SODIUM LIQ 100 MG/10 ML UDC PO SCH ×2 (08:44→17:14)
[2022-12-27] MEDS: LEVOTHYROXINE SODIUM 88 MCG TABLET GT SCH (08:47)
[2022-12-27] MEDS: POLYETHYLENE GLYCOL 3350 17 GM POWD.PACK PO SCH (08:47)
[2022-12-27] MEDS: CARBAMAZEPINE 200 MG TABLET GT SCH ×2 (08:47→21:07)
[2022-12-27] MEDS: GENTAMICIN OPTH SOLN 0.3% 5 ML BOTTLE EACHEYE SCH ×2 (08:48→17:14)
[2022-12-27] MEDS: HEPARIN SODIUM, PORCINE 5000 UNITS/1 ML VIAL SQ SCH ×2 (08:49→21:07)
[2022-12-27] MEDS: CEFEPIME 2 GM in IV D5W 100 ML IV SCH ×2 (09:01→21:08)
[2022-12-27] MEDS: Z GUARD REMEDY 4 OZ OINT TP SCH (09:02)
--- NOTE | 2022-12-27 09:15 | NUR ---
RN NOTES: TEMP RECHECKED PT'S 0800 ORAL TEMP = 100.5, ROOM WAS WARM AND PT WAS WRAPPED IN 3 LAYERS OF BLANKET, REMOVED 2 BLANKETS AND LOWERED ROOM TEMP TO COMFORTABLE LEVEL RECHECKED AT 0915 BEFORE GIVING TYLENOL, PT ORAL TEMP = 98.5, NO MED GIVEN FOR FEVER
--- NOTE | 2022-12-27 19:35 | NUR ---
MS RN NOTES RECEIVED LAYING ON BED.SLEEPING,AROUSABLE TO VERBAL STIMULI. IVF NS AT 60ML/HR RATE INFUSING WELL ON TIMOTEO MIDLINE.WITH GT FEEDING OF GLUCERNA AT 40MKL/HR RATE,TOLERATED WELL,NO RESIDUAL VOLUME NOTED.VISITOR AT BEDSIDE.SACRAL DTI WITH DRESSING INTACT AND DRY.WILL REPOSITION Q 2HOURS PER PROTOCOL FOR SKIN MANAGEMENT.VISITOR AT BEDSIDE.WILL CONTINUE TO MONITOR STATUS.DNR/DNI STATUS WITH ORDER.
--- NOTE | 2022-12-27 19:41 | NUR ---
RN CLOSING NOTES: PT IN BED, ASLEEP, EASILY ROUSED, A/OX0, RESPONDS TO TACTILE STIMULI. PT IS ON 5LPM OF OXYGEN VIA NC. IV ACCESS AT RU MIDLINE #18G, SL, PATENT AND INTACT. PT HAS A G-TUBE FEEDING GLUCERNA 1.2 @ 40CC/HR, NO RESIDUALS NOTED. PUREWICK NOTED DRAINING DARK YELLOW URINE, OUTPUT= 600CC. WOUND CARE DONE, ALL NEEDS MET. ALL SAFETY MEASURES ARE IN PLACED: BED IN LOWEST AND LOCKED POSITION; SIDE RAILS UP X 2; CALL LIGHT AND TABLE ARE WITHIN REACH, ENDORSED TO PM SHIFT.
--- NOTE | 2022-12-27 20:00 | NUR ---
MS RN NOTES PUREWICK IN USED FRAINS CLEAR YELLOW URINE OUTPUT
--- NOTE | 2022-12-27 20:13 | NUR ---
MS RN NOTES RT AT BEDSIDE ADMINISTERING BREATHING TREATMENT SCHEDULED.NOTED AUDIBLE CRACKLES,SUCTION ORALLY NEEDED.
[2022-12-27] MEDS: LORAZEPAM INJ 2 MG/ML VIAL IV PRN (23:46)
--- NOTE | 2022-12-27 23:46 | NUR ---
MS RN NOTES APPEARS RESTLESS,ATIVAN 2MG IV GIVEN ORDERED.
[2022-12-28] VITALS (11 sets, daily range): BP systolic 87–97; BP diastolic 53–56; TEMP 97.5–99.1; O2SAT 92–100
[2022-12-28] MEDS: ALBUTEROL FS 2.5 MG/0.5 ML VIAL.NEB NEB SCH ×4 (02:15→20:01)
[2022-12-28] MEDS: IPRATROPIUM NEB FS 0.5 MG/2.5 ML AMPUL.NEB NEB SCH ×4 (02:15→20:01)
[2022-12-28] MEDS: GLUCERNA 1.2 1,000 ML BOTTLE NG PRN (04:50)
[2022-12-28 06:43] LABS: BASOPHILS % (AUTO) 0.5 % (0.0-2.0); EOSINOPHILS % (AUTO) 2.8 % (0.0-6.0); HEMATOCRIT 28 % (33-45); HEMOGLOBIN 9.4 g/dL (11.5-14.8); LYMPHOCYTES # (AUTO) 1.3 K/uL (0.8-4.8); LYMPHOCYTES % (AUTO) 21.5 % (20.0-44.0); MEAN CORPUSCULAR HGB CONC 34 g/dl (31.0-36.0); MEAN CORPUSCULAR VOLUME 103 fL (82-100); MONOCYTES # (AUTO) 0.6 K/uL (0.1-1.30); MONOCYTES % (AUTO) 10.3 % (2.0-12.0); NEUTROPHILS % (AUTO) 64.9 % (43.0-81.0); PLATELET COUNT (AUTO) 226 K/uL (150-450); RED BLOOD CELL COUNT(AUTO) 2.72 MIL/uL (4.0-5.2); WHITE BLOOD COUNT (AUTO) 6.1 K/uL (4.3-11.0)
--- NOTE | 2022-12-28 06:43 | NUR ---
MS RN NOTES SLEPT WELL AT NIGHT.NO SIGNIFICANT CHANGE IN STATUS.GT FEEDING TOLERATED WELL.REPOSITION PER PROTOCOL.IN NO ACUTE DISTRESS.DNR/DNI STATUS.
[2022-12-28 07:23] LABS: CALCIUM, SERUM 8.8 mg/dL (8.5-10.1); CREATININE 0.7 mg/dL (0.6-1.3); MAGNESIUM 2.1 mg/dL (1.8-2.4); POTASSIUM 4.4 mmol/L (3.5-5.1)
[2022-12-28] MEDS: IV NS 0.9% 1,000 ML IV PRN (07:24)
--- NOTE | 2022-12-28 07:35 | NUR ---
RN OPENING NOTES: PT IN BED, ASLEEP, EASILY ROUSED, A/OX0, RESPONDS TO TACTILE STIMULI. PT IS ON 5LPM OF OXYGEN VIA NC. IV ACCESS AT RU MIDLINE #18G, SL, PATENT AND INTACT. PT HAS A G-TUBE FEEDING GLUCERNA 1.2 @ 40CC/HR, NO RESIDUALS NOTED. PUREWICK NOTED DRAINING JUANITO COLORED URINE, . WOUND CARE DONE, . ALL SAFETY MEASURES ARE IN PLACED: BED IN LOWEST AND LOCKED POSITION; WILL CONTINUE TO MONITOR .
[2022-12-28] MEDS: CEFEPIME 2 GM in IV D5W 100 ML IV SCH ×2 (08:08→21:32)
[2022-12-28] MEDS: VANCOMYCIN 500 MG in IV D5W 100ml IV SCH ×2 (08:11→20:02)
[2022-12-28] MEDS: LEVOTHYROXINE SODIUM 88 MCG TABLET GT SCH (09:41)
[2022-12-28] MEDS: CARBAMAZEPINE 200 MG TABLET GT SCH ×2 (09:41→20:35)
[2022-12-28] MEDS: POLYETHYLENE GLYCOL 3350 17 GM POWD.PACK PO SCH (09:41)
[2022-12-28] MEDS: DOCUSATE SODIUM LIQ 100 MG/10 ML UDC PO SCH ×2 (09:41→17:20)
[2022-12-28] MEDS: HEPARIN SODIUM, PORCINE 5000 UNITS/1 ML VIAL SQ SCH ×2 (09:43→20:38)
[2022-12-28] MEDS: GENTAMICIN OPTH SOLN 0.3% 5 ML BOTTLE EACHEYE SCH ×2 (10:10→17:21)
[2022-12-28] MEDS: Z GUARD REMEDY 4 OZ OINT TP SCH (12:50)
--- NOTE | 2022-12-28 19:20 | NUR ---
MS RN NOTES RECEIVED ON BED,SLEEPING,AROUSABLE TO VERBAL STIMULI,BREATHING REGULAR,NOT IN ANY FORM OF DISTRESS,O2 IN USED AT 3L/NC TO KEEP O2 SAT ABOVE 90%.CAREGIVER AT BEDSIDE.ON IVF NS AT 60ML/HR RATE INFUSING WELL ON RIGHT UPPER ARM MIDLINE,GT FEEDING OF GLUCERNA AT 60ML/HR RATE TOLERATED WELL,NO RESIDUAL VOLUME NOTED.PUREWICK IN PLACE DRAINS CLEAR YELLOW OUTPUT.WILL REPOSITION Q 2HOURS PER PROTOCOL,DNR/DNI STATUS.
--- NOTE | 2022-12-28 19:41 | NUR ---
RN CLOSING NOTES: PT IN BED, ASLEEP, EASILY ROUSED, A/OX0, RESPONDS TO TACTILE STIMULI. PT IS ON 5LPM OF OXYGEN VIA NC. IV ACCESS AT RU MIDLINE #18G, SL, PATENT AND INTACT. PT HAS A G-TUBE FEEDING GLUCERNA 1.2 @ 60 CC/HR, NO RESIDUALS NOTED. PUREWICK NOTED DRAINING JUANITO COLORED URINE, . WOUND CARE DONE, . ALL DUE MEDS ORDERED GIVEN , ALL SAFETY MEASURES ARE IN PLACED: BED IN LOWEST AND LOCKED POSITION; ENDORSED TO NEXT SHIFT .
[2022-12-29] VITALS (12 sets, daily range): BP systolic 97–102; BP diastolic 38–58; TEMP 97.3–98.1; O2SAT 91–100
[2022-12-29] MEDS: IPRATROPIUM NEB FS 0.5 MG/2.5 ML AMPUL.NEB NEB SCH ×4 (02:10→20:01)
[2022-12-29] MEDS: ALBUTEROL FS 2.5 MG/0.5 ML VIAL.NEB NEB SCH ×4 (02:10→20:01)
--- NOTE | 2022-12-29 06:47 | NUR ---
MS RN NOTES RESTING COMFORTABLY ON BED,NO EPISODE OF SOB NOTED,NO SEIZURE ACTIVITY NOTED, SUCTION ORALLY NEEDED.GT FEEDING TOLERATED WELL.NO SIGNIFICANT CHANGE IN STATUS.DNR/DNI STATUS.
[2022-12-29 06:53] LABS: BASOPHILS % (AUTO) 0.2 % (0.0-2.0); EOSINOPHILS % (AUTO) 1.1 % (0.0-6.0); HEMATOCRIT 30 % (33-45); LYMPHOCYTES # (AUTO) 1.6 K/uL (0.8-4.8); LYMPHOCYTES % (AUTO) 15.1 % (20.0-44.0); MEAN CORPUSCULAR HGB CONC 34 g/dl (31.0-36.0); MEAN CORPUSCULAR VOLUME 102 fL (82-100); MONOCYTES # (AUTO) 0.8 K/uL (0.1-1.30); MONOCYTES % (AUTO) 7.8 % (2.0-12.0); NEUTROPHILS # (AUTO) 8.2 K/uL (1.8-8.9); NEUTROPHILS % (AUTO) 75.8 % (43.0-81.0); PLATELET COUNT (AUTO) 294 K/uL (150-450); WHITE BLOOD COUNT (AUTO) 10.8 K/uL (4.3-11.0)
[2022-12-29 07:30] LABS: CREATININE 0.9 mg/dL (0.6-1.3); MAGNESIUM 2.2 mg/dL (1.8-2.4); PHOSPHORUS 4.6 mg/dL (2.5-4.9); POTASSIUM 4.3 mmol/L (3.5-5.1)
--- NOTE | 2022-12-29 07:45 | NUR ---
RN OPENING NOTES: PT IN BED, ASLEEP, EASILY ROUSED, A/OX0, RESPONDS TO TACTILE STIMULI. PT IS ON 3LPM OF OXYGEN VIA NC. IV ACCESS AT RU MIDLINE #18G, SL, PATENT AND INTACT. PT HAS A G-TUBE FEEDING GLUCERNA 1.2 @ 60 CC/HR, NO RESIDUALS NOTED. PUREWICK NOTED DRAINING JUANITO COLORED URINE. ALL SAFETY MEASURES ARE IN PLACED: BED IN LOWEST AND LOCKED POSITION, BED ALRM IS ON. WILL CONTINUE TO MONITOR.
[2022-12-29] MEDS: VANCOMYCIN 500 MG in IV D5W 100ml IV SCH (08:00)
--- NOTE | 2022-12-29 08:23 | NUR ---
RN NOTE VANCOMYCIN NOT GIVEN DUE TO VANCO TROUGH OF 27, PER PHARMACY TO HOLD MEDICATION. WILL MONITOR.
[2022-12-29] MEDS: DOCUSATE SODIUM LIQ 100 MG/10 ML UDC PO SCH ×2 (08:51→16:14)
[2022-12-29] MEDS: POLYETHYLENE GLYCOL 3350 17 GM POWD.PACK PO SCH (08:51)
[2022-12-29] MEDS: CARBAMAZEPINE 200 MG TABLET GT SCH ×2 (08:51→20:32)
[2022-12-29] MEDS: LEVOTHYROXINE SODIUM 88 MCG TABLET GT SCH (08:51)
[2022-12-29] MEDS: HEPARIN SODIUM, PORCINE 5000 UNITS/1 ML VIAL SQ SCH ×2 (08:53→20:34)
[2022-12-29] MEDS: PROSOURCE / PROSTAT (PYXIS) 30 ML UDC GT SCH (09:02)
[2022-12-29] MEDS: CEFEPIME 2 GM in IV D5W 100 ML IV SCH ×2 (09:02→20:32)
[2022-12-29] MEDS: GLUCERNA 1.2 1,000 ML BOTTLE NG PRN (09:03)
[2022-12-29] MEDS: GENTAMICIN OPTH SOLN 0.3% 5 ML BOTTLE EACHEYE SCH ×2 (09:03→16:17)
[2022-12-29] MEDS: Z GUARD REMEDY 4 OZ OINT TP SCH (09:07)
[2022-12-29] MEDS: IV NS 0.9% 1,000 ML IV PRN (09:07)
[2022-12-29 09:49] LABS: BAND % (MANUAL) 2 % (0.0-5.0); EOSINOPHILS % (MANUAL) 1 % (0-4); LYMPHOCYTES % (MANUAL) 16 % (16-48); MONOCYTES % (MANUAL) 9 % (0-11.0); NEUTROPHILS % (MANUAL) 72 (42-76)
--- NOTE | 2022-12-29 19:18 | NUR ---
RN CLOSING NOTES PT IN BED, ASLEEP, EASILY ROUSED, A/OX0, RESPONDS TO TACTILE STIMULI. PT IS ON 3LPM OF OXYGEN VIA NC. IV ACCESS AT RU MIDLINE #18G, SL, PATENT AND INTACT. PT HAS A G-TUBE FEEDING GLUCERNA 1.2 @ 60 CC/HR, NO RESIDUALS NOTED. PUREWICK NOTED DRAINING JUANITO COLORED URINE. ALL NEEDS ATTENDED, DUE MEDICATIONS GIVEN. KEPT PATIENT CLEAN AND COMFORTABLE ALL THROUGHOUT THE SHIFT. ALL SAFETY MEASURES ARE IN PLACED: BED IN LOWEST AND LOCKED POSITION, BED ALARM IS ON. ENDORSE TO INCOMING SHIFT.
--- NOTE | 2022-12-29 19:45 | NUR ---
MS RN OPENING NOTES RECEIVED PT IN BED, ASLEEP, EASILY ROUSED, A/OX0, RESPONDS TO TACTILE STIMULI. PT IS ON 3LPM OF OXYGEN VIA NC. IV ACCESS AT TIMOTEO MIDLINE #18G, SL, PATENT AND INTACT AND INFUSING WELL WITH NS @ 60 ML/HR. PT WITH G-TUBE, INTACT AND PATENT RUNNING WITH GLUCERNA 1.2 @ 60 ML/HR. ON PUREWICK NOTED DRAINING JUANITO COLORED URINE. NO S/S OF ACUTE DISTRESS AT THIS TIME. PT'S CAREGIVER PRESENT AT BEDSIDE. SAFETY MEASURES ARE IN PLACED: BED IN LOWEST AND LOCKED POSITION, SIDE RAILS UP X3, BED ALARM IS ON. WILL CONTINUE TO MONITOR PT. SPOKE TO PHARMACY REGARDING PT'S VANCO TROUGH OF 22: PHARMACY SAID TO PROCEED WITH SCHEDULED VANCOMYCIN MED ADMINISTRATION AT 2100.
[2022-12-29] MEDS: VANCOMYCIN HCL 0.75 GM in IV D5W 250 ML IV SCH (21:49)
--- NOTE | 2022-12-29 23:45 | NUR ---
MS RN NOTE PATIENT NOTED WITH 150 ML RESIDUAL, STOPPED GTUBE FEEDING. WILL REASSESS IN 1 HOUR
--- NOTE | 2022-12-29 23:50 | NUR ---
MS RN NOTE PATIENT COUGHING AND SPO2 = 89%. SUCTIONED PATIENT AND CALLED RT TIESHA FOR PRN BREATHING TX. WILL CONTINUE TO MONITOR
[2022-12-30] VITALS (13 sets, daily range): BP systolic 79–117; BP diastolic 40–50; TEMP 97.5–97.7; O2SAT 91–100
--- NOTE | 2022-12-30 00:45 | NUR ---
MS RN NOTE PATIENT STILL NOTED WITH 125 ML RESIDUAL, STILL HOLDING GTUBE FEEDING AT THIS TIME. WILL REASSESS IN 1 HOUR. PATIENT GRUNTING BUT NO SPUTUM WHEN SUCTIONED, SPO2: 97%
--- NOTE | 2022-12-30 02:00 | NUR ---
MS RN NOTE PATIENT WITH 75 ML RESIDUAL, PATIENT STILL SOUNDS CONGESTED AND COUGHING. GTUBE FEEDING REMAINS OFF AT THIS TIME
[2022-12-30] MEDS: ALBUTEROL FS 2.5 MG/0.5 ML VIAL.NEB NEB SCH ×4 (02:21→20:07)
[2022-12-30] MEDS: IPRATROPIUM NEB FS 0.5 MG/2.5 ML AMPUL.NEB NEB SCH ×4 (02:21→20:07)
[2022-12-30] MEDS: ACETAMINOPHEN 325 MG TABLET PO PRN ×2 (02:54→17:37)
--- NOTE | 2022-12-30 03:18 | NUR ---
MS RN NOTE PATIENT NOTED WITH 50 ML RESIDUAL. PATIENT STILL SOUNDS CONGESTED. PER SHEET METAL WORKER MAINTENANCE CONTINUE TO KEEP GTUBE FEEDING OFF
[2022-12-30] MEDS: IV NS 0.9% 1,000 ML IV PRN ×2 (05:12→18:31)
--- NOTE | 2022-12-30 06:15 | NUR ---
MS RN NOTE PATIENT HAS RESIDUAL OF 25 ML. GTUBE FEEDING GLUCERNA RESUMED AT 50 ML/HR FOR NOW, WILL INCREASE TOLERATED
[2022-12-30 06:22] LABS: CALCIUM, SERUM 8.5 mg/dL (8.5-10.1); POTASSIUM 3.9 mmol/L (3.5-5.1)
--- NOTE | 2022-12-30 06:39 | NUR ---
MS RN CLOSING NOTES PT IN BED, ASLEEP, EASILY ROUSED, A/OX0, RESPONDS TO TACTILE STIMULI. PT IS ON 3LPM OF OXYGEN VIA NC. IV ACCESS AT TIMOTEO MIDLINE #18G, SL, PATENT AND INTACT AND INFUSING WELL WITH NS @ 60 ML/HR. PT WITH G-TUBE, INTACT AND PATENT RUNNING WITH GLUCERNA 1.2 @ 50 ML/HR FOR NOW TILL TOLERATED. ON CHERRI NOTED DRAINING JUANITO COLORED URINE WITH 525ML OUTPUT ON SHIFT. NO S/S OF ACUTE DISTRESS AT THIS TIME. ALL DUE MEDS GIVEN, ALL NEEDS ATTENDED. SAFETY MEASURES ARE IN PLACED: BED IN LOWEST AND LOCKED POSITION, SIDE RAILS UP X3, BED ALARM IS ON. WILL ENDORSE PT TO NEXT SHIFT NURSE FOR GENEVIEVE.
--- NOTE | 2022-12-30 07:00 | NUR ---
MS RN OPENING NOTES RECEIVED PT IN BED,ASLEEP A/OX0, RESPONDING TO PAIN STIMULI.NO SOB OR CARDIAC DISTRESS NOTED. ON 3LPM OF OXYGEN VIA NC. IV ACCESS AT TIMOTEO MIDLINE GAUGE 18, SL, PATENT AND INTACT AND INFUSING WELL WITH NS @ 60 ML/HR. ON G-TUBE FEEDING RUNNING GLUCERNA 1.2 @ 60 ML/HR. ON PUREWICK NOTED DRAINING JUANITO COLORED URINE. SAFETY MEASURES ARE IN PLACED: BED IN LOWEST AND LOCKED POSITION, SIDE RAILS UP X3. WILL MONITOR PT ACCORDINGLY.
--- NOTE | 2022-12-30 07:12 | NUR ---
MS GARCIA OPENING NOTES: RECEIVED PT IN BED, MUMBLING WORDS ABLE TO RESPOND WHEN CALLING HER NAME. AWAKE. NO SOB OR CARDIAC DISTRESS NOTED. BILATERAL SOFT RESTRAINT NOTED. IV ACCESS ON LAC GAUGE 20 PATENT, INTACT AND SALINE LOCKED. SAFETY MEASURES MAINTAINED. BED LOCKED AND IN LOWEST POSITION. SIDE RAILS UP X 2 CALL LIGHT IN EASY REACH AND WILL MONITOR PT ACCORDINGLY. Addendum: 12/31/22 at 0815 by CHARLEEN GARCIA RN error
[2022-12-30] MEDS: Z GUARD REMEDY 4 OZ OINT TP SCH (08:56)
[2022-12-30] MEDS: PROSOURCE / PROSTAT (PYXIS) 30 ML UDC GT SCH (08:56)
[2022-12-30] MEDS: GENTAMICIN OPTH SOLN 0.3% 5 ML BOTTLE EACHEYE SCH ×2 (08:56→17:44)
[2022-12-30] MEDS: LEVOTHYROXINE SODIUM 88 MCG TABLET GT SCH (08:56)
[2022-12-30] MEDS: CARBAMAZEPINE 200 MG TABLET GT SCH ×2 (08:56→20:52)
[2022-12-30] MEDS: HEPARIN SODIUM, PORCINE 5000 UNITS/1 ML VIAL SQ SCH ×2 (08:58→20:53)
[2022-12-30] MEDS: POLYETHYLENE GLYCOL 3350 17 GM POWD.PACK PO SCH (09:00)
[2022-12-30] MEDS: DOCUSATE SODIUM LIQ 100 MG/10 ML UDC PO SCH ×2 (09:00→17:00)
--- NOTE | 2022-12-30 09:07 | NUR ---
pt had loosed bm last night and this AM and hold the bowel regimen.
[2022-12-30] MEDS: CEFEPIME 2 GM in IV D5W 100 ML IV SCH ×2 (09:21→20:47)
[2022-12-30] MEDS ORDERED: VANC750F2 IV (10:33)
[2022-12-30] MEDS ORDERED: CEFE2FRO IV (10:33)
[2022-12-30] MEDS: GLUCERNA 1.2 1,000 ML BOTTLE NG PRN (18:02)
--- NOTE | 2022-12-30 19:00 | NUR ---
MS RN CLOSING NOTES: PT IN BED, MUMBLING WORDS ABLE TO RESPOND WHEN CALLING HER NAME. AWAKE. NO SOB OR CARDIAC DISTRESS NOTED. BILATERAL SOFT RESTRAINT NOTED. IV ACCESS ON LAC GAUGE 20 PATENT, INTACT AND SALINE LOCKED. SAFETY MEASURES MAINTAINED. BED LOCKED AND IN LOWEST POSITION. SIDE RAILS UP X 2 CALL LIGHT IN EASY REACH AND WILL MONITOR PT ACCORDINGLY.WILL ENDORSE TO RUNNING SPECIALIST NURSE FOR CONTINUITY OF CARE. Addendum: 12/30/22 at 1902 by CHARLEEN GARCIA RN ERROR DISCARD
--- NOTE | 2022-12-30 19:04 | NUR ---
MS RN CLOSING NOTES PT IN BED,ASLEEP A/OX0, RESPONDING TO PAIN STIMULI.CAREGIVER AT BED SIDE. NO SOB OR CARDIAC DISTRESS NOTED. ON 3LPM OF OXYGEN VIA NC. IV ACCESS AT TIMOTEO MIDLINE GAUGE 18, SL, PATENT AND INTACT AND INFUSING WELL WITH NS @ 60 ML/HR. ON G-TUBE FEEDING RUNNING GLUCERNA 1.2 @ 60 ML/HR, INITIALLY HAD 40ML RESIDUAL AND AT PROMOTIONS ASSISTANT SALES MARKETING ONLY 20ML. ON PUREWICK NOTED DRAINING JUANITO COLORED URINE. SAFETY MEASURES ARE IN PLACED: BED IN LOWEST AND LOCKED POSITION, SIDE RAILS UP X3. WILL ENDORSE TO PROMOTIONS ASSISTANT SALES MARKETING FOR CONTINUITY OF CARE.
--- NOTE | 2022-12-30 19:30 | NUR ---
MS RN OPENING NOTE RECEIVED PATIENT FROM AM NURSE; PATIENT IN BED, A/O X 0 RESPONDING TO PAIN STIMULI, WITH CAREGIVER AT BEDSIDE; STABLE ON 3LPM OXYGEN VIA NASAL CANNULA, BREATHING EVENLY AND NO S/S OF DISTRESS NOTED; WITH IV ACCESS AT TIMOTEO MIDLINE G#18 INFUSING WELL WITH NORMAL SALINE AT 60 ML/HR; WITH G TUBE IN PLACE RUNNING WITH GLUCERNA 1.2 AT 50 ML/HR; WITH PUREWICK IN PLACE; SAFETY MEASURES IMPLEMENTED, BED LOCKED IN LOWEST POSITION, SIDE RAILS UP X 2, CALL LIGHT AND TABLE WITHIN REACH; WILL CONTINUE TO MONITOR THROUGHOUT SHIFT
[2022-12-30] MEDS: VANCOMYCIN HCL 0.75 GM in IV D5W 250 ML IV SCH (21:49)
[2022-12-31] VITALS (11 sets, daily range): BP systolic 89–128; BP diastolic 48–88; TEMP 97.6–98.6; O2SAT 4–100
[2022-12-31] MEDS: IPRATROPIUM NEB FS 0.5 MG/2.5 ML AMPUL.NEB NEB SCH ×4 (00:36→20:14)
[2022-12-31] MEDS: ALBUTEROL FS 2.5 MG/0.5 ML VIAL.NEB NEB SCH ×4 (00:36→20:14)
[2022-12-31] MEDS: LORAZEPAM INJ 2 MG/ML VIAL IV PRN (04:17)
--- NOTE | 2022-12-31 04:35 | NUR ---
MS RN NOTE PATIENT WAS NOTED TO BE RESTLESS AND AGITATED, O2 SAT WAS 95%. SUCTIONED PATIENT BUT STILL RESTLESS. ADMINISTERED ATIVAN PRN PRESCRIBED, PATIENT TOLERATED WELL AND WAS SEEN CALM UPON REASSESSMENT. WILL CONTINUE TO MONITOR
--- NOTE | 2022-12-31 06:56 | NUR ---
MS RN CLOSING NOTE PATIENT IN BED, A/O X 0, RESPONDING TO PAINFUL STIMULI; STABLE ON 3LPM OXYGEN VIA NASAL CANNULA, BREATHING EVENLY AND NO S/S OF DISTRESS NOTED; WITH IV ACCESS AT TIMOTEO MIDLINE G#18 INTACT AND PATENT, INFUSING WELL WITH NORMAL SALINE AT 60 ML/HR; WITH G TUBE IN PLACE RUNNING WITH GLUCERNA 1.2 AT 50 ML/HR, WITH 20 ML RESIDUAL NOTED; WITH PUREWICK IN PLACE DRAINING YELLOW COLORED URINE APPROXIMATELY 900ML; ADMINISTERED MEDICATIONS PRESCRIBED; PATIENT'S NEEDS ATTENDED; MONITORED ACCORDINGLY; SAFETY MEASURES IMPLEMENTED, BED LOCKED IN LOWEST POSITION, SIDE RAILS UP X 2, CALL LIGHT AND TABLE WITHIN REACH; MAINTAINED HOB ELEVATED; WILL ENDORSE TO AM NURSE FOR GENEVIEVE.
[2022-12-31 07:46] LABS: CALCIUM, SERUM 8.8 mg/dL (8.5-10.1)
--- NOTE | 2022-12-31 08:16 | NUR ---
MS RN OPENING NOTES RECEIVED PT IN BED,ASLEEP A/OX0, RESPONDING TO PAIN STIMULI.NO SOB OR CARDIAC DISTRESS NOTED. ON 3LPM OF OXYGEN VIA NC. IV ACCESS AT TIMOTEO MIDLINE GAUGE 18, SL, PATENT AND INTACT AND INFUSING WELL WITH NS @ 60 ML/HR. ON G-TUBE FEEDING RUNNING GLUCERNA 1.2 @ 60 ML/HR LAST NIGHT WAS HELD. ON PURE WICK NOTED DRAINING YELLOW COLORED URINE. SAFETY MEASURES ARE IN PLACED: BED IN LOWEST AND LOCKED POSITION, SIDE RAILS UP X3. WILL MONITOR PT ACCORDINGLY.
--- NOTE | 2022-12-31 08:43 | NUR ---
INFORMED DR DASILVA- BP 89/48, HR 81 BPM, RR 18, O2 100%. PENDING RESPONSE.
[2022-12-31] MEDS: PROSOURCE / PROSTAT (PYXIS) 30 ML UDC GT SCH (09:19)
[2022-12-31] MEDS: CARBAMAZEPINE 200 MG TABLET GT SCH ×2 (09:19→20:49)
[2022-12-31] MEDS: LEVOTHYROXINE SODIUM 88 MCG TABLET GT SCH (09:19)
[2022-12-31] MEDS: CEFEPIME 2 GM in IV D5W 100 ML IV SCH ×2 (09:19→20:50)
[2022-12-31] MEDS: POLYETHYLENE GLYCOL 3350 17 GM POWD.PACK PO SCH (09:19)
[2022-12-31] MEDS: DOCUSATE SODIUM LIQ 100 MG/10 ML UDC PO SCH ×2 (09:19→16:07)
[2022-12-31] MEDS: GENTAMICIN OPTH SOLN 0.3% 5 ML BOTTLE EACHEYE SCH ×2 (09:20→16:07)
[2022-12-31] MEDS: Z GUARD REMEDY 4 OZ OINT TP SCH (09:21)
--- NOTE | 2022-12-31 16:08 | NUR ---
RN NOTE,HOLD DOCUSATE PATIENT PRESENTED WITH LOOSE DIARRHEA TWO TIMES THIS MORNING,AND FROM THIS ASSESSMENT,DOCUSATE DUE AT 5PM NOT ADMINISTERED, NOTIFIED
[2022-12-31] MEDS: IV NS 0.9% 1,000 ML IV PRN (17:44)
[2022-12-31] MEDS: GLUCERNA 1.2 1,000 ML BOTTLE NG PRN (17:44)
--- NOTE | 2022-12-31 18:49 | NUR ---
MS RN CLOSING NOTES PT IN BED, A/O x0, RESPONDING TO PAIN STIMULI.NO SOB OR CARDIAC DISTRESS NOTED. ON 3LPM OF OXYGEN VIA NC. IV ACCESS AT TIMOTEO MIDLINE GAUGE 18, SL, PATENT AND INTACT AND INFUSING WELL WITH NS @ 60 ML/HR. ON G-TUBE FEEDING RUNNING GLUCERNA 1.2 @ 60 ML/HR LAST NIGHT WAS HELD. ON PURE WICK NOTED DRAINING YELLOW COLORED URINE. SAFETY MEASURES ARE IN PLACE: BED IN LOWEST AND LOCKED POSITION, SIDE RAILS UP X3. WILL ENDORSE TO THE CHANNELER NURSE
--- NOTE | 2022-12-31 19:30 | NUR ---
MS RN OPENING NOTE RECEIVED PATIENT FROM AM NURSE; PATIENT IN BED, A/O X 0, RESPONDING TO PAINFUL STIMULI; STABLE ON 3LPM OXYGEN VIA NASAL CANNULA, BREATHING EVENLY AND NO S/S OF DISTRESS NOTED; WITH IV ACCESS AT TIMOTEO MIDLINE G#18 INFUSING WELL WITH NORMAL SALINE AT 60 ML/HR; WITH G TUBE IN PLACE RUNNING WITH GLUCERNA 1.2 AT 60 ML/HR; WITH PUREWICK IN PLACE DRAINING YELLOW COLORED URINE; SAFETY MEASURES IMPLEMENTED, BED LOCKED IN LOWEST POSITION, SIDE RAILS UP X 2, CALL LIGHT AND TABLE WITHIN REACH; HOB ELEVATED; WILL CONTINUE TO MONITOR THROUGHOUT SHIFT
[2022-12-31] MEDS: VANCOMYCIN HCL 0.75 GM in IV D5W 250 ML IV SCH (21:31)
[2023-01-01] VITALS (11 sets, daily range): BP systolic 92–103; BP diastolic 48–61; TEMP 97.6–98.1; O2SAT 95–100
[2023-01-01] MEDS: IPRATROPIUM NEB FS 0.5 MG/2.5 ML AMPUL.NEB NEB SCH ×4 (01:38→19:31)
[2023-01-01] MEDS: ALBUTEROL FS 2.5 MG/0.5 ML VIAL.NEB NEB SCH ×4 (01:38→19:31)
[2023-01-01] MEDS: ACETAMINOPHEN 325 MG TABLET PO PRN (04:56)
[2023-01-01 06:10] LABS: CALCIUM, SERUM 8.6 mg/dL (8.5-10.1); MAGNESIUM 2.2 mg/dL (1.8-2.4); PHOSPHORUS 3.1 mg/dL (2.5-4.9)
--- NOTE | 2023-01-01 07:30 | NUR ---
MS RN CLOSING NOTE PATIENT IN BED, A/O X 0, RESPONDING TO PAINFUL STIMULI; STABLE ON 3LPM OXYGEN VIA NASAL CANNULA, BREATHING EVENLY AND NO S/S OF DISTRESS NOTED; WITH IV ACCESS AT TIMOTEO MIDLINE G#18 INFUSING WELL WITH NORMAL SALINE AT 60 ML/HR; WITH G TUBE IN PLACE RUNNING WITH GLUCERNA 1.2 AT 60 ML/HR, NO RESIDUAL NOTED; WITH PUREWICK IN PLACE DRAINING YELLOW COLORED URINE APPROXIMATELY 800ML; ADMINISTERED MEDICATIONS PRESCRIBED; PATIENT'S NEEDS ATTENDED; KEPT DRY AND COMFORTABLE; REPOSITIONED AND TURNED ACCORDINGLY; WOUND CARE DONE; SAFETY MEASURES IMPLEMENTED, BED LOCKED IN LOWEST POSITION, SIDE RAILS UP X 2, CALL LIGHT AND TABLE WITHIN REACH; HOB ELEVATED; WILL ENDORSE TO AM NURSE FOR GENEVIEVE.
--- NOTE | 2023-01-01 07:40 | NUR ---
RN OPENING NOTE PATIENT ASLEEP IN BED, RESTING. APPEARS COMFORTABLE. A/OX0, NON VERBAL AND OPENS EYES. NO SIGNS AND SYMPTOM OF PAIN NOTED AT THIS TIME. ON 3L OF O2 VIA NC. NOT IN RESPIRATORY DISTRESS. IV ACCESS OF G18 MIDLINE ON RIGHT UPPER ARM, WITH N/S RUNNING AT 60ML/HR INFUSING WELL. WITH GTUBE AND HAS GLUCERNA 1.2 RUNNING AT 60ML/HR. PATIENT ON PUREWICK. FALL AND SAFETY MEASURES IN PLACE. BED ALARM ON. BED IN LOW AND LOCKED POSITION. CALL LIGHT AND TABLE WITHIN EASY REACH. SIDE RAILS UP X2. WILL CONTINUE TO MONITOR.
[2023-01-01] MEDS: CEFEPIME 2 GM in IV D5W 100 ML IV SCH (08:46)
[2023-01-01] MEDS: POLYETHYLENE GLYCOL 3350 17 GM POWD.PACK PO SCH (08:52)
[2023-01-01] MEDS: DOCUSATE SODIUM LIQ 100 MG/10 ML UDC PO SCH ×2 (08:52→17:43)
[2023-01-01] MEDS: LEVOTHYROXINE SODIUM 88 MCG TABLET GT SCH (08:52)
[2023-01-01] MEDS: CARBAMAZEPINE 200 MG TABLET GT SCH ×2 (08:52→21:26)
[2023-01-01] MEDS: PROSOURCE / PROSTAT (PYXIS) 30 ML UDC GT SCH (08:52)
[2023-01-01] MEDS: GENTAMICIN OPTH SOLN 0.3% 5 ML BOTTLE EACHEYE SCH ×2 (08:53→17:39)
[2023-01-01] MEDS: Z GUARD REMEDY 4 OZ OINT TP SCH (08:53)
[2023-01-01 09:24] LABS: BASOPHILS # (AUTO) 0.1 K/uL (0.0-0.2); BASOPHILS % (AUTO) 0.5 % (0.0-2.0); EOSINOPHILS % (AUTO) 1.2 % (0.0-6.0); HEMATOCRIT 28 % (33-45); HEMOGLOBIN 9.1 g/dL (11.5-14.8); LYMPHOCYTES # (AUTO) 2.1 K/uL (0.8-4.8); LYMPHOCYTES % (AUTO) 16.2 % (20.0-44.0); MEAN CORPUSCULAR HGB CONC 32 g/dl (31.0-36.0); MEAN CORPUSCULAR VOLUME 104 fL (82-100); MONOCYTES # (AUTO) 1.1 K/uL (0.1-1.30); MONOCYTES % (AUTO) 8.3 % (2.0-12.0); NEUTROPHILS # (AUTO) 9.6 K/uL (1.8-8.9); NEUTROPHILS % (AUTO) 73.8 % (43.0-81.0); PLATELET COUNT (AUTO) 293 K/uL (150-450); RED BLOOD CELL COUNT(AUTO) 2.71 MIL/uL (4.0-5.2); WHITE BLOOD COUNT (AUTO) 13.1 K/uL (4.3-11.0)
[2023-01-01] MEDS: GLUCERNA 1.2 1,000 ML BOTTLE NG PRN (12:48)
[2023-01-01] MEDS: IV NS 0.9% 1,000 ML IV PRN (12:53)
--- NOTE | 2023-01-01 18:36 | NUR ---
RN CLOSING NOTES PT IN BED, A/O x O, PATIENT APHASIC, BUT HAS SPONTANEOUS EYE OPENING. NO SOB OR CARDIAC DISTRESS NOTED. ON 4LPM OF OXYGEN VIA NC. IV ACCESS AT TIMOTEO MIDLINE GAUGE 18, PATENT AND INTACT AND INFUSING WELL WITH NS @ 60 ML/HR. ON G-TUBE FEEDING RUNNING GLUCERNA 1.2 @ 60 ML/HR. ON PURE WICK NOTED DRAINING YELLOW COLORED URINE, OUTPUT 450ML. SAFETY MEASURES ARE IN PLACE: BED IN LOWEST AND LOCKED POSITION, SIDE RAILS UP X4. WILL ENDORSE TO THE SAP SECURITY ARCHITECT NURSE
[2023-01-01] MEDS: LORAZEPAM INJ 2 MG/ML VIAL IV PRN (19:11)
--- NOTE | 2023-01-01 19:26 | NUR ---
RN NOTE PATIENT HAD A COUGHING FIT, CONGESTED AND COUGHING OUT. SHAKING AND UNABLE TO SETTLE. RT IN TO DO BREATHING TREATMENTS. SUCTION DONE. ATIVAN PRN GIVEN. WILL ENDORSE TO FUR TINTER NURSE.
--- NOTE | 2023-01-01 19:30 | NUR ---
MS RN OPENING NOTE RECEIVED PATIENT FROM AM NURSE; PATIENT IN BED, A/O X 0, RESPONDING TO PAINFUL STIMULI; STABLE ON 4LPM OXYGEN VIA NASAL CANNULA, SOUNDS CONGESTED BUT RT WAS CALLED TO SUCTION PATIENT; WITH IV ACCESS AT TIMOTEO MIDLINE G#18 INFUSING WELL WITH NORMAL SALINE AT 60 ML/HR; WITH G TUBE IN PLACE RUNNING WITH GLUCERNA 1.2 AT 40 ML/HR BUT GOAL IS 60ML/HR; WITH PUREWICK IN PLACE DRAINING YELLOW COLORED URINE; SAFETY MEASURES IMPLEMENTED, BED LOCKED IN LOWEST POSITION, SIDE RAILS UP X 2, CALL LIGHT AND TABLE WITHIN REACH; HOB ELEVATED; WILL CONTINUE TO MONITOR THROUGHOUT SHIFT
[2023-01-01] MEDS: VANCOMYCIN HCL 0.75 GM in IV D5W 250 ML IV SCH (21:00)
[2023-01-02] VITALS (11 sets, daily range): BP systolic 95–118; BP diastolic 40–55; TEMP 98.2–98.6; O2SAT 92–100
[2023-01-02] MEDS: ALBUTEROL FS 2.5 MG/0.5 ML VIAL.NEB NEB SCH ×4 (01:37→20:29)
[2023-01-02] MEDS: IPRATROPIUM NEB FS 0.5 MG/2.5 ML AMPUL.NEB NEB SCH ×4 (01:37→20:29)
[2023-01-02] MEDS: IV NS 0.9% 1,000 ML IV PRN (04:49)
[2023-01-02 06:24] LABS: BASOPHILS % (AUTO) 0.1 % (0.0-2.0); EOSINOPHILS % (AUTO) 0.2 % (0.0-6.0); HEMATOCRIT 28 % (33-45); HEMOGLOBIN 8.9 g/dL (11.5-14.8); LYMPHOCYTES # (AUTO) 1.8 K/uL (0.8-4.8); LYMPHOCYTES % (AUTO) 8.2 % (20.0-44.0); MEAN CORPUSCULAR HGB CONC 31 g/dl (31.0-36.0); MEAN CORPUSCULAR VOLUME 106 fL (82-100); MONOCYTES # (AUTO) 1.5 K/uL (0.1-1.30); MONOCYTES % (AUTO) 6.8 % (2.0-12.0); NEUTROPHILS # (AUTO) 18.3 K/uL (1.8-8.9); NEUTROPHILS % (AUTO) 84.7 % (43.0-81.0); PLATELET COUNT (AUTO) 295 K/uL (150-450); RED BLOOD CELL COUNT(AUTO) 2.67 MIL/uL (4.0-5.2); WHITE BLOOD COUNT (AUTO) 21.6 K/uL (4.3-11.0)
[2023-01-02 06:43] LABS: CALCIUM, SERUM 8.8 mg/dL (8.5-10.1); PHOSPHORUS 2.9 mg/dL (2.5-4.9); POTASSIUM 3.9 mmol/L (3.5-5.1)
--- NOTE | 2023-01-02 06:53 | NUR ---
MS RN CLOSING NOTE PATIENT IN BED, A/O X 0, RESPONDING TO PAINFUL STIMULI; STABLE ON 4LPM OXYGEN VIA NASAL CANNULA, BREATHING EVENLY AND NO S/S OF DISTRESS NOTED; WITH IV ACCESS AT TIMOTEO MIDLINE G#18 INFUSING WELL WITH NORMAL SALINE AT 60 ML/HR; WITH G TUBE IN PLACE RUNNING WITH GLUCERNA 1.2 AT 40 ML/HR; WITH PUREWICK IN PLACE DRAINING YELLOW COLORED URINE APPROXIMATELY 600ML; ADMINISTERED MEDICATIONS PRESCRIBED; PATIENT'S NEEDS ATTENDED; KEPT DRY AND COMFORTABLE; REPOSITIONED AND TURNED ACCORDINGLY; WOUND CARE DONE; SUCTIONED BY RT NEEDED; SAFETY MEASURES IMPLEMENTED, BED LOCKED IN LOWEST POSITION, SIDE RAILS UP X 2, CALL LIGHT AND TABLE WITHIN REACH; HOB ELEVATED; WILL ENDORSE TO AM NURSE FOR GENEVIEVE
[2023-01-02 08:36] LABS: MAGNESIUM 2.4 mg/dL (1.8-2.4)
[2023-01-02] MEDS: PROSOURCE / PROSTAT (PYXIS) 30 ML UDC GT SCH (08:47)
[2023-01-02] MEDS: CARBAMAZEPINE 200 MG TABLET GT SCH ×2 (08:47→20:12)
[2023-01-02] MEDS: LEVOTHYROXINE SODIUM 88 MCG TABLET GT SCH (08:47)
[2023-01-02] MEDS: GENTAMICIN OPTH SOLN 0.3% 5 ML BOTTLE EACHEYE SCH ×2 (08:47→16:43)
[2023-01-02] MEDS: POLYETHYLENE GLYCOL 3350 17 GM POWD.PACK PO SCH (08:48)
[2023-01-02] MEDS: DOCUSATE SODIUM LIQ 100 MG/10 ML UDC PO SCH ×2 (09:12→16:41)
[2023-01-02] MEDS: Z GUARD REMEDY 4 OZ OINT TP SCH (09:12)
[2023-01-02] MEDS ORDERED: FUROSEMIDE 20 MG/2 ML VIAL IV ONE (09:30)
--- NOTE | 2023-01-02 09:44 | NUR ---
MS OPENING NOTE 325-1 RECEIVED PATIENT RESTFUL IN BED A&O x1,SATURATING WELL ON 02 2L VIA NC,ON ASSESSMENT CHEST IS WET,MD INFORMED ,LASIX ORDER PLACED,NO SOB NOTED WHATSOEVER ,PATIENT APPEARS TO BE COMFORTABLE,NO S/S OF PAIN OR DISCOMFORT NOTED.PATIENT IS TUBE FEEDING,GLUCERNA INFUSING AT 6OML/HR,G TUBE IS INTACT,THE SITE IS CLEAN. HAS AN IV ACCESS ON THE TIMOTEO ,INTACT AND INFUSING,ON NS 60ML/HR.HAS A PURE WICK AND DRAINING ON SKIN ASSESSMENT SHE HAS SACRAL &PERINEAL REDNESS ,SAFETY MEASURES IN PLACE,BED IN LOW POSITION &LOCKED,BED RAILS x3 CALL FREITAS AND TABLE WITHIN REACH,CONTINUES WITH CURRENT PLAN OF CARE,CLOSE MONITORING,HOURLY ROUNDING/PRN
[2023-01-02] MEDS ORDERED: VANCOMYCIN HCL 0.75 GM in IV D5W 250 ML IV SCH (16:00)
--- NOTE | 2023-01-02 18:47 | NUR ---
MS RN CLOSING NOTE PATIENT RESTFUL IN BED A&O x1,SATURATING WELL ON 02 2L VIA NC,PATIENT APPEARS TO BE COMFORTABLE,NO S/S OF PAIN OR DISCOMFORT NOTED.SUNCTIONING DONE,ALICIA ON HOLD DUE WET CHEST,LASIX WAS ADMINISTERED AND OUTPUT IS AT 700MLS.PATIENT IS TUBE FEEDING,GLUCERNA INFUSING AT 6OML/HR,G TUBE IS INTACT,THE SITE IS CLEAN. HAS AN IV ACCESS ON THE TIMOTEO ,INTACT AND SALINE LOCK.HAS A PURE WICK AND DRAINING. SHE HAS SACRAL &PERINIAL REDNESS ,PAC AND TURNING DONE 2HOURLY /PRN.SAFETY MEASURES IN PLACE,BED IN LOW POSITION &LOCKED,BED RAILS x3 CALL FREITAS AND TABLE WITHIN REACH.WILL ENDORSE TO THE NIGHT NURSE
--- NOTE | 2023-01-02 19:25 | NUR ---
MS RN NOTES RECEIVED PT IN BED, A/O X0. PT ON NASAL CANULA @ 4L, TOLERATING WELL, NO S/S OF SOB. PT IV ACCESS ON TIMOTEO ML ON SL, INTACT, PATENT AND FLUSHING WELL. PT WITH GTUBE, RUNNING GLUCERNA @40ML/HR. PT ON PUREWICK, DRAINING URINE BY SUCTION. SAFETY PRECAUTIONS IN PLACED, BED AT LOWEST, LOCKED POSITION, HOB ELEVATED, SIDE RAILS UP X3, CALL LIGHT AND TABLE WITHIN REACH. ALL NEEDS MET AT THIS TIME, WILL CONTINUE TO MONITOR.
[2023-01-02] MEDS: PIPERACILLIN /TAZOBACTAM 3.375 G in IV D5W 50 ML IV SCH (20:30)
[2023-01-03] VITALS (8 sets, daily range): BP systolic 107–116; BP diastolic 56–64; TEMP 97.8–98.2; O2SAT 96–99
--- NOTE | 2023-01-03 00:11 | NUR ---
RN NOTE URINE COLLECTED FOR CULTURE VIA STRAIGHT CATH PER MD ORDER. STERILE TECHNIQUE MAINTAINED. LAB CALLED FOR SAMPLE PICKUP.
[2023-01-03] MEDS: ALBUTEROL FS 2.5 MG/0.5 ML VIAL.NEB NEB SCH ×3 (01:49→12:43)
[2023-01-03] MEDS: IPRATROPIUM NEB FS 0.5 MG/2.5 ML AMPUL.NEB NEB SCH ×3 (01:49→12:36)
[2023-01-03] MEDS: GLUCERNA 1.2 1,000 ML BOTTLE NG PRN (02:40)
[2023-01-03] MEDS: PIPERACILLIN /TAZOBACTAM 3.375 G in IV D5W 50 ML IV SCH (04:39)
[2023-01-03 05:59] LABS: BASOPHILS % (AUTO) 0.4 % (0.0-2.0); HEMATOCRIT 27 % (33-45); HEMOGLOBIN 8.7 g/dL (11.5-14.8); LYMPHOCYTES # (AUTO) 1.9 K/uL (0.8-4.8); LYMPHOCYTES % (AUTO) 17.5 % (20.0-44.0); MEAN CORPUSCULAR HGB CONC 33 g/dl (31.0-36.0); MEAN CORPUSCULAR VOLUME 102 fL (82-100); NEUTROPHILS # (AUTO) 7.6 K/uL (1.8-8.9); NEUTROPHILS % (AUTO) 72.1 % (43.0-81.0); PLATELET COUNT (AUTO) 268 K/uL (150-450); WHITE BLOOD COUNT (AUTO) 10.6 K/uL (4.3-11.0)
[2023-01-03 06:18] LABS: CALCIUM, SERUM 9.4 mg/dL (8.5-10.1); CARBON DIOXIDE 33 mmol/L (21-32); CHLORIDE 104 mmol/L (98-107); CREATININE 1.4 mg/dL (0.6-1.3); GLUCOSE 133 mg/dL (74-106); MAGNESIUM 2.4 mg/dL (1.8-2.4); PHOSPHORUS 3.8 mg/dL (2.5-4.9); POTASSIUM 3.7 mmol/L (3.5-5.1); SODIUM SERUM 142 mmol/L (136-145); UREA NITROGEN, BLOOD 38 mg/dL (7-18)
--- NOTE | 2023-01-03 06:32 | NUR ---
MS RN CLOSING NOTES PT IN BED, ASLEEP, A/O X0. PT ON NASAL CANULA @ 4L, TOLERATING WELL, NO S/S OF SOB. PT IV ACCESS ON TIMOTEO ML ON SL, INTACT, PATENT AND FLUSHING WELL. PT WITH GTUBE, RUNNING GLUCERNA @40ML/HR. PT ON PUREWICK, DRAINING URINE BY SUCTION. WOUND CARE RENDERED, KEPT CLEAN AND DRY, TURNED AND REPOSITION PT. ALL DUE MEDS GIVEN, ALL NEEDS ATTENDED. NO S/S OF ACUTE DISTRESS AT THIS TIME. SAFETY PRECAUTIONS IN PLACED, BED AT LOWEST, LOCKED POSITION, HOB ELEVATED, SIDE RAILS UP X3, CALL LIGHT AND TABLE WITHIN REACH. WILL ENDORSE TO ONCOMING NURSE FOR GENEVIEVE.
--- NOTE | 2023-01-03 07:59 | NUR ---
MS RN NOTES PT IN BED, ASLEEP, A/O X0. PT ON NASAL CANULA @ 4L, TOLERATING WELL, NO S/S OF SOB. PT IV ACCESS ON TIMOTEO ML ON SL, INTACT, PATENT AND FLUSHING WELL. PT WITH GTUBE, RUNNING GLUCERNA @40ML/HR. PT ON PUREWICK, DRAINING URINE BY SUCTION. NO S/S OF ACUTE DISTRESS AT THIS TIME. SAFETY PRECAUTIONS IN PLACED, BED AT LOWEST, LOCKED POSITION, HOB ELEVATED, SIDE RAILS UP X3, CALL LIGHT AND TABLE WITHIN REACH. WILL CONTINUE TO MONITOR.
[2023-01-03] MEDS ORDERED: VANCOMYCIN HCL 0.75 GM in IV D5W 250 ML IV SCH ×2 (08:00→14:00)
[2023-01-03] MEDS: POLYETHYLENE GLYCOL 3350 17 GM POWD.PACK PO SCH (08:42)
[2023-01-03] MEDS: CARBAMAZEPINE 200 MG TABLET GT SCH (08:42)
[2023-01-03] MEDS: LEVOTHYROXINE SODIUM 88 MCG TABLET GT SCH (08:43)
[2023-01-03 08:57] LABS: LYMPHOCYTES % (MANUAL) 24 % (16-48); MONOCYTES % (MANUAL) 5 % (0-11.0); NEUTROPHILS % (MANUAL) 71 (42-76)
[2023-01-03] MEDS: DOCUSATE SODIUM LIQ 100 MG/10 ML UDC PO SCH (08:59)
[2023-01-03] MEDS: PROSOURCE / PROSTAT (PYXIS) 30 ML UDC GT SCH (08:59)
[2023-01-03] MEDS: GENTAMICIN OPTH SOLN 0.3% 5 ML BOTTLE EACHEYE SCH (09:40)
[2023-01-03] MEDS: Z GUARD REMEDY 4 OZ OINT TP SCH (09:41)
--- NOTE | 2023-01-03 09:58 | NUR ---
RN NOTE VANCO TROUGH STILL PENDING RESULT, PER LAB DEPT, MACHINE IS DOWN AND WILL TAKE AWHILE TO GET THE RESULT. WILL FOLLOW UP ON THIS. VANCO 0800 NOT GIVEN YET. PER PHARMACY TO WAIT FOR VANCO TROUGH RESULT FIRST.
[2023-01-03] MEDS ORDERED: ZOSYN IVPB 3.375 G in IV D5W 50ml IV SCH (12:00)
[2023-01-03] MEDS ORDERED: FUROSEMIDE 20 MG/2 ML VIAL IV SCH (16:00)
--- NOTE | 2023-01-03 16:00 | NUR ---
RN NOTE CXR AND ABDOMEN XRAY RESULT HAS BEEN RELAYED TO DR. DASILVA, NO NEW ORDERS MADE.
[2023-01-03] MEDS ORDERED: PIPE3.379 IV (16:14)
--- NOTE | 2023-01-03 17:48 | NUR ---
DISCHARGED NOTE DISCHARGED PATIENT TO [facility] IN STABLE CONDITION. VITALS TAKEN, STABLE AND RECORDED. PATIENT IS A/OX0, NON VERBAL. ON OXYGEN AT 4LPM VIA NC, TOLERATING WELL. NO CARDIAC OR RESPIRATORY DISTRESS NOTED. ALL BELONGINGS ACCOUNTED TO THE PATIENT, DISCHARGED INSTRUCTIONS REPORTED TO MS. FERNANDEZ OF THE [facility]. NOTIFIED DR. DASILVA OF THE CHANGES IN ANTIBIOTIC, PER DR. DASILVA HE WILL TAKE CARE OF IT HE WILL BE THE ATTENDING DOCTOR IN THE [facility]. ALL NEEDS ATTENDED, PATIENT KEPT CLEAN AND COMFORTABLE. LEFT THE UNIT VIA GURNEY ACCOMPANIED BY AMBULANCE STAFF AND CAREGIVER. .
== END 2023-01-03 17:00 | DRG 871 ==
LOC: ER 16:28 → TELE 20:53 → MED 12-25 11:19
PROVIDERS: ADMIT Internal Medicine; ATTEND Internal Medicine
PROC: 05H533Z Insertion of Infusion Device into Right Subclavian Vein, Percutaneous Approach (ICD-10-PCS; principal; 2022-12-25)
PROC: B546ZZA Ultrasonography of Right Subclavian Vein, Guidance (ICD-10-PCS; 2022-12-25)
DX: A41.9 Sepsis, unspecified organism (principal); J15.6 Pneumonia due to other Gram-negative bacteria; J96.01 Acute respiratory failure with hypoxia; N17.0 Acute kidney failure with tubular necrosis; J69.0 Pneumonitis due to inhalation of food and vomit; G93.49 Other encephalopathy; E87.20 Acidosis, unspecified; E87.0 Hyperosmolality and hypernatremia; R65.20 Severe sepsis without septic shock; E03.9 Hypothyroidism, unspecified; E86.0 Dehydration; I10 Essential (primary) hypertension; K56.41 Fecal impaction; K57.30 Diverticulosis of large intestine without perforation or abscess without bleeding; Q90.9 Down syndrome, unspecified; R13.10 Dysphagia, unspecified; Z93.1 Gastrostomy status; L89.156 Pressure-induced deep tissue damage of sacral region; L98.8 Other specified disorders of the skin and subcutaneous tissue; G40.909 Epilepsy, unspecified, not intractable, without status epilepticus; E83.51 Hypocalcemia; E83.39 Other disorders of phosphorus metabolism; Z20.822 Contact with and (suspected) exposure to COVID-19
CPT/HCPCS: 31720; 36415; 36600; 71045-TC; 74018; 80048-TC; 80053-TC; 80076-TC; 80202-TC; 81001; 82803-TC; 83605-TC; 83735-TC; 83880; 84100-TC; 84484-TC; 85025-TC; 85730-TC; 87040-TC; 87086-TC; 93307-TC; 94799-TC; A4223; A6403; G0378; J0692; J1644; J1940; J2060; J2543; J3370; J7030; J7060